=== PATIENT | male | born 1975 | race Caucasian/White ===

== ENCOUNTER 2016-11-28 00:31 | Inpatient (IN) | payer OTHER ==
[2016-11-28] VITALS (7 sets, daily range): BP systolic 118–132; BP diastolic 56–64; PULSE 67–87; RESP 19–20; TEMP 98.2; Ht 172.7 cm; Wt 167.2 kg
[~2016-11-28] VITALS: Ht 172.7 cm; Wt 167.2 kg
[~2016-11-28 00:31] MED LIST: FURO40TA4 PO; POTA20TA96 PO
[2016-11-28] MEDS ORDERED: ONDANSETRON 4 MG INJ IV STA (01:43)
[2016-11-28] MEDS ORDERED: morphine 4 MG/ML VIAL IV STA (01:43)
[2016-11-28] MEDS ORDERED: NITROGLYCERIN 2% 1 GM OINT PKT TD STA (01:43)
[2016-11-28] MEDS ORDERED: ASPIRIN 81 MG TAB PO STA (01:43)
[2016-11-28 02:29] LABS: ADD SCAN DIFF NO
[2016-11-28 02:36] LABS: BASOPHIL # 0.1 10^3/ul (0.0-0.1); BASOPHILS % 0.4 % (0.0-2.0); EOSINOPHILS # 0.3 10^3/ul (0.0-0.5); HEMATOCRIT 43.2 % (42.0-52.0); HEMOGLOBIN 14.1 g/dl (14.0-18.0); LYMPHOCYTES # 2.5 10^3/ul (0.8-2.9); LYMPHOCYTES % 19.7 % (15.0-51.0); MEAN CORPUSCULAR HEMOGLOBIN 25.9 pg (29.0-33.0); MEAN CORPUSCULAR HGB CONC 32.6 g/dl (32.0-37.0); MEAN CORPUSCULAR VOLUME 79.4 fl (82.0-101.0); MEAN PLATELET VOLUME 10.4 fl (7.4-10.4); MONOCYTE # 1.1 10^3/ul (0.3-0.9); MONOCYTES % 8.3 % (0.0-11.0); NEUTROPHIL # 8.7 10^3/ul (1.6-7.5); NEUTROPHILS % 69.2 % (39.0-77.0); PLATELET COUNT 260 10^3/UL (140-415); RED BLOOD COUNT 5.44 10^6/ul (4.70-6.10); RED CELL DISTRIBUTION WIDTH 14.8 % (11.5-14.5); WHITE BLOOD COUNT 12.6 10^3/ul (4.8-10.8)
[2016-11-28 02:50] LABS: ALBUMIN 4.2 g/dl (3.3-4.9)
[2016-11-28 02:51] LABS: POTASSIUM 3.9 mmol/L (3.5-5.1)
[2016-11-28 02:53] LABS: ALBUMIN/GLOBULIN RATIO 1.05; BILIRUBIN,INDIRECT 0.3 mg/dl (0-1.1); BILIRUBIN,TOTAL 0.3 mg/dl (0.2-1.3); CREATININE 1.14 mg/dl (0.61-1.24); TOTAL PROTEIN 8.2 g/dl (6.1-8.1)
[2016-11-28 02:54] LABS: CALCIUM 9.4 mg/dl (8.4-10.2)
[2016-11-28 03:07] LABS: TROPONIN-I 0.046 ng/ml (0.00-0.12)
[2016-11-28 03:13] LABS: INR 0.96; PROTIME 12.8 Sec (12.2-14.2)
--- NOTE | 2016-11-28 03:15 | RADRPT ---
PROCEDURE: XR Chest. CLINICAL INDICATION: Chest pain. TECHNIQUE: Single frontal view of the chest was obtained COMPARISON: 08/22/2016 and 08/21/2016. FINDINGS: Cardiomegaly. Portable technique and patient body habitus accentuate pulmonary vascular markings. Mild pulmonary vascular congestion and patchy air space disease, new over interval since 08/22/2016 and decreased over interval since 08/21/2016. Generally, lung inflation on today's examination is improved over interval since prior examinations. There is no pleural effusion or pneumothorax. IMPRESSION: Mild failure. RPTAT: [facility] Physician Filemon Date Time Electronically viewed and signed by Physician Filemon on 11/28/2016 03:14 RS/
--- NOTE | 2016-11-28 04:06 | ERA ---
ER Documentation Chief Complaint Date/Time DATE: 11/28/16 TIME: 04:05 Chief Complaint chest pain since 2 hours ago HPI This is a 40-year-old male has had chest pain since 2 hours ago on and off. Also complains of mild shortness breath. Chest pain is left-sided, pressure- like, substernal, nonexertional positional no exacerbating or alleviating factors. Mild shortness of breath associated. No diaphoresis. Denies any leg swelling. Patient does have history of CHF. EMR was reviewed. ROS All systems reviewed and are negative except as per history of present illness. Medications Home Meds Active Scripts Potassium Chloride* (Potassium Chloride*) 20 Meq Tablet.er, 20 MEQ PO DAILY for 30 Days, TAB.SA Prov:KATIE BERMUDEZ BATCH MIXER 08/26/16 Furosemide* (Furosemide*) 40 Mg Tablet, 40 MG PO BID for 30 Days, TAB Prov:KATIE BERMUDEZ BATCH MIXER 08/26/16 Allergies Allergies: Coded Allergies: No Known Allergy (Unverified , 09/28/15) PMhx/Soc Medical and Surgical Hx: pt denies Surgical Hx History of Surgery: No Anesthesia Reaction: No Hx Neurological Disorder: No Hx Respiratory Disorders: Yes (Sleep Apnea) Hx Cardiac Disorders: Yes (Hypertension, Heart murmur, AORTIC STENOSIS) Hx Psychiatric Problems: No Hx Miscellaneous Medical Probl: No Hx Alcohol Use: Yes (Socially) Hx Substance Use: No Hx Tobacco Use: Yes Smoking Status: Former smoker Physical Exam Vitals Vital Signs Date Time Temp Pulse Resp B/P Pulse Ox O2 Delivery O2 Flow Rate FiO2 11/28/16 03:09 98.0 81 20 111/66 94 Room Air 11/28/16 01:46 Nasal Cannula 11/28/16 00:34 97.8 77 20 182/84 96 Physical Exam Const: [] Head: Atraumatic Eyes: Normal Conjunctiva ENT: Normal External Ears, Nose and Mouth. Neck: Full range of motion..~ No meningismus. Resp: Clear to auscultation bilaterally Cardio: Regular rate and rhythm, no murmurs Abd: Soft, non tender, non distended. Normal bowel sounds Skin: No petechiae or rashes Back: No midline or flank tenderness Ext: No cyanosis, or edema Neur: Awake and alert Psych: Normal Mood and Affect Result Diagram: 11/28/1615411/28/16154 Results 24 hrs Laboratory Tests Test 11/28/16 01:55 White Blood Count 12.610^3/ul Red Blood Count 5.4410^6/ul Hemoglobin 14.1g/dl Hematocrit 43.2% Mean Corpuscular Volume 79.4fl Mean Corpuscular Hemoglobin 25.9pg Mean Corpuscular Hemoglobin Concent 32.6g/dl Red Cell Distribution Width 14.8% Platelet Count 08248^3/UL Mean Platelet Volume 10.4fl Neutrophils % 69.2% Lymphocytes % 19.7% Monocytes % 8.3% Eosinophils % 2.0% Basophils % 0.4% Nucleated Red Blood Cells % 0.0/100WBC Neutrophils # 8.710^3/ul Lymphocytes # 2.510^3/ul Monocytes # 1.110^3/ul Eosinophils # 0.310^3/ul Basophils # 0.110^3/ul Nucleated Red Blood Cells # 0.010^3/ul Prothrombin Time 12.8Sec Prothrombin Time Ratio 1.0 INR International Normalized Ratio 0.96 Activated Partial Thromboplast Time 31.0Sec Sodium Level 140mmol/L Potassium Level 3.9mmol/L Chloride Level 103mmol/L Carbon Dioxide Level 26mmol/L Anion Gap 15 Blood Urea Nitrogen 20mg/dl Creatinine 1.14mg/dl Glucose Level 119mg/dl Calcium Level 9.4mg/dl Total Bilirubin 0.3mg/dl Direct Bilirubin 0.00mg/dl Indirect Bilirubin 0.3mg/dl Aspartate Amino Transf (AST/SGOT) 31IU/L Alanine Aminotransferase (ALT/SGPT) 29IU/L Alkaline Phosphatase 60IU/L Troponin I 0.046ng/ml B-Type Natriuretic Peptide 696PG/ML Total Protein 8.2g/dl Albumin 4.2g/dl Globulin 4.00g/dl Albumin/Globulin Ratio 1.05 Lipase 35U/L Current Medications Medications (Trade) Dose Ordered Sig/Ana Maria Route PRN Reason Start Time Stop Time Status Last Admin Dose Admin Aspirin (Aspirin) 162 mg ONCE STAT PO 11/28/16 01:43 11/28/16 01:44 DC 11/28/16 02:12 Nitroglycerin (Nitroglycerin 2% Oint) 1 inch ONCE STAT TD 11/28/16 01:43 11/28/16 01:44 DC 11/28/16 02:13 Morphine Sulfate (morphine) 4 mg ONCE STAT IV 11/28/16 01:43 11/28/16 01:44 DC 11/28/16 02:13 Ondansetron HCl (Zofran Inj) 4 mg ONCE STAT IV 11/28/16 01:43 11/28/16 01:44 DC 11/28/16 02:12 Procedures/MDM EKG: Rate/Rhythm: [Normal Sinus Rhythm] QRS, ST, T-waves: [No changes consistent w/ acute ischemia] Impression: [No evidence of ischemia or arrhythmia] Chest X-ray 1V Interpreted by me: Soft Tissue: No acute abnormalities Bones: No acute abnormalities Mediastinum/Cardiac Silhouette/Lungs: Increased interstitial fluid markings. Impression: CHF Patient's heart failure symptoms is concerning for acute decompensation and will require inpatient workup and monitoring. Further w/u for ischemia, arrhythmia, PE or dissection will be deferred to the inpatient team. Accepting Care Team: Current data and ongoing care discussed. Time: 3 AM Primary Provider: Hospitalist Consulting: [XOXOXO] Outstanding Data: none Departure Diagnosis: Primary Impression: Chest pain Qualified Code: I20.0 - Unstable angina pectoris Condition: Serious ADALGISA NEWTON Nov 28, 2016 04:06
--- NOTE | 2016-11-28 06:00 | HP ---
DATE OF ADMISSION: 11/28/2016 HISTORY OF PRESENT ILLNESS: The patient is a 40-year-old male with a history of severe aortic steno sis, obesity with a BMI of 50, obstructive sleep apnea, and hypertension who presented to the emerge ncy department complaining of left-sided chest pain. Pain has been going on for 1 hour. Described the pain as sharp, left-sided, with no radiation. He also reported chronic shortness of breath. He denied any nausea, vomiting, palpitations, lightheadedness, or diaphoresis. He did, however, compl ain of headache. The patient was admitted here about 3 months ago after he presented with shortness of breath. At that time, he was found to have severe aortic stenosis. He underwent left and right heart catheterization which confirmed severe aortic stenosis. Subsequently, he was evaluated by Dr Jennifer Ray, cardiothoracic surgeon, who recommended transferring the patient to a higher level facilit given his comorbidities including his significant obesity. At that time, the patient, however, de cided to leave the hospital instead of being transferred saying that he will attempt aggressive risk reduction including losing weight. At that time, as per cardiothoracic surgery, he had a 50% two y ear mortality based on his severe aortic stenosis. The patient stated that he [place] [facility] [place] to the [place], blood pressure 182/84, heart rate 77, respiratory rate 20, temperature 97.8, oxygen saturation 96% on room air. His laboratory value shows that his first troponin is nega tive. BNP is almost 700. WBC 12.6. Otherwise, CBC and CMP are within acceptable range. Chest x-r ay shows mild pulmonary vascular congestion and patchy airspace disease. EKG shows normal sinus rhy thm with no ST elevation or depression. He was given aspirin, nitroglycerin, morphine, and Zofran w hile he was in the ER. REVIEW OF SYSTEMS: A 12-point review of systems was performed an negative except as mentioned in HP I. PAST MEDICAL HISTORY: As per HPI. PAST SURGICAL HISTORY: As per HPI. SOCIAL HISTORY: Drinks alcohol occasionally. ALLERGIES: NO KNOWN DRUG ALLERGIES. HOME MEDICATIONS: 1. Lasix 40 mg twice a day. 2. Potassium 20 mg daily. PHYSICAL EXAMINATION: VITAL SIGNS: Blood pressure 111/66, heart rate 81, respiratory rate 20, temperature 98, oxygen satu ration 94% on room air. GENERAL: Obese male lying in bed, no acute distress. HEENT: No obvious head deformity. Pupils are reactive to light. CARDIOVASCULAR: Positive for systolic murmur. LUNGS: Slightly diminished breath sounds at the bases anteriorly. ABDOMEN: Obese, nontender. Positive bowel sounds. EXTREMITIES: Edema. LABORATORY: Pertinent positive labs as mentioned in the HPI. IMAGING: Chest x-ray results as mentioned in the HPI. IMPRESSION: 1. Chest pain, need to rule out acute coronary syndrome. 2. History of severe aortic valve stenosis. 3. Obesity with a BMI of 50. 4. Hypertension. 5. Obstructive sleep apnea. 6. Leukocytosis, likely stress-induced. PLAN: Admit to telemetry unit. Currently, his blood pressure is within normal limits. We will sebas nd his troponin. We will provide nitroglycerin and morphine as needed for chest pain. We will plac e a cardiology consult. He will be placed on oxygen, and we will place him on positive airway venti lation as needed for shortness of breath given his history of obstructive sleep apnea. Once he is r uled out for acute coronary syndrome and is stable, he will be discharged and need to follow up with cardiothoracic surgeon as outpatient to address his severe aortic stenosis. Further workup and management per clinical course. Dictated By: ADALGISA SPIVEY/LYNDA Conf#: [id number] DID#: [id number]
[2016-11-28] MEDS ORDERED: CHOL100062 PO (06:34)
[2016-11-28] MEDS ORDERED: BENA10TA48 PO (06:34)
[2016-11-28] MEDS: FUROSEMIDE 20 MG TAB PO SCH ×2 (09:06→09:09)
[2016-11-28] MEDS ORDERED: BENAZEPRIL 10 MG TAB PO SCH (12:00)
--- NOTE | 2016-11-28 13:53 | PDOCDIS ---
Discharge Instructions CONDITION Patient Condition: Good HOME CARE INSTRUCTIONS: Special Diet: cardiac ACTIVITY: Activity Restrictions: No Restrictions FOLLOW UP/APPOINTMENTS Appointments Follow up at [facility] tomorrow for stress test Follow up with CT surgeon as out-pt MARLEEN JOHNS MD Nov 28, 2016 13:53
[2016-11-28] MEDS ORDERED: ASPI81TA3 PO (13:54)
[2016-11-28] MEDS ORDERED: CEPH500C PO (13:54)
[2016-11-28] MEDS ORDERED: CEFTRIAXONE 1 GM/50 ML (PMX) 50 ML IVPB SCH (14:00)
[2016-11-28] MEDS ORDERED: DOCUSATE SODIUM 100 MG CAP PO PRN (16:00)
[2016-11-28 16:03] LABS: CK-MB 3.44 ng/ml (0.0-2.4)
[2016-11-28 16:30] LABS: TROPONIN-I 0.279 ng/ml (0.00-0.12)
--- NOTE | 2016-11-28 17:22 | PN ---
Date/Time of Note Date/Time of Note DATE: 11/28/16 TIME: 17:19 Assessment/Plan VTE Prophylaxis VTE Prophylaxis Intervention: other Lines/Catheters IV [facility]from [facility] Saline Lock Assessment/Plan Chief Complaint/Hosp Course IMPRESSION: 1. Chest pain, need to rule out acute coronary syndrome. Continue aspirin, follow up lipid panel, follow up to the echocardiogram. Cardiology has been consulted Mildly elevated troponin, follow-up serial troponin follow-up cardiology recommendations 2. History of severe aortic valve stenosis. Patient has been set up to be follow-up with cardiothoracic surgeon as outpatient 3. Obesity with a BMI of 50. Diet and exercise has been recommended 4. Hypertension. Well-controlled on medical management 5. Obstructive sleep apnea. 6. Leukocytosis, likely stress-induced. Rocephin prophylactically PLAN:Once he is ruled out for acute coronary syndrome and is stable, he will be discharged and need to follow up with cardiothoracic surgeon as outpatient to address his severe aortic stenosis. Problems: Subjective 24 Hr Interval Summary Free Text/Dictation Patient denies of any chest pain or shortness of breath Denies of any headache or dizziness Exam/Review of Systems Vital Signs Vitals Vital Signs Date Time Temp Pulse Resp B/P Pulse Ox O2 Delivery O2 Flow Rate FiO2 11/28/16 16:36 87 11/28/16 15:38 98.0 20 132/60 96 11/28/16 07:29 Room Air Exam General: The patient is morbidly obese, Not in acute distress. HEENT: Atraumatic, normocephalic. The pupils are equal and round . Neck: Supple with full range of motion. Chest: Normal expansion of the thorax during inspiration Lungs: Clear to auscultation bilaterally Heart: Normal S1-S2, Regular rhythm and rate.3/6 systolic murmur Abdomen: Soft , nontender, nondistended , bowel sounds are present. Extremities: Normal to inspection, no edema no cyanosis Neurologic: Normal mental status,The patient is awake, alert and oriented . Results Result Diagram: 11/28/16 0155 11/28/16 0155 Results 24 hrs Laboratory Tests Test 11/28/16 01:55 11/28/16 15:25 White Blood Count 12.6 #H Red Blood Count 5.44 Hemoglobin 14.1 Hematocrit 43.2 Mean Corpuscular Volume 79.4 L Mean Corpuscular Hemoglobin 25.9 L Mean Corpuscular Hemoglobin Concent 32.6 Red Cell Distribution Width 14.8 H Platelet Count 260 Mean Platelet Volume 10.4 # Neutrophils % 69.2 Lymphocytes % 19.7 Monocytes % 8.3 Eosinophils % 2.0 Basophils % 0.4 Nucleated Red Blood Cells % 0.0 Neutrophils # 8.7 H Lymphocytes # 2.5 Monocytes # 1.1 H Eosinophils # 0.3 Basophils # 0.1 Nucleated Red Blood Cells # 0.0 Prothrombin Time 12.8 Prothrombin Time Ratio 1.0 INR International Normalized Ratio 0.96 Activated Partial Thromboplast Time 31.0 Sodium Level 140 Potassium Level 3.9 Chloride Level 103 Carbon Dioxide Level 26 Anion Gap 15 Blood Urea Nitrogen 20 Creatinine 1.14 Glucose Level 119 Calcium Level 9.4 Total Bilirubin 0.3 Direct Bilirubin 0.00 Indirect Bilirubin 0.3 Aspartate Amino Transf (AST/SGOT) 31 Alanine Aminotransferase (ALT/SGPT) 29 Alkaline Phosphatase 60 Troponin I 0.046 0.279 *H B-Type Natriuretic Peptide 696 H Total Protein 8.2 H Albumin 4.2 Globulin 4.00 H Albumin/Globulin Ratio 1.05 Lipase 35 Creatine Kinase 74 Creatine Kinase Index 4.6 Creatinine Kinase MB (Mass) 3.44 H Medications Medications Current Medications Benazepril HCl (Lotensin) 10 mg DAILY PO Last administered on 11/28/16 13:22; Admin Dose 10 MG; Start 11/28/16 at 12:00 Cholecalciferol (Vitamin D) 5,000 unit DAILY PO ; Start 11/29/16 at 09:00 Furosemide (Lasix) 40 mg BID@06,18 PO ; Start 11/28/16 at 18:00 Potassium Chloride 20 meq 20 meq DAILY PO ; Start 11/29/16 at 09:00 Ceftriaxone Sodium (Rocephin) 50 ml @ 100 mls/hr Q24H IVPB Last administered on 11/28/16 15:46; Admin Dose 100 MLS/HR; Start 11/28/16 at 14:00 Docusate Sodium (Colace) 100 mg PRN PRN PO CONSTIPATION; Start 11/28/16 at 16:00 MARLEEN JOHNS MD Nov 28, 2016 17:22
[2016-11-28] MEDS ORDERED: FUROSEMIDE 40 MG TAB PO SCH (18:00)
[2016-11-29] MEDS ORDERED: POTASSIUM CHLORIDE (SR) 20 MEQ TAB PO SCH (09:00)
[2016-11-29] MEDS ORDERED: CHOLECALCIFEROL 1,000 UNIT TAB PO SCH (09:00)
--- NOTE | 2016-11-29 15:03 | DS ---
Date/Time of Note Date/Time of Note DATE: 11/29/16 TIME: 14:59 Discharge Summary Admission/Discharge Info Admit Date/Time Nov 28, 2016 at 07:59 Discharge Date/Time Nov 28, 2016 at 18:15 Final Diagnosis Patient sign out AMA 1. Chest pain, 2. History of severe aortic valve stenosis. 3. Non-ST UT 4. Obesity with a BMI of 50. 5. Hypertension. 6. Obstructive sleep apnea. 7. Leukocytosis, likely stress-induced. Hospital Course This is a 40-year-old gentleman with past medical history of severe aortic stenosis on presented to [facility] after he had binge drinking and complain of having abdominal discomfort in the substernal discomfort. Patient was admitted to telemetry floor which his troponin was found to be mildly elevated cardiology was consulted although prior to evaluation by the glost kiln operator patient decided to sign out AMA.. Patient stated that he has an appointment to be follow-up with his own glost kiln operator [facility] and he has been set up to be evaluated by cardiothoracic surgeon at [facility] for his aortic valve stenosis. Patient understood the risk of leaving the hospital without medical advice and treatment which may lead to worsening of his condition, chest pain, worsening of his heart condition and possible Home Meds Active Scripts Aspirin* (Aspirin* Chew) 81 Mg Tab.chew, 81 MG PO DAILY, #30 TAB.CHEW Prov:MARLEEN JOHNS MD 11/28/16 Cephalexin* (Cephalexin*) 500 Mg Capsule, 500 MG PO Q8, #15 CAP Prov:MARLEEN JOHNS MD 11/28/16 Potassium Chloride* (Potassium Chloride*) 20 Meq Tablet.er, 20 MEQ PO DAILY for 30 Days, TAB.SA Prov:KATIE BERMUDEZ NP 08/26/16 Furosemide* (Furosemide*) 40 Mg Tablet, 40 MG PO BID for 30 Days, TAB Prov:KATIE BERMUDEZ NP 08/26/16 Reported Medications Cholecalciferol* (Vitamin D3*) 1,000 Unit Tablet, 5000 UNIT PO DAILY, TAB 11/28/16 Benazepril Hcl* (Benazepril Hcl*) 10 Mg Tablet, 10 MG PO DAILY, #30 TAB 11/28/16 Pending Labs Laboratory Tests Test 11/28/16 15:25 Creatine Kinase 74IU/L (23-200) Creatine Kinase Index 4.6 Creatinine Kinase MB (Mass) 3.44ng/ml (0.0-2.4) Troponin I 0.279ng/ml (0.00-0.12) MARLEEN JOHNS MD Nov 29, 2016 15:02
== END 2016-11-28 18:15 | disposition left against medical advice (07) | DRG 281 ==
LOC: E/R 00:31 → TEL 07:59
PROVIDERS: ADMIT Internal Medicine; ATTEND Internal Medicine
DX: I21.4 Non-ST elevation (NSTEMI) myocardial infarction (principal); Z68.43 Body mass index [BMI] 50.0-59.9, adult; I10 Essential (primary) hypertension; I35.0 Nonrheumatic aortic (valve) stenosis; E66.9 Obesity, unspecified; G47.33 Obstructive sleep apnea (adult) (pediatric); D72.829 Elevated white blood cell count, unspecified
CPT/HCPCS: 36415; 71010; 80053; 82550; 82553; 83690; 83880; 84484; 85025; 85610; 85730; 93005; 96374; 96375; J0696; J2270; J2405

== ENCOUNTER 2016-12-19 21:31 | Emergency (ER) | payer SELFPAY ==
[~2016-12-19] VITALS: Ht 172.7 cm; Wt 166.0 kg
[~2016-12-19 21:31] MED LIST changes: +ASPI81TA3 PO; +BENA10TA48 PO; +CEPH500C PO; +CHOL100062 PO
[2016-12-19 21:33] VITALS: Ht 172.7 cm; Wt 166.0 kg
== END 2016-12-20 00:24 | disposition left against medical advice (07) ==
LOC: E/R 21:31
DX: Z53.21 Procedure and treatment not carried out due to patient leaving prior to being seen by health care provider (principal)

== ENCOUNTER 2017-02-06 10:52 | Inpatient (IN) | payer MEDICAID ==
[~2017-02-06] VITALS: Ht 170.2 cm; Wt 163.5 kg
[2017-02-06] MEDS ORDERED: LEVALBUTEROL (NEB) 1.25 MG/0.5 ML AMP INH STA (11:08)
[2017-02-06 11:28] LABS: ADD SCAN DIFF NO
[2017-02-06 11:31] LABS: ABNORMAL IP MESSAGE 1; HEMATOCRIT 30.6 % (42.0-52.0); HEMOGLOBIN 9.6 g/dl (14.0-18.0); MEAN CORPUSCULAR HEMOGLOBIN 25.9 pg (29.0-33.0); MEAN CORPUSCULAR HGB CONC 31.4 g/dl (32.0-37.0); MEAN CORPUSCULAR VOLUME 82.5 fl (82.0-101.0); MEAN PLATELET VOLUME 9.7 fl (7.4-10.4); PLATELET COUNT 674 10^3/UL (140-415); RED BLOOD COUNT 3.71 10^6/ul (4.70-6.10); RED CELL DISTRIBUTION WIDTH 15.3 % (11.5-14.5)
[2017-02-06 11:51] LABS: INR 2.08; PROTIME 23.6 Sec (12.2-14.2); PT RATIO 1.8
[2017-02-06 11:52] LABS: ALBUMIN 4.5 g/dl (3.3-4.9); ALBUMIN/GLOBULIN RATIO 1.32; BILIRUBIN,INDIRECT 0.8 mg/dl (0-1.1); BILIRUBIN,TOTAL 0.8 mg/dl (0.2-1.3); CALCIUM 9.4 mg/dl (8.4-10.2); CREATININE 0.97 mg/dl (0.61-1.24); PARTIAL THROMBOPLASTIN TIME 34.5 Sec (25.0-35.0); POTASSIUM 4.4 mmol/L (3.5-5.1); TOTAL PROTEIN 7.9 g/dl (6.1-8.1)
[2017-02-06 12:04] LABS: CK-MB 1.58 ng/ml (0.0-2.4); TROPONIN-I 0.875 ng/ml (0.00-0.12)
--- NOTE | 2017-02-06 12:48 | RADRPT ---
PROCEDURE: Chest Radiograph. CLINICAL INDICATION: Shortness of breath TECHNIQUE: Single frontal chest radiograph. COMPARISON: Chest radiograph 11/28/2016 FINDINGS: The the patient is status post interval sternotomy. The heart is magnified and may be enlarged. N o infiltrate or effusion is seen. The bones are intact. IMPRESSION: 1. No evidence of acute cardiopulmonary disease. 2. Status post sternotomy. 3. Possible cardiomegaly. RPTAT: KK .Uvaldo Boo MD, MD Date Time Electronically viewed and signed by .Uvaldo Boo MD, MD on 02/06/2017 12:48 .B/
[2017-02-06] MEDS ORDERED: WARF5TAB72 PO (12:58)
[2017-02-06 13:15] LABS: BASOPHIL # 0.4 10^3/ul (0.0-0.1); LYMPHOCYTES # 2.2 10^3/ul (0.8-2.9); MONOCYTE # 1.6 10^3/ul (0.3-0.9); PLATELET ESTIMATE PLT APPEAR INCREASED
--- NOTE | 2017-02-06 13:39 | ERA ---
ER Documentation Chief Complaint Date/Time DATE: 02/06/17 TIME: 13:32 Chief Complaint SOB INCREASING X2 DAYS (BESS ZHANG DO) HPI This a 41-year-old male who underwent an aortic valve replacement with mechanical valve at [facility] 2 weeks ago. He says he has been doing relatively well until the past 2 days is getting severe shortness of breath with exertion and with laying flat. He says he can only walk a few feet before getting out of breath. He is not having any fever no chest pain no leg pain, he has chronic swelling in his lower extremities that he says is about the same. No abdominal pain nausea vomiting or diarrhea (BESS ZHANG DO) ROS All systems reviewed and are negative except as per history of present illness. (BESS ZHANG DO) Medications Home Meds Active Scripts Aspirin* (Aspirin* Chew) 81 Mg Tab.chew, 81 MG PO DAILY, #30 TAB.CHEW Prov:MARLEEN JOHNS MD 11/28/16 Furosemide* (Furosemide*) 40 Mg Tablet, 40 MG PO BID for 30 Days, TAB Prov:KATIE BERMUDEZ NP 08/26/16 Reported Medications Warfarin Sodium* (Coumadin*) 5 Mg Tablet, 5 MG PO DAILY, TAB 02/06/17 Cholecalciferol* (Vitamin D3*) 1,000 Unit Tablet, 5000 UNIT PO DAILY, TAB 11/28/16 Benazepril Hcl* (Benazepril Hcl*) 10 Mg Tablet, 10 MG PO DAILY, #30 TAB 11/28/16 Discontinued Scripts Cephalexin* (Cephalexin*) 500 Mg Capsule, 500 MG PO Q8, #15 CAP Prov:MARLEEN JOHNS MD 11/28/16 Potassium Chloride* (Potassium Chloride*) 20 Meq Tablet.er, 20 MEQ PO DAILY for 30 Days, TAB.SA Prov:KATIE BERMUDEZ NP 08/26/16 Allergies Allergies: Coded Allergies: No Known Allergy (Unverified , 12/19/16) PMhx/Soc History of Surgery: Yes (angiogram 08/23/2016) Anesthesia Reaction: No Hx Neurological Disorder: No Hx Respiratory Disorders: No Hx Cardiac Disorders: Yes (HTN, heart murmur, Aortic stenosis, MECHANICAL VALVE ) Hx Psychiatric Problems: No Hx Miscellaneous Medical Probl: No Hx Alcohol Use: No (occasionally) Hx Substance Use: No Hx Tobacco Use: No Smoking Status: Never smoker (RAMESH ZHANGBRITTLeroy Garcia DO) FmHx Family History: No coronary disease (RAMESH ZHANGBRITTLeroy Garcia DO) Physical Exam Vitals Vital Signs Date Time Temp Pulse Resp B/P Pulse Ox O2 Delivery O2 Flow Rate FiO2 02/06/17 22:00 98.6 106 24 112/76 100 Nasal Cannula 3.0 02/06/17 20:00 98.5 100 24 115/69 100 Nasal Cannula 3.0 02/06/17 18:15 98.6 104 24 106/73 100 Nasal Cannula 2.0 02/06/17 16:23 101 24 136/119 100 2.0 02/06/17 13:27 104 24 122/57 100 2.0 02/06/17 11:18 101 20 100 Nasal Cannula 2.0 02/06/17 10:57 97.8 105 24 130/90 99 (ANTOINE KING DO) Physical Exam Const: Well-developed, well-nourished Head: Atraumatic, normocephalic Eyes: Normal Conjunctiva, PERRLA, EOMI, normal sclera, no nystagmus ENT: Normal External Ears, Nose and Mouth, moist mucus membranes. Neck: Full range of motion. No meningismus, no lymphadenopathy. Resp: Clear to auscultation bilaterally, no wheezing, rhonchi, rales Cardio: Regular rate and rhythm, positive mechanical valve click , no murmurs, S1 S2 present Abd: Soft, non tender x 4, non distended. Normal bowel sounds, no guarding or rebound, no pulsitile abdominal masses or bruits Skin: No petechiae or rashes, no ecchymosis , no maculopapular rash, chest wound is clean dry and intact no signs of erythema or abscess Back: No midline or flank tenderness Ext: No cyanosis, +2 edema, FROM x 4, normal inspection, neurovascularly intact x 4 Neur: Awake and alert, STR 5/5 x 4, sensation intact x 4, no focal findings, cerebellum intact Psych: Normal Mood and Affect (BESS ZHANG DO) Result Diagram: 02/06/17 1110 02/06/17 1110 Results 24 hrs Laboratory Tests Test 02/06/17 11:10 02/06/17 14:15 White Blood Count 20.010^3/ul Red Blood Count 3.7110^6/ul Hemoglobin 9.6g/dl Hematocrit 30.6% Mean Corpuscular Volume 82.5fl Mean Corpuscular Hemoglobin 25.9pg Mean Corpuscular Hemoglobin Concent 31.4g/dl Red Cell Distribution Width 15.3% Platelet Count 97191^3/UL Mean Platelet Volume 9.7fl Neutrophils % 75.0% Band Neutrophils % 4.0% Lymphocytes % 11.0% Monocytes % 8.0% Basophils % 2.0% Nucleated Red Blood Cells % 1.0/100WBC Neutrophils # 15.010^3/ul Lymphocytes # 2.210^3/ul Monocytes # 1.610^3/ul Basophils # 0.410^3/ul Platelet Estimate PLT APPEAR INCREASED Prothrombin Time 23.6Sec Prothrombin Time Ratio 1.8 INR International Normalized Ratio 2.08 Activated Partial Thromboplast Time 34.5Sec Sodium Level 139mmol/L Potassium Level 4.4mmol/L Chloride Level 101mmol/L Carbon Dioxide Level 26mmol/L Anion Gap 16 Blood Urea Nitrogen 19mg/dl Creatinine 0.97mg/dl Glucose Level 137mg/dl Calcium Level 9.4mg/dl Total Bilirubin 0.8mg/dl Direct Bilirubin 0.00mg/dl Indirect Bilirubin 0.8mg/dl Aspartate Amino Transf (AST/SGOT) 82IU/L Alanine Aminotransferase (ALT/SGPT) 94IU/L Alkaline Phosphatase 126IU/L Creatine Kinase 34IU/L Creatine Kinase Index 4.6 Creatinine Kinase MB (Mass) 1.58ng/ml Troponin I 0.875ng/ml B-Type Natriuretic Peptide 3160PG/ML Total Protein 7.9g/dl Albumin 4.5g/dl Globulin 3.40g/dl Albumin/Globulin Ratio 1.32 Urine Color YELLOW Urine Clarity CLEAR Urine pH 5.5 Urine Specific [place] 1.025 Urine Ketones NEGATIVE Urine Nitrite NEGATIVE Urine Bilirubin NEGATIVE Urine Urobilinogen 1.0 E.U./dL Urine Leukocyte Esterase NEGATIVE Urine Microscopic RBC 0-2/HPF Urine Microscopic WBC NONE SEEN/HPF Urine Bacteria OCCASIONAL Urine Hemoglobin NEGATIVE Urine Glucose NEGATIVE% Urine Total Protein TRACE Current Medications Medications (Trade) Dose Ordered Sig/[place] Route PRN Reason Start Time Stop Time Status Last Admin Dose Admin Levalbuterol 5 mg 5 mg ONCE STAT INH 02/06/17 11:08 02/06/17 11:11 DC 02/06/17 11:18 Vancomycin HCl (Vancocin) 250 ml @ 125 mls/hr ONCE IVPB 02/06/17 14:00 02/06/17 15:59 DC 02/06/17 15:23 Ceftriaxone Sodium 2 gm 2 gm ONCE ONCE IM 02/06/17 14:00 02/06/17 14:00 DC Ceftriaxone Sodium (Rocephin) 50 ml @ 100 mls/hr ONCE ONCE IVPB 02/06/17 14:00 02/06/17 14:29 DC 02/06/17 14:28 Ondansetron HCl (Zofran Inj) 4 mg ER BRIDGE PRN IV NAUSEA AND/OR VOMITING 02/06/17 15:00 02/06/17 22:32 DC Acetaminophen (Tylenol Tab) 650 mg ER BRIDGE PRN PO MILD PAIN/FEVER 02/06/17 15:00 02/06/17 22:33 DC IV Flush 10 ml 10 ml STK-MED ONCE .ROUTE 02/06/17 14:52 02/06/17 14:53 DC 02/06/17 15:23 Sodium Chloride 100 ml @ ud STK-MED ONCE .ROUTE 02/06/17 14:53 02/06/17 14:54 DC 02/06/17 15:23 Iohexol (Omnipaque) 100 ml @ ud STK-MED ONCE .ROUTE 02/06/17 14:53 02/06/17 14:54 DC 02/06/17 15:23 Docusate Sodium (Colace) 100 mg Q12H PRN PO CONSTIPATION 02/06/17 22:30 Bisacodyl (Dulcolax) 5 mg DAILY PRN PO CONSTIPATION 02/06/17 22:30 Pantoprazole (Protonix Iv) 40 mg DAILY@06 IV 02/07/17 06:00 (ANTOINE KING DO) Procedures/MDM PROCEDURE: Chest Radiograph. CLINICAL INDICATION: Shortness of breath TECHNIQUE: Single frontal chest radiograph. COMPARISON: Chest radiograph 11/28/2016 FINDINGS: The the patient is status post interval sternotomy. The heart is magnified and may be enlarged. No infiltrate or effusion is seen. The bones are intact. IMPRESSION: 1. No evidence of acute cardiopulmonary disease. 2. Status post sternotomy. 3. Possible cardiomegaly. RPTAT: KK .Uvaldo Boo MD, Date Time Electronically viewed and signed by .Uvaldo Boo MD, on 2016 12:48 .B/ CC: BESS ZHANG DO EKG: Rate/Rhythm: Sinus tachycardia heart rate 105 with inverted T waves in the inferior and laterally QRS, ST, QT: NORMAL OK, QRS, QT] Impression: ab NORMAL EKG Cardiac echo gram is been ordered This patient has an elevated white blood count, he has an elevated troponin as well but this may be due to his recent surgery and his troponin could be trending down. His BNP is elevated with no evidence of CHF on his chest x-ray. CT scan of the chest has been ordered and to rule out pulmonary embolism, his INR is 2. Patient may have an infectious process due to the elevated white blood count, endocarditis is a possibility however does not have fever and his CK-MB is not elevated nor CPK We will start antibiotics and get blood cultures. We will admit the patient to the hospital for further workup and have his cardiac echogram read today Do not feel this is any type of valvular dysfunction this time (BESS ZHANG DO) This patient's disposition was signed out to me. Going to the nurse she just received a call from [employer] sales engineer would read her echocardiogram and suggested the patient be transferred to [facility] where he had his surgery the week prior. I called and talked to , through an intermediary and surgery who agreed to admit the patient at [facility]. Because however had no available beds. The doctor then agreed to admit the patient to this hospital. Spoke with Dr. Roa who admitting the patient to the ICU. I believe ICU is necessary because the patient has a pericardial effusion secondary to his surgery last week and shortness of breath with tachycardia. If this develops to tamponade I believe intensive care is the best place for him. (ANTOINE KING DO) Departure Diagnosis: Primary Impression: Dyspnea Qualified Code: R06.09 - Dyspnea on exertion Additional Impressions: Leukocytosis Qualified Code: D72.829 - Leukocytosis, unspecified type CHF (congestive heart failure) Qualified Code: I50.9 - Congestive heart failure, unspecified congestive heart failure chronicity, unspecified congestive heart failure type Condition: BESS Addison DO Feb 06, 2017 13:39 ANTOINE KING DO Feb 06, 2017 23:03
[2017-02-06] MEDS ORDERED: VANCOMYCIN 1 GM (PMX) 250 ML IVPB SCH (14:00)
[2017-02-06] MEDS ORDERED: CEFTRIAXONE 2 GM INJ IM ONE (14:00)
[2017-02-06] MEDS ORDERED: CEFTRIAXONE 2 GM/NS 50 ML IVPB ONE (14:00)
[2017-02-06 14:29] LABS: ADD UMIC YES; UR BILIRUBIN (Dip) NEGATIVE (NEGATIVE); UR BLOOD (Dip) NEGATIVE (NEGATIVE); UR CLARITY CLEAR (CLEAR); UR COLOR YELLOW (YELLOW); UR GLUCOSE (Dip) NEGATIVE (NEGATIVE); UR KETONES (Dip) NEGATIVE (NEGATIVE); UR LEUKOCYTE ESTERASE (Dip) NEGATIVE (NEGATIVE); UR NITRITE (Dip) NEGATIVE (NEGATIVE); UR TOTAL PROTEIN (Dip) TRACE (NEGATIVE); UR UROBILINOGEN (Dip) 1.0 E.U./dL (0.1-1.0)
[2017-02-06 14:40] LABS: UR BACTERIA OCCASIONAL; URINE RBCS 0-2 /HPF (0)
[2017-02-06] MEDS ORDERED: IOHEXOL 100 ML ONE (14:53)
[2017-02-06] MEDS ORDERED: SOD CHLORIDE 0.9% 100 ML ONE (14:53)
[2017-02-06] MEDS ORDERED: ONDANSETRON 4 MG INJ IV PRN (15:00)
[2017-02-06] MEDS ORDERED: ACETAMINOPHEN 325 MG TAB PO PRN (15:00)
--- NOTE | 2017-02-06 15:32 | RADRPT ---
PROCEDURE: CTA Chest CLINICAL INDICATION: Dyspnea TECHNIQUE: CTA of the chest was performed following the uncomplicated IV administration of 110 cc Omnipaque 350. Coronal and sagittal images were reconstructed from the axial data set. 3-D volumet christiano rendered post processing was performed as well. One or more of the following dose reduction elizabteh hniques were used: automated exposure control, adjustment of the mA and/or kV according to patient s ize, use of iterative reconstruction technique. CTDI = 20.05 mGy. DLP = 799.17 mGy-cm. COMPARISON: No prior studies are available for comparison. FINDINGS: There is mild cardiomegaly. Moderate pericardial effusion is identified, without evidence of associ ated pericardial thickening. The patient is status post sternotomy and aortic valve replacement. N o thoracic aortic aneurysm or dissection is seen. No pulmonary embolism is identified. There is no mediastinal, hilar, axillary or supraclavicular lymphadenopathy. Moderate bilateral pleural effusions are noted, with associated bibasilar atelectasis. No focal acu te infiltrate, pulmonary edema, or pneumothorax is identified. The central tracheobronchial tree is clear. No pulmonary nodule or mass is identified. There is mild upper abdominal ascites. Visualized portions of the upper abdomen are otherwise unrem arkable. The osseous structures are remarkable for degenerative spondylosis of the spine. No osteol ytic or osteoblastic lesion is seen. IMPRESSION: 1. Moderate pericardial effusion. Mild cardiomegaly. 2. Moderate bilateral pleural effusions, with associated bibasilar atelectasis. 3. Mild upper abdominal ascites. 4. No evidence of pulmonary embolism. 5. No mass, lymphadenopathy, or focal acute infiltrate is identified. RPTAT: PP .Alonso Sloan MD, Date Time Electronically viewed and signed by .Alonso Sloan MD, MD on 02/06/2017 15:32 .R/
--- NOTE | 2017-02-06 16:48 | RADRPT ---
Echocardiogram Report Patient Name: GIULIANO COLE Gender: Male Date: 1975 Study Date: 06-Feb-2017 Dumpcart Driver: Yoan [facility] Location: [facility] Ref. Physician: BESS ZHANG Quality: Adequate Procedures: Transthoracic echocardiogram with complete 2D, M-Mode, and doppler examination. Indications: Shortness of breath. 2D/M Mode Doppler Measurement Value Normal Ranges Measurement Value Normal Ranges LVIDd 2D 4.6 3.5 - 5.6 cm CHECO Vmax 2.4 cm2 LVIDs 2D 3.6 2.1 - 4.1 cm CHECO VTI 2.4 cm2 LVPWd 2D 1.5 0.6 - 1.1 cm AV Mean Ata 1.0 m/sec IVSd 2D 1.4 0.6 - 1.1 cm AV Mean PG 4.5 mmHg AoR Diam 2D 2.4 2.0 - 3.7 cm AV Peak Ata 1.4 m/sec EDV 2D 94.9 cm3 AV Peak PG 7.5 mmHg ESV 2D 46.4 cm3 AV VTI 19.7 cm LVOT Diam 2.1 cm LVOT Mean Ata 0.6 m/sec LVOT Mean PG 2.0 mmHg LVOT Peak Ata 1.0 m/sec LVOT Peak PG 3.8 mmHg LVOT VTI 12.7 cm MV E Peak Ata 0.7 m/sec MV A Peak Ata 0.8 m/sec MV E/A 0.9 MV Decel Time 147 msec MV Decel [place] 5 MV E/A 0.9 Findings Left Ventricle: Lower limits of normal systolic function. Normal left ventricular cavity size. Moderate concentric left ventricular hypertrophy. Reduced left ventricular cavity size. Ejection fraction is visually estimated at 50 %. Abnormal Diastolic Function. Right Ventricle: Normal right ventricular size. Mild right ventricular hypokinesis. Left Atrium: The left atrium is normal in size. Right Atrium: The right atrium is normal in size. Mitral Valve: Normal appearance and function of the mitral valve with trace physiologic regurgitation. Aortic Valve: Aortic Valve Mechanical Prosthesis. Aortic valve Max velocity 1.37 m/sec. Max PG 7.50 mmHg. Mean PG 4.50 mmHg. Aortic valve area 2.20 cm2. Tricuspid Valve: Normal appearance and function of the tricuspid valve with trace physiologic regurgitation. Unable to obtain RVSP due to minimal presence of tricuspid regurgitation. Pericardium: Moderate pericardial effusion. Aorta: Normal aortic root. IVC: Dilated inferior vena cava with poor inspiratory collapse consistent with elevated right atrial pressures. Conclusions 1.Lower limits of normal systolic function. Normal left ventricular cavity size. Moderate concentric left ventricular hypertrophy. Reduced left ventricular cavity size. Ejection fraction is visually estimated at 50 %. Abnormal Diastolic Function. 2.Normal right ventricular size. Mild right ventricular hypokinesis. 3.Normal appearance and function of the mitral valve with trace physiologic regurgitation. 4.Aortic Valve Mechanical Prosthesis. Aortic valve Max velocity 1.37 m/sec. Max PG 7.50 mmHg. Mean PG 4.50 mmHg. Aortic valve area 2.20 cm2. 5.Normal appearance and function of the tricuspid valve with trace physiologic regurgitation. Unable to obtain RVSP due to minimal presence of tricuspid regurgitation. 6.Moderate to large size pericardial effusion with some early echo tamponade features. Electronically Signed By: Ramesh Mcdonough 06-Feb-2017 16:47:21 -0700 Patient Name: GIULIANO COLE Study Date: 06-Feb-2017 [id number]
[2017-02-06 22:00] VITALS: TEMP 98.6
[2017-02-06] MEDS ORDERED: DOCUSATE SODIUM 100 MG CAP PO PRN (22:30)
[2017-02-06] MEDS ORDERED: BISACODYL (EC) 5 MG TAB PO PRN (22:30)
[2017-02-07] VITALS (29 sets, daily range): BP systolic 81–147; BP diastolic 59–125; PULSE 100–115; RESP 15–31; Ht 170.2 cm; Wt 163.5 kg
--- NOTE | 2017-02-07 00:41 | HP ---
Date/Time of Note Date/Time of Note DATE: 02/07/17 TIME: 00:33 Assessment/Plan VTE Prophylaxis VTE Prophylaxis Intervention: SCD's Lines/Catheters IV C[facility]ter Type (from [facility]): Saline Lock Assessment/Plan Chief Complaint/Hosp Course This is a 41-year-old male being admitted to the ICU floor for: #1 pericardial effusion: Patient had recent surgery approximately 2 weeks ago for aortic valve replacement. At the current time on echocardiogram there did appear to be moderate to large sized pericardial effusion as well as also evidence on the CAT scan. Cardiothoracic surgery was consulted and is on the case. At the current time patient is in no acute distress. We will keep the patient on supplemental O2 to keep oxygenation above 92%. Will put patient on bedrest. Will continue monitor hemodynamics. As blood pressure right now is on the lower end of normal will avoid using any diuretics at this moment. Trend cardiac enzymes. Will hold home bp meds secondary low bp. Will hold coumadin and asa as patient may undergo procedure today, resume as per CT surgery recs. #2 leukocytosis: White blood cell count 20,000. At the current time patient is afebrile and there is no overt sources of infection. However as patient did recently have surgery it is very possible the patient may have an underlying infection as well. We will follow blood cultures and urine cultures. We will also await the fluid sampling that may be done by cardiothoracic surgery. Received abx in the ED. Will continue vanco and ceftriaxone for now. #3 elevated BNP: This likely this time could be secondary to the effect of the pericardial effusion. We will continue to follow this for right now. Further imaging studies as per cardiothoracic surgery. #4 elevated troponin: First set of troponin was 0.875. Will trend troponins this likely is elevated secondary to pericardial effusion. Will continue to follow #5 Obstructive sleep apnea: Patient states is in a CPAP setting of 16. The current time will hold off on using the CPAP at this time secondary to any positive/negative pressures and may result from the CPAP and possibly could affect the underlying pericardial effusion. #6 DVT and GI prophylaxis: SCDs, Protonix 45 minutes of critical care time was spent on the patient. Problems: HPI/ROS Admit Date/Time Admit Date/Time 02/06/17 Hx of Present Illness Chief complaint: SOB This a 41-year-old male who underwent an aortic valve replacement with mechanical valve at [facility] 2 weeks ago. He says he has been doing relatively well until the past 2 days is getting severe shortness of breath with exertion and with laying flat. He says he can only walk a few feet before getting out of breath. He is not having any fever no chest pain no leg pain, he has chronic swelling in his lower extremities that he says is about the same. No abdominal pain nausea vomiting or diarrhea. allergies: nkda Meds: see ANNAMARIA REED Const: As per HPI Eyes : No pain discharge or redness or change in visual acuity ENT: No pain, sore throat, congestion, congestion, dysphagia or discharge Respiratory: As per HPI Cardiovascular: As per HPI GI : no change in appetite, abdominal pain, nausea, vomiting, diarrhea, constipation, or change in the color his stool Genitourinary: No dysuria, hematuria, flank pain , discharge or CVA tenderness Musculoskeletal: No joint pain, back pain, neck pain, restricted range of motion in neck or joints Skin: No rash, bruising or hives Neuro: No headache, dizziness, syncope, seizure, focal weakness Endocrine: No polyuria, polydipsia, temperature intolerance Psych: No hallucination, depression, anxiety or suicidal ideation PMH/Family/Social Past Medical History htn, aortic stenosis s/p avr, anisa Past Surgical History aortic valve replacement Family History Significant Family History: hypertension (dad) Social History Alcohol Use: occasionally Smoking Status: Never smoker Drug Use: none Exam/Review of Systems Vital Signs Vitals Vital Signs Date Time Temp Pulse Resp B/P Pulse Ox O2 Delivery O2 Flow Rate FiO2 02/06/17 23:39 100 3.0 02/06/17 23:27 102 30 02/06/17 22:00 98.6 24 112/76 Nasal Cannula Exam Exam General: Patient is a morbidly obese male The patient is alert oriented -3. In no acute distress. HEENT: Atraumatic, normocephalic. The pupils are equal, round and reactive. Extraocular motor are intact, nasal cannula Neck: Supple with full range of motion. No rigidity or meningismus Chest: Nontender Lungs: Clear to auscultation bilaterally no crackles rales or wheezing Heart: Regular rate rhythm, click murmur at the right intercostal space Abdomen: Soft , nontender, nondistended , bowel sounds are present. No guarding no rebound tenderness , No masses or organomegaly. No costovertebral temporal angle mass Extremities: Bilateral 2+ pitting edema of the lower extremities at the level of the feet and up to the ankle Neurologic: Normal mental status, speech normal, cranial nerves II through XII are intact, motor and sensory are intact, no focal weakness Additional Comments EKG: Rate/Rhythm: Sinus tachycardia heart rate 105 with inverted T waves in the inferior and laterally QRS, ST, QT: NORMAL FL, QRS, QT] Above as per ED physician documentation PROCEDURE: Chest Radiograph. CLINICAL INDICATION: Shortness of breath TECHNIQUE: Single frontal chest radiograph. COMPARISON: Chest radiograph 11/28/2016 FINDINGS: The the patient is status post interval sternotomy. The heart is magnified and may be enlarged. No infiltrate or effusion is seen. The bones are intact. IMPRESSION: 1. No evidence of acute cardiopulmonary disease. 2. Status post sternotomy. 3. Possible cardiomegaly. RPTAT: KK .Uvaldo Boo MD, MD Date Time Electronically viewed and signed by .Uvaldo Boo MD, MD on 2016 12:48 PROCEDURE: CTA Chest CLINICAL INDICATION: Dyspnea TECHNIQUE: CTA of the chest was performed following the uncomplicated IV administration of 110 cc Omnipaque 350. Coronal and sagittal images were reconstructed from the axial data set. 3-D volumetric rendered post processing was performed as well. One or more of the following dose reduction techniques were used: automated exposure control, adjustment of the mA and/or kV according to patient size, use of iterative reconstruction technique. CTDI = 20.05 mGy. DLP = 799.17 mGy-cm. COMPARISON: No prior studies are available for comparison. FINDINGS: There is mild cardiomegaly. Moderate pericardial effusion is identified, without evidence of associated pericardial thickening. The patient is status post sternotomy and aortic valve replacement. No thoracic aortic aneurysm or dissection is seen. No pulmonary embolism is identified. There is no mediastinal, hilar, axillary or supraclavicular lymphadenopathy. Moderate bilateral pleural effusions are noted, with associated bibasilar atelectasis. No focal acute infiltrate, pulmonary edema, or pneumothorax is identified. The central tracheobronchial tree is clear. No pulmonary nodule or mass is identified. There is mild upper abdominal ascites. Visualized portions of the upper abdomen are otherwise unremarkable. The osseous structures are remarkable for degenerative spondylosis of the spine. No osteolytic or osteoblastic lesion is seen. IMPRESSION: 1. Moderate pericardial effusion. Mild cardiomegaly. 2. Moderate bilateral pleural effusions, with associated bibasilar atelectasis. 3. Mild upper abdominal ascites. 4. No evidence of pulmonary embolism. 5. No mass, lymphadenopathy, or focal acute infiltrate is identified. RPTAT: PP .Alonso Sloan MD, MD Date Time Electronically viewed and signed by .Alonso Sloan MD, MD on 02/06/2017 15: 32 Echocardiogram Report Patient Name: GIULIANO COLE Gender: Male Date: 1975 Study Date: 06-Feb-2017 Library Media Technician: Yoan [facility] Location: [facility] Ref. Physician: BESS ZHANG Quality: Adequate Procedures: Transthoracic echocardiogram with complete 2D, M-Mode, and doppler examination. Indications: Shortness of breath. 2D/M Mode Doppler Measurement Value Normal Ranges Measurement Value Normal Ranges LVIDd 2D 4.6 3.5 - 5.6 cm CHECO Vmax 2.4 cm2 LVIDs 2D 3.6 2.1 - 4.1 cm CHECO VTI 2.4 cm2 LVPWd 2D 1.5 0.6 - 1.1 cm AV Mean Ata 1.0 m/sec IVSd 2D 1.4 0.6 - 1.1 cm AV Mean PG 4.5 mmHg AoR Diam 2D 2.4 2.0 - 3.7 cm AV Peak Ata 1.4 m/sec EDV 2D 94.9 cm3 AV Peak PG 7.5 mmHg ESV 2D 46.4 cm3 AV VTI 19.7 cm LVOT Diam 2.1 cm LVOT Mean Ata 0.6 m/sec LVOT Mean PG 2.0 mmHg LVOT Peak Ata 1.0 m/sec LVOT Peak PG 3.8 mmHg LVOT VTI 12.7 cm MV E Peak Ata 0.7 m/sec MV A Peak Ata 0.8 m/sec MV E/A 0.9 MV Decel Time 147 msec MV Decel [place] 5 MV E/A 0.9 Findings Left Ventricle: Lower limits of normal systolic function. Normal left ventricular cavity size. Moderate concentric left ventricular hypertrophy. Reduced left ventricular cavity size. Ejection fraction is visually estimated at 50 %. Abnormal Diastolic Function. Right Ventricle: Normal right ventricular size. Mild right ventricular hypokinesis. Left Atrium: The left atrium is normal in size. Right Atrium: The right atrium is normal in size. Mitral Valve: Normal appearance and function of the mitral valve with trace physiologic regurgitation. Aortic Valve: Aortic Valve Mechanical Prosthesis. Aortic valve Max velocity 1.37 m/sec. Max PG 7.50 mmHg. Mean PG 4.50 mmHg. Aortic valve area 2.20 cm2. Tricuspid Valve: Normal appearance and function of the tricuspid valve with trace physiologic regurgitation. Unable to obtain RVSP due to minimal presence of tricuspid regurgitation. Pericardium: Moderate pericardial effusion. Aorta: Normal aortic root. IVC: Dilated inferior vena cava with poor inspiratory collapse consistent with elevated right atrial pressures. Conclusions 1. Lower limits of normal systolic function. Normal left ventricular cavity size. Moderate concentric left ventricular hypertrophy. Reduced left ventricular cavity size. Ejection fraction is visually estimated at 50 %. Abnormal Diastolic Function. 2. Normal right ventricular size. Mild right ventricular hypokinesis. 3. Normal appearance and function of the mitral valve with trace physiologic regurgitation. 4. Aortic Valve Mechanical Prosthesis. Aortic valve Max velocity 1.37 m/sec. Max PG 7.50 mmHg. Mean PG 4.50 mmHg. Aortic valve area 2.20 cm2. 5. Normal appearance and function of the tricuspid valve with trace physiologic regurgitation. Unable to obtain RVSP due to minimal presence of tricuspid regurgitation. 6. Moderate to large size pericardial effusion with some early echo tamponade features. Electronically Signed By: Ramesh Mcdonough 06-Feb-2017 16:47:21 -0700 Labs Result Diagram: 02/06/17 1110 02/06/17 1110 Medications Medications Current Medications Docusate Sodium (Colace) 100 mg Q12H PRN PO CONSTIPATION; Start 02/06/17 at 22: 30 Bisacodyl (Dulcolax) 5 mg DAILY PRN PO CONSTIPATION; Start 02/06/17 at 22:30 Pantoprazole (Protonix Iv) 40 mg DAILY@06 IV ; Start 02/07/17 at 06:00 HARI JAIN Feb 07, 2017 00:41
[2017-02-07] MEDS ORDERED: LORAZEPAM 2 MG INJ IV ONE ×2 (03:30→20:00)
[2017-02-07] MEDS: PANTOPRAZOLE 40 MG INJ IV SCH ×2 (06:03→06:06)
--- NOTE | 2017-02-07 06:15 | PN ---
Date/Time of Note Date/Time of Note DATE: 02/07/17 TIME: 06:13 Assessment/Plan Lines/Catheters IV Catheter Type (from [facility]): Saline Lock Assessment/Plan Assessment/Plan s/p AVR with mechanical valve 3 weeks ago. complaining of SOB, denies fever. WBC 20K and echo shows large pericardial effusion. cxr clear. received abx yesterday. will plan left VATS pericardial window. I explained risks and benefits. He understands and consents. check u/a, continue abx. Exam/Review of Systems Vital Signs Vitals Vital Signs Date Time Temp Pulse Resp B/P Pulse Ox O2 Delivery O2 Flow Rate FiO2 02/07/17 04:00 105 02/07/17 03:21 3.0 02/07/17 02:34 100 30 02/07/17 01:45 29 130/92 Nasal Cannula 02/07/17 01:30 98.0 Results Result Diagram: 02/06/17 1110 02/06/17 1110 JUDITH DUTTA MD Feb 07, 2017 06:15
[2017-02-07] MEDS ORDERED: VANCOMYCIN IV PER PHARMACY XX SCH (06:30)
[2017-02-07 06:41] LABS: ADD SCAN DIFF NO
[2017-02-07 06:49] LABS: ABNORMAL IP MESSAGE 1; BASOPHIL # 0.1 10^3/ul (0.0-0.1); BASOPHILS % 0.4 % (0.0-2.0); EOSINOPHILS % 0.2 % (0.0-7.0); HEMATOCRIT 26.7 % (42.0-52.0); HEMOGLOBIN 8.3 g/dl (14.0-18.0); LYMPHOCYTES # 2.5 10^3/ul (0.8-2.9); LYMPHOCYTES % 13.5 % (15.0-51.0); MEAN CORPUSCULAR HEMOGLOBIN 25.5 pg (29.0-33.0); MEAN CORPUSCULAR HGB CONC 31.1 g/dl (32.0-37.0); MEAN CORPUSCULAR VOLUME 82.2 fl (82.0-101.0); MEAN PLATELET VOLUME 9.8 fl (7.4-10.4); MONOCYTE # 2.2 10^3/ul (0.3-0.9); MONOCYTES % 11.8 % (0.0-11.0); NEUTROPHIL # 13.4 10^3/ul (1.6-7.5); NUCLEATED RED BLOOD CELLS # 0.2 10^3/ul (0.0-0.0); NUCLEATED RED BLOOD CELLS% 0.9 /100WBC (0.0-0.0); RED BLOOD COUNT 3.25 10^6/ul (4.70-6.10); RED CELL DISTRIBUTION WIDTH 15.4 % (11.5-14.5); WHITE BLOOD COUNT 18.4 10^3/ul (4.8-10.8)
[2017-02-07 06:54] LABS: PLATELET COUNT 644 10^3/UL (140-415)
[2017-02-07] MEDS: CEFTRIAXONE 1 GM/50 ML (PMX) 50 ML IVPB SCH (07:04)
[2017-02-07 07:29] LABS: CALCIUM 9.2 mg/dl (8.4-10.2); CREATININE 1.03 mg/dl (0.61-1.24); POTASSIUM 4.5 mmol/L (3.5-5.1)
[2017-02-07 07:33] LABS: TROPONIN-I 0.72 ng/ml (0.00-0.12)
[2017-02-07] MEDS ORDERED: LORAZEPAM 2 MG INJ IV PRN (08:30)
[2017-02-07] MEDS ORDERED: VANCOMYCIN 2 GM in SOD CHLORIDE 0.9% 500 ML IVPB SCH (09:00)
--- NOTE | 2017-02-07 11:15 | PN ---
Date/Time of Note Date/Time of Note DATE: 02/07/17 TIME: 11:08 Assessment/Plan VTE Prophylaxis VTE Prophylaxis Intervention: SCD's Lines/Catheters IV Catheter Type (from [facility]): Saline Lock Urinary Cath still in place: No Assessment/Plan Chief Complaint/Hosp Course Assessment and plan #1 pericardial effusion: Status post history of aortic valve replacement at [facility]. echocardiogram demonstrated moderate to large sized pericardial effusion as well as also evidence on the CAT scan. Cardiothoracic surgery was consulted , Will hold coumadin and asa as patient may undergo procedure today. #2 leukocytosis: At the current time patient is afebrile and there is no overt sources of infection. Will continue vanco and ceftriaxone for now. #3 elevated BNP: Likely secondary to the effect of the pericardial effusion. We will continue to follow this for right now. Further imaging studies as per cardiothoracic surgery. #4 elevated troponin: likely is elevated secondary to pericardial effusion. Will continue to follow #5 Obstructive sleep apnea: Continue CPAP at this time #6 DVT and GI prophylaxis: SCDs, Protonix Problems: Subjective 24 Hr Interval Summary Free Text/Dictation Patient is on CPAP Denies of any chest pain or shortness of breath N.p.o. secondary to upcoming procedure Exam/Review of Systems Vital Signs Vitals Vital Signs Date Time Temp Pulse Resp B/P Pulse Ox O2 Delivery O2 Flow Rate FiO2 02/07/17 10:00 20 83/60 100 Nasal Cannula 3.0 02/07/17 09:00 106 02/07/17 08:00 98.3 02/07/17 02:34 30 Intake and Output 02/06/17 02/06/17 02/07/17 15:00 23:00 07:00 Intake Total 450 ml Output Total 270 ml Balance 180 ml Exam General: The patient is morbidly obese with BMI of 59, Not in acute distress. Tattoos on bilateral upper extremity and anterior thorax and abdominal region HEENT: Atraumatic, normocephalic. The pupils are equal and round . Neck: Supple Chest: Normal , surgical site is dry and clean Lungs: Decreased breath sounds bilateral lower lung field Heart: Normal S1-S2, Regular rhythm and rate. Abdomen: Soft , nontender, nondistended , bowel sounds are present. Extremities: Normal to inspection, no edema no cyanosis Neurologic: Normal mental status,The patient is awake, and alert Results Result Diagram: 02/07/17 0536 02/07/17 0536 Results 24 hrs Laboratory Tests Test 02/06/17 11:10 02/06/17 14:15 02/07/17 02:25 02/07/17 05:36 White Blood Count 20.0 #H 18.4 H Red Blood Count 3.71 #L 3.25 L Hemoglobin 9.6 #L 8.3 L Hematocrit 30.6 #L 26.7 L Mean Corpuscular Volume 82.5 82.2 Mean Corpuscular Hemoglobin 25.9 L 25.5 L Mean Corpuscular Hemoglobin Concent 31.4 L 31.1 L Red Cell Distribution Width 15.3 H 15.4 H Platelet Count 674 #H 644 H Mean Platelet Volume 9.7 9.8 Neutrophils % 75.0 73.0 Band Neutrophils % 4.0 Lymphocytes % 11.0 L 13.5 L Monocytes % 8.0 11.8 H Basophils % 2.0 0.4 Nucleated Red Blood Cells % 1.0 H 0.9 H Neutrophils # 15.0 H 13.4 H Lymphocytes # 2.2 2.5 Monocytes # 1.6 H 2.2 H Basophils # 0.4 H 0.1 Platelet Estimate PLT APPEAR INCREASED Prothrombin Time 23.6 #H Prothrombin Time Ratio 1.8 INR International Normalized Ratio 2.08 Activated Partial Thromboplast Time 34.5 Sodium Level 139 136 Potassium Level 4.4 4.5 Chloride Level 101 101 Carbon Dioxide Level 26 26 Anion Gap 16 14 Blood Urea Nitrogen 19 24 H Creatinine 0.97 1.03 Glucose Level 137 114 Calcium Level 9.4 9.2 Total Bilirubin 0.8 Direct Bilirubin 0.00 Indirect Bilirubin 0.8 Aspartate Amino Transf (AST/SGOT) 82 H Alanine Aminotransferase (ALT/SGPT) 94 H Alkaline Phosphatase 126 H Creatine Kinase 34 Creatine Kinase Index 4.6 Creatinine Kinase MB (Mass) 1.58 Troponin I 0.875 *H 0.720 *H B-Type Natriuretic Peptide 3160 H 3270 H Total Protein 7.9 Albumin 4.5 Globulin 3.40 H Albumin/Globulin Ratio 1.32 Urine Color YELLOW Urine Clarity CLEAR Urine pH 5.5 Urine Specific [place] 1.025 Urine Ketones NEGATIVE Urine Nitrite NEGATIVE Urine Bilirubin NEGATIVE Urine Urobilinogen 1.0 E.U./dL Urine Leukocyte Esterase NEGATIVE Urine Microscopic RBC 0-2 Urine Microscopic WBC NONE SEEN Urine Bacteria OCCASIONAL Urine Hemoglobin NEGATIVE Urine Glucose NEGATIVE Urine Total Protein TRACE Bedside Glucose 131 Eosinophils % 0.2 Eosinophils # 0.0 Nucleated Red Blood Cells # 0.2 H Medications Medications Current Medications Docusate Sodium (Colace) 100 mg Q12H PRN PO CONSTIPATION; Start 02/06/17 at 22: 30 Bisacodyl (Dulcolax) 5 mg DAILY PRN PO CONSTIPATION; Start 02/06/17 at 22:30 Pantoprazole 40 mg 40 mg DAILY@06 IV Last administered on 02/07/17 06:06; Admin Dose 40 MG; Start 02/07/17 at 06:00 Ceftriaxone Sodium 50 ml @ 100 mls/hr Q24H IVPB Last administered on 07:04; Admin Dose 100 MLS/HR; Start 02/07/17 at 06:30 Vancomycin HCl 2 gm/Sodium Chloride 500 ml @ 125 mls/hr ONCE IVPB Last administered on 02/07/17 08:40; Admin Dose 125 MLS/HR; Start 02/07/17 at 09:00 ; Stop 02/07/17 at 12:59 Vancomycin HCl/ Sodium Chloride (Vancocin/NS) 250 ml @ 83.333 mls/ hr Q8H IVPB ; Start 02/07/17 at 17:00 Lorazepam (Ativan) 1 mg Q8H PRN IV ANXIETY Last administered on 02/07/17 08:40 ; Admin Dose 1 MG; Start 02/07/17 at 08:30 MARLEEN JOHNS MD Feb 07, 2017 11:14
[2017-02-07 14:08] LABS: CK-MB 1.7 ng/ml (0.0-2.4); TROPONIN-I 0.635 ng/ml (0.00-0.12)
[2017-02-07 14:18] LABS: CK-MB 1.76 ng/ml (0.0-2.4)
[2017-02-07] MEDS: LORAZEPAM 2 MG INJ IV PRN ×2 (15:01→22:41)
[2017-02-07] MEDS: VANCOMYCIN 1.5 GM in SOD CHLORIDE 0.9% 250 ML IVPB SCH (16:27)
[2017-02-07] MEDS ORDERED: HYDROCODONE/APAP (5/325) TAB PO ONE (23:00)
[2017-02-08] VITALS (49 sets, daily range): BP systolic 80–229; BP diastolic 41–111; PULSE 79–128; RESP 15–28
[2017-02-08 00:02] LABS: ADD UMIC YES; UR BILIRUBIN (Dip) 1+ (NEGATIVE); UR BLOOD (Dip) NEGATIVE (NEGATIVE); UR CLARITY SLIGHTLY CLOUDY (CLEAR); UR COLOR DK. YELLOW (YELLOW); UR GLUCOSE (Dip) NEGATIVE (NEGATIVE); UR KETONES (Dip) NEGATIVE (NEGATIVE); UR LEUKOCYTE ESTERASE (Dip) NEGATIVE (NEGATIVE); UR NITRITE (Dip) NEGATIVE (NEGATIVE); UR TOTAL PROTEIN (Dip) 2+ (NEGATIVE); UR UROBILINOGEN (Dip) 2.0 E.U./dL (0.1-1.0)
[2017-02-08 00:30] LABS: ICTOTEST NEGATIVE (NEGATIVE)
[2017-02-08 00:31] LABS: UR BACTERIA MANY; UR SQUAMOUS EPITHELIAL CELL FEW
[2017-02-08] MEDS: VANCOMYCIN 1.5 GM in SOD CHLORIDE 0.9% 250 ML IVPB SCH ×2 (00:34→08:51)
[2017-02-08] MEDS: LORAZEPAM 2 MG INJ IV PRN ×3 (03:46→16:50)
[2017-02-08 06:53] LABS: ADD SCAN DIFF NO
[2017-02-08 06:56] LABS: ABNORMAL IP MESSAGE 1; BASOPHIL # 0.1 10^3/ul (0.0-0.1); BASOPHILS % 0.5 % (0.0-2.0); EOSINOPHILS # 0.1 10^3/ul (0.0-0.5); EOSINOPHILS % 0.4 % (0.0-7.0); HEMATOCRIT 26.8 % (42.0-52.0); HEMOGLOBIN 8.1 g/dl (14.0-18.0); LYMPHOCYTES # 2.8 10^3/ul (0.8-2.9); LYMPHOCYTES % 13.9 % (15.0-51.0); MEAN CORPUSCULAR HEMOGLOBIN 24.9 pg (29.0-33.0); MEAN CORPUSCULAR HGB CONC 30.2 g/dl (32.0-37.0); MEAN CORPUSCULAR VOLUME 82.5 fl (82.0-101.0); MEAN PLATELET VOLUME 9.7 fl (7.4-10.4); MONOCYTE # 2.1 10^3/ul (0.3-0.9); MONOCYTES % 10.7 % (0.0-11.0); NEUTROPHIL # 14.6 10^3/ul (1.6-7.5); NEUTROPHILS % 73.2 % (39.0-77.0); NUCLEATED RED BLOOD CELLS # 0.2 10^3/ul (0.0-0.0); PLATELET COUNT 597 10^3/UL (140-415); RED BLOOD COUNT 3.25 10^6/ul (4.70-6.10); RED CELL DISTRIBUTION WIDTH 15.5 % (11.5-14.5); WHITE BLOOD COUNT 19.9 10^3/ul (4.8-10.8)
[2017-02-08] MEDS ORDERED: NA BICARBONATE 8.4% 50 ML SYG ONE (07:00)
[2017-02-08] MEDS ORDERED: EPINEPHrine 0.1 MG/ML SYG ONE (07:00)
[2017-02-08] MEDS ORDERED: SUCCINYLCHOLINE CHLORIDE 100 MG/5 ML SYG IV ONE (07:00)
[2017-02-08] MEDS ORDERED: CA CHLORIDE 10% 10 ML SYRINGE ONE (07:00)
[2017-02-08] MEDS: CEFTRIAXONE 1 GM/50 ML (PMX) 50 ML IVPB SCH (07:25)
--- NOTE | 2017-02-08 07:42 | CONS ---
DATE OF ADMISSION: 02/06/2017 DATE OF CONSULTATION: 02/07/2017 TYPE OF CONSULTATION: Cardiology REFERRING PHYSICIAN: Dr. Marcelino. REASON FOR EVALUATION: Pericardial effusion. HISTORY OF PRESENT ILLNESS: Mr. Marsh is a 41-year-old gentleman with history of undergone aortic va lve replacement with Dr. Marcelino, a mechanical valve, who comes to the hospital now for evaluation of acute decompensated shortness of breath. The patient appears to have a moderate-sized pericardial e ffusion based on 2D echo interpreted by Dr. Mcdonough. The patient does not appear to be in tamponade right now. He was on Coumadin prior. The plan is for the patient to have an exploratory chest radha luation by Dr. Marcelino. He is going to go to have a procedure today. I have been asked to see the héctor ha in consultation from a cardiac standpoint. His valve appears to be with fairly normal functio n based on a 2D echo interpreted by Dr. Mcdonough with a valve velocity of 1.37 meters per second and a gradient of 7.5 with pericardial effusion that is possibly new. This is in the setting of anticoa gulation. Dr. Marcelino will follow the patient from pericardial effusion standpoint for now. Conserva tive therapy is expected after discharge. We will continue to follow the patient. PAST MEDICAL HISTORY: 1. Hypertension. 2. Dyslipidemia. 3. History of aortic valve replacement, mechanical on Coumadin prior. 4. History of sleep apnea. 5. History of agitated behavior. ALLERGIES: NO KNOWN DRUG ALLERGIES. SOCIAL HISTORY: He used to smoke, does not drink, does not use drugs. FAMILY HISTORY: Negative for sudden cardiac or premature coronary artery disease. MEDICATIONS: Medications here include: 1. Vancomycin. 2. Lorazepam. 3. Ceftriaxone. 4. The patient was on Coumadin prior, but it has been held. REVIEW OF SYSTEMS: CONSTITUTIONAL: No fevers, no chills. Shortness of breath as noted. HEENT: No changes in vision or hearing. CARDIAC: No chest pain reported now. RESPIRATORY: Short of breath, acute on chronic. GASTROINTESTINAL: No nausea, vomiting, constipation. GENITOURINARY: No dysuria, hematuria. NEUROLOGIC: No focal neurologic deficits. . PSYCHIATRIC: History of psychiatric illness. PHYSICAL EXAMINATION: VITAL SIGNS: Temperature is 98.3. Heart rate is 106 and sinus, blood pressure 104/77. GENERAL: He is an obese gentleman in no acute distress, alert and oriented x1 to 2, status post Ati van dose, now unable to provide for history. HEENT: Head is normocephalic anicteric. NECK: Supple. JVD 6-7 cm. There is no lymphadenopathy. HEART: Regular with mechanical click, sounds muffled. LUNGS: Coarse at the base. ABDOMEN: Distended. Bowel sounds are present. There is no hepatosplenomegaly. GENITOURINARY: Exam is intact. EXTREMITIES: No cyanosis trace edema. SKIN: The patient has multiple tattoos. LABORATORY DATA: White blood cell count 18.4. Hemoglobin is 8.3, platelets 644. INR is 1.8. His troponin is 0.7, creatinine is 1.03. ASSESSMENT AND PLAN: 1. Pericardial effusion. The patient's pericardial effusion does not appear to be in tamponade on examination. For now, conservative therapy is expected, awaiting for Dr. Marcelino to have a chest expl oration with pericardial window. 2. Aortic valve replacement, recent mechanical. Coumadin has been held for procedure, now will res ume Coumadin after Dr. Marcelino's procedure. 3. Tachycardia. Patient's tachycardia is sinus tachycardia nature. No evidence of ischemia on EKG . Continue to follow. 4. Mildly elevated troponins, this is in the setting of post-procedural interventions. No chest pa in continue to follow. 3. Chronic obstructive pulmonary disease. Continue chronic obstructive pulmonary disease therapy p er primary team. I would like to thank Dr. Marcelino for referring this patient for my evaluation. Dictated By: FARIBA SUBRAMANIAN MD ML/NTS Conf#: [id number] DID#: [id number]
[2017-02-08 07:57] LABS: CALCIUM 9.3 mg/dl (8.4-10.2); CREATININE 1.21 mg/dl (0.61-1.24); MAGNESIUM 2.5 mg/dl (1.7-2.5); POTASSIUM 4.5 mmol/L (3.5-5.1)
--- NOTE | 2017-02-08 10:12 | PN ---
Date/Time of Note Date/Time of Note DATE: 02/08/17 TIME: 09:53 Assessment/Plan VTE Prophylaxis VTE Prophylaxis Intervention: SCD's Lines/Catheters IV Catheter Type (from [facility]): Saline Lock Urinary Cath still in place: No Assessment/Plan Assessment/Plan 41 yo M Status post recent aortic valve replacement at [facility] 2/2 severe aortic stenosis and CHF #1 pericardial effusion: Status post history of aortic valve replacement at [facility]. echocardiogram demonstrated moderate to large sized pericardial effusion as well as also evidence on the CAT scan. Cardiothoracic surgery was consulted , Will hold coumadin and asa as patient may undergo procedure today. #2 leukocytosis: At the current time patient is afebrile and there is no overt sources of infection. Will continue vanco and ceftriaxone for now. #3 Acute CHF exacerbation : Likely secondary to the effect of the pericardial effusion. We will continue to follow this for right now. Further imaging studies as per cardiothoracic surgery. #4 elevated troponin: likely is elevated secondary to pericardial effusion. Will continue to follow #5 Obstructive sleep apnea: Continue home CPAP at this time #6 Recent aortic valve replacement : Coumadin on hold for surgery / resume right after #7 Morbid Obesity: use calorie controlled diet once on feeds DVT and GI prophylaxis: SCDs, Protonix CC time : 40mins Subjective 24 Hr Interval Summary Free Text/Dictation patient sleeping / medicated with ativan / surgery planned for 1pm today Exam/Review of Systems Vital Signs Vitals Vital Signs Date Time Temp Pulse Resp B/P Pulse Ox O2 Delivery O2 Flow Rate FiO2 02/08/17 06:00 101 15 121/85 100 Nasal Cannula 3.0 02/08/17 04:00 98.5 02/07/17 02:34 30 Intake and Output 02/07/17 02/07/17 02/08/17 15:00 23:00 07:00 Intake Total 750 ml 720 ml 250 ml Output Total 0 ml 110 ml 100 ml Balance 750 ml 610 ml 150 ml Exam Constitutional: obese, other (sleeping comfortably), No distress Head: normocephalic Eyes: PERRL ENMT: mucosa pink and moist, other (mouth breathing / loud snoring / post pharynx clear of exudate) Cardiovascular: other (chest wall surgical scars fresh but clean . non oozing) , regular rate and rhythm, No murmurs/extra sounds Gastrointestinal: soft Genitourinary - Male: nl penis, nl scrotum Extremities: normal pulses Neurological: other (sleeping ) Results Result Diagram: 02/08/17 0602 02/08/17 0600 Results 24 hrs Laboratory Tests Test 02/07/17 12:40 02/07/17 20:45 02/08/17 06:00 02/08/17 06:01 Creatine Kinase 34 Creatine Kinase Index 5.0 Creatinine Kinase MB (Mass) 1.70 Troponin I 0.635 *H Urine Color DK. YELLOW Urine Clarity SLIGHTLY CLOUDY Urine pH 5.5 Urine Specific [place] >=1.030 H Urine Ketones NEGATIVE Urine Nitrite NEGATIVE Urine Bilirubin 1+ H Urine Ictotest NEGATIVE Urine Urobilinogen 2.0 E.U./dL H Urine Leukocyte Esterase NEGATIVE Urine Microscopic RBC 2-5 Urine Microscopic WBC 2-5 Urine Squamous Epithelial Cells FEW Urine Bacteria MANY Urine Hyaline Casts FEW Urine Granular Casts MODERATE Urine Hemoglobin NEGATIVE Urine Glucose NEGATIVE Urine Total Protein 2+ H Sodium Level 133 L Potassium Level 4.5 Chloride Level 98 Carbon Dioxide Level 26 Anion Gap 14 Blood Urea Nitrogen 34 H Creatinine 1.21 Glucose Level 112 Calcium Level 9.3 Magnesium Level 2.5 Vancomycin Level Trough 23.7 *H Test 02/08/17 06:02 White Blood Count 19.9 H Red Blood Count 3.25 L Hemoglobin 8.1 L Hematocrit 26.8 L Mean Corpuscular Volume 82.5 Mean Corpuscular Hemoglobin 24.9 L Mean Corpuscular Hemoglobin Concent 30.2 L Red Cell Distribution Width 15.5 H Platelet Count 597 H Mean Platelet Volume 9.7 Neutrophils % 73.2 Lymphocytes % 13.9 L Monocytes % 10.7 Eosinophils % 0.4 Basophils % 0.5 Nucleated Red Blood Cells % 1.0 H Neutrophils # 14.6 H Lymphocytes # 2.8 Monocytes # 2.1 H Eosinophils # 0.1 Basophils # 0.1 Nucleated Red Blood Cells # 0.2 H Medications Medications Current Medications Docusate Sodium (Colace) 100 mg Q12H PRN PO CONSTIPATION Last administered on 15:51; Admin Dose 100 MG; Start 02/06/17 at 22:30 Bisacodyl (Dulcolax) 5 mg DAILY PRN PO CONSTIPATION Last administered on 15:51; Admin Dose 5 MG; Start 02/06/17 at 22:30 Pantoprazole 40 mg 40 mg DAILY@06 IV Last administered on 02/07/17 06:06; Admin Dose 40 MG; Start 02/07/17 at 06:00 Ceftriaxone Sodium (Rocephin) 50 ml @ 100 mls/hr Q24H IVPB Last administered on 02/08/17 07:25; Admin Dose 100 MLS/HR; Start 02/07/17 at 06:30 Lorazepam (Ativan) 1 mg Q6 PRN IV ANXIETY Last administered on 02/08/17 08:49 ; Admin Dose 1 MG; Start 02/07/17 at 18:00 Lorazepam 0.5 mg 0.5 mg Q4H PRN IV AGITATION/ANXIETY Last administered on 03:46; Admin Dose 0.5 MG; Start 02/07/17 at 23:00 Vancomycin HCl (Vancocin) 250 ml @ 125 mls/hr Q12H IVPB ; Start 02/08/17 at 15: 00 ZHAO RYAN Feb 08, 2017 10:04
[2017-02-08] MEDS ORDERED: HEPARIN 1000 UNITS/NS (A-LINE) 0 ML ONE (11:47)
[2017-02-08] MEDS ORDERED: MINERAL OIL LIGHT 10 ML VIAL ONE (12:20)
--- NOTE | 2017-02-08 12:50 | HPN ---
Date/Time of Note Date/Time of Note DATE: 02/08/17 TIME: 12:50 Interval H&P Admission Note Pt. seen H&P reviewed: No system changes JUDTIH DUTTA MD Feb 08, 2017 12:50
--- NOTE | 2017-02-08 12:54 | CONS ---
Date/Time of Note Date/Time of Note DATE: 02/08/17 TIME: 12:49 Assessment/Plan Assessment/Plan Chief Complaint/Hosp Course IMp: 1.Pericardial effusion-moderate to severe with ongoing sob/tachycardia 2.AVR-mech 2 weeks prior 3.Tachycardia 4.Leukocytosis 5.Coagulopathy 6. Positive troponin-minimal s/p recent cardiac surgery Recc: -Tele -trend cardiac enzymes -Follow BP/volume status closely -For cardiac window today Problems: Consultation Date/Type/Reason Admit Date/Time Feb 06, 2017 at 14:40 Initial Consult Date 02/07/2017 Type of Consultation: Cardiology Reason for Consultation sob Referring Provider: ZHAO RYAN Exam/Review of Systems Vital Signs Vitals Vital Signs Date Time Temp Pulse Resp B/P Pulse Ox O2 Delivery O2 Flow Rate FiO2 02/08/17 10:11 3.0 02/08/17 08:15 Nasal Cannula 02/08/17 08:00 103 02/08/17 06:00 15 121/85 100 02/08/17 04:00 98.5 02/07/17 02:34 30 Intake and Output 02/07/17 02/07/17 02/08/17 15:00 23:00 07:00 Intake Total 750 ml 720 ml 250 ml Output Total 0 ml 110 ml 100 ml Balance 750 ml 610 ml 150 ml Exam Review of Systems: CONSTITUTIONAL: No fevers, chills. PULMONARY: No sob CARDIOVASCULAR: No chest pain/palpitations GASTROINTESTINAL: No nausea/vomiting. GENITOURINARY: No hematuria/dysuria. MUSCULOSKELETAL: No myagias/arthalgias. PSYCHIATRIC: The patient denies depression. NEUROLOGIC: No weakness Constitutional: alert Psych: no complaints Head: normocephalic ENMT: mucosa pink and moist Neck: jvd (9 cm water), supple Respiratory: diminished breath sounds (at bases/B) Cardiovascular: other (median sternotomy), regular rate and rhythm Gastrointestinal: non-tender, soft Musculoskeletal: muscle tone (normal) Extremities: edema (trace/B) Neurological: other (No focal deficits) Results Result Diagram: 02/08/17 0602 02/08/17 0600 Results 24 hrs Laboratory Tests Test 02/07/17 20:45 02/08/17 06:00 02/08/17 06:01 02/08/17 06:02 Urine Color DK. YELLOW Urine Clarity SLIGHTLY CLOUDY Urine pH 5.5 Urine Specific [place] >=1.030 H Urine Ketones NEGATIVE Urine Nitrite NEGATIVE Urine Bilirubin 1+ H Urine Ictotest NEGATIVE Urine Urobilinogen 2.0 E.U./dL H Urine Leukocyte Esterase NEGATIVE Urine Microscopic RBC 2-5 Urine Microscopic WBC 2-5 Urine Squamous Epithelial Cells FEW Urine Bacteria MANY Urine Hyaline Casts FEW Urine Granular Casts MODERATE Urine Hemoglobin NEGATIVE Urine Glucose NEGATIVE Urine Total Protein 2+ H Sodium Level 133 L Potassium Level 4.5 Chloride Level 98 Carbon Dioxide Level 26 Anion Gap 14 Blood Urea Nitrogen 34 H Creatinine 1.21 Glucose Level 112 Calcium Level 9.3 Magnesium Level 2.5 Vancomycin Level Trough 23.7 *H White Blood Count 19.9 H Red Blood Count 3.25 L Hemoglobin 8.1 L Hematocrit 26.8 L Mean Corpuscular Volume 82.5 Mean Corpuscular Hemoglobin 24.9 L Mean Corpuscular Hemoglobin Concent 30.2 L Red Cell Distribution Width 15.5 H Platelet Count 597 H Mean Platelet Volume 9.7 Neutrophils % 73.2 Lymphocytes % 13.9 L Monocytes % 10.7 Eosinophils % 0.4 Basophils % 0.5 Nucleated Red Blood Cells % 1.0 H Neutrophils # 14.6 H Lymphocytes # 2.8 Monocytes # 2.1 H Eosinophils # 0.1 Basophils # 0.1 Nucleated Red Blood Cells # 0.2 H Medications Medications Current Medications Docusate Sodium (Colace) 100 mg Q12H PRN PO CONSTIPATION Last administered on 15:51; Admin Dose 100 MG; Start 02/06/17 at 22:30 Bisacodyl (Dulcolax) 5 mg DAILY PRN PO CONSTIPATION Last administered on 15:51; Admin Dose 5 MG; Start 02/06/17 at 22:30 Pantoprazole 40 mg 40 mg DAILY@06 IV Last administered on 02/07/17 06:06; Admin Dose 40 MG; Start 02/07/17 at 06:00 Ceftriaxone Sodium (Rocephin) 50 ml @ 100 mls/hr Q24H IVPB Last administered on 02/08/17 07:25; Admin Dose 100 MLS/HR; Start 02/07/17 at 06:30 Lorazepam (Ativan) 1 mg Q6 PRN IV ANXIETY Last administered on 02/08/17 08:49 ; Admin Dose 1 MG; Start 02/07/17 at 18:00 Lorazepam 0.5 mg 0.5 mg Q4H PRN IV AGITATION/ANXIETY Last administered on 03:46; Admin Dose 0.5 MG; Start 02/07/17 at 23:00 Vancomycin HCl (Vancocin) 250 ml @ 125 mls/hr Q12H IVPB ; Start 02/08/17 at 15: 00 MATHEUS JOHNSON Feb 08, 2017 12:54
[2017-02-08] MEDS ORDERED: MIDAZOLAM 1 MG/ML 2 ML INJ ONE (13:14)
[2017-02-08] MEDS ORDERED: PHENYLephrine (100 MCG/ML) 5ML SYG ONE ×2 (13:21→13:49)
[2017-02-08 13:40] LABS: AADO2 Arterial 374.1 mmHg (7.0-24.0); Arterial COHb 0.3 % (0.0-3.0); Arterial Fraction of Oxyhgb 98.6 % (93.0-99.0); Arterial HCO3 22.5 mmol/L (22.0-26.0); Arterial MetHb 0.5 % (0.0-1.5); Arterial Total Hemglobin 9.4 g/dl (12.0-18.0); MODE SURGERY
[2017-02-08] MEDS ORDERED: EPINEPHRINE 4 MG in NS 250 ML IV SCH (14:00)
[2017-02-08] MEDS ORDERED: NITROGLYCERIN 50 MG/D5W (PMX) 250 ML ONE (14:03)
[2017-02-08 14:07] LABS: ADD SCAN DIFF NO
[2017-02-08 14:10] LABS: ABNORMAL IP MESSAGE 1; HEMATOCRIT 25.7 % (42.0-52.0); MEAN CORPUSCULAR HEMOGLOBIN 25.9 pg (29.0-33.0); MEAN CORPUSCULAR HGB CONC 31.1 g/dl (32.0-37.0); MEAN CORPUSCULAR VOLUME 83.2 fl (82.0-101.0); MEAN PLATELET VOLUME 9.9 fl (7.4-10.4); PLATELET COUNT 507 10^3/UL (140-415); RED BLOOD COUNT 3.09 10^6/ul (4.70-6.10); RED CELL DISTRIBUTION WIDTH 15.9 % (11.5-14.5)
--- NOTE | 2017-02-08 14:15 | QN ---
Documentation Comment I was called out of the emergency department to the operating room for a CODE BLUE event. The patient was in the middle of the surgery when he had a cardiac arrest. Anesthesia is currently at the bedside along with the surgeon. The final results of the CODE BLUE was return of spontaneous circulation. HPI: Please note the history and physical exam is limited as the patient is intubated at this time. Physical exam: GCS is 3. JOYCE HENDRICKS MD Feb 08, 2017 14:15
[2017-02-08 14:25] LABS: CREATININE 1.13 mg/dl (0.61-1.24); POTASSIUM 3.9 mmol/L (3.5-5.1)
[2017-02-08 14:56] LABS: MONOCYTE # 1.8 10^3/ul (0.3-0.9); NEUTROPHIL # 16.5 10^3/ul (1.6-7.5)
[2017-02-08 15:06] LABS: PLATELET ESTIMATE PLT APPEAR INCREASED
[2017-02-08 15:13] LABS: AADO2 Arterial 343.2 mmHg (7.0-24.0); Arterial COHb 0 % (0.0-3.0); Arterial Fraction of Oxyhgb 98.7 % (93.0-99.0); Arterial HCO3 14.7 mmol/L (22.0-26.0); Arterial MetHb 0.7 % (0.0-1.5); MODE VENT - AC
--- NOTE | 2017-02-08 15:27 | OPR ---
Date/Time of Note Date/Time of Note DATE: 02/08/17 TIME: 15:21 Operative Report Preoperative Diagnosis pericardial effusion Postoperative Diagnosis same Operation/Procedure Performed pericardiocentesis and external CPR Surgeon: JUDITH DUTTA MD Anesthesia: general Estimated Blood Loss: minimal Complications PEA upon induction requiring CPR JUDITH DUTTA MD Feb 08, 2017 15:27
[2017-02-08] MEDS ORDERED: ROCURONIUM 50 MG INJ ONE (15:33)
[2017-02-08] MEDS ORDERED: LIDOCAINE 2% (SDV) 5 ML INJ ONE (15:33)
[2017-02-08] MEDS ORDERED: ETOMIDATE 20 MG INJ ONE (15:33)
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
[2017-02-08] MEDS ORDERED: ATROPINE 1 MG/10 ML SYRINGE ONE (15:34)
[2017-02-08] MEDS ORDERED: EPHEDrine SULFATE 50 MG/5 ML SYG ONE (15:34)
[2017-02-08] MEDS: D5W-0.45 NACL + KCL 20 MEQ 1,000 ML IV SCH ×2 (15:46→22:20)
[2017-02-08] MEDS: VANCOMYCIN 1 GM in NS 250 ML IVPB SCH (15:48)
[2017-02-08] MEDS ORDERED: NA BICARBONATE 8.4% 50 ML SYG IV ONE (16:00)
[2017-02-08] MEDS ORDERED: NITROGLYCERIN 50 MG/D5W (PMX) 250 ML IV SCH (16:30)
[2017-02-08] MEDS: ARTIFICIAL TEARS 15 ML OPH BOTH EYES SCH (21:00)
[2017-02-08] MEDS: PROPOFOL 100 ML IV SCH (23:00)
[2017-02-09] VITALS (77 sets, daily range): BP systolic 86–143; BP diastolic 47–74; PULSE 84–105; RESP 15–29
[2017-02-09] MEDS ORDERED: SOD CHLORIDE 0.9% 500 ML IV ONE (00:30)
[2017-02-09] MEDS: PROPOFOL 100 ML IV SCH ×4 (02:04→20:35)
[2017-02-09 05:11] LABS: ADD SCAN DIFF NO
[2017-02-09 05:20] LABS: ABNORMAL IP MESSAGE 1; BASOPHIL # 0.1 10^3/ul (0.0-0.1); BASOPHILS % 0.3 % (0.0-2.0); EOSINOPHILS % 0.3 % (0.0-7.0); HEMATOCRIT 24.2 % (42.0-52.0); HEMOGLOBIN 7.4 g/dl (14.0-18.0); LYMPHOCYTES # 1.9 10^3/ul (0.8-2.9); LYMPHOCYTES % 11.8 % (15.0-51.0); MEAN CORPUSCULAR HEMOGLOBIN 24.9 pg (29.0-33.0); MEAN CORPUSCULAR HGB CONC 30.6 g/dl (32.0-37.0); MEAN CORPUSCULAR VOLUME 81.5 fl (82.0-101.0); MEAN PLATELET VOLUME 9.8 fl (7.4-10.4); MONOCYTE # 1.7 10^3/ul (0.3-0.9); MONOCYTES % 10.8 % (0.0-11.0); NEUTROPHILS % 75.8 % (39.0-77.0); NUCLEATED RED BLOOD CELLS # 0.1 10^3/ul (0.0-0.0); NUCLEATED RED BLOOD CELLS% 0.8 /100WBC (0.0-0.0); PLATELET COUNT 408 10^3/UL (140-415); RED BLOOD COUNT 2.97 10^6/ul (4.70-6.10); RED CELL DISTRIBUTION WIDTH 15.5 % (11.5-14.5); WHITE BLOOD COUNT 15.8 10^3/ul (4.8-10.8)
[2017-02-09] MEDS: PANTOPRAZOLE 40 MG INJ IV SCH (05:48)
[2017-02-09] MEDS: CEFTRIAXONE 1 GM/50 ML (PMX) 50 ML IVPB SCH (05:48)
[2017-02-09] MEDS: VANCOMYCIN 1 GM in NS 250 ML IVPB SCH (05:48)
[2017-02-09 06:11] LABS: ALBUMIN 3.1 g/dl (3.3-4.9); ALBUMIN/GLOBULIN RATIO 1.14; BILIRUBIN,INDIRECT 0.7 mg/dl (0-1.1); BILIRUBIN,TOTAL 0.7 mg/dl (0.2-1.3); CALCIUM 8.4 mg/dl (8.4-10.2); CREATININE 1.68 mg/dl (0.61-1.24); POTASSIUM 4.1 mmol/L (3.5-5.1); TOTAL PROTEIN 5.8 g/dl (6.1-8.1)
[2017-02-09] MEDS ORDERED: HEPARIN 1000 UNITS/ML 10 ML INJ IV ONE (07:00)
[2017-02-09] MEDS ORDERED: ENOXAPARIN 40 MG/0.4 ML SYG SC SCH (07:00)
--- NOTE | 2017-02-09 07:00 | PN ---
Date/Time of Note Date/Time of Note DATE: 02/09/17 TIME: 06:59 Assessment/Plan Lines/Catheters IV Catheter Type (from Nrsg): Central Line Diego in Place (from Nrsg): Yes Assessment/Plan Assessment/Plan slow to wake up but was answering questions. HD more stable hct 24, WBC 15 start heparin drip for mechanical aortic valve try weaning vent as he wakes up more discussed with , Edelmira Exam/Review of Systems Vital Signs Vitals Vital Signs Date Time Temp Pulse Resp B/P Pulse Ox O2 Delivery O2 Flow Rate FiO2 02/09/17 06:00 89 18 110/58 02/09/17 04:50 100 50 02/09/17 04:00 97.7 02/08/17 20:00 Mechanical Ventilator 02/08/17 10:11 3.0 Intake and Output 02/08/17 02/08/17 02/09/17 15:00 23:00 07:00 Intake Total 2000 ml 1463 ml 889.6 ml Output Total 5 ml 460 ml 440 ml Balance 1995 ml 1003 ml 449.6 ml Results Result Diagram: 02/09/17 0400 02/09/17 0400 JUDITH DUTTA MD Feb 09, 2017 07:00
[2017-02-09 07:29] LABS: INR 2.34; PROTIME 25.9 Sec (12.2-14.2)
[2017-02-09 07:30] LABS: PARTIAL THROMBOPLASTIN TIME 33.6 Sec (25.0-35.0)
[2017-02-09 08:27] LABS: AADO2 Arterial 154.2 mmHg (7.0-24.0); Allen Test ACCEPTAB; Arterial COHb 0.1 % (0.0-3.0); Arterial Fraction of Oxyhgb 96.4 % (93.0-99.0); Arterial HCO3 21.6 mmol/L (22.0-26.0); Arterial MetHb 0.6 % (0.0-1.5); Arterial Total Hemglobin 8.5 g/dl (12.0-18.0); MODE VENT - AC
[2017-02-09] MEDS: HEPARIN 25000 UNITS/250 ML 250 ML IV SCH ×2 (08:47→16:20)
[2017-02-09] MEDS: ARTIFICIAL TEARS 15 ML OPH BOTH EYES SCH ×4 (09:14→22:20)
--- NOTE | 2017-02-09 10:17 | CONS ---
Date/Time of Note Date/Time of Note DATE: 02/09/17 TIME: 10:12 Assessment/Plan Assessment/Plan Chief Complaint/Hosp Course IMp: 1.Pericardial effusion-moderate to severe with ongoing sob/tachycardia. Now POD# 1 s/p pericardial window with cardiac arrest during induction requiring compressions 2.AVR-mech 2 weeks prior 3.Tachycardia 4.Leukocytosis 5.Coagulopathy 6. Positive troponin-minimal s/p recent cardiac surgery-slowly downtrending Recc: -Tele -Follow BP/volume status closely -Follow drain output -Continue heparin IV for mechanical valve -wean vent as tolerated Problems: Consultation Date/Type/Reason Admit Date/Time Feb 06, 2017 at 14:40 Initial Consult Date 02/07/2017 Type of Consultation: Cardiology Reason for Consultation pericardial effusion Referring Provider: ZHAO RYAN Exam/Review of Systems Vital Signs Vitals Vital Signs Date Time Temp Pulse Resp B/P Pulse Ox O2 Delivery O2 Flow Rate FiO2 02/09/17 09:15 88 18 109/61 02/09/17 08:00 97.7 02/09/17 04:50 100 50 02/08/17 20:00 Mechanical Ventilator 02/08/17 10:11 3.0 Intake and Output 02/08/17 02/08/17 02/09/17 15:00 23:00 07:00 Intake Total 2000 ml 1463 ml 889.6 ml Output Total 5 ml 460 ml 440 ml Balance 1995 ml 1003 ml 449.6 ml Exam Review of Systems: CONSTITUTIONAL: No fevers, chills. PULMONARY: intubated CARDIOVASCULAR: No chest pain/palpitations GASTROINTESTINAL: No nausea/vomiting. GENITOURINARY: No hematuria/dysuria. MUSCULOSKELETAL: No myagias/arthalgias. PSYCHIATRIC: The patient denies depression. NEUROLOGIC: sedated Constitutional: other Psych: no complaints Head: normocephalic ENMT: mucosa pink and moist Neck: jvd (9 cm water), supple Respiratory: diminished breath sounds Cardiovascular: regular rate and rhythm Gastrointestinal: non-tender, soft Musculoskeletal: muscle tone (normal) Extremities: edema (trace) Neurological: other (sedated) Results Result Diagram: 02/09/17 0400 02/09/17 0400 Results 24 hrs Laboratory Tests Test 02/08/17 13:28 02/08/17 14:00 02/08/17 14:46 02/09/17 04:00 Blood Gas Specimen Source Blood arterial Blood arterial Arterial Blood Date Drawn 02/08/2017 1:30:33 PM 02/08/2017 3:00:38 PM Arterial Blood pH (Temp corrected) 7.452 H 7.279 *L Arterial Blood pCO2 (Temp correct) 33.0 L 32.0 L Arterial Blood pO2 (Temp corrected) 305.9 H 337.8 H Arterial Blood HCO3 22.5 14.7 L Arterial Blood Base Excess -1.0 -11.0 L Arterial Blood Oxygen Saturation 99.4 H 99.4 H Dudley Test N/A N/A Arterial Blood Gas Puncture Site A-Line A-Line Arterial Blood Carboxyhemoglobin 0.3 0 Arterial Blood Methemoglobin 0.5 0.7 Blood Gas A-a O2 Differential 374.1 H 343.2 H Oxyhemoglobin Percent 98.6 98.7 Total Hemoglobin 9.4 L 9.0 L Blood Gas Temperature 37.0 37.0 Blood Gas Modality SURGERY VENT - AC FiO2 100.0 100.0 Blood Gas Notified Whom OLIVIA Vieira Blood Gas Notified Time 02/08/2017 1:40:06 PM 02/08/2017 3:12:42 PM White Blood Count 25.0 #H 15.8 #H Red Blood Count 3.09 L 2.97 L Hemoglobin 8.0 L 7.4 L Hematocrit 25.7 L 24.2 L Mean Corpuscular Volume 83.2 81.5 L Mean Corpuscular Hemoglobin 25.9 L 24.9 L Mean Corpuscular Hemoglobin Concent 31.1 L 30.6 L Red Cell Distribution Width 15.9 H 15.5 H Platelet Count 507 H 408 Mean Platelet Volume 9.9 9.8 Neutrophils % 66.0 75.8 Band Neutrophils % 2.0 Lymphocytes % 24.0 11.8 L Monocytes % 7.0 10.8 Metamyelocytes % 1.0 H Nucleated Red Blood Cells % 1.0 H 0.8 H Neutrophils # 16.5 H 12.0 H Lymphocytes # 6.0 H 1.9 Monocytes # 1.8 H 1.7 H Metamyelocytes # 0.3 Platelet Estimate PLT APPEAR INCREASED Macrocytosis RARE Sodium Level 137 135 Potassium Level 3.9 4.1 Chloride Level 102 102 Carbon Dioxide Level 18 L 26 Anion Gap 21 #H 11 # Blood Urea Nitrogen 30 H 39 H Creatinine 1.13 1.68 H Glucose Level 164 103 # Calcium Level 10.0 8.4 Blood Gas Respiration Rate 18.0 Blood Gas Actual Respiration Rate 18 Blood Gas Tidal Volume 750.0 Blood Gas Low PEEP Setting 5.0 Blood Gas Critical Value Read Back H. GUILLERA Eosinophils % 0.3 Basophils % 0.3 Eosinophils # 0.0 Basophils # 0.1 Nucleated Red Blood Cells # 0.1 H Total Bilirubin 0.7 Direct Bilirubin 0.00 Indirect Bilirubin 0.7 Aspartate Amino Transf (AST/SGOT) 228 H Alanine Aminotransferase (ALT/SGPT) 330 H Alkaline Phosphatase 149 H Total Protein 5.8 L Albumin 3.1 L Globulin 2.70 Albumin/Globulin Ratio 1.14 Test 02/09/17 06:58 02/09/17 07:12 Prothrombin Time 25.9 H Prothrombin Time Ratio 2.0 INR International Normalized Ratio 2.34 Activated Partial Thromboplast Time 33.6 Blood Gas Specimen Source Blood arterial Arterial Blood Date Drawn 02/09/2017 7:40:40 AM Arterial Blood pH (Temp corrected) 7.503 H Arterial Blood pCO2 (Temp correct) 28.1 L Arterial Blood pO2 (Temp corrected) 98.7 Arterial Blood HCO3 21.6 L Arterial Blood Base Excess -1.0 Arterial Blood Oxygen Saturation 97.1 Dudley Test ACCEPTAB Arterial Blood Gas Puncture Site Right Radial Arterial Blood Carboxyhemoglobin 0.1 Arterial Blood Methemoglobin 0.6 Blood Gas A-a O2 Differential 154.2 H Oxyhemoglobin Percent 96.4 Total Hemoglobin 8.5 L Blood Gas Temperature 37.0 Blood Gas Respiration Rate 18.0 Blood Gas Actual Respiration Rate 18 Blood Gas Modality VENT - AC FiO2 40.0 Blood Gas Tidal Volume 750.0 Blood Gas Low PEEP Setting 5.0 Blood Gas Notified Whom JLD Blood Gas Notified Time 02/09/2017 8:27:44 AM Medications Medications Current Medications Docusate Sodium (Colace) 100 mg Q12H PRN PO CONSTIPATION Last administered on 15:51; Admin Dose 100 MG; Start 02/06/17 at 22:30 Bisacodyl (Dulcolax) 5 mg DAILY PRN PO CONSTIPATION Last administered on 15:51; Admin Dose 5 MG; Start 02/06/17 at 22:30 Pantoprazole 40 mg 40 mg DAILY@06 IV Last administered on 02/09/17 05:48; Admin Dose 40 MG; Start 02/07/17 at 06:00 Ceftriaxone Sodium (Rocephin) 50 ml @ 100 mls/hr Q24H IVPB Last administered on 02/09/17 05:48; Admin Dose 100 MLS/HR; Start 02/07/17 at 06:30 Lorazepam (Ativan) 1 mg Q6 PRN IV ANXIETY Last administered on 02/08/17 16:50 ; Admin Dose 1 MG; Start 02/07/17 at 18:00 Lorazepam 0.5 mg 0.5 mg Q4H PRN IV AGITATION/ANXIETY Last administered on 03:46; Admin Dose 0.5 MG; Start 02/07/17 at 23:00 Vancomycin HCl (Vancocin) 250 ml @ 125 mls/hr Q12H IVPB Last administered on 05:48; Admin Dose 125 MLS/HR; Start 02/08/17 at 15:00; Status Future Hold Morphine Sulfate 2 mg 2 mg Q2H PRN IV PAIN LEVEL 6-10; Start 02/08/17 at 15:30 Potassium Chloride/Dextrose/ Sod Cl 1,000 ml @ 100 mls/hr Q10H IV Last administered on 02/08/17 22:20; Admin Dose 100 MLS/HR; Start 02/08/17 at 15:16 Nitroglycerin/ Dextrose 250 ml @ 1.5 mls/hr TITRATE IV Last administered on 17:08; Admin Dose 1.5 MLS/HR; Start 02/08/17 at 16:30 Nicardipine HCl/ Dextrose (Cardene Iv/D5W) 250 ml @ 50 mls/hr TITRATE IV Last administered on 02/08/17 20:36; Admin Dose 75 MLS/HR; Start 02/08/17 at 16:30 Eye Lubricant 2 drop 2 drop QID BOTH EYES Last administered on 02/09/17 09:14 ; Admin Dose 2 DROP; Start 02/08/17 at 21:00 Propofol (Diprivan) 100 ml @ 5.13 mls/hr Q12H IV Last administered on 02:04; Admin Dose 20.52 MLS/HR; Start 02/08/17 at 22:30 MATHEUS JOHNSON Feb 09, 2017 10:17
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
--- NOTE | 2017-02-09 11:07 | CONS ---
DATE OF ADMISSION: 02/06/2017 DATE OF CONSULTATION: 02/09/2017 TYPE OF CONSULTATION: Pulmonary REASON FOR CONSULT: Mechanical ventilation. HISTORY OF PRESENT ILLNESS: Mr. Marsh is a 41-year-old gentleman who presented to the emergency room with increasing shortness of breath, orthopnea, PND. He had undergone recent aortic valve replacem ent at [facility] several weeks ago, found to have evidence of pericardial effusion on echo cardiogram and CT of the chest, and leukocytosis in addition to evidence of mild heart failure. The patient underwent pericardiocentesis with external CPR following PEA arrest. He had several more e pisodes of PEA arrest, recurrent resuscitation during the procedure. Subsequently, had 1 liter drai sofi with pericardial drain in place, transferred to the intensive care unit now on mechanical ventil ation, intubated and sedated. Appears currently stable at rest on heparin drip. PHYSICAL EXAMINATION: VITAL SIGNS: Temperature 98, pulse 88, blood pressure 110/65, O2 saturation 96% on FIO2 of 40%. HEENT: Dry mucous membranes. Pupils are equal and reactive to light. CARDIAC: S1, S2, no added sounds or murmurs. CHEST: Diminished air entry bilaterally. ABDOMEN: Soft, nontender. No guarding or rebound. EXTREMITIES: No cyanosis, clubbing, edema. NEUROLOGIC: Unable to assess. LABORATORY DATA: White count 15.8, hemoglobin 7.4, platelets of 408. BUN 39, creatinine 1.68. ABG : pH of 7.5, pCO2 of 28, PaO2 of 98, bicarbonate was 21.6. INR was 2.34. IMPRESSION: 1. Hypoxemic respiratory failure with evidence of pulmonary edema. 2. Large pericardial effusion with tamponade, subsequent PEA arrest, now with pericardial drain in place. 3. Recent aortic valve replacement. 4. Probable underlying obstructive sleep apnea. 5. Morbid obesity. PLAN: 1. Continue mechanical ventilation. 2. Diuretics as tolerated. 3. Consider transfusion of packed red blood cells given low hemoglobin. 4. Continue cardiac recommendations. 5. DVT and GI prophylaxis. Dictated By: NABIL LOUIS/LYNDA Conf#: [id number] DID#: [id number]
[2017-02-09] MEDS: D5W-0.45 NACL + KCL 20 MEQ 1,000 ML IV SCH ×2 (11:58→22:20)
[2017-02-09 12:11] LABS: HEMATOCRIT 23.3 % (42.0-52.0); HEMOGLOBIN 7.3 g/dl (14.0-18.0)
[2017-02-09 16:02] LABS: INR 2.27; PROTIME 25.3 Sec (12.2-14.2)
[2017-02-09 16:03] LABS: PARTIAL THROMBOPLASTIN TIME 37.1 Sec (25.0-35.0)
[2017-02-09] MEDS: HEPARIN 1000 UNITS/ML 10 ML INJ IV PRN (16:16)
--- NOTE | 2017-02-09 16:39 | RADRPT ---
PROCEDURE: CHEST 1VW CLINICAL INDICATION: Line placement TECHNIQUE: Single frontal view of the chest was obtained COMPARISON: 02/06/2017 FINDINGS: Interval placement of right neck central venous catheter with the tip in the superior vena cava. In terval placement of endotracheal tube with the tip 2.5 cm from the luisana. Stable sternotomy wires. The cardiac size is moderately enlarged, stable. Stable prosthetic heart valve. Aortic vascular calcifications are demonstrated. There is mild pulmonary vascular congestion. Possible trace bilateral effusions with associated atelectasis. Mild degenerative changes of the visualized osseous structures are visualized. IMPRESSION: 1. Interval placement of endotracheal tube and right neck central venous catheter. 2. Stable moderate cardiomegaly with mild pulmonary vascular congestion. Development of possible tra ce effusions with associated atelectasis. RPTAT:PP .Truman Dinero MD, Date Time Electronically viewed and signed by .Truman Dinero MD, on 02/09/2017 16:39 .V/
--- NOTE | 2017-02-09 18:13 | RADRPT ---
Echocardiogram Report Patient Name: GIULIANO COLE Gender: Male Date: 1975 Study Date: 09-Feb-2017 Instructor Psychiatric Aide: Shonda Aly RDCS Location: [facility] Ref. Physician: JUDITH DUTTA Quality: Technically Difficult Study Procedures: Transthoracic echocardiogram with complete 2D, M-Mode, and doppler examination. Indications: post Pericardial Effusion. 2D/M Mode Doppler Measurement Value Normal Ranges Measurement Value Normal Ranges LVIDd 2D 4.3 3.5 - 5.6 cm AV Mean Ata 1.7 m/sec LVIDs 2D 3.3 2.1 - 4.1 cm AV Mean PG 13.0 mmHg FS 2D 22.9 % AV Peak Ata 2.5 m/sec LVPWd 2D 1.6 0.6 - 1.1 cm AV Peak PG 25.0 mmHg IVSd 2D 1.6 0.6 - 1.1 cm AV VTI 41.5 cm IVS/LVPW 2D 1.0 LVOT Mean Ata 1.1 m/sec AoR Diam 2D 3.9 2.0 - 3.7 cm LVOT Mean PG 6.0 mmHg LA/Ao 2D 1 0 - 1 LVOT Peak Ata 1.6 m/sec EDV 2D 78.4 cm3 LVOT Peak PG 11.0 mmHg ESV 2D 35.9 cm3 LVOT VTI 29.3 cm LA Dimen 2D 4.3 2.3 - 4.0 cm MV E Peak Ata 0.7 m/sec MV A Peak Ata 0.6 m/sec MV E/A 1.2 MV Decel Time 116 msec MV E/A 1.2 TR Peak Ata 2.5 m/sec TR Peak PG 25.0 mmHg RVSP 40.0 mmHg Findings Left Ventricle: Lower limits of normal systolic function. Normal left ventricular wall thickness. Severe concentric left ventricular hypertrophy. Ejection fraction is visually estimated at 50 %. Right Ventricle: Normal right ventricular size. Mild right ventricular hypokinesis. Left Atrium: There is mild enlargement of left atrium. Right Atrium: The right atrium is normal in size. Mitral Valve: Normal appearance and function of the mitral valve with trace physiologic regurgitation. Aortic Valve: Aortic Valve Mechanical Prosthesis. Aortic valve Max velocity 2.48 m/sec. Max PG 25.00 mmHg. Mean PG 13.00 mmHg. Tricuspid Valve: Normal appearance of the tricuspid valve. Estimated peak PA systolic pressure 40 mmHg. There is mild tricuspid regurgitation. Pulmonic Valve: Normal pulmonic valve appearance. Pericardium: Normal pericardium with no significant pericardial effusion. Aorta: Normal aortic root. IVC: Dilated IVC without respiratory collapse, however, patient on ventilator. Conclusions Lower limits of normal systolic function. Normal left ventricular wall thickness. moderate to severe concentric left ventricular hypertrophy. Ejection fraction is visually estimated at 50 %. Normal right ventricular size. Mild right ventricular hypokinesis. There is mild enlargement of left atrium. Normal appearance and function of the mitral valve with trace physiologic regurgitation. Aortic Valve Mechanical Prosthesis. Aortic valve Max velocity 2.48 m/sec. Max PG 25.00 mmHg. Mean PG 13.00 mmHg. Normal appearance of the tricuspid valve. Estimated peak PA systolic pressure 40 mmHg. There is mild tricuspid regurgitation. Normal pericardium with no residual significant pericardial effusion. Electronically Signed By: Ramesh Mcdonough 09-Feb-2017 18:12:24 -0700 Patient Name: GIULIANO COLE Study Date: 09-Feb-2017 [id number]
[2017-02-09] MEDS: FUROSEMIDE 40 MG INJ IV SCH (18:30)
[2017-02-09 21:58] LABS: HEMATOCRIT 22.4 % (42.0-52.0); HEMOGLOBIN 7.3 g/dl (14.0-18.0)
[2017-02-09 22:14] LABS: INR 2.18; PROTIME 24.5 Sec (12.2-14.2); PT RATIO 1.9
[2017-02-09 22:15] LABS: PARTIAL THROMBOPLASTIN TIME 53.1 Sec (25.0-35.0)
[2017-02-10] VITALS (34 sets, daily range): BP systolic 102–162; BP diastolic 50–81; PULSE 80–99; RESP 16–27
[2017-02-10] MEDS: PROPOFOL 100 ML IV SCH ×3 (00:12→05:31)
[2017-02-10] MEDS: CEFTRIAXONE 1 GM/50 ML (PMX) 50 ML IVPB SCH (05:30)
[2017-02-10] MEDS: PANTOPRAZOLE 40 MG INJ IV SCH (05:31)
[2017-02-10] MEDS: VANCOMYCIN 1.25 GM in SOD CHLORIDE 0.9% 250 ML IVPB SCH (05:31)
[2017-02-10] MEDS: HEPARIN 25000 UNITS/250 ML 250 ML IV SCH ×2 (05:37→20:43)
[2017-02-10 06:45] LABS: ADD SCAN DIFF NO
[2017-02-10 06:52] LABS: BASOPHILS % 0.3 % (0.0-2.0); EOSINOPHILS # 0.2 10^3/ul (0.0-0.5); EOSINOPHILS % 1.6 % (0.0-7.0); HEMOGLOBIN 7.1 g/dl (14.0-18.0); LYMPHOCYTES # 1.7 10^3/ul (0.8-2.9); LYMPHOCYTES % 13.8 % (15.0-51.0); MEAN CORPUSCULAR HEMOGLOBIN 25.4 pg (29.0-33.0); MEAN CORPUSCULAR HGB CONC 30.9 g/dl (32.0-37.0); MEAN CORPUSCULAR VOLUME 82.4 fl (82.0-101.0); MEAN PLATELET VOLUME 9.6 fl (7.4-10.4); MONOCYTE # 1.4 10^3/ul (0.3-0.9); MONOCYTES % 11.3 % (0.0-11.0); NEUTROPHIL # 8.9 10^3/ul (1.6-7.5); NEUTROPHILS % 72.3 % (39.0-77.0); NUCLEATED RED BLOOD CELLS% 0.2 /100WBC (0.0-0.0); PLATELET COUNT 316 10^3/UL (140-415); RED BLOOD COUNT 2.79 10^6/ul (4.70-6.10); RED CELL DISTRIBUTION WIDTH 15.9 % (11.5-14.5); WHITE BLOOD COUNT 12.3 10^3/ul (4.8-10.8)
--- NOTE | 2017-02-10 07:06 | PN ---
Date/Time of Note Date/Time of Note DATE: 02/10/17 TIME: 07:05 Assessment/Plan Lines/Catheters IV Catheter Type (from Nrs): Central Line Diego in Place (from Nrsg): Yes Assessment/Plan Assessment/Plan failed weaning, try again today echo showed minimal effusion d/c drain d/c ashwin decrease IV fluids INR 2 continue heparin. Exam/Review of Systems Vital Signs Vitals Vital Signs Date Time Temp Pulse Resp B/P Pulse Ox O2 Delivery O2 Flow Rate FiO2 02/10/17 06:00 82 18 130/67 100 02/10/17 05:05 40 02/10/17 04:00 98.4 02/09/17 19:00 Mechanical Ventilator 02/08/17 10:11 3.0 Intake and Output 02/09/17 02/09/17 02/10/17 15:00 23:00 07:00 Intake Total 600 ml 1082.5 ml 1022.9 ml Output Total 1125 ml 1225 ml 1625 ml Balance -525 ml -142.5 ml -602.1 ml Results Result Diagram: 02/10/17 0631 02/09/17 0400 JUDITH DUTTA MD Feb 10, 2017 07:06
[2017-02-10 07:11] LABS: CALCIUM 8.3 mg/dl (8.4-10.2); CREATININE 1.67 mg/dl (0.61-1.24); MAGNESIUM 2.4 mg/dl (1.7-2.5); PHOSPHORUS 4.3 mg/dl (2.5-4.9); POTASSIUM 3.5 mmol/L (3.5-5.1)
[2017-02-10] MEDS ORDERED: FUROSEMIDE 40 MG INJ IV ONE (07:30)
[2017-02-10] MEDS: morphine 2 MG INJ IV PRN ×3 (07:45→21:19)
[2017-02-10] MEDS ORDERED: POTASSIUM CHLORIDE 50 ML IVPB ONE (09:00)
--- NOTE | 2017-02-10 09:09 | PN ---
Date/Time of Note Date/Time of Note DATE: 02/10/17 TIME: 08:56 Assessment/Plan VTE Prophylaxis VTE Prophylaxis Intervention: heparin (drip) Lines/Catheters IV Catheter Type (from Nrs): Central Line Central line still needed: Yes Urinary Cath still in place: Yes Reason Cath still needed: other (indicate) (intubated and sedated) Assessment/Plan Assessment/Plan 41 yo morbidly obese M Status post recent aortic valve replacement at [facility] 2/2 severe aortic stenosis and CHF now managed for the following 1. Severe pericardial effusion status post pericardiocentesis with pericardial drain placement 17 * stable / pericardial drain d/c 02/10/17 2. Status post cardiac arrest with return of spontaneous circulation during surgery 2 3. Severe CHF exacerbation secondary to #1: improved 4. Elevated troponin secondary to #1: downtrending 5. Reactive leukocytosis secondary to #1: resolved 6. Ventilator dependent respiratory failure postoperatively: 7. Chronic obstructive sleep apnea 8. Recent aortic valve replacement now started on heparin drip 9. Morbid obesity with BMI of 59 10. 10. Acute kidney injury likely secondary to ATN from hypoperfusion: stabilizing ? 11. Transaminitis likely secondary to liver hypoperfusion r/o steatohepatic state 12. Hypochromic anemia likely 2/2 blood loss (acute) 13. Polymicrobial UTI PLAN: Continue ICU monitoring and care Managed and wean ventilator Management of pericardial drain per thoracic surgery / possible removal today Monitor and manage heparin drip for recent valve replacement Monitor renal function/renally dose all meds/avoid nephrotoxic drugs Abx therapy for UTI Further intervention per clinical course DVT and GI prophylaxis: heparin drip, Protonix CC time : 35minsmins Subjective 24 Hr Interval Summary Free Text/Dictation Patient remains intubated and sedated Pericardial drain d/c today Exam/Review of Systems Vital Signs Vitals Vital Signs Date Time Temp Pulse Resp B/P Pulse Ox O2 Delivery O2 Flow Rate FiO2 02/10/17 06:00 82 18 130/67 100 02/10/17 05:05 40 02/10/17 04:00 98.4 02/09/17 19:00 Mechanical Ventilator 02/08/17 10:11 3.0 Intake and Output 02/09/17 02/09/17 02/10/17 15:00 23:00 07:00 Intake Total 600 ml 1082.5 ml 1022.9 ml Output Total 1125 ml 1225 ml 1625 ml Balance -525 ml -142.5 ml -602.1 ml Exam Constitutional: obese (morbidly ), other (sedated, comfortable on vent), No alert, No oriented Head: atraumatic, normocephalic Eyes: PERRL ENMT: intubated Respiratory: diminished breath sounds, No labored breathing (L >>R) Cardiovascular: nl pulses, dressing on midline bertha wall clean, regular rate and rhythm Genitourinary - Male: other (patterson to BS drainage) Neurological: other (sedated / restraints / said to be mildly confused off sedation) Results Result Diagram: 02/10/1763002/10/17 0631 Results 24 hrs Laboratory Tests Test 02/09/17 11:55 02/09/17 15:36 02/09/17 21:50 02/10/17 06:31 Hemoglobin 7.3 L 7.3 L 7.1 L Hematocrit 23.3 L 22.4 L 23.0 L Prothrombin Time 25.3 H 24.5 H Prothrombin Time Ratio 2.0 1.9 INR International Normalized Ratio 2.27 2.18 Activated Partial Thromboplast Time 37.1 H 53.1 H 49.6 H Vancomycin Level Trough 19.3 White Blood Count 12.3 #H Red Blood Count 2.79 L Mean Corpuscular Volume 82.4 Mean Corpuscular Hemoglobin 25.4 L Mean Corpuscular Hemoglobin Concent 30.9 L Red Cell Distribution Width 15.9 H Platelet Count 316 # Mean Platelet Volume 9.6 Neutrophils % 72.3 Lymphocytes % 13.8 L Monocytes % 11.3 H Eosinophils % 1.6 Basophils % 0.3 Nucleated Red Blood Cells % 0.2 H Neutrophils # 8.9 H Lymphocytes # 1.7 Monocytes # 1.4 H Eosinophils # 0.2 Basophils # 0.0 Nucleated Red Blood Cells # 0.0 Sodium Level 140 Potassium Level 3.5 Chloride Level 105 Carbon Dioxide Level 29 Anion Gap 10 Blood Urea Nitrogen 32 H Creatinine 1.67 H Glucose Level 93 Calcium Level 8.3 L Phosphorus Level 4.3 Magnesium Level 2.4 Medications Medications Current Medications Docusate Sodium (Colace) 100 mg Q12H PRN PO CONSTIPATION Last administered on 15:51; Admin Dose 100 MG; Start 6/12/17 at 22:30 Bisacodyl (Dulcolax) 5 mg DAILY PRN PO CONSTIPATION Last administered on 15:51; Admin Dose 5 MG; Start 02/06/17 at 22:30 Pantoprazole 40 mg 40 mg DAILY@06 IV Last administered on 02/10/17 05:31; Admin Dose 40 MG; Start 02/07/17 at 06:00 Ceftriaxone Sodium (Rocephin) 50 ml @ 100 mls/hr Q24H IVPB Last administered on 02/10/17 05:30; Admin Dose 100 MLS/HR; Start 02/07/17 at 06:30 Lorazepam (Ativan) 1 mg Q6 PRN IV ANXIETY Last administered on 02/08/17 16:50 ; Admin Dose 1 MG; Start 02/07/17 at 18:00 Lorazepam (Ativan) 0.5 mg Q4H PRN IV AGITATION/ANXIETY Last administered on 03:46; Admin Dose 0.5 MG; Start 02/07/17 at 23:00 Morphine Sulfate 2 mg 2 mg Q2H PRN IV PAIN LEVEL 6-10 Last administered on 02/10 07:45; Admin Dose 2 MG; Start 02/08/17 at 15:30 Potassium Chloride/Dextrose/ Sod Cl 1,000 ml @ 100 mls/hr Q10H IV Last administered on 02/09/17 22:20; Admin Dose 100 MLS/HR; Start 02/08/17 at 15:16 Nitroglycerin/ Dextrose 250 ml @ 1.5 mls/hr TITRATE IV Last administered on 17:08; Admin Dose 1.5 MLS/HR; Start 02/08/17 at 16:30 Nicardipine HCl/ Dextrose (Cardene Iv/D5W) 250 ml @ 50 mls/hr TITRATE IV Last administered on 02/08/17 20:36; Admin Dose 75 MLS/HR; Start 02/08/17 at 16:30 Eye Lubricant 2 drop 2 drop QID BOTH EYES Last administered on 02/09/17 22:20 ; Admin Dose 2 DROP; Start 02/08/17 at 21:00 Propofol (Diprivan) 100 ml @ 5.13 mls/hr Q12H IV Last administered on 05:31; Admin Dose 30.78 MLS/HR; Start 02/08/17 at 22:30 Furosemide 40 mg 40 mg DAILY IV Last administered on 02/09/17 18:30; Admin Dose 40 MG; Start 02/09/17 at 17:00 Vancomycin HCl/ Sodium Chloride (Vancocin/NS) 250 ml @ 83.333 mls/ hr Q24H IVPB Last administered on 02/10/17 05:31; Admin Dose 83.333 MLS/HR; Start at 06:00 Procedures Procedures repeat CXR from today is pending ZHAO RYAN Feb 10, 2017 09:08
--- NOTE | 2017-02-10 09:43 | CONS ---
Date/Time of Note Date/Time of Note DATE: 02/10/17 TIME: 09:40 Assessment/Plan Assessment/Plan Additional Assessment/Plan Ventilator setting; patient currently on CPAP pressure support of 10, 30% FiO2. 4. Drip at 5 mics per kilo per minute. Assessment recommendations; 1. Patient admitted with PEA due to very large pericardial effusion status post pericardiocentesis, 700 mL of fluid was drained. 2. Recent aortic valve replacement surgery. 3. Morbid obesity. 4. Anemia. 5. Mild renal insufficiency. Possibly diuretic induced. 6. Possibly underlying sleep apnea. Discontinue propofol drip will obtain a blood gas. Once ABGs done I will review it and make further recommendations regarding extubation. Meanwhile transfuse 1 unit packed RBC. Hold any further Lasix dosing. Monitor renal function. 35 minutes of critical care time was spent evaluating the patient. Consultation Date/Type/Reason Admit Date/Time Feb 06, 2017 at 14:40 Initial Consult Date Type of Consultation: Pulmonary/critical care Referring Provider: ZHAO RYAN 24 HR Interval Summary Free Text/Dictation Patient condition is critical but stable the patient is completely awake and alert. Currently maintained on small dose of propofol drip at 5 mics per kilogram per minute. General exam; young male, morbidly obese, orally intubated, awake and alert. Currently in no distress. Exam/Review of Systems Vital Signs Vitals Vital Signs Date Time Temp Pulse Resp B/P Pulse Ox O2 Delivery O2 Flow Rate FiO2 02/10/17 06:00 82 18 130/67 100 02/10/17 05:05 40 02/10/17 04:00 98.4 02/09/17 19:00 Mechanical Ventilator 02/08/17 10:11 3.0 Intake and Output 02/09/17 02/09/17 02/10/17 15:00 23:00 07:00 Intake Total 600 ml 1082.5 ml 1022.9 ml Output Total 1125 ml 1225 ml 1625 ml Balance -525 ml -142.5 ml -602.1 ml Exam HEENT exam is; supple neck, JVD difficult to see because of short neck. Patient has fair dentition. Pupils are midsize and reactive to light. Orally intubated. No neck masses. Chest examined; diminished but clear vessel. S1-S2 audible, no murmurs. Regular rhythm. Abdomen examination; soft, protuberant. Nontender. Bowel sounds audible. Extremity exam is; trace peripheral edema. Pulses 1+ bilaterally. CINDER PITMAN exam; she is awake and alert, follows commands and moves all 4 extremity's on command. Results Result Diagram: 02/10/17 0631 02/10/17 0631 Results 24 hrs Laboratory Tests Test 02/09/17 11:55 02/09/17 15:36 02/09/17 21:50 02/10/17 06:31 Hemoglobin 7.3 L 7.3 L 7.1 L Hematocrit 23.3 L 22.4 L 23.0 L Prothrombin Time 25.3 H 24.5 H Prothrombin Time Ratio 2.0 1.9 INR International Normalized Ratio 2.27 2.18 Activated Partial Thromboplast Time 37.1 H 53.1 H 49.6 H Vancomycin Level Trough 19.3 White Blood Count 12.3 #H Red Blood Count 2.79 L Mean Corpuscular Volume 82.4 Mean Corpuscular Hemoglobin 25.4 L Mean Corpuscular Hemoglobin Concent 30.9 L Red Cell Distribution Width 15.9 H Platelet Count 316 # Mean Platelet Volume 9.6 Neutrophils % 72.3 Lymphocytes % 13.8 L Monocytes % 11.3 H Eosinophils % 1.6 Basophils % 0.3 Nucleated Red Blood Cells % 0.2 H Neutrophils # 8.9 H Lymphocytes # 1.7 Monocytes # 1.4 H Eosinophils # 0.2 Basophils # 0.0 Nucleated Red Blood Cells # 0.0 Sodium Level 140 Potassium Level 3.5 Chloride Level 105 Carbon Dioxide Level 29 Anion Gap 10 Blood Urea Nitrogen 32 H Creatinine 1.67 H Glucose Level 93 Calcium Level 8.3 L Phosphorus Level 4.3 Magnesium Level 2.4 Medications Medications Current Medications Docusate Sodium (Colace) 100 mg Q12H PRN PO CONSTIPATION Last administered on 15:51; Admin Dose 100 MG; Start 02/06/17 at 22:30 Bisacodyl (Dulcolax) 5 mg DAILY PRN PO CONSTIPATION Last administered on 15:51; Admin Dose 5 MG; Start 02/06/17 at 22:30 Pantoprazole 40 mg 40 mg DAILY@06 IV Last administered on 02/10/17 05:31; Admin Dose 40 MG; Start 02/07/17 at 06:00 Ceftriaxone Sodium (Rocephin) 50 ml @ 100 mls/hr Q24H IVPB Last administered on 02/10/17 05:30; Admin Dose 100 MLS/HR; Start 02/07/17 at 06:30 Lorazepam (Ativan) 1 mg Q6 PRN IV ANXIETY Last administered on 02/08/17 16:50 ; Admin Dose 1 MG; Start 02/07/17 at 18:00 Lorazepam (Ativan) 0.5 mg Q4H PRN IV AGITATION/ANXIETY Last administered on 03:46; Admin Dose 0.5 MG; Start 02/07/17 at 23:00 Morphine Sulfate 2 mg 2 mg Q2H PRN IV PAIN LEVEL 6-10 Last administered on 02/10 07:45; Admin Dose 2 MG; Start 02/08/17 at 15:30 Potassium Chloride/Dextrose/ Sod Cl 1,000 ml @ 100 mls/hr Q10H IV Last administered on 02/09/17 22:20; Admin Dose 100 MLS/HR; Start 02/08/17 at 15:16 Nitroglycerin/ Dextrose 250 ml @ 1.5 mls/hr TITRATE IV Last administered on 17:08; Admin Dose 1.5 MLS/HR; Start 02/08/17 at 16:30 Nicardipine HCl/ Dextrose (Cardene Iv/D5W) 250 ml @ 50 mls/hr TITRATE IV Last administered on 02/08/17 20:36; Admin Dose 75 MLS/HR; Start 02/08/17 at 16:30 Eye Lubricant 2 drop 2 drop QID BOTH EYES Last administered on 02/09/17 22:20 ; Admin Dose 2 DROP; Start 02/08/17 at 21:00 Propofol (Diprivan) 100 ml @ 5.13 mls/hr Q12H IV Last administered on 05:31; Admin Dose 30.78 MLS/HR; Start 02/08/17 at 22:30 Furosemide 40 mg 40 mg DAILY IV Last administered on 02/09/17 18:30; Admin Dose 40 MG; Start 02/09/17 at 17:00 Vancomycin HCl 1.25 gm/Sodium Chloride 250 ml @ 83.333 mls/ hr Q24H IVPB Last administered on 02/10/17t 05:31; Admin Dose 83.333 MLS/HR; Start 02/10/17 at 06: 00 Potassium Chloride (KCl 10 MEQ/50 ML SW) 50 ml @ 50 mls/hr ONCE ONCE IVPB ; Start 02/10/17 at 09:00; Stop 02/10/17 at 09:59 ARMOND MCLAUGHLIN 16, 2017 09:43
--- NOTE | 2017-02-10 10:03 | CONS ---
Date/Time of Note Date/Time of Note DATE: 02/10/17 TIME: 09:57 Assessment/Plan Assessment/Plan Chief Complaint/Hosp Course IMp: 1.Pericardial effusion-moderate to severe with ongoing sob/tachycardia. Now POD# 2 s/p pericardial window with cardiac arrest during induction requiring compressions. s/p extubation and removal of drains. f/u post-op Echo 02/09 revealing resolution of pericardial effusion 2.AVR-mech 2 weeks prior 3.Tachycardia 4.Leukocytosis 5.Coagulopathy 6. Positive troponin-minimal s/p recent cardiac surgery-slowly downtrending Recc: -Tele -Follow BP/volume status closely and resume benazepril -Continue heparin IV for mechanical valve with transition to back to coumadin -Continue abx's f/u cx data Problems: Consultation Date/Type/Reason Admit Date/Time Feb 06, 2017 at 14:40 Initial Consult Date 02/07/2017 Type of Consultation: Cardiology Reason for Consultation pericardial effusion Referring Provider: ZHAO RYAN Exam/Review of Systems Vital Signs Vitals Vital Signs Date Time Temp Pulse Resp B/P Pulse Ox O2 Delivery O2 Flow Rate FiO2 02/10/17 06:00 82 18 130/67 100 02/10/17 05:05 40 02/10/17 04:00 98.4 02/09/17 19:00 Mechanical Ventilator 02/08/17 10:11 3.0 Intake and Output 02/09/17 02/09/17 02/10/17 15:00 23:00 07:00 Intake Total 600 ml 1082.5 ml 1022.9 ml Output Total 1125 ml 1225 ml 1625 ml Balance -525 ml -142.5 ml -602.1 ml Exam Review of Systems: CONSTITUTIONAL: No fevers, chills. PULMONARY: No sob CARDIOVASCULAR: No chest pain/palpitations GASTROINTESTINAL: No nausea/vomiting. GENITOURINARY: No hematuria/dysuria. MUSCULOSKELETAL: No myagias/arthalgias. PSYCHIATRIC: The patient denies depression. NEUROLOGIC: lethargic Constitutional: alert Psych: no complaints Head: normocephalic ENMT: mucosa pink and moist Neck: jvd (9 cm water), supple Respiratory: diminished breath sounds (at bases/B) Cardiovascular: regular rate and rhythm Gastrointestinal: non-tender, soft Musculoskeletal: muscle tone (normal) Extremities: edema (none) Neurological: lethargic, other (No focal deficits) Results Result Diagram: 02/10/17 0631 02/10/17 0631 Results 24 hrs Laboratory Tests Test 02/09/17 11:55 02/09/17 15:36 02/09/17 21:50 02/10/17 06:31 Hemoglobin 7.3 L 7.3 L 7.1 L Hematocrit 23.3 L 22.4 L 23.0 L Prothrombin Time 25.3 H 24.5 H Prothrombin Time Ratio 2.0 1.9 INR International Normalized Ratio 2.27 2.18 Activated Partial Thromboplast Time 37.1 H 53.1 H 49.6 H Vancomycin Level Trough 19.3 White Blood Count 12.3 #H Red Blood Count 2.79 L Mean Corpuscular Volume 82.4 Mean Corpuscular Hemoglobin 25.4 L Mean Corpuscular Hemoglobin Concent 30.9 L Red Cell Distribution Width 15.9 H Platelet Count 316 # Mean Platelet Volume 9.6 Neutrophils % 72.3 Lymphocytes % 13.8 L Monocytes % 11.3 H Eosinophils % 1.6 Basophils % 0.3 Nucleated Red Blood Cells % 0.2 H Neutrophils # 8.9 H Lymphocytes # 1.7 Monocytes # 1.4 H Eosinophils # 0.2 Basophils # 0.0 Nucleated Red Blood Cells # 0.0 Sodium Level 140 Potassium Level 3.5 Chloride Level 105 Carbon Dioxide Level 29 Anion Gap 10 Blood Urea Nitrogen 32 H Creatinine 1.67 H Glucose Level 93 Calcium Level 8.3 L Phosphorus Level 4.3 Magnesium Level 2.4 Medications Medications Current Medications Docusate Sodium (Colace) 100 mg Q12H PRN PO CONSTIPATION Last administered on 15:51; Admin Dose 100 MG; Start 02/06/17 at 22:30 Bisacodyl (Dulcolax) 5 mg DAILY PRN PO CONSTIPATION Last administered on 15:51; Admin Dose 5 MG; Start 02/06/17 at 22:30 Pantoprazole 40 mg 40 mg DAILY@06 IV Last administered on 02/10/17 05:31; Admin Dose 40 MG; Start 02/07/17 at 06:00 Ceftriaxone Sodium (Rocephin) 50 ml @ 100 mls/hr Q24H IVPB Last administered on 02/10/17 05:30; Admin Dose 100 MLS/HR; Start 02/07/17 at 06:30 Lorazepam (Ativan) 1 mg Q6 PRN IV ANXIETY Last administered on 02/08/17 16:50 ; Admin Dose 1 MG; Start 02/07/17 at 18:00 Lorazepam (Ativan) 0.5 mg Q4H PRN IV AGITATION/ANXIETY Last administered on 03:46; Admin Dose 0.5 MG; Start 02/07/17 at 23:00 Morphine Sulfate 2 mg 2 mg Q2H PRN IV PAIN LEVEL 6-10 Last administered on 02/10 07:45; Admin Dose 2 MG; Start 02/08/17 at 15:30 Potassium Chloride/Dextrose/ Sod Cl 1,000 ml @ 100 mls/hr Q10H IV Last administered on 02/09/17 22:20; Admin Dose 100 MLS/HR; Start 02/08/17 at 15:16 Nitroglycerin/ Dextrose 250 ml @ 1.5 mls/hr TITRATE IV Last administered on 17:08; Admin Dose 1.5 MLS/HR; Start 02/08/17 at 16:30 Nicardipine HCl/ Dextrose (Cardene Iv/D5W) 250 ml @ 50 mls/hr TITRATE IV Last administered on 02/08/17 20:36; Admin Dose 75 MLS/HR; Start 02/08/17 at 16:30 Eye Lubricant 2 drop 2 drop QID BOTH EYES Last administered on 02/09/17 22:20 ; Admin Dose 2 DROP; Start 02/08/17 at 21:00 Propofol (Diprivan) 100 ml @ 5.13 mls/hr Q12H IV Last administered on 05:31; Admin Dose 30.78 MLS/HR; Start 02/08/17 at 22:30 Furosemide 40 mg 40 mg DAILY IV Last administered on 02/09/17 18:30; Admin Dose 40 MG; Start 02/09/17 at 17:00 Vancomycin HCl 1.25 gm/Sodium Chloride 250 ml @ 83.333 mls/ hr Q24H IVPB Last administered on 02/10/17 05:31; Admin Dose 83.333 MLS/HR; Start 02/10/17 at 06: 00 Potassium Chloride (KCl 10 MEQ/50 ML SW) 50 ml @ 50 mls/hr ONCE ONCE IVPB ; Start 02/10/17 at 09:00; Stop 02/10/17 at 09:59 MATHEUS JOHNSON Feb 10, 2017 10:02
--- NOTE | 2017-02-10 10:06 | RADRPT ---
PROCEDURE: Chest 1 views. CLINICAL INDICATION: Shortness of breath TECHNIQUE: AP views of the chest was obtained. COMPARISON: Yesterday FINDINGS: The heart is large. Endotracheal tube is stable and appears in grossly appropriate location. Nasoga stric tube has its distal end in the expected location of the stomach. Median sternotomy wires over lie the heart. Replacement heart valve is seen. Right-sided central line is stable. Central pulmo nary vascular congestion and interstitial prominence in both lungs is unchanged. Retrocardiac opaci ty stable. Patchy atelectasis is seen in the right lower lobe and may be combined small pleural eff usion. Potential pericardial drain overlying the heart is stable. Osseous structures are unchanged. IMPRESSION: Cardiomegaly . Nasogastric tube with its distal end in the expected location of the stomach. Stable central pulmonary vascular congestion and interstitial prominence in both lungs. Retrocardiac opacity that may reflect left lower lobe atelectasis or infiltrate combined with small pleural effusion. Stable chest tube over the left lower lobe. No visualized pneumothorax. Atelectasis in the right lower lobe, possibly combined small pleural effusion. RPTAT: AA .Coleman Jerry MD, Date Time Electronically viewed and signed by .Coleman Jerry MD, on 02/10/2017 10:06 .P/
[2017-02-10 10:19] LABS: ALBUMIN 2.9 g/dl (3.3-4.9); BILIRUBIN,INDIRECT 0.8 mg/dl (0-1.1); BILIRUBIN,TOTAL 0.8 mg/dl (0.2-1.3); TOTAL PROTEIN 4.3 g/dl (6.1-8.1)
[2017-02-10] MEDS ORDERED: EPINEPHrine 4 MG in SOD CHLORIDE 0.9% 246 ML IV SCH (10:30)
[2017-02-10] MEDS ORDERED: VANCOMYCIN 1 GM (PMX) 250 ML IVPB SCH (10:30)
[2017-02-10] MEDS: D5W-0.45 NACL + KCL 20 MEQ 1,000 ML IV SCH ×2 (10:41→13:00)
[2017-02-10] MEDS: ARTIFICIAL TEARS 15 ML OPH BOTH EYES SCH ×4 (10:42→20:43)
[2017-02-10] MEDS: ACETAMINOPHEN 650 MG SUPP PR PRN ×2 (12:10→20:49)
[2017-02-10 13:13] LABS: HEMATOCRIT 23.8 % (42.0-52.0); HEMOGLOBIN 7.3 g/dl (14.0-18.0)
[2017-02-10] MEDS: FUROSEMIDE 40 MG INJ IV SCH (15:49)
[2017-02-10 16:41] LABS: AADO2 Arterial 119.6 mmHg (7.0-24.0); Arterial Base Excess 1.8 mmol/L (-3.0-3); Arterial COHb 0.3 % (0.0-3.0); Arterial Fraction of Oxyhgb 95.9 % (93.0-99.0); Arterial HCO3 25.6 mmol/L (22.0-26.0); Arterial MetHb 0.4 % (0.0-1.5); Arterial Total Hemglobin 8.6 g/dl (12.0-18.0); MODE NASAL CANNULA
[2017-02-10] MEDS: LORAZEPAM 2 MG INJ IV PRN (21:56)
[2017-02-11] VITALS (22 sets, daily range): BP systolic 114–170; BP diastolic 60–89; PULSE 80–97; RESP 17–54
[2017-02-11] MEDS: morphine 2 MG INJ IV PRN (00:09)
[2017-02-11] MEDS: D5W-0.45 NACL + KCL 20 MEQ 1,000 ML IV SCH ×2 (00:09→10:24)
[2017-02-11] MEDS: HEPARIN 25000 UNITS/250 ML 250 ML IV SCH ×4 (00:14→19:31)
[2017-02-11] MEDS: LORAZEPAM 2 MG INJ IV PRN ×2 (01:33→15:50)
[2017-02-11] MEDS: PANTOPRAZOLE 40 MG INJ IV SCH (05:10)
[2017-02-11] MEDS: CEFTRIAXONE 1 GM/50 ML (PMX) 50 ML IVPB SCH (05:10)
[2017-02-11] MEDS: VANCOMYCIN 1.25 GM in SOD CHLORIDE 0.9% 250 ML IVPB SCH (05:10)
[2017-02-11 05:17] LABS: ADD SCAN DIFF NO
[2017-02-11 05:54] LABS: ALBUMIN/GLOBULIN RATIO 1.11; BASOPHIL # 0.1 10^3/ul (0.0-0.1); BASOPHILS % 0.5 % (0.0-2.0); CALCIUM 8.6 mg/dl (8.4-10.2); CREATININE 1.35 mg/dl (0.61-1.24); EOSINOPHILS # 0.3 10^3/ul (0.0-0.5); HEMATOCRIT 25.9 % (42.0-52.0); HEMOGLOBIN 7.9 g/dl (14.0-18.0); LYMPHOCYTES # 1.4 10^3/ul (0.8-2.9); LYMPHOCYTES % 12.3 % (15.0-51.0); MAGNESIUM 2.4 mg/dl (1.7-2.5); MEAN CORPUSCULAR HEMOGLOBIN 25.2 pg (29.0-33.0); MEAN CORPUSCULAR HGB CONC 30.5 g/dl (32.0-37.0); MEAN CORPUSCULAR VOLUME 82.5 fl (82.0-101.0); MEAN PLATELET VOLUME 9.8 fl (7.4-10.4); MONOCYTE # 1.1 10^3/ul (0.3-0.9); MONOCYTES % 10.2 % (0.0-11.0); NEUTROPHIL # 8.1 10^3/ul (1.6-7.5); NEUTROPHILS % 73.2 % (39.0-77.0); PLATELET COUNT 326 10^3/UL (140-415); POTASSIUM 3.6 mmol/L (3.5-5.1); RED BLOOD COUNT 3.14 10^6/ul (4.70-6.10); RED CELL DISTRIBUTION WIDTH 15.9 % (11.5-14.5); TOTAL PROTEIN 5.7 g/dl (6.1-8.1)
--- NOTE | 2017-02-11 07:10 | PN ---
Date/Time of Note Date/Time of Note DATE: 02/11/17 TIME: 07:10 Assessment/Plan Lines/Catheters IV Catheter Type (from Nrs): Central Line Diego in Place (from Nrsg): Yes Assessment/Plan Assessment/Plan extubated NSR on heparin, start coumadin PT/OT OOB to chair lasix po daily clear liquid diet Exam/Review of Systems Vital Signs Vitals Vital Signs Date Time Temp Pulse Resp B/P Pulse Ox O2 Delivery O2 Flow Rate FiO2 02/11/17 06:00 80 23 148/69 02/11/17 04:59 3.0 02/11/17 04:00 99.1 02/10/17 20:00 Nasal Cannula 02/10/17 19:00 100 02/10/17 08:05 40 Intake and Output 02/10/17 02/10/17 02/11/17 15:00 23:00 07:00 Intake Total 755.0 ml 468 ml 1300 ml Output Total 660 ml 1450 ml 2700 ml Balance 95.0 ml -982 ml -1400 ml Results Result Diagram: 02/11/17 0400 02/11/17 0400 JUDITH DUTTA MD Feb 11, 2017 07:10
--- NOTE | 2017-02-11 07:38 | CONS ---
Date/Time of Note Date/Time of Note DATE: 02/11/17 TIME: 07:36 Assessment/Plan Assessment/Plan Additional Assessment/Plan Assessment and recommendations; next 1. P patient admitted for shortness of breath discovered to have very large pericardial effusion status post pericardial window placement with removal of pericardial catheter. 2. Recent aortic valve surgery. 3. Morbid obesity. 4. Renal insufficiency with significant improvement in serum creatinine. 5. Anemia. 6. Likely underlying sleep apnea. Continue current treatment. Consultation Date/Type/Reason Admit Date/Time Feb 06, 2017 at 14:40 Type of Consultation: Pulmonary/critical care Referring Provider: ZHAO RYAN 24 HR Interval Summary Free Text/Dictation Patient condition is stable. He was successfully extubated yesterday morning. But still complains of mild shortness of breath. Complains of mild chest congestion as well. Denies any chest pain, fever chills. Denies any sputum production. Next General exam; young male, morbidly obese, awake and alert. Currently in no distress. Exam/Review of Systems Vital Signs Vitals Vital Signs Date Time Temp Pulse Resp B/P Pulse Ox O2 Delivery O2 Flow Rate FiO2 02/11/17 06:00 80 23 148/69 02/11/17 04:59 3.0 02/11/17 04:00 99.1 02/10/17 20:00 Nasal Cannula 02/10/17 19:00 100 02/10/17 08:05 40 Intake and Output 02/10/17 02/10/17 02/11/17 15:00 23:00 07:00 Intake Total 755.0 ml 468 ml 1300 ml Output Total 660 ml 1450 ml 2700 ml Balance 95.0 ml -982 ml -1400 ml Exam HEENT exam; supple neck, JVD difficult to see because of short neck. Pharynx is clear. Patient has good dentition. Pupils are midsize and reactive to light bilaterally. No neck masses. Chest examination; diminished but clear vessel. S1-S2 audible, no murmurs. Regular rhythm. There is a well-healed sternal scar. Abdomen examination; protuberant. No organomegaly. Bowel sounds audible. Extremity examination; no peripheral edema. Pulses 1+ bilaterally. COMPUTED TOMOGRAPHY TECHNICIAN examination : No focal deficit. Results Result Diagram: 02/11/1739902/11/17399 Results 24 hrs Laboratory Tests Test 02/10/17 12:50 02/10/17 16:18 02/10/17 18:30 02/10/17 19:45 Hemoglobin 7.3 L 8.0 L Hematocrit 23.8 L 26.0 L Activated Partial Thromboplast Time 48.4 H 49.5 H Blood Gas Specimen Source Blood arterial Arterial Blood Date Drawn 02/10/2017 4:35:52 PM Arterial Blood pH (Temp corrected) 7.463 H Arterial Blood pCO2 (Temp correct) 36.6 Arterial Blood pO2 (Temp corrected) 94.6 Arterial Blood HCO3 25.6 Arterial Blood Base Excess 1.8 Arterial Blood Oxygen Saturation 96.6 [place]ley Test N/A Arterial Blood Gas Puncture Site A-Line Arterial Blood Carboxyhemoglobin 0.3 Arterial Blood Methemoglobin 0.4 Blood Gas A-a O2 Differential 119.6 H Oxyhemoglobin Percent 95.9 Total Hemoglobin 8.6 L Blood Gas Temperature 37.0 Blood Gas Modality NASAL CANNULA FiO2 36.0 Blood Gas Notified Whom CW Blood Gas Notified Time 02/10/2017 4:40:40 PM Test 02/11/17 02:20 02/11/17 04:00 02/11/17 05:19 Activated Partial Thromboplast Time 73.2 *H White Blood Count 11.0 H Red Blood Count 3.14 L Hemoglobin 7.9 L Hematocrit 25.9 L Mean Corpuscular Volume 82.5 Mean Corpuscular Hemoglobin 25.2 L Mean Corpuscular Hemoglobin Concent 30.5 L Red Cell Distribution Width 15.9 H Platelet Count 326 Mean Platelet Volume 9.8 Neutrophils % 73.2 Lymphocytes % 12.3 L Monocytes % 10.2 Eosinophils % 3.0 Basophils % 0.5 Nucleated Red Blood Cells % 0.0 Neutrophils # 8.1 H Lymphocytes # 1.4 Monocytes # 1.1 H Eosinophils # 0.3 Basophils # 0.1 Nucleated Red Blood Cells # 0.0 Sodium Level 143 Potassium Level 3.6 Chloride Level 106 Carbon Dioxide Level 28 Anion Gap 13 Blood Urea Nitrogen 25 H Creatinine 1.35 H Glucose Level 93 Calcium Level 8.6 Magnesium Level 2.4 Total Bilirubin 1.0 Direct Bilirubin 0.00 Indirect Bilirubin 1.0 Aspartate Amino Transf (AST/SGOT) 82 H Alanine Aminotransferase (ALT/SGPT) 221 H Alkaline Phosphatase 116 Total Protein 5.7 #L Albumin 3.0 L Globulin 2.70 Albumin/Globulin Ratio 1.11 Lab Scanned Report BLOOD TRANSFUSION Medications Medications Current Medications Docusate Sodium (Colace) 100 mg Q12H PRN PO CONSTIPATION Last administered on 15:51; Admin Dose 100 MG; Start 02/06/17 at 22:30 Bisacodyl (Dulcolax) 5 mg DAILY PRN PO CONSTIPATION Last administered on 15:51; Admin Dose 5 MG; Start 02/06/17 at 22:30 Pantoprazole (Protonix Iv) 40 mg DAILY@06 IV Last administered on 02/11/17 05: 10; Admin Dose 40 MG; Start 02/07/17 at 06:00 Lorazepam (Ativan) 1 mg Q6 PRN IV ANXIETY Last administered on 02/10/17 21:56 ; Admin Dose 1 MG; Start 02/07/17 at 18:00 Lorazepam (Ativan) 0.5 mg Q4H PRN IV AGITATION/ANXIETY Last administered on 01:33; Admin Dose 0.5 MG; Start 02/07/17 at 23:00 Morphine Sulfate 2 mg 2 mg Q2H PRN IV PAIN LEVEL 6-10 Last administered on 02/11 00:09; Admin Dose 2 MG; Start 02/08/17 at 15:30 Potassium Chloride/Dextrose/ Sod Cl 1,000 ml @ 100 mls/hr Q10H IV Last administered on 02/11/17 00:09; Admin Dose 100 MLS/HR; Start 02/08/17 at 15:16 Nitroglycerin/ Dextrose 250 ml @ 1.5 mls/hr TITRATE IV Last administered on 17:08; Admin Dose 1.5 MLS/HR; Start 02/08/17 at 16:30 Nicardipine HCl/ Dextrose (Cardene Iv/D5W) 250 ml @ 50 mls/hr TITRATE IV Last administered on 02/08/17 20:36; Admin Dose 75 MLS/HR; Start 02/08/17 at 16:30 Eye Lubricant (Artificial Tears Oph) 2 drop QID BOTH EYES Last administered on 02/10/17 20:43; Admin Dose 2 DROP; Start 02/08/17 at 21:00 Furosemide 40 mg 40 mg DAILY IV Last administered on 02/09/17 18:30; Admin Dose 40 MG; Start 02/09/17 at 17:00 Epinephrine/ Sodium Chloride (EPINEPHrine/NS) 250 ml @ 0 mls/hr TITRATE IV ; Start 02/10/17 at 10:30 Acetaminophen (Tylenol Supp) 650 mg Q6H PRN [place] PAIN AND OR ELEVATED TEMP Last administered on 02/10/17 20:49; Admin Dose 650 MG; Start 02/10/17 at 11:30 Warfarin Sodium (Coumadin) 3 mg DAILY@17 NGT ; Start 02/11/17 at 17:00 Furosemide (Lasix) 40 mg DAILY PO ; Start 02/11/17 at 09:00 ARMOND MCLAUGHLIN Feb 11, 2017 07:38
[2017-02-11] MEDS: ARTIFICIAL TEARS 15 ML OPH BOTH EYES SCH ×4 (08:56→21:22)
[2017-02-11] MEDS: FUROSEMIDE 40 MG INJ IV SCH (08:57)
[2017-02-11] MEDS ORDERED: FUROSEMIDE 40 MG TAB PO SCH (09:00)
[2017-02-11] MEDS: ALBUTEROL/IPRATROPIUM (NEB) 3 ML AMP HHN PRN ×3 (09:17→20:30)
--- NOTE | 2017-02-11 09:49 | PN ---
Date/Time of Note Date/Time of Note DATE: 02/11/17 TIME: 09:42 Assessment/Plan VTE Prophylaxis VTE Prophylaxis Intervention: heparin Lines/Catheters IV Catheter Type (from Nrsg): Central Line Central line still needed: Yes Urinary Cath still in place: Yes Reason Cath still needed: other (indicate) Assessment/Plan Assessment/Plan 41 yo morbidly obese M Status post recent aortic valve replacement at [facility] 2/2 severe aortic stenosis and CHF now managed for the following 1. Severe pericardial effusion status post pericardiocentesis with pericardial drain placement 617 * stable / pericardial drain d/c 02/10/17 2. Status post cardiac arrest with return of spontaneous circulation during surgery 2 3. Severe CHF exacerbation secondary to #1: improved 4. Elevated troponin secondary to #1: downtrending 5. Reactive leukocytosis secondary to #1: resolved 6. Ventilator dependent respiratory failure postoperatively: improved / off vent 7. Chronic obstructive sleep apnea 8. Recent aortic valve replacement now started on heparin drip / coumadin transition 9. Morbid obesity with BMI of 59 10. 10. Acute kidney injury likely secondary to ATN from hypoperfusion: stabilizing 11. Transaminitis likely secondary to liver hypoperfusion: improving 12. Hypochromic anemia likely 2/2 blood loss (acute): s/p transfusion X1 so far 13. Polymicrobial UTI PLAN: Commenced on Coumadin / Monitor and manage heparin drip for recent valve replacement Continue to monitor renal function/renally dose all meds/avoid nephrotoxic drugs Continue Abx therapy for UTI Wean off o2 / Continue lasix Transfer out of ICU when cleared by pulm Commence diet Further intervention per clinical course DVT and GI prophylaxis: heparin drip, Protonix CC time : 35minsmins Subjective 24 Hr Interval Summary Free Text/Dictation Patient seen and examined. doing well stable off vent , but requiring o2 at 5L asking for food Transfused 1 unit of PRBCs yesterday Exam/Review of Systems Vital Signs Vitals Vital Signs Date Time Temp Pulse Resp B/P Pulse Ox O2 Delivery O2 Flow Rate FiO2 02/11/17 09:18 81 16 98 Nasal Cannula 2.0 02/11/17 09:00 162/77 02/11/17 07:00 98.2 02/10/17 08:05 40 Intake and Output 02/10/17 02/10/17 02/11/17 15:00 23:00 07:00 Intake Total 755.0 ml 468 ml 1300 ml Output Total 660 ml 1450 ml 2700 ml Balance 95.0 ml -982 ml -1400 ml Exam Constitutional: alert, obese (+++), oriented Head: atraumatic, normocephalic Eyes: PERRL ENMT: mucosa pink and moist Neck: supple Respiratory: diminished breath sounds, wheezing Cardiovascular: other (L chest wall dressing clean and dry), regular rate and rhythm, No murmurs/extra sounds Gastrointestinal: bowel sounds, soft, No distended Extremities: No edema Neurological: lethargic, nl mental status Results Result Diagram: 02/11/17 0400 02/11/17 0400 Results 24 hrs Laboratory Tests Test 02/10/17 12:50 02/10/17 16:18 02/10/17 18:30 02/10/17 19:45 Hemoglobin 7.3 L 8.0 L Hematocrit 23.8 L 26.0 L Activated Partial Thromboplast Time 48.4 H 49.5 H Blood Gas Specimen Source Blood arterial Arterial Blood Date Drawn 02/10/2017 4:35:52 PM Arterial Blood pH (Temp corrected) 7.463 H Arterial Blood pCO2 (Temp correct) 36.6 Arterial Blood pO2 (Temp corrected) 94.6 Arterial Blood HCO3 25.6 Arterial Blood Base Excess 1.8 Arterial Blood Oxygen Saturation 96.6 Dudley Test N/A Arterial Blood Gas Puncture Site A-Line Arterial Blood Carboxyhemoglobin 0.3 Arterial Blood Methemoglobin 0.4 Blood Gas A-a O2 Differential 119.6 H Oxyhemoglobin Percent 95.9 Total Hemoglobin 8.6 L Blood Gas Temperature 37.0 Blood Gas Modality NASAL CANNULA FiO2 36.0 Blood Gas Notified Whom CW Blood Gas Notified Time 02/10/2017 4:40:40 PM Test 02/11/17 02:20 02/11/17 04:00 02/11/17 05:19 Activated Partial Thromboplast Time 73.2 *H White Blood Count 11.0 H Red Blood Count 3.14 L Hemoglobin 7.9 L Hematocrit 25.9 L Mean Corpuscular Volume 82.5 Mean Corpuscular Hemoglobin 25.2 L Mean Corpuscular Hemoglobin Concent 30.5 L Red Cell Distribution Width 15.9 H Platelet Count 326 Mean Platelet Volume 9.8 Neutrophils % 73.2 Lymphocytes % 12.3 L Monocytes % 10.2 Eosinophils % 3.0 Basophils % 0.5 Nucleated Red Blood Cells % 0.0 Neutrophils # 8.1 H Lymphocytes # 1.4 Monocytes # 1.1 H Eosinophils # 0.3 Basophils # 0.1 Nucleated Red Blood Cells # 0.0 Sodium Level 143 Potassium Level 3.6 Chloride Level 106 Carbon Dioxide Level 28 Anion Gap 13 Blood Urea Nitrogen 25 H Creatinine 1.35 H Glucose Level 93 Calcium Level 8.6 Magnesium Level 2.4 Total Bilirubin 1.0 Direct Bilirubin 0.00 Indirect Bilirubin 1.0 Aspartate Amino Transf (AST/SGOT) 82 H Alanine Aminotransferase (ALT/SGPT) 221 H Alkaline Phosphatase 116 Total Protein 5.7 #L Albumin 3.0 L Globulin 2.70 Albumin/Globulin Ratio 1.11 Lab Scanned Report BLOOD TRANSFUSION Medications Medications Current Medications Docusate Sodium (Colace) 100 mg Q12H PRN PO CONSTIPATION Last administered on 15:51; Admin Dose 100 MG; Start 02/06/17 at 22:30 Bisacodyl (Dulcolax) 5 mg DAILY PRN PO CONSTIPATION Last administered on 15:51; Admin Dose 5 MG; Start 02/06/17 at 22:30 Pantoprazole (Protonix Iv) 40 mg DAILY@06 IV Last administered on 02/11/17 05: 10; Admin Dose 40 MG; Start 02/07/17 at 06:00 Lorazepam (Ativan) 1 mg Q6 PRN IV ANXIETY Last administered on 02/10/17 21:56 ; Admin Dose 1 MG; Start 02/07/17 at 18:00 Lorazepam (Ativan) 0.5 mg Q4H PRN IV AGITATION/ANXIETY Last administered on 01:33; Admin Dose 0.5 MG; Start 02/07/17 at 23:00 Morphine Sulfate 2 mg 2 mg Q2H PRN IV PAIN LEVEL 6-10 Last administered on 02/11 00:09; Admin Dose 2 MG; Start 02/08/17 at 15:30 Potassium Chloride/Dextrose/ Sod Cl 1,000 ml @ 100 mls/hr Q10H IV Last administered on 02/11/17 00:09; Admin Dose 100 MLS/HR; Start 02/08/17 at 15:16 Nitroglycerin/ Dextrose 250 ml @ 1.5 mls/hr TITRATE IV Last administered on 17:08; Admin Dose 1.5 MLS/HR; Start 02/08/17 at 16:30 Nicardipine HCl/ Dextrose (Cardene Iv/D5W) 250 ml @ 50 mls/hr TITRATE IV Last administered on 02/08/17 20:36; Admin Dose 75 MLS/HR; Start 02/08/17 at 16:30 Eye Lubricant (Artificial Tears Oph) 2 drop QID BOTH EYES Last administered on 02/11/17 08:56; Admin Dose 2 DROP; Start 02/08/17 at 21:00 Furosemide 40 mg 40 mg DAILY IV Last administered on 02/11/17 08:57; Admin Dose 40 MG; Start 02/09/17 at 17:00 Epinephrine/ Sodium Chloride (EPINEPHrine/NS) 250 ml @ 0 mls/hr TITRATE IV ; Start 02/10/17 at 10:30 Acetaminophen (Tylenol Supp) 650 mg Q6H PRN [place] PAIN AND OR ELEVATED TEMP Last administered on 02/10/17 20:49; Admin Dose 650 MG; Start 02/10/17 at 11:30 Warfarin Sodium (Coumadin) 3 mg DAILY@17 NGT ; Start 02/11/17 at 17:00 Furosemide (Lasix) 40 mg DAILY PO ; Start 02/11/17 at 09:00 Procedures Procedures PROCEDURE: Chest 1 views. CLINICAL INDICATION: Shortness of breath TECHNIQUE: AP views of the chest was obtained. COMPARISON: Yesterday FINDINGS: The heart is large. Endotracheal tube is stable and appears in grossly appropriate location. Nasogastric tube has its distal end in the expected location of the stomach. Median sternotomy wires overlie the heart. Replacement heart valve is seen. Right-sided central line is stable. Central pulmonary vascular congestion and interstitial prominence in both lungs is unchanged. Retrocardiac opacity stable. Patchy atelectasis is seen in the right lower lobe and may be combined small pleural effusion. Potential pericardial drain overlying the heart is stable. Osseous structures are unchanged. IMPRESSION: Cardiomegaly . Nasogastric tube with its distal end in the expected location of the stomach. Stable central pulmonary vascular congestion and interstitial prominence in both lungs. Retrocardiac opacity that may reflect left lower lobe atelectasis or infiltrate combined with small pleural effusion. Stable chest tube over the left lower lobe. No visualized pneumothorax. Atelectasis in the right lower lobe, possibly combined small pleural effusion. RPTAT: AA .Coleman Jerry MD, Date Time Electronically viewed and signed by .Coleman Jerry MD, on 02/10/2017 10:06 .P/ CC: NABIL ALMARAZ MD, [facility] ZHAO RYAN Feb 11, 2017 09:49
[2017-02-11] MEDS: BENAZEPRIL 10 MG TAB PO SCH (10:14)
[2017-02-11 11:23] LABS: INR 1.53; PROTIME 18.5 Sec (12.2-14.2); PT RATIO 1.4
[2017-02-11] MEDS: HEPARIN 1000 UNITS/ML 10 ML INJ IV PRN (11:56)
--- NOTE | 2017-02-11 12:48 | CONS ---
Date/Time of Note Date/Time of Note DATE: 02/11/17 TIME: 12:30 Assessment/Plan Assessment/Plan Additional Assessment/Plan Pericardial effusion, s/p Pericardial window s/p AVR Abnormal electrocardiogram Renal insufficiency Hemodynamically stable Started on metoprolol Discontinue benazepril Continue Heparin bridge with Coumadin Keep Mag > 2 and Potassium > 4 Consultation Date/Type/Reason Admit Date/Time Feb 06, 2017 at 14:40 Constitutional: no complaints Psychological: no complaints Social History Alcohol Use: occasionally Smoking Status: Never smoker Drug Use: none Exam/Review of Systems Vital Signs Vitals Vital Signs Date Time Temp Pulse Resp B/P Pulse Ox O2 Delivery O2 Flow Rate FiO2 02/11/17 12:00 87 21 149/70 97 Room Air 02/11/17 11:00 98.2 2.0 02/10/17 08:05 40 Intake and Output 02/10/17 02/10/17 02/11/17 15:00 23:00 07:00 Intake Total 755.0 ml 468 ml 1417.5 ml Output Total 660 ml 1450 ml 3200 ml Balance 95.0 ml -982 ml -1782.5 ml Exam Constitutional: alert Psych: no complaints Head: atraumatic, normocephalic Neck: non-tender, supple Respiratory: diminished breath sounds Cardiovascular: regular rate and rhythm Gastrointestinal: nl liver, spleen, non-tender, soft Extremities: edema Results Result Diagram: 02/11/17 0400 02/11/17 0400 Results 24 hrs Laboratory Tests Test 02/10/17 12:50 02/10/17 16:18 02/10/17 18:30 02/10/17 19:45 Hemoglobin 7.3 L 8.0 L Hematocrit 23.8 L 26.0 L Activated Partial Thromboplast Time 48.4 H 49.5 H Blood Gas Specimen Source Blood arterial Arterial Blood Date Drawn 02/10/2017 4:35:52 PM Arterial Blood pH (Temp corrected) 7.463 H Arterial Blood pCO2 (Temp correct) 36.6 Arterial Blood pO2 (Temp corrected) 94.6 Arterial Blood HCO3 25.6 Arterial Blood Base Excess 1.8 Arterial Blood Oxygen Saturation 96.6 Dudley Test N/A Arterial Blood Gas Puncture Site A-Line Arterial Blood Carboxyhemoglobin 0.3 Arterial Blood Methemoglobin 0.4 Blood Gas A-a O2 Differential 119.6 H Oxyhemoglobin Percent 95.9 Total Hemoglobin 8.6 L Blood Gas Temperature 37.0 Blood Gas Modality NASAL CANNULA FiO2 36.0 Blood Gas Notified Whom CW Blood Gas Notified Time 02/10/2017 4:40:40 PM Test 02/11/17 02:20 02/11/17 04:00 02/11/17 05:19 02/11/17 09:40 Activated Partial Thromboplast Time 73.2 *H 36.0 H White Blood Count 11.0 H Red Blood Count 3.14 L Hemoglobin 7.9 L Hematocrit 25.9 L Mean Corpuscular Volume 82.5 Mean Corpuscular Hemoglobin 25.2 L Mean Corpuscular Hemoglobin Concent 30.5 L Red Cell Distribution Width 15.9 H Platelet Count 326 Mean Platelet Volume 9.8 Neutrophils % 73.2 Lymphocytes % 12.3 L Monocytes % 10.2 Eosinophils % 3.0 Basophils % 0.5 Nucleated Red Blood Cells % 0.0 Neutrophils # 8.1 H Lymphocytes # 1.4 Monocytes # 1.1 H Eosinophils # 0.3 Basophils # 0.1 Nucleated Red Blood Cells # 0.0 Sodium Level 143 Potassium Level 3.6 Chloride Level 106 Carbon Dioxide Level 28 Anion Gap 13 Blood Urea Nitrogen 25 H Creatinine 1.35 H Glucose Level 93 Calcium Level 8.6 Magnesium Level 2.4 Total Bilirubin 1.0 Direct Bilirubin 0.00 Indirect Bilirubin 1.0 Aspartate Amino Transf (AST/SGOT) 82 H Alanine Aminotransferase (ALT/SGPT) 221 H Alkaline Phosphatase 116 Total Protein 5.7 #L Albumin 3.0 L Globulin 2.70 Albumin/Globulin Ratio 1.11 Lab Scanned Report BLOOD TRANSFUSION Prothrombin Time 18.5 #H Prothrombin Time Ratio 1.4 INR International Normalized Ratio 1.53 Medications Medications Current Medications Docusate Sodium (Colace) 100 mg Q12H PRN PO CONSTIPATION Last administered on 15:51; Admin Dose 100 MG; Start 02/06/17 at 22:30 Bisacodyl (Dulcolax) 5 mg DAILY PRN PO CONSTIPATION Last administered on 15:51; Admin Dose 5 MG; Start 02/06/17 at 22:30 Pantoprazole (Protonix Iv) 40 mg DAILY@06 IV Last administered on 02/11/17 05: 10; Admin Dose 40 MG; Start 02/07/17 at 06:00 Lorazepam (Ativan) 1 mg Q6 PRN IV ANXIETY Last administered on 02/10/17 21:56 ; Admin Dose 1 MG; Start 02/07/17 at 18:00 Lorazepam (Ativan) 0.5 mg Q4H PRN IV AGITATION/ANXIETY Last administered on 01:33; Admin Dose 0.5 MG; Start 02/07/17 at 23:00 Morphine Sulfate 2 mg 2 mg Q2H PRN IV PAIN LEVEL 6-10 Last administered on 02/11 00:09; Admin Dose 2 MG; Start 02/08/17 at 15:30 Potassium Chloride/Dextrose/ Sod Cl 1,000 ml @ 70 mls/hr [id number] IV Last administered on 02/11/17 10:24; Admin Dose 70 MLS/HR; Start 02/08/17 at 15:16 Nitroglycerin/ Dextrose 250 ml @ 1.5 mls/hr TITRATE IV Last administered on 17:08; Admin Dose 1.5 MLS/HR; Start 02/08/17 at 16:30 Nicardipine HCl/ Dextrose (Cardene Iv/D5W) 250 ml @ 50 mls/hr TITRATE IV Last administered on 02/08/17 20:36; Admin Dose 75 MLS/HR; Start 02/08/17 at 16:30 Eye Lubricant (Artificial Tears Oph) 2 drop QID BOTH EYES Last administered on 02/11/17 08:56; Admin Dose 2 DROP; Start 02/08/17 at 21:00 Furosemide 40 mg 40 mg DAILY IV Last administered on 02/11/17 08:57; Admin Dose 40 MG; Start 02/09/17 at 17:00 Epinephrine/ Sodium Chloride (EPINEPHrine/NS) 250 ml @ 0 mls/hr TITRATE IV ; Start 02/10/17 at 10:30 Acetaminophen (Tylenol Supp) 650 mg Q6H PRN [place] PAIN AND OR ELEVATED TEMP Last administered on 02/10/17 20:49; Admin Dose 650 MG; Start 02/10/17 at 11:30 Warfarin Sodium (Coumadin) 3 mg DAILY@17 NGT ; Start 02/11/17 at 17:00 Benazepril HCl (Lotensin) 20 mg DAILY PO Last administered on 6/17/17at 10:14; Admin Dose 20 MG; Start 02/11/17 at 10:00 ABUNDIO SHELDON M.D. Feb 11, 2017 12:47
[2017-02-11] MEDS ORDERED: WARFARIN 3 MG TAB NGT SCH (17:00)
[2017-02-11] MEDS ORDERED: FUROSEMIDE 40 MG INJ IV ONE (21:00)
--- NOTE | 2017-02-11 23:05 | RADRPT ---
PROCEDURE: Portable chest x-ray. CLINICAL INDICATION: Shortness of breath. TECHNIQUE: Portable AP view of the chest. COMPARISON: 02/10/2017. FINDINGS: The patient is been extubated. A right central venous catheter has been removed. No pulmonary long a or conolidation is identified. There is mild bibasilar atelectasis. The patient is status post me rafal sternotomy. The cardiac silhouette is enlarged. No pleural effusion is seen. There is no pne umothorax. IMPRESSION: 1. No evidence of acute cardiopulmonary disease. 2. Enlarged cardiac silhouette. 3. Median sternotomy. RPTAT: HTAR .Theron Mercer MD, Date Time Electronically viewed and signed by .Theron Mercer MD, on 02/11/2017 23:05 .R/
[2017-02-12] VITALS (24 sets, daily range): BP systolic 123–162; BP diastolic 59–86; PULSE 87–100; RESP 12–24
[2017-02-12] MEDS: GUAIFENESIN 20 MG/ML 5ML CUP PO PRN ×2 (00:21→11:35)
[2017-02-12] MEDS: HEPARIN 25000 UNITS/250 ML 250 ML IV SCH ×5 (00:30→23:06)
[2017-02-12] MEDS: D5W-0.45 NACL + KCL 20 MEQ 1,000 ML IV SCH ×2 (01:14→15:17)
[2017-02-12] MEDS: ALBUTEROL/IPRATROPIUM (NEB) 3 ML AMP HHN PRN ×2 (01:16→22:03)
[2017-02-12 05:37] LABS: ADD SCAN DIFF NO
[2017-02-12 05:52] LABS: BASOPHILS % 0.3 % (0.0-2.0); EOSINOPHILS # 0.3 10^3/ul (0.0-0.5); EOSINOPHILS % 2.4 % (0.0-7.0); HEMATOCRIT 26.5 % (42.0-52.0); HEMOGLOBIN 8.1 g/dl (14.0-18.0); LYMPHOCYTES # 1.4 10^3/ul (0.8-2.9); LYMPHOCYTES % 13.6 % (15.0-51.0); MEAN CORPUSCULAR HEMOGLOBIN 25.2 pg (29.0-33.0); MEAN CORPUSCULAR HGB CONC 30.6 g/dl (32.0-37.0); MEAN CORPUSCULAR VOLUME 82.3 fl (82.0-101.0); MEAN PLATELET VOLUME 9.6 fl (7.4-10.4); MONOCYTE # 1.3 10^3/ul (0.3-0.9); MONOCYTES % 12.2 % (0.0-11.0); NEUTROPHIL # 7.4 10^3/ul (1.6-7.5); NEUTROPHILS % 70.8 % (39.0-77.0); PLATELET COUNT 326 10^3/UL (140-415); RED BLOOD COUNT 3.22 10^6/ul (4.70-6.10); RED CELL DISTRIBUTION WIDTH 15.5 % (11.5-14.5); WHITE BLOOD COUNT 10.5 10^3/ul (4.8-10.8)
[2017-02-12 05:55] LABS: INR 1.21; PROTIME 15.4 Sec (12.2-14.2); PT RATIO 1.2
[2017-02-12 06:03] LABS: ALBUMIN 3.5 g/dl (3.3-4.9); ALBUMIN/GLOBULIN RATIO 1.09; BILIRUBIN,INDIRECT 0.7 mg/dl (0-1.1); BILIRUBIN,TOTAL 0.7 mg/dl (0.2-1.3); CALCIUM 8.5 mg/dl (8.4-10.2); CREATININE 1.29 mg/dl (0.61-1.24); TOTAL PROTEIN 6.7 g/dl (6.1-8.1)
[2017-02-12] MEDS: PANTOPRAZOLE 40 MG INJ IV SCH (06:04)
--- NOTE | 2017-02-12 07:01 | PN ---
Date/Time of Note Date/Time of Note DATE: 02/12/17 TIME: 07:00 Assessment/Plan Lines/Catheters IV Catheter Type (from [facility]): Peripheral IV Patterson in Place (from [facility]): No Assessment/Plan Assessment/Plan WBC and Hct stable INR 1.2, give 7.5mg coumadin tonight urinary retention, patetrson replaced continue heparin needs PT Exam/Review of Systems Vital Signs Vitals Vital Signs Date Time Temp Pulse Resp B/P Pulse Ox O2 Delivery O2 Flow Rate FiO2 02/12/17 06:00 90 17 152/86 99 Nasal Cannula 02/12/17 04:00 98.4 02/12/17 01:17 3.0 02/10/17 08:05 40 Intake and Output 02/11/17 02/11/17 02/12/17 15:00 23:00 07:00 Intake Total 1515.5 ml 902.5 ml 1116.5 ml Output Total 3400 ml 2750 ml 2010 ml Balance -1884.5 ml -1847.5 ml -893.5 ml Results Result Diagram: 02/12/17 0505 02/12/17 0505 JUDITH DUTTA MD Feb 12, 2017 07:01
--- NOTE | 2017-02-12 08:31 | PN ---
Date/Time of Note Date/Time of Note DATE: 02/12/17 TIME: 08:26 Assessment/Plan VTE Prophylaxis VTE Prophylaxis Intervention: heparin Lines/Catheters IV Catheter Type (from Nrs): Peripheral IV Urinary Cath still in place: No Assessment/Plan Assessment/Plan 41 yo morbidly obese M Status post recent aortic valve replacement at [facility] 2/2 severe aortic stenosis and CHF now managed for the following 1. Severe pericardial effusion status post pericardiocentesis with pericardial drain placement 6..17 * stable / pericardial drain d/c 02/10/17 2. Status post cardiac arrest with return of spontaneous circulation during surgery 2 3. Severe CHF exacerbation secondary to #1: improved 4. Elevated troponin secondary to #1: downtrending 5. Reactive leukocytosis secondary to #1: resolved 6. Ventilator dependent respiratory failure postoperatively: improved / off vent 7. Chronic obstructive sleep apnea 8. Recent aortic valve replacement now started on heparin drip / Coumadin transition 9. Morbid obesity with BMI of 59 10. Acute kidney injury likely secondary to ATN from hypoperfusion: stabilizing 11. Transaminitis likely secondary to liver hypoperfusion: improving 12. Hypochromic anemia likely 2/2 blood loss (acute): s/p transfusion X1 so far 13. Polymicrobial UTI 14. Hypertension: needs better control, defer to cardiology 15. Encephalopathy: r/o HIE from cardiac arrest PLAN: Commenced on Coumadin / Monitor and manage heparin drip for recent valve replacement Continue to monitor renal function/renally dose all meds/avoid nephrotoxic drugs Continue Abx therapy for UTI Wean off o2 / Continue lasix Monitor Mental status Transfer out of ICU when cleared by pulm Commence diet Further intervention per clinical course DVT and GI prophylaxis: heparin drip / coumadin / Protonix CC time : 35minsmins Subjective 24 Hr Interval Summary Free Text/Dictation patient doing well down to 2 L Exam/Review of Systems Vital Signs Vitals Vital Signs Date Time Temp Pulse Resp B/P Pulse Ox O2 Delivery O2 Flow Rate FiO2 02/12/17 07:00 88 20 151/66 99 Nasal Cannula 02/12/17 04:00 98.4 02/12/17 01:17 3.0 02/10/17 08:05 40 Intake and Output 02/11/17 02/11/17 02/12/17 15:00 23:00 07:00 Intake Total 1515.5 ml 902.5 ml 1116.5 ml Output Total 3400 ml 2750 ml 2190 ml Balance -1884.5 ml -1847.5 ml -1073.5 ml Exam Constitutional: alert, obese (+++), seems to be mildly cognitively delayed versus confused, but alert and oriented x3, follows all commands Head: atraumatic, normocephalic Eyes: PERRL ENMT: mucosa pink and moist Neck: supple Respiratory: diminished breath sounds, wheezing Cardiovascular: other (L chest wall dressing clean and dry), regular rate and rhythm, No murmurs/extra sounds Gastrointestinal: bowel sounds, soft, No distended Extremities: No edema Neurological: No gross focal deficits except confusion Results Result Diagram: 02/12/17 0505 02/12/17 0505 Results 24 hrs Laboratory Tests Test 02/11/17 09:40 02/11/17 18:15 02/12/17 01:55 02/12/17 05:05 Prothrombin Time 18.5 #H 15.4 H Prothrombin Time Ratio 1.4 1.2 INR International Normalized Ratio 1.53 1.21 Activated Partial Thromboplast Time 36.0 H 71.9 *H 50.0 H White Blood Count 10.5 Red Blood Count 3.22 L Hemoglobin 8.1 L Hematocrit 26.5 L Mean Corpuscular Volume 82.3 Mean Corpuscular Hemoglobin 25.2 L Mean Corpuscular Hemoglobin Concent 30.6 L Red Cell Distribution Width 15.5 H Platelet Count 326 Mean Platelet Volume 9.6 Neutrophils % 70.8 Lymphocytes % 13.6 L Monocytes % 12.2 H Eosinophils % 2.4 Basophils % 0.3 Nucleated Red Blood Cells % 0.0 Neutrophils # 7.4 Lymphocytes # 1.4 Monocytes # 1.3 H Eosinophils # 0.3 Basophils # 0.0 Nucleated Red Blood Cells # 0.0 Sodium Level 139 Potassium Level 4.0 Chloride Level 103 Carbon Dioxide Level 30 Anion Gap 10 Blood Urea Nitrogen 20 Creatinine 1.29 H Glucose Level 159 Calcium Level 8.5 Total Bilirubin 0.7 Direct Bilirubin 0.00 Indirect Bilirubin 0.7 Aspartate Amino Transf (AST/SGOT) 57 H Alanine Aminotransferase (ALT/SGPT) 165 H Alkaline Phosphatase 128 H Total Protein 6.7 # Albumin 3.5 Globulin 3.20 Albumin/Globulin Ratio 1.09 Medications Medications Current Medications Docusate Sodium (Colace) 100 mg Q12H PRN PO CONSTIPATION Last administered on 15:51; Admin Dose 100 MG; Start 02/06/17 at 22:30 Bisacodyl (Dulcolax) 5 mg DAILY PRN PO CONSTIPATION Last administered on 15:51; Admin Dose 5 MG; Start 02/06/17 at 22:30 Pantoprazole (Protonix Iv) 40 mg DAILY@06 IV Last administered on 02/12/17 06: 04; Admin Dose 40 MG; Start 02/07/17 at 06:00 Lorazepam (Ativan) 1 mg Q6 PRN IV ANXIETY Last administered on 02/11/17 15:50 ; Admin Dose 1 MG; Start 02/07/17 at 18:00 Lorazepam (Ativan) 0.5 mg Q4H PRN IV AGITATION/ANXIETY Last administered on 01:33; Admin Dose 0.5 MG; Start 02/07/17 at 23:00 Morphine Sulfate 2 mg 2 mg Q2H PRN IV PAIN LEVEL 6-10 Last administered on 02/11 00:09; Admin Dose 2 MG; Start 02/08/17 at 15:30 Potassium Chloride/Dextrose/ Sod Cl 1,000 ml @ 70 mls/hr [id number] IV Last administered on 02/12/17 01:14; Admin Dose 70 MLS/HR; Start 02/08/17 at 15:16 Nitroglycerin/ Dextrose 250 ml @ 1.5 mls/hr TITRATE IV Last administered on 17:08; Admin Dose 1.5 MLS/HR; Start 02/08/17 at 16:30 Nicardipine HCl/ Dextrose (Cardene Iv/D5W) 250 ml @ 50 mls/hr TITRATE IV Last administered on 02/08/17 20:36; Admin Dose 75 MLS/HR; Start 02/08/17 at 16:30 Eye Lubricant (Artificial Tears Oph) 2 drop QID BOTH EYES Last administered on 02/11/17 21:22; Admin Dose 2 DROP; Start 02/08/17 at 21:00 Furosemide 40 mg 40 mg DAILY IV Last administered on 02/11/17 08:57; Admin Dose 40 MG; Start 02/09/17 at 17:00 Epinephrine/ Sodium Chloride (EPINEPHrine/NS) 250 ml @ 0 mls/hr TITRATE IV ; Start 02/10/17 at 10:30 Acetaminophen (Tylenol Supp) 650 mg Q6H PRN [place] PAIN AND OR ELEVATED TEMP Last administered on 02/10/17 20:49; Admin Dose 650 MG; Start 02/10/17 at 11:30 Benazepril HCl (Lotensin) 20 mg DAILY PO Last administered on 02/11/17 10:14; Admin Dose 20 MG; Start 02/11/17 at 10:00 Guaifenesin (Robitussin Liquid Cup) 200 mg Q6 PRN PO COUGH Last administered on 02/12/17 00:21; Admin Dose 200 MG; Start 02/11/17 at 23:00 Warfarin Sodium (Coumadin) 7.5 mg ONCE@17 ONCE PO ; Start 02/12/17 at 17:00; Stop 02/12/17 at 17:01 Procedures Procedures PROCEDURE: Portable chest x-ray. CLINICAL INDICATION: Shortness of breath. TECHNIQUE: Portable AP view of the chest. COMPARISON: 02/10/2017. FINDINGS: The patient is been extubated. A right central venous catheter has been removed. No pulmonary edema or conolidation is identified. There is mild bibasilar atelectasis. The patient is status post median sternotomy. The cardiac silhouette is enlarged. No pleural effusion is seen. There is no pneumothorax. IMPRESSION: 1. No evidence of acute cardiopulmonary disease. 2. Enlarged cardiac silhouette. 3. Median sternotomy. RPTAT: HTAR .Theron Mercer MD, Date Time Electronically viewed and signed by .Theron Mercer MD, on 02/11/2017 23:05 .R/ CC: HARI JAIN BOLATITO M. Feb 12, 2017 08:31
[2017-02-12] MEDS: FUROSEMIDE 40 MG INJ IV SCH (08:41)
[2017-02-12] MEDS: ARTIFICIAL TEARS 15 ML OPH BOTH EYES SCH ×4 (08:42→22:53)
[2017-02-12] MEDS: BENAZEPRIL 10 MG TAB PO SCH (08:42)
--- NOTE | 2017-02-12 10:30 | CONS ---
Date/Time of Note Date/Time of Note DATE: 02/12/17 TIME: 10:26 Assessment/Plan Assessment/Plan Additional Assessment/Plan Chest x-ray was reviewed from yesterday evening which is showing significant improvement in pulmonary vascular congestion. Assessment recommendations; 1. Patient admitted with shortness of breath discovered to have very large pericardial effusion status post window. 2. Recent aortic valve replacement surgery. Patient on anticoagulation. 3. Morbid obesity. 4. Renal insufficiency, with continually improving serum creatinine. 5. Anemia. 6. Likely underlying sleep apnea. 7. ICU psychosis. Continue current treatment. Give a trial of Haldol 2 mg orally every 8 hours at least for 3 doses. I did have a detailed discussion patient's at bedside and answered all her questions. Consultation Date/Type/Reason Admit Date/Time Feb 06, 2017 at 14:40 Type of Consultation: Pulmonary/critical care Referring Provider: ZHAO RYAN 24 HR Interval Summary Free Text/Dictation Patient condition is improving from cardiopulmonary standpoint however the patient is not exhibiting signs of ICU psychosis. He is confused. But does not appear to be agitated. Patient denies any shortness breath, chest pain, nausea vomiting. General exam; young male, morbidly obese, currently in no distress. Awake and alert. Exam/Review of Systems Vital Signs Vitals Vital Signs Date Time Temp Pulse Resp B/P Pulse Ox O2 Delivery O2 Flow Rate FiO2 02/12/17 10:00 87 12 145/67 97 Nasal Cannula 2.0 02/12/17 08:00 98.9 02/10/17 08:05 40 Intake and Output 02/11/17 02/11/17 02/12/17 15:00 23:00 07:00 Intake Total 1515.5 ml 902.5 ml 1116.5 ml Output Total 3400 ml 2750 ml 2190 ml Balance -1884.5 ml -1847.5 ml -1073.5 ml Exam HEENT exam; supple neck, no JVD. No lymphadenopathy. Midline trachea. No thyromegaly. Patient has good dentition. Pupils are midsize and reactive to light. Chest examined; diminished but clear vessel. S1-S2 audible, no murmurs. Regular rhythm. There is a well-healed sternal scar. Abdomen examination; protuberant. Nontender. Bowel sounds audible. Extremity examination; no peripheral edema. Pulses 1+ bilaterally. 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 Results Result Diagram: 02/12/17 0505 02/12/17 0505 Results 24 hrs Laboratory Tests Test 02/11/17 18:15 02/12/17 01:55 02/12/17 05:05 02/12/17 09:34 Activated Partial Thromboplast Time 71.9 *H 50.0 H 85.7 *H White Blood Count 10.5 Red Blood Count 3.22 L Hemoglobin 8.1 L Hematocrit 26.5 L Mean Corpuscular Volume 82.3 Mean Corpuscular Hemoglobin 25.2 L Mean Corpuscular Hemoglobin Concent 30.6 L Red Cell Distribution Width 15.5 H Platelet Count 326 Mean Platelet Volume 9.6 Neutrophils % 70.8 Lymphocytes % 13.6 L Monocytes % 12.2 H Eosinophils % 2.4 Basophils % 0.3 Nucleated Red Blood Cells % 0.0 Neutrophils # 7.4 Lymphocytes # 1.4 Monocytes # 1.3 H Eosinophils # 0.3 Basophils # 0.0 Nucleated Red Blood Cells # 0.0 Prothrombin Time 15.4 H Prothrombin Time Ratio 1.2 INR International Normalized Ratio 1.21 Sodium Level 139 Potassium Level 4.0 Chloride Level 103 Carbon Dioxide Level 30 Anion Gap 10 Blood Urea Nitrogen 20 Creatinine 1.29 H Glucose Level 159 Calcium Level 8.5 Total Bilirubin 0.7 Direct Bilirubin 0.00 Indirect Bilirubin 0.7 Aspartate Amino Transf (AST/SGOT) 57 H Alanine Aminotransferase (ALT/SGPT) 165 H Alkaline Phosphatase 128 H Total Protein 6.7 # Albumin 3.5 Globulin 3.20 Albumin/Globulin Ratio 1.09 Medications Medications Current Medications Docusate Sodium (Colace) 100 mg Q12H PRN PO CONSTIPATION Last administered on 15:51; Admin Dose 100 MG; Start 02/06/17 at 22:30 Bisacodyl (Dulcolax) 5 mg DAILY PRN PO CONSTIPATION Last administered on 15:51; Admin Dose 5 MG; Start 02/06/17 at 22:30 Pantoprazole (Protonix Iv) 40 mg DAILY@06 IV Last administered on 02/12/17 06: 04; Admin Dose 40 MG; Start 02/07/17 at 06:00 Lorazepam (Ativan) 1 mg Q6 PRN IV ANXIETY Last administered on 02/11/17 15:50 ; Admin Dose 1 MG; Start 02/07/17 at 18:00 Lorazepam (Ativan) 0.5 mg Q4H PRN IV AGITATION/ANXIETY Last administered on 01:33; Admin Dose 0.5 MG; Start 02/07/17 at 23:00 Morphine Sulfate 2 mg 2 mg Q2H PRN IV PAIN LEVEL 6-10 Last administered on 02/11 00:09; Admin Dose 2 MG; Start 02/08/17 at 15:30 Potassium Chloride/Dextrose/ Sod Cl 1,000 ml @ 70 mls/hr [id number] IV Last administered on 02/12/17 01:14; Admin Dose 70 MLS/HR; Start 02/08/17 at 15:16 Nitroglycerin/ Dextrose 250 ml @ 1.5 mls/hr TITRATE IV Last administered on 17:08; Admin Dose 1.5 MLS/HR; Start 02/08/17 at 16:30 Nicardipine HCl/ Dextrose (Cardene Iv/D5W) 250 ml @ 50 mls/hr TITRATE IV Last administered on 02/08/17 20:36; Admin Dose 75 MLS/HR; Start 02/08/17 at 16:30 Eye Lubricant (Artificial Tears Oph) 2 drop QID BOTH EYES Last administered on 02/12/17 08:42; Admin Dose 2 DROP; Start 02/08/17 at 21:00 Furosemide 40 mg 40 mg DAILY IV Last administered on 02/12/17 08:41; Admin Dose 40 MG; Start 02/09/17 at 17:00 Epinephrine/ Sodium Chloride (EPINEPHrine/NS) 250 ml @ 0 mls/hr TITRATE IV ; Start 02/10/17 at 10:30 Acetaminophen (Tylenol Supp) 650 mg Q6H PRN [place] PAIN AND OR ELEVATED TEMP Last administered on 02/10/17 20:49; Admin Dose 650 MG; Start 02/10/17 at 11:30 Benazepril HCl (Lotensin) 20 mg DAILY PO Last administered on 02/12/17 08:42; Admin Dose 20 MG; Start 02/11/17 at 10:00 Guaifenesin (Robitussin Liquid Cup) 200 mg Q6 PRN PO COUGH Last administered on 02/12/17t 00:21; Admin Dose 200 MG; Start 02/11/17 at 23:00 Warfarin Sodium (Coumadin) 7.5 mg ONCE@17 ONCE PO ; Start 02/12/17 at 17:00; Stop 02/12/17 at 17:01 ARMOND MCLAUGHLIN Feb 12, 2017 10:30
--- NOTE | 2017-02-12 12:45 | CONS ---
Date/Time of Note Date/Time of Note DATE: 02/12/17 TIME: 12:41 Assessment/Plan Assessment/Plan Additional Assessment/Plan Pericardial effusion, s/p Pericardial window s/p AVR Abnormal electrocardiogram Renal insufficiency Anemia Hemodynamically stable Continue metoprolol Started on Norvasc Continue Heparin bridge with Coumadin Keep Mag > 2 and Potassium > 4 Consultation Date/Type/Reason Admit Date/Time Feb 06, 2017 at 14:40 Initial Consult Date Type of Consultation: Pulmonary/critical care Referring Provider: ZHAO RYAN Exam/Review of Systems Vital Signs Vitals Vital Signs Date Time Temp Pulse Resp B/P Pulse Ox O2 Delivery O2 Flow Rate FiO2 02/12/17 12:07 96 02/12/17 11:00 20 126/86 94 Nasal Cannula 2.0 02/12/17 08:00 98.9 02/10/17 08:05 40 Intake and Output 02/11/17 02/11/17 02/12/17 15:00 23:00 07:00 Intake Total 1515.5 ml 902.5 ml 1213.0 ml Output Total 3400 ml 2750 ml 2190 ml Balance -1884.5 ml -1847.5 ml -977.0 ml Exam Constitutional: alert Psych: no complaints Head: atraumatic, normocephalic Neck: non-tender, supple Respiratory: diminished breath sounds Cardiovascular: other (prosthetic valve click heard across the precordium), regular rate and rhythm Gastrointestinal: nl liver, spleen, non-tender, soft Extremities: edema, normal pulses Results Result Diagram: 02/12/17 0505 02/12/17 0505 Results 24 hrs Laboratory Tests Test 02/11/17 18:15 02/12/17 01:55 02/12/17 05:05 02/12/17 09:34 Activated Partial Thromboplast Time 71.9 *H 50.0 H 85.7 *H White Blood Count 10.5 Red Blood Count 3.22 L Hemoglobin 8.1 L Hematocrit 26.5 L Mean Corpuscular Volume 82.3 Mean Corpuscular Hemoglobin 25.2 L Mean Corpuscular Hemoglobin Concent 30.6 L Red Cell Distribution Width 15.5 H Platelet Count 326 Mean Platelet Volume 9.6 Neutrophils % 70.8 Lymphocytes % 13.6 L Monocytes % 12.2 H Eosinophils % 2.4 Basophils % 0.3 Nucleated Red Blood Cells % 0.0 Neutrophils # 7.4 Lymphocytes # 1.4 Monocytes # 1.3 H Eosinophils # 0.3 Basophils # 0.0 Nucleated Red Blood Cells # 0.0 Prothrombin Time 15.4 H Prothrombin Time Ratio 1.2 INR International Normalized Ratio 1.21 Sodium Level 139 Potassium Level 4.0 Chloride Level 103 Carbon Dioxide Level 30 Anion Gap 10 Blood Urea Nitrogen 20 Creatinine 1.29 H Glucose Level 159 Calcium Level 8.5 Total Bilirubin 0.7 Direct Bilirubin 0.00 Indirect Bilirubin 0.7 Aspartate Amino Transf (AST/SGOT) 57 H Alanine Aminotransferase (ALT/SGPT) 165 H Alkaline Phosphatase 128 H Total Protein 6.7 # Albumin 3.5 Globulin 3.20 Albumin/Globulin Ratio 1.09 Medications Medications Current Medications Docusate Sodium (Colace) 100 mg Q12H PRN PO CONSTIPATION Last administered on 15:51; Admin Dose 100 MG; Start 02/06/17 at 22:30 Bisacodyl (Dulcolax) 5 mg DAILY PRN PO CONSTIPATION Last administered on 15:51; Admin Dose 5 MG; Start 02/06/17 at 22:30 Pantoprazole (Protonix Iv) 40 mg DAILY@06 IV Last administered on 02/12/17 06: 04; Admin Dose 40 MG; Start 02/07/17 at 06:00 Lorazepam (Ativan) 1 mg Q6 PRN IV ANXIETY Last administered on 02/11/17 15:50 ; Admin Dose 1 MG; Start 02/07/17 at 18:00 Lorazepam (Ativan) 0.5 mg Q4H PRN IV AGITATION/ANXIETY Last administered on 01:33; Admin Dose 0.5 MG; Start 02/07/17 at 23:00 Morphine Sulfate 2 mg 2 mg Q2H PRN IV PAIN LEVEL 6-10 Last administered on 02/11 00:09; Admin Dose 2 MG; Start 02/08/17 at 15:30 Potassium Chloride/Dextrose/ Sod Cl 1,000 ml @ 70 mls/hr [id number] IV Last administered on 02/12/17 01:14; Admin Dose 70 MLS/HR; Start 02/08/17 at 15:16 Nitroglycerin/ Dextrose 250 ml @ 1.5 mls/hr TITRATE IV Last administered on 17:08; Admin Dose 1.5 MLS/HR; Start 02/08/17 at 16:30 Nicardipine HCl/ Dextrose (Cardene Iv/D5W) 250 ml @ 50 mls/hr TITRATE IV Last administered on 02/08/17 20:36; Admin Dose 75 MLS/HR; Start 02/08/17 at 16:30 Eye Lubricant (Artificial Tears Oph) 2 drop QID BOTH EYES Last administered on 02/12/17 08:42; Admin Dose 2 DROP; Start 02/08/17 at 21:00 Furosemide 40 mg 40 mg DAILY IV Last administered on 02/12/17 08:41; Admin Dose 40 MG; Start 02/09/17 at 17:00 Epinephrine/ Sodium Chloride (EPINEPHrine/NS) 250 ml @ 0 mls/hr TITRATE IV ; Start 02/10/17 at 10:30 Acetaminophen (Tylenol Supp) 650 mg Q6H PRN [place] PAIN AND OR ELEVATED TEMP Last administered on 02/10/17 20:49; Admin Dose 650 MG; Start 02/10/17 at 11:30 Benazepril HCl (Lotensin) 20 mg DAILY PO Last administered on 02/12/17 08:42; Admin Dose 20 MG; Start 02/11/17 at 10:00 Guaifenesin (Robitussin Liquid Cup) 200 mg Q6 PRN PO COUGH Last administered on 02/12/17 11:35; Admin Dose 200 MG; Start 02/11/17 at 23:00 Warfarin Sodium (Coumadin) 7.5 mg ONCE@17 ONCE PO ; Start 02/12/17 at 17:00; Stop 02/12/17 at 17:01 Haloperidol (Haldol) 2 mg TID PO ; Start 02/12/17 at 11:30 ABUNDIO SHELDON M.D. Feb 12, 2017 12:45
[2017-02-12] MEDS: HALOPERIDOL 1 MG TAB PO SCH ×2 (12:49→22:52)
[2017-02-12] MEDS: AMLODIPINE 10 MG TAB PO SCH (12:51)
[2017-02-12] MEDS ORDERED: WARFARIN 7.5 MG TAB PO ONE (17:00)
[2017-02-13] VITALS (13 sets, daily range): BP systolic 134–168; BP diastolic 65–82; PULSE 86–100; RESP 17–24
[2017-02-13] MEDS: ALBUTEROL/IPRATROPIUM (NEB) 3 ML AMP HHN PRN ×4 (03:40→20:22)
[2017-02-13 05:02] LABS: ADD SCAN DIFF NO
[2017-02-13 05:10] LABS: BASOPHILS % 0.4 % (0.0-2.0); EOSINOPHILS # 0.4 10^3/ul (0.0-0.5); EOSINOPHILS % 4.7 % (0.0-7.0); HEMATOCRIT 27.5 % (42.0-52.0); HEMOGLOBIN 8.1 g/dl (14.0-18.0); LYMPHOCYTES # 1.5 10^3/ul (0.8-2.9); LYMPHOCYTES % 17.1 % (15.0-51.0); MEAN CORPUSCULAR HEMOGLOBIN 24.5 pg (29.0-33.0); MEAN CORPUSCULAR HGB CONC 29.5 g/dl (32.0-37.0); MEAN CORPUSCULAR VOLUME 83.3 fl (82.0-101.0); MEAN PLATELET VOLUME 9.1 fl (7.4-10.4); MONOCYTE # 1.2 10^3/ul (0.3-0.9); MONOCYTES % 13.1 % (0.0-11.0); NEUTROPHIL # 5.8 10^3/ul (1.6-7.5); NEUTROPHILS % 64.1 % (39.0-77.0); PLATELET COUNT 296 10^3/UL (140-415); RED CELL DISTRIBUTION WIDTH 15.3 % (11.5-14.5)
[2017-02-13] MEDS: PANTOPRAZOLE 40 MG INJ IV SCH (06:20)
--- NOTE | 2017-02-13 07:37 | PN ---
Date/Time of Note Date/Time of Note DATE: 02/13/17 TIME: 07:36 Assessment/Plan VTE Prophylaxis VTE Prophylaxis Intervention: ambulation, heparin Lines/Catheters IV Catheter Type (from [place]): Peripheral IV Urinary Cath still in place: No Assessment/Plan Assessment/Plan Stable. Drain out. On heparin. DC [place]. Needs to ambulate. On Coumadin Exam/Review of Systems Vital Signs Vitals Vital Signs Date Time Temp Pulse Resp B/P Pulse Ox O2 Delivery O2 Flow Rate FiO2 02/13/17 04:18 90 02/13/17 04:00 98.1 20 140/74 100 02/13/17 03:40 21 02/13/17 01:21 3.0 02/12/17 22:04 Nasal Cannula Intake and Output 02/12/17 02/12/17 02/13/17 15:00 23:00 07:00 Intake Total 1036.0 ml 555 ml 1638 ml Output Total 3100 ml 300 ml 860 ml Balance -2064.0 ml 255 ml 778 ml Results Result Diagram: 02/13/17 0455 02/12/17 0505 Results 24 hrs Laboratory Tests Test 02/12/17 09:34 02/12/17 19:30 02/13/17 04:55 Activated Partial Thromboplast Time 85.7 *H 73.4 *H 75.1 *H White Blood Count 9.0 Red Blood Count 3.30 L Hemoglobin 8.1 L Hematocrit 27.5 L Mean Corpuscular Volume 83.3 Mean Corpuscular Hemoglobin 24.5 L Mean Corpuscular Hemoglobin Concent 29.5 L Red Cell Distribution Width 15.3 H Platelet Count 296 Mean Platelet Volume 9.1 Neutrophils % 64.1 Lymphocytes % 17.1 Monocytes % 13.1 H Eosinophils % 4.7 Basophils % 0.4 Nucleated Red Blood Cells % 0.0 Neutrophils # 5.8 Lymphocytes # 1.5 Monocytes # 1.2 H Eosinophils # 0.4 Basophils # 0.0 Nucleated Red Blood Cells # 0.0 Medications Medications Current Medications Docusate Sodium (Colace) 100 mg Q12H PRN PO CONSTIPATION Last administered on 15:51; Admin Dose 100 MG; Start 02/06/17 at 22:30 Bisacodyl (Dulcolax) 5 mg DAILY PRN PO CONSTIPATION Last administered on 15:51; Admin Dose 5 MG; Start 02/06/17 at 22:30 Pantoprazole (Protonix Iv) 40 mg DAILY@06 IV Last administered on 02/13/17 06: 20; Admin Dose 40 MG; Start 02/07/17 at 06:00 Lorazepam (Ativan) 1 mg Q6 PRN IV ANXIETY Last administered on 02/11/17 15:50 ; Admin Dose 1 MG; Start 02/07/17 at 18:00 Lorazepam (Ativan) 0.5 mg Q4H PRN IV AGITATION/ANXIETY Last administered on 01:33; Admin Dose 0.5 MG; Start 02/07/17 at 23:00 Morphine Sulfate 2 mg 2 mg Q2H PRN IV PAIN LEVEL 6-10 Last administered on 02/11 00:09; Admin Dose 2 MG; Start 02/08/17 at 15:30 Potassium Chloride/Dextrose/ Sod Cl (D5-1/2ns + KCl 20 Meq) 1,000 ml @ 70 mls/ hr [id number] IV Last administered on 02/12/17 15:17; Admin Dose 70 MLS/HR; Start 02/08/17 at 15:16 Eye Lubricant (Artificial Tears Oph) 2 drop QID BOTH EYES Last administered on 02/12/17 22:53; Admin Dose 2 DROP; Start 02/08/17 at 21:00 Furosemide (Lasix) 40 mg DAILY IV Last administered on 02/12/17 08:41; Admin Dose 40 MG; Start 02/09/17 at 17:00 Acetaminophen (Tylenol Supp) 650 mg Q6H PRN [place] PAIN AND OR ELEVATED TEMP Last administered on 02/10/17 20:49; Admin Dose 650 MG; Start 02/10/17 at 11:30 Guaifenesin (Robitussin Liquid Cup) 200 mg Q6 PRN PO COUGH Last administered on 02/12/17 11:35; Admin Dose 200 MG; Start 02/11/17 at 23:00 Haloperidol (Haldol) 2 mg TID PO Last administered on 02/12/17 22:52; Admin Dose 2 MG; Start 02/12/17 at 11:30 Amlodipine Besylate (Norvasc) 10 mg DAILY PO Last administered on 02/12/17 12: 51; Admin Dose 10 MG; Start 02/12/17 at 13:00 RADHA VALDEZ MD Feb 13, 2017 07:37
[2017-02-13] MEDS: HALOPERIDOL 1 MG TAB PO SCH ×2 (09:00→14:14)
[2017-02-13] MEDS: D5W-0.45 NACL + KCL 20 MEQ 1,000 ML IV SCH ×3 (09:37→23:55)
[2017-02-13] MEDS: ARTIFICIAL TEARS 15 ML OPH BOTH EYES SCH ×4 (09:52→21:20)
[2017-02-13] MEDS: AMLODIPINE 10 MG TAB PO SCH (09:52)
[2017-02-13] MEDS: FUROSEMIDE 40 MG INJ IV SCH (09:52)
--- NOTE | 2017-02-13 12:02 | CONS ---
Date/Time of Note Date/Time of Note DATE: 02/13/17 TIME: 11:58 Assessment/Plan Assessment/Plan Chief Complaint/Hosp Course IMp: 1.Pericardial effusion-moderate to severe with ongoing sob/tachycardia. Now Post -op s/p pericardial window with cardiac arrest during induction requiring compressions. s/p extubation and removal of drains. f/u post-op Echo 02/09 revealing resolution of pericardial effusion 2.AVR-mech 2 weeks prior 3.Tachycardia 4.Leukocytosis 5.Coagulopathy 6. Positive troponin-minimal s/p recent cardiac surgery-slowly downtrending Recc: -Tele -Follow BP/volume status closely -Continue norvasc -Continue heparin IV for mechanical valve with transition to back to coumadin -Continue abx's f/u cx data Problems: Consultation Date/Type/Reason Admit Date/Time Feb 06, 2017 at 14:40 Initial Consult Date 02/07/2017 Type of Consultation: cardiology Reason for Consultation pericardial effusion Referring Provider: ZHAO RYAN Exam/Review of Systems Vital Signs Vitals Vital Signs Date Time Temp Pulse Resp B/P Pulse Ox O2 Delivery O2 Flow Rate FiO2 02/13/17 08:16 88 02/13/17 08:13 98.8 20 134/65 99 02/13/17 08:10 Nasal Cannula 2.0 02/13/17 03:40 21 Intake and Output 02/12/17 02/12/17 02/13/17 15:00 23:00 07:00 Intake Total 1036.0 ml 555 ml 1638 ml Output Total 3100 ml 300 ml 860 ml Balance -2064.0 ml 255 ml 778 ml Exam Review of Systems: CONSTITUTIONAL: No fevers, chills. PULMONARY: No sob CARDIOVASCULAR: c/o chest pain GASTROINTESTINAL: No nausea/vomiting. GENITOURINARY: No hematuria/dysuria. MUSCULOSKELETAL: No myagias/arthalgias. PSYCHIATRIC: The patient denies depression. NEUROLOGIC: No weakness Constitutional: alert Psych: no complaints Head: normocephalic ENMT: mucosa pink and moist Neck: jvd, supple Respiratory: diminished breath sounds Cardiovascular: regular rate and rhythm Gastrointestinal: non-tender, soft Musculoskeletal: muscle tone (normal) Extremities: edema (none) Neurological: other (No focal deficits) Results Result Diagram: 02/13/17 0455 02/12/17 0505 Results 24 hrs Laboratory Tests Test 02/12/17 19:30 02/13/17 04:55 Activated Partial Thromboplast Time 73.4 *H 75.1 *H White Blood Count 9.0 Red Blood Count 3.30 L Hemoglobin 8.1 L Hematocrit 27.5 L Mean Corpuscular Volume 83.3 Mean Corpuscular Hemoglobin 24.5 L Mean Corpuscular Hemoglobin Concent 29.5 L Red Cell Distribution Width 15.3 H Platelet Count 296 Mean Platelet Volume 9.1 Neutrophils % 64.1 Lymphocytes % 17.1 Monocytes % 13.1 H Eosinophils % 4.7 Basophils % 0.4 Nucleated Red Blood Cells % 0.0 Neutrophils # 5.8 Lymphocytes # 1.5 Monocytes # 1.2 H Eosinophils # 0.4 Basophils # 0.0 Nucleated Red Blood Cells # 0.0 Medications Medications Current Medications Docusate Sodium (Colace) 100 mg Q12H PRN PO CONSTIPATION Last administered on 15:51; Admin Dose 100 MG; Start 02/06/17 at 22:30 Bisacodyl (Dulcolax) 5 mg DAILY PRN PO CONSTIPATION Last administered on 15:51; Admin Dose 5 MG; Start 02/06/17 at 22:30 Pantoprazole (Protonix Iv) 40 mg DAILY@06 IV Last administered on 02/13/17 06: 20; Admin Dose 40 MG; Start 02/07/17 at 06:00 Lorazepam (Ativan) 1 mg Q6 PRN IV ANXIETY Last administered on 02/11/17 15:50 ; Admin Dose 1 MG; Start 02/07/17 at 18:00 Lorazepam (Ativan) 0.5 mg Q4H PRN IV AGITATION/ANXIETY Last administered on 01:33; Admin Dose 0.5 MG; Start 02/07/17 at 23:00 Morphine Sulfate 2 mg 2 mg Q2H PRN IV PAIN LEVEL 6-10 Last administered on 02/11 00:09; Admin Dose 2 MG; Start 02/08/17 at 15:30 Potassium Chloride/Dextrose/ Sod Cl (D5-1/2ns + KCl 20 Meq) 1,000 ml @ 70 mls/ hr [id number] IV Last administered on 02/12/17 15:17; Admin Dose 70 MLS/HR; Start 02/08/17 at 15:16 Eye Lubricant (Artificial Tears Oph) 2 drop QID BOTH EYES Last administered on 02/13/17 09:52; Admin Dose 2 DROP; Start 02/08/17 at 21:00 Furosemide (Lasix) 40 mg DAILY IV Last administered on 02/13/17 09:52; Admin Dose 40 MG; Start 02/09/17 at 17:00 Acetaminophen (Tylenol Supp) 650 mg Q6H PRN [place] PAIN AND OR ELEVATED TEMP Last administered on 02/10/17 20:49; Admin Dose 650 MG; Start 02/10/17 at 11:30 Guaifenesin (Robitussin Liquid Cup) 200 mg Q6 PRN PO COUGH Last administered on 02/12/17 11:35; Admin Dose 200 MG; Start 02/11/17 at 23:00 Haloperidol (Haldol) 2 mg TID PO Last administered on 02/12/17 22:52; Admin Dose 2 MG; Start 02/12/17 at 11:30 Amlodipine Besylate (Norvasc) 10 mg DAILY PO Last administered on 02/13/17 09: 52; Admin Dose 10 MG; Start 02/12/17 at 13:00 MATHEUS JOHNSON Feb 13, 2017 12:02
[2017-02-13] MEDS: LORAZEPAM 2 MG INJ IV PRN ×2 (13:08→21:22)
--- NOTE | 2017-02-13 15:01 | CONS ---
Date/Time of Note Date/Time of Note DATE: 02/13/17 TIME: 14:59 Assessment/Plan Assessment/Plan Additional Assessment/Plan Assessment recommendations; 1. Patient admitted with shortness of breath discovered to have very large pericardial effusion status post pericardial window. 2. Status post respiratory failure. 3. History of recent aortic valvular placement. 4. ICU psychosis with complete interval resolution. 5. Morbid obesity and likely underlying sleep apnea. 6. Mild CHF. Continue current treatment. Patient responding well to current treatment regimen. Consultation Date/Type/Reason Admit Date/Time Feb 06, 2017 at 14:40 Type of Consultation: Pulmonary Referring Provider: ZHAO RYAN 24 HR Interval Summary Free Text/Dictation Patient condition stable. Has been transferred out of ICU to medical floor. Patient denies any confusion, shortness of breath. Able to eat well. Patient has been ambulatory. General exam; young male, morbidly obese, currently in no distress. Awake and alert. Exam/Review of Systems Vital Signs Vitals Vital Signs Date Time Temp Pulse Resp B/P Pulse Ox O2 Delivery O2 Flow Rate FiO2 02/13/17 12:52 97 3.0 02/13/17 12:52 98 26 Nasal Cannula 02/13/17 12:00 98.1 150/67 02/13/17 03:40 21 Intake and Output 02/12/17 02/12/17 02/13/17 15:00 23:00 07:00 Intake Total 1036.0 ml 555 ml 1638 ml Output Total 3100 ml 300 ml 860 ml Balance -2064.0 ml 255 ml 778 ml Exam HEENT exam; supple neck, JVD difficult to see because of short neck. No thyromegaly. Patient has fair dentition. Chest examination; clear to ulceration. S1-S2 audible, no murmurs. There is a well-healed sternal scar. Abdomen examination; soft, protuberant. Nontender. Bowel sounds audible. Extremity examination; no peripheral edema. Pulses 1+ bilaterally. 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 Results Result Diagram: 02/13/17 2005 02/12/17 0504 Results 24 hrs Laboratory Tests Test 02/12/17 19:30 02/13/17 04:55 Activated Partial Thromboplast Time 73.4 *H 75.1 *H White Blood Count 9.0 Red Blood Count 3.30 L Hemoglobin 8.1 L Hematocrit 27.5 L Mean Corpuscular Volume 83.3 Mean Corpuscular Hemoglobin 24.5 L Mean Corpuscular Hemoglobin Concent 29.5 L Red Cell Distribution Width 15.3 H Platelet Count 296 Mean Platelet Volume 9.1 Neutrophils % 64.1 Lymphocytes % 17.1 Monocytes % 13.1 H Eosinophils % 4.7 Basophils % 0.4 Nucleated Red Blood Cells % 0.0 Neutrophils # 5.8 Lymphocytes # 1.5 Monocytes # 1.2 H Eosinophils # 0.4 Basophils # 0.0 Nucleated Red Blood Cells # 0.0 Medications Medications Current Medications Docusate Sodium (Colace) 100 mg Q12H PRN PO CONSTIPATION Last administered on 15:51; Admin Dose 100 MG; Start 02/06/17 at 22:30 Bisacodyl (Dulcolax) 5 mg DAILY PRN PO CONSTIPATION Last administered on 15:51; Admin Dose 5 MG; Start 02/06/17 at 22:30 Pantoprazole (Protonix Iv) 40 mg DAILY@06 IV Last administered on 02/13/17 06: 20; Admin Dose 40 MG; Start 02/07/17 at 06:00 Lorazepam (Ativan) 1 mg Q6 PRN IV ANXIETY Last administered on 02/13/17 13:08 ; Admin Dose 1 MG; Start 02/07/17 at 18:00 Lorazepam (Ativan) 0.5 mg Q4H PRN IV AGITATION/ANXIETY Last administered on 01:33; Admin Dose 0.5 MG; Start 02/07/17 at 23:00 Morphine Sulfate 2 mg 2 mg Q2H PRN IV PAIN LEVEL 6-10 Last administered on 02/11 00:09; Admin Dose 2 MG; Start 02/08/17 at 15:30 Potassium Chloride/Dextrose/ Sod Cl (D5-1/2ns + KCl 20 Meq) 1,000 ml @ 70 mls/ hr [id number] IV Last administered on 02/12/17 15:17; Admin Dose 70 MLS/HR; Start 02/08/17 at 15:16 Eye Lubricant (Artificial Tears Oph) 2 drop QID BOTH EYES Last administered on 02/13/17 14:14; Admin Dose 2 DROP; Start 02/08/17 at 21:00 Furosemide (Lasix) 40 mg DAILY IV Last administered on 02/13/17 09:52; Admin Dose 40 MG; Start 02/09/17 at 17:00 Acetaminophen (Tylenol Supp) 650 mg Q6H PRN [place] PAIN AND OR ELEVATED TEMP Last administered on 02/10/17 20:49; Admin Dose 650 MG; Start 02/10/17 at 11:30 Guaifenesin (Robitussin Liquid Cup) 200 mg Q6 PRN PO COUGH Last administered on 02/12/17 11:35; Admin Dose 200 MG; Start 02/11/17 at 23:00 Haloperidol (Haldol) 2 mg TID PO Last administered on 02/12/17 22:52; Admin Dose 2 MG; Start 02/12/17 at 11:30 Amlodipine Besylate (Norvasc) 10 mg DAILY PO Last administered on 02/13/17 09: 52; Admin Dose 10 MG; Start 02/12/17 at 13:00 Warfarin Sodium (Coumadin) 5 mg DAILY@17 PO ; Start 02/13/17 at 17:00 ARMOND MCLAUGHLIN Feb 13, 2017 15:01
--- NOTE | 2017-02-13 15:18 | PN ---
Date/Time of Note Date/Time of Note DATE: 02/13/17 TIME: 15:08 Assessment/Plan VTE Prophylaxis VTE Prophylaxis Intervention: heparin, other (Coumadin) Lines/Catheters IV Catheter Type (from Nrs): Peripheral IV Urinary Cath still in place: No Assessment/Plan Chief Complaint/Hosp Course Assessment/Plan: 41 yo morbidly obese M Status post recent aortic valve replacement at [facility] 2/2 severe aortic stenosis and CHF now managed for the followin. Severe pericardial effusion status post pericardiocentesis with pericardial drain placement 02.08.17 - presently stable / pericardial drain d/c . - monitor, f/u CV rec's 2. Status post cardiac arrest with return of spontaneous circulation during surgery 2 - f/u CTS and CV rec's, monitor HR. 3. Severe CHF exacerbation secondary to #1: improved - monitor, continue Lasix, bp meds 4. Elevated troponin secondary to #1: downtrending - monitor 5. Reactive leukocytosis secondary to #1: resolved 6. Ventilator dependent respiratory failure postoperatively: improved / off vent - duoneb's prn, f/u pulm rec's 7. Chronic obstructive sleep apnea - f/u pulm rec's 8. Recent aortic valve replacement now started on heparin drip / Coumadin transition - Commenced on Coumadin / Monitor and manage heparin drip for recent valve replacement - monitor INR daily 9. Morbid obesity with BMI of 59 - educate about wt loss 10. Acute kidney injury likely secondary to ATN from hypoperfusion: stabilizing - Continue to monitor renal function/renally dose all meds/avoid nephrotoxic drugs 11. Transaminitis likely secondary to liver hypoperfusion: improving 12. Hypochromic anemia likely 2/2 blood loss (acute): s/p transfusion X1 so far 13. Polymicrobial UTI - Continue Abx therapy for UTI 14. Hypertension: needs better control, defer to cardiology 15. Encephalopathy: r/o HIE from cardiac arrest Wean off o2 / Continue lasix Monitor Mental status Transfer out of ICU when cleared by pulm Commence diet Further intervention per clinical course DVT and GI prophylaxis: heparin drip / coumadin / Protonix Problems: Subjective 24 Hr Interval Summary Free Text/Dictation Pt had no acute events overnight. Seen by CV team. On heparin IV drip. Exam/Review of Systems Vital Signs Vitals Vital Signs Date Time Temp Pulse Resp B/P Pulse Ox O2 Delivery O2 Flow Rate FiO2 02/13/17 12:52 97 3.0 02/13/17 12:52 98 26 Nasal Cannula 02/13/17 12:00 98.1 150/67 02/13/17 03:40 21 Intake and Output 02/12/17 02/12/17 02/13/17 15:00 23:00 07:00 Intake Total 1036.0 ml 555 ml 1638 ml Output Total 3100 ml 300 ml 860 ml Balance -2064.0 ml 255 ml 778 ml Exam Constitutional: less confused, sleeping presently, Head: atraumatic, normocephalic Eyes: PERRL ENMT: mucosa pink and moist Neck: supple Respiratory: diminished breath sounds, wheezing Cardiovascular: other (L chest wall dressing clean and dry), regular rate and rhythm, No murmurs/extra sounds Gastrointestinal: bowel sounds, soft, No distended Extremities: No edema Neurological: No gross focal deficits except confusion Results Result Diagram: 02/13/17 0455 02/12/17 0505 Results 24 hrs Laboratory Tests Test 02/12/17 19:30 02/13/17 04:55 02/13/17 14:30 Activated Partial Thromboplast Time 73.4 *H 75.1 *H 38.7 H White Blood Count 9.0 Red Blood Count 3.30 L Hemoglobin 8.1 L Hematocrit 27.5 L Mean Corpuscular Volume 83.3 Mean Corpuscular Hemoglobin 24.5 L Mean Corpuscular Hemoglobin Concent 29.5 L Red Cell Distribution Width 15.3 H Platelet Count 296 Mean Platelet Volume 9.1 Neutrophils % 64.1 Lymphocytes % 17.1 Monocytes % 13.1 H Eosinophils % 4.7 Basophils % 0.4 Nucleated Red Blood Cells % 0.0 Neutrophils # 5.8 Lymphocytes # 1.5 Monocytes # 1.2 H Eosinophils # 0.4 Basophils # 0.0 Nucleated Red Blood Cells # 0.0 Medications Medications Current Medications Docusate Sodium (Colace) 100 mg Q12H PRN PO CONSTIPATION Last administered on 15:51; Admin Dose 100 MG; Start 02/06/17 at 22:30 Bisacodyl (Dulcolax) 5 mg DAILY PRN PO CONSTIPATION Last administered on 15:51; Admin Dose 5 MG; Start 02/06/17 at 22:30 Pantoprazole (Protonix Iv) 40 mg DAILY@06 IV Last administered on 02/13/17 06: 20; Admin Dose 40 MG; Start 02/07/17 at 06:00 Lorazepam (Ativan) 1 mg Q6 PRN IV ANXIETY Last administered on 02/13/17 13:08 ; Admin Dose 1 MG; Start 02/07/17 at 18:00 Lorazepam (Ativan) 0.5 mg Q4H PRN IV AGITATION/ANXIETY Last administered on 01:33; Admin Dose 0.5 MG; Start 02/07/17 at 23:00 Morphine Sulfate 2 mg 2 mg Q2H PRN IV PAIN LEVEL 6-10 Last administered on 02/11 00:09; Admin Dose 2 MG; Start 02/08/17 at 15:30 Potassium Chloride/Dextrose/ Sod Cl (D5-1/2ns + KCl 20 Meq) 1,000 ml @ 70 mls/ hr [id number] IV Last administered on 02/12/17 15:17; Admin Dose 70 MLS/HR; Start 02/08/17 at 15:16 Eye Lubricant (Artificial Tears Oph) 2 drop QID BOTH EYES Last administered on 02/13/17 14:14; Admin Dose 2 DROP; Start 02/08/17 at 21:00 Furosemide (Lasix) 40 mg DAILY IV Last administered on 02/13/17 09:52; Admin Dose 40 MG; Start 02/09/17 at 17:00 Acetaminophen (Tylenol Supp) 650 mg Q6H PRN [place] PAIN AND OR ELEVATED TEMP Last administered on 02/10/17 20:49; Admin Dose 650 MG; Start 02/10/17 at 11:30 Guaifenesin (Robitussin Liquid Cup) 200 mg Q6 PRN PO COUGH Last administered on 02/12/17 11:35; Admin Dose 200 MG; Start 02/11/17 at 23:00 Haloperidol (Haldol) 2 mg TID PO Last administered on 02/12/17 22:52; Admin Dose 2 MG; Start 02/12/17 at 11:30 Amlodipine Besylate (Norvasc) 10 mg DAILY PO Last administered on 02/13/17 09: 52; Admin Dose 10 MG; Start 02/12/17 at 13:00 Warfarin Sodium (Coumadin) 5 mg DAILY@17 PO ; Start 02/13/17 at 17:00 LUC GAMBINO Feb 13, 2017 15:18
[2017-02-13] MEDS: HEPARIN 1000 UNITS/ML 10 ML INJ IV PRN (15:55)
[2017-02-13] MEDS: HEPARIN 25000 UNITS/250 ML 250 ML IV SCH ×2 (15:56→22:09)
[2017-02-13] MEDS: WARFARIN 5 MG TAB PO SCH (17:51)
[2017-02-14] VITALS (12 sets, daily range): BP systolic 140–163; BP diastolic 63–81; PULSE 85–100; RESP 17–22
[2017-02-14] MEDS: HEPARIN 25000 UNITS/250 ML 250 ML IV SCH ×5 (00:14→21:01)
[2017-02-14 06:03] LABS: INR 1.29; PROTIME 16.2 Sec (12.2-14.2); PT RATIO 1.3
[2017-02-14 06:11] LABS: CALCIUM 9.3 mg/dl (8.4-10.2); CREATININE 1.1 mg/dl (0.61-1.24)
[2017-02-14 06:13] LABS: ADD SCAN DIFF NO
[2017-02-14] MEDS: PANTOPRAZOLE 40 MG INJ IV SCH (06:51)
--- NOTE | 2017-02-14 07:06 | PN ---
Date/Time of Note Date/Time of Note DATE: 02/14/17 TIME: 07:03 Assessment/Plan Lines/Catheters IV Catheter Type (from [facility]): Peripheral IV Diego in Place (from [facility]): No Assessment/Plan Chief Complaint/Hosp Course s/p pericardial window mechanical valve aortic oral anticoagulation in progress Problems: Subjective 24 Hr Interval Summary Constitutional: no complaints Exam/Review of Systems Vital Signs Vitals Vital Signs Date Time Temp Pulse Resp B/P Pulse Ox O2 Delivery O2 Flow Rate FiO2 02/14/17 04:40 3.0 02/14/17 04:31 98.4 86 17 140/72 92 02/13/17 20:24 Nasal Cannula 02/13/17 03:40 21 Intake and Output 02/13/17 02/13/17 02/14/17 15:00 23:00 07:00 Intake Total 1528 ml 49 ml Output Total 3150 ml Balance -1622 ml 49 ml Exam Free Text/Dictation inr 1.3 5 mg warfarin yesterday heparin 2200 units/hour [id number] Results Result Diagram: 02/13/17 0455 02/14/17 0430 BRICE PENNINGTON MD Feb 14, 2017 07:06
[2017-02-14 07:49] LABS: BASOPHIL # 0.1 10^3/ul (0.0-0.1); BASOPHILS % 0.6 % (0.0-2.0); EOSINOPHILS # 0.4 10^3/ul (0.0-0.5); EOSINOPHILS % 4.3 % (0.0-7.0); HEMATOCRIT 31.6 % (42.0-52.0); HEMOGLOBIN 9.4 g/dl (14.0-18.0); LYMPHOCYTES # 1.8 10^3/ul (0.8-2.9); LYMPHOCYTES % 19.8 % (15.0-51.0); MEAN CORPUSCULAR HEMOGLOBIN 24.7 pg (29.0-33.0); MEAN CORPUSCULAR HGB CONC 29.7 g/dl (32.0-37.0); MEAN CORPUSCULAR VOLUME 82.9 fl (82.0-101.0); MEAN PLATELET VOLUME 9.9 fl (7.4-10.4); MONOCYTE # 1.2 10^3/ul (0.3-0.9); MONOCYTES % 13.6 % (0.0-11.0); NEUTROPHIL # 5.4 10^3/ul (1.6-7.5); NEUTROPHILS % 61.1 % (39.0-77.0); PLATELET COUNT 287 10^3/UL (140-415); RED BLOOD COUNT 3.81 10^6/ul (4.70-6.10); RED CELL DISTRIBUTION WIDTH 15.6 % (11.5-14.5); WHITE BLOOD COUNT 8.8 10^3/ul (4.8-10.8)
[2017-02-14] MEDS: FUROSEMIDE 40 MG INJ IV SCH (09:03)
[2017-02-14] MEDS: AMLODIPINE 10 MG TAB PO SCH (09:03)
[2017-02-14] MEDS: ARTIFICIAL TEARS 15 ML OPH BOTH EYES SCH ×4 (09:06→20:05)
--- NOTE | 2017-02-14 09:34 | CONS ---
Date/Time of Note Date/Time of Note DATE: 02/14/17 TIME: 09:32 Assessment/Plan Assessment/Plan Additional Assessment/Plan 1.Pericardial effusion-moderate to severe with ongoing sob/tachycardia. Now Post -op s/p pericardial window with cardiac arrest during induction requiring compressions. s/p extubation and removal of drains. f/u post-op Echo 02/09 revealing resolution of pericardial effusion - not in tamponade by exam 2.AVR-mech 2 weeks prior - con't tpo monitor 3.Tachycardia - sinus tach, with minimal exertion - likely significant deconditioning 4.Leukocytosis - on anti-Bx 5.Coagulopathy - Rx for MEC AVR 6. Positive troponin-minimal s/p recent cardiac surgery-slowly downtrending Consultation Date/Type/Reason Admit Date/Time Feb 06, 2017 at 14:40 Initial Consult Date Type of Consultation: Pulmonary Referring Provider: ZHAO RYAN 24 HR Interval Summary Free Text/Dictation On tele now - sinus tach with minimal exertion, otherwise stable - con't PT as tolerated ROS: No fever, no chills, no nausea, no vomiting, no diarrhea/constipation No recent weight changes No chest pain, no PND, no orthopnea No dizziness, blurred vision No thirst, no heat or cold intolerance Exam/Review of Systems Vital Signs Vitals Vital Signs Date Time Temp Pulse Resp B/P Pulse Ox O2 Delivery O2 Flow Rate FiO2 02/14/17 08:35 85 02/14/17 07:27 98.7 20 142/63 92 02/14/17 04:40 3.0 02/13/17 20:24 Nasal Cannula 02/13/17 03:40 21 Intake and Output 02/13/17 02/13/17 02/14/17 15:00 23:00 07:00 Intake Total 1528 ml 208 ml Output Total 3150 ml Balance -1622 ml 208 ml Exam General: WN/WD/NAD, AOx 3 HEENT: Unicetric/atraumatic/EOMI (follow commands) NECK: JVD elevated, no thyromegaly Lymph: no lymphadenopathy HEART: regular with no S3, I/ systolic murmur at apex, mech click LUNGS: Coarse sounds ABD: soft, NT, ND, +BS : Intact Neuro: non focal SKIN: chronic changes EXT: trace edema Results Result Diagram: 02/14/17 0430 02/14/17 0430 Results 24 hrs Laboratory Tests Test 02/13/17 14:30 02/13/17 20:50 02/14/17 04:30 02/14/17 05:00 Activated Partial Thromboplast Time 38.7 H 105.9 *H 74.4 *H White Blood Count 8.8 Red Blood Count 3.81 L Hemoglobin 9.4 L Hematocrit 31.6 L Mean Corpuscular Volume 82.9 Mean Corpuscular Hemoglobin 24.7 L Mean Corpuscular Hemoglobin Concent 29.7 L Red Cell Distribution Width 15.6 H Platelet Count 287 Mean Platelet Volume 9.9 Neutrophils % 61.1 Lymphocytes % 19.8 Monocytes % 13.6 H Eosinophils % 4.3 Basophils % 0.6 Nucleated Red Blood Cells % 0.0 Neutrophils # 5.4 Lymphocytes # 1.8 Monocytes # 1.2 H Eosinophils # 0.4 Basophils # 0.1 Nucleated Red Blood Cells # 0.0 Sodium Level 141 Potassium Level 4.0 Chloride Level 102 Carbon Dioxide Level 31 Anion Gap 12 Blood Urea Nitrogen 17 Creatinine 1.10 Glucose Level 97 # Calcium Level 9.3 Prothrombin Time 16.2 H Prothrombin Time Ratio 1.3 INR International Normalized Ratio 1.29 Medications Medications Current Medications Docusate Sodium (Colace) 100 mg Q12H PRN PO CONSTIPATION Last administered on 15:51; Admin Dose 100 MG; Start 02/06/17 at 22:30 Bisacodyl (Dulcolax) 5 mg DAILY PRN PO CONSTIPATION Last administered on 15:51; Admin Dose 5 MG; Start 02/06/17 at 22:30 Pantoprazole (Protonix Iv) 40 mg DAILY@06 IV Last administered on 02/14/17 06: 51; Admin Dose 40 MG; Start 02/07/17 at 06:00 Lorazepam (Ativan) 1 mg Q6 PRN IV ANXIETY Last administered on 02/13/17 21:22 ; Admin Dose 1 MG; Start 02/07/17 at 18:00 Lorazepam (Ativan) 0.5 mg Q4H PRN IV AGITATION/ANXIETY Last administered on 01:33; Admin Dose 0.5 MG; Start 02/07/17 at 23:00 Morphine Sulfate 2 mg 2 mg Q2H PRN IV PAIN LEVEL 6-10 Last administered on 02/11 00:09; Admin Dose 2 MG; Start 02/08/17 at 15:30 Potassium Chloride/Dextrose/ Sod Cl (D5-1/2ns + KCl 20 Meq) 1,000 ml @ 70 mls/ hr [id number] IV Last administered on 02/13/17 21:21; Admin Dose 70 MLS/HR; Start 02/08/17 at 15:16 Eye Lubricant (Artificial Tears Oph) 2 drop QID BOTH EYES Last administered on 02/14/17 09:06; Admin Dose 2 DROP; Start 02/08/17 at 21:00 Furosemide (Lasix) 40 mg DAILY IV Last administered on 02/14/17 09:03; Admin Dose 40 MG; Start 02/09/17 at 17:00 Acetaminophen (Tylenol Supp) 650 mg Q6H PRN [place] PAIN AND OR ELEVATED TEMP Last administered on 02/10/17 20:49; Admin Dose 650 MG; Start 02/10/17 at 11:30 Guaifenesin (Robitussin Liquid Cup) 200 mg Q6 PRN PO COUGH Last administered on 02/12/17 11:35; Admin Dose 200 MG; Start 02/11/17 at 23:00 Amlodipine Besylate (Norvasc) 10 mg DAILY PO Last administered on 02/14/17 09: 03; Admin Dose 10 MG; Start 02/12/17 at 13:00 Warfarin Sodium (Coumadin) 5 mg DAILY@17 PO Last administered on 02/13/17 17: 51; Admin Dose 5 MG; Start 02/13/17 at 17:00 FARIBA SUBRAMANIAN MD Feb 14, 2017 09:34
[2017-02-14] MEDS: D5W-0.45 NACL + KCL 20 MEQ 1,000 ML IV SCH (11:53)
--- NOTE | 2017-02-14 12:09 | CONS ---
Date/Time of Note Date/Time of Note DATE: 02/14/17 TIME: 12:06 Assessment/Plan Assessment/Plan Additional Assessment/Plan Assessment and recommendations; next 1. Patient admitted for respiratory failure due to hypotension discovered to have very large pericardial effusion status post window placement. There is marked overall clinical improvement. 2. Mild CHF. 3. Recent aortic valve replacement surgery. 4. Likely underlying sleep apnea. Continue current treatment. Consider discharge to a rehab center. Patient will need to have a sleep study done on outpatient basis. We will sign off. Thanks for the referral. Consultation Date/Type/Reason Admit Date/Time Feb 06, 2017 at 14:40 Type of Consultation: Pulmonary Referring Provider: ZHAO RYAN 24 HR Interval Summary Free Text/Dictation Patient's condition is stable. Denies any shortness of breath, chest pain. Patient has been ambulating . General exam; young male, morbidly obese, awake alert currently in no distress. Sitting in a chair by bedside. Exam/Review of Systems Vital Signs Vitals Vital Signs Date Time Temp Pulse Resp B/P Pulse Ox O2 Delivery O2 Flow Rate FiO2 02/14/17 11:31 97.9 94 22 148/81 97 02/14/17 08:00 Nasal Cannula 3.0 02/13/17 03:40 21 Intake and Output 02/13/17 02/13/17 02/14/17 15:00 23:00 07:00 Intake Total 1528 ml 208 ml Output Total 3150 ml Balance -1622 ml 208 ml Exam HEENT exam is; supple neck, no JVD. No lymphadenopathy. Midline trachea. No thyromegaly. Patient has fair dentition. Chest examination; clear to auscultation. S1-S2 audible, no murmurs. Regular rhythm. There is a well-healed sternal scar. Abdomen examination; soft, protuberant. Nontender. No organomegaly. Bowel sounds audible. Extremity examination; no peripheral edema. Pulses 2+ bilaterally. WINDER FIXER examination; no focal deficit. Results Result Diagram: 02/14/17 0430 02/14/17 0430 Results 24 hrs Laboratory Tests Test 02/13/17 14:30 02/13/17 20:50 02/14/17 04:30 02/14/17 05:00 Activated Partial Thromboplast Time 38.7 H 105.9 *H 74.4 *H White Blood Count 8.8 Red Blood Count 3.81 L Hemoglobin 9.4 L Hematocrit 31.6 L Mean Corpuscular Volume 82.9 Mean Corpuscular Hemoglobin 24.7 L Mean Corpuscular Hemoglobin Concent 29.7 L Red Cell Distribution Width 15.6 H Platelet Count 287 Mean Platelet Volume 9.9 Neutrophils % 61.1 Lymphocytes % 19.8 Monocytes % 13.6 H Eosinophils % 4.3 Basophils % 0.6 Nucleated Red Blood Cells % 0.0 Neutrophils # 5.4 Lymphocytes # 1.8 Monocytes # 1.2 H Eosinophils # 0.4 Basophils # 0.1 Nucleated Red Blood Cells # 0.0 Sodium Level 141 Potassium Level 4.0 Chloride Level 102 Carbon Dioxide Level 31 Anion Gap 12 Blood Urea Nitrogen 17 Creatinine 1.10 Glucose Level 97 # Calcium Level 9.3 Prothrombin Time 16.2 H Prothrombin Time Ratio 1.3 INR International Normalized Ratio 1.29 Medications Medications Current Medications Docusate Sodium (Colace) 100 mg Q12H PRN PO CONSTIPATION Last administered on 15:51; Admin Dose 100 MG; Start 02/06/17 at 22:30 Bisacodyl (Dulcolax) 5 mg DAILY PRN PO CONSTIPATION Last administered on 15:51; Admin Dose 5 MG; Start 02/06/17 at 22:30 Pantoprazole (Protonix Iv) 40 mg DAILY@06 IV Last administered on 02/14/17 06: 51; Admin Dose 40 MG; Start 02/07/17 at 06:00 Lorazepam (Ativan) 1 mg Q6 PRN IV ANXIETY Last administered on 02/13/17 21:22 ; Admin Dose 1 MG; Start 02/07/17 at 18:00 Lorazepam (Ativan) 0.5 mg Q4H PRN IV AGITATION/ANXIETY Last administered on 01:33; Admin Dose 0.5 MG; Start 02/07/17 at 23:00 Morphine Sulfate 2 mg 2 mg Q2H PRN IV PAIN LEVEL 6-10 Last administered on 02/11 00:09; Admin Dose 2 MG; Start 02/08/17 at 15:30 Potassium Chloride/Dextrose/ Sod Cl (D5-1/2ns + KCl 20 Meq) 1,000 ml @ 70 mls/ hr [id number] IV Last administered on 02/14/17 11:53; Admin Dose 70 MLS/HR; Start 02/08/17 at 15:16 Eye Lubricant (Artificial Tears Oph) 2 drop QID BOTH EYES Last administered on 02/14/17 09:06; Admin Dose 2 DROP; Start 02/08/17 at 21:00 Furosemide (Lasix) 40 mg DAILY IV Last administered on 02/14/17 09:03; Admin Dose 40 MG; Start 02/09/17 at 17:00 Acetaminophen (Tylenol Supp) 650 mg Q6H PRN [place] PAIN AND OR ELEVATED TEMP Last administered on 02/10/17 20:49; Admin Dose 650 MG; Start 02/10/17 at 11:30 Guaifenesin (Robitussin Liquid Cup) 200 mg Q6 PRN PO COUGH Last administered on 02/12/17 11:35; Admin Dose 200 MG; Start 02/11/17 at 23:00 Amlodipine Besylate (Norvasc) 10 mg DAILY PO Last administered on 02/14/17 09: 03; Admin Dose 10 MG; Start 02/12/17 at 13:00 Warfarin Sodium (Coumadin) 5 mg DAILY@17 PO Last administered on 02/13/17 17: 51; Admin Dose 5 MG; Start 02/13/17 at 17:00 ARMOND MCLAUGHLIN Feb 14, 2017 12:08
--- NOTE | 2017-02-14 13:41 | PN ---
Date/Time of Note Date/Time of Note DATE: 02/14/17 TIME: 13:39 Assessment/Plan VTE Prophylaxis VTE Prophylaxis Intervention: heparin, other (Coumadin) Lines/Catheters IV Catheter Type (from Nrs): Peripheral IV Urinary Cath still in place: No Assessment/Plan Chief Complaint/Hosp Course Assessment/Plan: 41 yo morbidly obese M Status post recent aortic valve replacement at [facility] 2/2 severe aortic stenosis and CHF now managed for the followin. Severe pericardial effusion status post pericardiocentesis with pericardial drain placement 02.08.17 - presently stable / pericardial drain d/c . - monitor, f/u CV rec's 2. Status post cardiac arrest with return of spontaneous circulation during surgery 2 - f/u CTS and CV rec's, monitor HR. 3. Severe CHF exacerbation secondary to #1: improved - monitor, continue Lasix, bp meds 4. Elevated troponin secondary to #1: downtrending - monitor 5. Reactive leukocytosis secondary to #1: resolved 6. Ventilator dependent respiratory failure postoperatively: improved / off vent - duoneb's prn, f/u pulm rec's 7. Chronic obstructive sleep apnea - f/u pulm rec's 8. Recent aortic valve replacement now started on heparin drip / Coumadin transition - Commenced on Coumadin / Monitor and manage heparin drip for recent valve replacement - monitor INR daily (1.3 today) - goal = 2-3 9. Morbid obesity with BMI of 59 - educate about wt loss 10. Acute kidney injury likely secondary to ATN from hypoperfusion: stabilizing - Continue to monitor renal function/renally dose all meds/avoid nephrotoxic drugs 11. Transaminitis likely secondary to liver hypoperfusion: improving 12. Hypochromic anemia likely 2/2 blood loss (acute): s/p transfusion X1 so far 13. Polymicrobial UTI - Continue Abx therapy for UTI 14. Hypertension: needs better control, defer to cardiology 15. Encephalopathy: r/o HIE from cardiac arrest DVT and GI prophylaxis: heparin drip / coumadin / Protonix Problems: Subjective 24 Hr Interval Summary Free Text/Dictation Pt less agitated, less SOB. Exam/Review of Systems Vital Signs Vitals Vital Signs Date Time Temp Pulse Resp B/P Pulse Ox O2 Delivery O2 Flow Rate FiO2 02/14/17 12:33 97 02/14/17 11:31 97.9 22 148/81 97 02/14/17 08:00 Nasal Cannula 3.0 02/13/17 03:40 21 Intake and Output 02/13/17 02/13/17 02/14/17 15:00 23:00 07:00 Intake Total 1528 ml 208 ml Output Total 3150 ml Balance -1622 ml 208 ml Exam Constitutional: less confused, sleeping presently, Head: atraumatic, normocephalic Eyes: PERRL ENMT: mucosa pink and moist Neck: supple Respiratory: diminished breath sounds, wheezing Cardiovascular: other (L chest wall dressing clean and dry), regular rate and rhythm, No murmurs/extra sounds Gastrointestinal: bowel sounds, soft, No distended Extremities: No edema Neurological: No gross focal deficits except confusion Results Result Diagram: 02/14/17 0430 02/14/17 0430 Results 24 hrs Laboratory Tests Test 02/13/17 14:30 02/13/17 20:50 02/14/17 04:30 02/14/17 05:00 Activated Partial Thromboplast Time 38.7 H 105.9 *H 74.4 *H White Blood Count 8.8 Red Blood Count 3.81 L Hemoglobin 9.4 L Hematocrit 31.6 L Mean Corpuscular Volume 82.9 Mean Corpuscular Hemoglobin 24.7 L Mean Corpuscular Hemoglobin Concent 29.7 L Red Cell Distribution Width 15.6 H Platelet Count 287 Mean Platelet Volume 9.9 Neutrophils % 61.1 Lymphocytes % 19.8 Monocytes % 13.6 H Eosinophils % 4.3 Basophils % 0.6 Nucleated Red Blood Cells % 0.0 Neutrophils # 5.4 Lymphocytes # 1.8 Monocytes # 1.2 H Eosinophils # 0.4 Basophils # 0.1 Nucleated Red Blood Cells # 0.0 Sodium Level 141 Potassium Level 4.0 Chloride Level 102 Carbon Dioxide Level 31 Anion Gap 12 Blood Urea Nitrogen 17 Creatinine 1.10 Glucose Level 97 # Calcium Level 9.3 Prothrombin Time 16.2 H Prothrombin Time Ratio 1.3 INR International Normalized Ratio 1.29 Test 02/14/17 12:00 Activated Partial Thromboplast Time 56.1 H Medications Medications Current Medications Docusate Sodium (Colace) 100 mg Q12H PRN PO CONSTIPATION Last administered on t 15:51; Admin Dose 100 MG; Start 02/06/17 at 22:30 Bisacodyl (Dulcolax) 5 mg DAILY PRN PO CONSTIPATION Last administered on 15:51; Admin Dose 5 MG; Start 02/06/17 at 22:30 Pantoprazole (Protonix Iv) 40 mg DAILY@06 IV Last administered on 02/14/17 06: 51; Admin Dose 40 MG; Start 02/07/17 at 06:00 Lorazepam (Ativan) 1 mg Q6 PRN IV ANXIETY Last administered on 02/13/17 21:22 ; Admin Dose 1 MG; Start 02/07/17 at 18:00 Lorazepam (Ativan) 0.5 mg Q4H PRN IV AGITATION/ANXIETY Last administered on 01:33; Admin Dose 0.5 MG; Start 02/07/17 at 23:00 Morphine Sulfate 2 mg 2 mg Q2H PRN IV PAIN LEVEL 6-10 Last administered on 02/11 00:09; Admin Dose 2 MG; Start 02/08/17 at 15:30 Potassium Chloride/Dextrose/ Sod Cl (D5-1/2ns + KCl 20 Meq) 1,000 ml @ 70 mls/ hr [id number] IV Last administered on 02/14/17 11:53; Admin Dose 70 MLS/HR; Start 02/08/17 at 15:16 Eye Lubricant (Artificial Tears Oph) 2 drop QID BOTH EYES Last administered on 02/14/17 09:06; Admin Dose 2 DROP; Start 02/08/17 at 21:00 Furosemide (Lasix) 40 mg DAILY IV Last administered on 02/14/17 09:03; Admin Dose 40 MG; Start 02/09/17 at 17:00 Acetaminophen (Tylenol Supp) 650 mg Q6H PRN [place] PAIN AND OR ELEVATED TEMP Last administered on 02/10/17 20:49; Admin Dose 650 MG; Start 02/10/17 at 11:30 Guaifenesin (Robitussin Liquid Cup) 200 mg Q6 PRN PO COUGH Last administered on 02/12/17 11:35; Admin Dose 200 MG; Start 02/11/17 at 23:00 Amlodipine Besylate (Norvasc) 10 mg DAILY PO Last administered on 6/20/17at 09: 03; Admin Dose 10 MG; Start 02/12/17 at 13:00 Warfarin Sodium (Coumadin) 5 mg DAILY@17 PO Last administered on 02/13/17t 17: 51; Admin Dose 5 MG; Start 02/13/17 at 17:00 LUC GAMBINO Feb 14, 2017 13:41
[2017-02-14] MEDS: WARFARIN 5 MG TAB PO SCH (17:43)
[2017-02-15] VITALS (13 sets, daily range): BP systolic 108–160; BP diastolic 56–81; PULSE 86–95; RESP 17–22
[2017-02-15 03:44] LABS: ADD SCAN DIFF NO
[2017-02-15 04:12] LABS: CALCIUM 9.2 mg/dl (8.4-10.2); CREATININE 1.11 mg/dl (0.61-1.24); POTASSIUM 4.2 mmol/L (3.5-5.1)
[2017-02-15 04:26] LABS: INR 1.39; PROTIME 17.1 Sec (12.2-14.2); PT RATIO 1.3
[2017-02-15] MEDS: D5W-0.45 NACL + KCL 20 MEQ 1,000 ML IV SCH ×2 (04:28→18:25)
[2017-02-15 04:32] LABS: BASOPHILS % 0.2 % (0.0-2.0); EOSINOPHILS # 0.5 10^3/ul (0.0-0.5); HEMATOCRIT 28.9 % (42.0-52.0); HEMOGLOBIN 8.5 g/dl (14.0-18.0); LYMPHOCYTES # 1.5 10^3/ul (0.8-2.9); MEAN CORPUSCULAR HEMOGLOBIN 24.5 pg (29.0-33.0); MEAN CORPUSCULAR HGB CONC 29.4 g/dl (32.0-37.0); MEAN CORPUSCULAR VOLUME 83.3 fl (82.0-101.0); MEAN PLATELET VOLUME 9.5 fl (7.4-10.4); MONOCYTE # 1.2 10^3/ul (0.3-0.9); MONOCYTES % 13.8 % (0.0-11.0); NEUTROPHIL # 5.4 10^3/ul (1.6-7.5); NEUTROPHILS % 62.7 % (39.0-77.0); PLATELET COUNT 271 10^3/UL (140-415); RED BLOOD COUNT 3.47 10^6/ul (4.70-6.10); RED CELL DISTRIBUTION WIDTH 15.2 % (11.5-14.5); WHITE BLOOD COUNT 8.6 10^3/ul (4.8-10.8)
[2017-02-15] MEDS: PANTOPRAZOLE 40 MG INJ IV SCH (05:11)
[2017-02-15] MEDS: HEPARIN 25000 UNITS/250 ML 250 ML IV SCH ×4 (05:11→18:24)
[2017-02-15] MEDS ORDERED: NA BICARBONATE 8.4% 50 ML SYG ONE (07:00)
[2017-02-15] MEDS ORDERED: EPINEPHrine 0.1 MG/ML SYG ONE (07:00)
--- NOTE | 2017-02-15 07:49 | PN ---
Date/Time of Note Date/Time of Note DATE: 02/15/17 TIME: 07:47 Assessment/Plan Lines/Catheters IV Catheter Type (from [facility]): Peripheral IV Diego in Place (from [facility]): No Assessment/Plan Chief Complaint/Hosp Course s/p pericardial window mechanical valve aortic oral anticoagulation in progress 5 mg coumadin daily for now Problems: Subjective 24 Hr Interval Summary Constitutional: ambulates, improved, no complaints Exam/Review of Systems Vital Signs Vitals Vital Signs Date Time Temp Pulse Resp B/P Pulse Ox O2 Delivery O2 Flow Rate FiO2 02/15/17 07:04 98.0 85 22 160/80 100 02/14/17 23:00 3.0 02/14/17 20:00 Nasal Cannula 02/13/17 03:40 21 Intake and Output 02/14/17 02/14/17 02/15/17 15:00 23:00 07:00 Intake Total 1200 ml 1250 ml 1122 ml Output Total 900 ml 3000 ml 650 ml Balance 300 ml -1750 ml 472 ml Exam Cardiovascular: other (sharp valve clicks) Results Free Text/Dictation inr 1.3 Result Diagram: 02/15/17 0330 02/15/17 0330 BRICE PENNINGTON MD Feb 15, 2017 07:48
[2017-02-15] MEDS: FUROSEMIDE 40 MG INJ IV SCH (08:08)
[2017-02-15] MEDS: AMLODIPINE 10 MG TAB PO SCH (08:08)
[2017-02-15] MEDS: ARTIFICIAL TEARS 15 ML OPH BOTH EYES SCH ×4 (08:08→20:40)
--- NOTE | 2017-02-15 12:06 | CONS ---
Date/Time of Note Date/Time of Note DATE: 02/15/17 TIME: 12:03 Assessment/Plan Assessment/Plan Chief Complaint/Hosp Course IMp: 1.Pericardial effusion-moderate to severe with ongoing sob/tachycardia. Now Post -op s/p pericardial window with cardiac arrest during induction requiring compressions. s/p extubation and removal of drains. f/u post-op Echo 02/09 revealing resolution of pericardial effusion 2.AVR-mech 2 weeks prior 3.Tachycardia 4.Leukocytosis 5.Coagulopathy 6. Positive troponin-minimal s/p recent cardiac surgery-slowly downtrending Recc: -Tele -Follow BP/volume status closely -Continue norvasc -Continue heparin IV for mechanical valve with transition to back to coumadin -Continue daily IV lasix -Follow volume status closely Problems: Consultation Date/Type/Reason Admit Date/Time Feb 06, 2017 at 14:40 Initial Consult Date 02/07/2017 Type of Consultation: Cardiology Reason for Consultation pericardial effusion Referring Provider: ZHAO RYAN Exam/Review of Systems Vital Signs Vitals Vital Signs Date Time Temp Pulse Resp B/P Pulse Ox O2 Delivery O2 Flow Rate FiO2 02/15/17 11:50 98.3 92 20 145/63 99 02/15/17 07:40 Nasal Cannula 3.0 02/13/17 03:40 21 Intake and Output 02/14/17 02/14/17 02/15/17 15:00 23:00 07:00 Intake Total 1200 ml 1250 ml 1122 ml Output Total 900 ml 3000 ml 650 ml Balance 300 ml -1750 ml 472 ml Exam Review of Systems: CONSTITUTIONAL: No fevers, chills. PULMONARY: No sob CARDIOVASCULAR: No chest pain/palpitations GASTROINTESTINAL: No nausea/vomiting. GENITOURINARY: No hematuria/dysuria. MUSCULOSKELETAL: No myagias/arthalgias. PSYCHIATRIC: The patient denies depression. NEUROLOGIC: mild generalized weakness Constitutional: alert Psych: no complaints Head: normocephalic ENMT: mucosa pink and moist Neck: jvd (9 cm water), supple Respiratory: diminished breath sounds (at bases/B), other (dressing covering subxiphoid region) Cardiovascular: regular rate and rhythm Gastrointestinal: non-tender, soft Musculoskeletal: muscle tone (normal) Extremities: edema (trace/B) Neurological: other (No focal deficits) Results Result Diagram: 6/21/17 0330 02/15/17 0330 Results 24 hrs Laboratory Tests Test 02/14/17 19:35 02/15/17 03:30 Activated Partial Thromboplast Time 87.1 *H 95.0 *H White Blood Count 8.6 Red Blood Count 3.47 L Hemoglobin 8.5 L Hematocrit 28.9 L Mean Corpuscular Volume 83.3 Mean Corpuscular Hemoglobin 24.5 L Mean Corpuscular Hemoglobin Concent 29.4 L Red Cell Distribution Width 15.2 H Platelet Count 271 Mean Platelet Volume 9.5 Neutrophils % 62.7 Lymphocytes % 17.0 Monocytes % 13.8 H Eosinophils % 6.0 Basophils % 0.2 Nucleated Red Blood Cells % 0.0 Neutrophils # 5.4 Lymphocytes # 1.5 Monocytes # 1.2 H Eosinophils # 0.5 Basophils # 0.0 Nucleated Red Blood Cells # 0.0 Prothrombin Time 17.1 H Prothrombin Time Ratio 1.3 INR International Normalized Ratio 1.39 Sodium Level 141 Potassium Level 4.2 Chloride Level 103 Carbon Dioxide Level 32 H Anion Gap 10 Blood Urea Nitrogen 17 Creatinine 1.11 Glucose Level 105 Calcium Level 9.2 Medications Medications Current Medications Docusate Sodium (Colace) 100 mg Q12H PRN PO CONSTIPATION Last administered on 15:51; Admin Dose 100 MG; Start 02/06/17 at 22:30 Bisacodyl (Dulcolax) 5 mg DAILY PRN PO CONSTIPATION Last administered on 15:51; Admin Dose 5 MG; Start 02/06/17 at 22:30 Pantoprazole (Protonix Iv) 40 mg DAILY@06 IV Last administered on 02/15/17 05: 11; Admin Dose 40 MG; Start 02/07/17 at 06:00 Lorazepam (Ativan) 1 mg Q6 PRN IV ANXIETY Last administered on 02/13/17 21:22 ; Admin Dose 1 MG; Start 02/07/17 at 18:00 Lorazepam (Ativan) 0.5 mg Q4H PRN IV AGITATION/ANXIETY Last administered on 01:33; Admin Dose 0.5 MG; Start 02/07/17 at 23:00 Morphine Sulfate 2 mg 2 mg Q2H PRN IV PAIN LEVEL 6-10 Last administered on 02/11 00:09; Admin Dose 2 MG; Start 02/08/17 at 15:30 Potassium Chloride/Dextrose/ Sod Cl (D5-1/2ns + KCl 20 Meq) 1,000 ml @ 70 mls/ hr [id number] IV Last administered on 02/15/17 04:28; Admin Dose 70 MLS/HR; Start 02/08/17 at 15:16 Eye Lubricant (Artificial Tears Oph) 2 drop QID BOTH EYES Last administered on 02/15/17 08:08; Admin Dose 2 DROP; Start 02/08/17 at 21:00 Furosemide (Lasix) 40 mg DAILY IV Last administered on 02/15/17 08:08; Admin Dose 40 MG; Start 02/09/17 at 17:00 Acetaminophen (Tylenol Supp) 650 mg Q6H PRN [place] PAIN AND [place] ELEVATED TEMP Last administered on 02/10/17 20:49; Admin Dose 650 MG; Start 02/10/17 at 11:30 Guaifenesin (Robitussin Liquid Cup) 200 mg Q6 PRN PO COUGH Last administered on 02/12/17 11:35; Admin Dose 200 MG; Start 02/11/17 at 23:00 Amlodipine Besylate (Norvasc) 10 mg DAILY PO Last administered on 02/15/17 08: 08; Admin Dose 10 MG; Start 02/12/17 at 13:00 Warfarin Sodium (Coumadin) 5 mg DAILY@17 PO Last administered on 02/14/17 17: 43; Admin Dose 5 MG; Start 02/13/17 at 17:00 MATHEUS JOHNSON Feb 15, 2017 12:06
--- NOTE | 2017-02-15 13:08 | PN ---
Date/Time of Note Date/Time of Note DATE: 02/15/17 TIME: 13:03 Assessment/Plan VTE Prophylaxis VTE Prophylaxis Intervention: heparin, other (Coumadin) Lines/Catheters IV Catheter Type (from Nrs): Peripheral IV Urinary Cath still in place: No Assessment/Plan Chief Complaint/Hosp Course Assessment/Plan: 41 yo morbidly obese M Status post recent aortic valve replacement at [facility] 2/2 severe aortic stenosis and CHF now managed for the followin. Severe pericardial effusion status post pericardiocentesis with pericardial drain placement 02.08.17 - presently stable / pericardial drain d/c . - monitor, f/u CV rec's 2. Status post cardiac arrest with return of spontaneous circulation during surgery 2 - f/u CTS and CV rec's, monitor HR. 3. Severe CHF exacerbation secondary to #1: improved - monitor, continue Lasix, bp meds 4. Elevated troponin secondary to #1: downtrending - monitor 5. Reactive leukocytosis secondary to #1: resolved 6. Ventilator dependent respiratory failure postoperatively: improved / off vent - duoneb's prn, f/u pulm rec's 7. Chronic obstructive sleep apnea - f/u pulm rec's 8. Recent aortic valve replacement now started on heparin drip / Coumadin transition - Commenced on Coumadin / Monitor and manage heparin drip for recent valve replacement - monitor INR daily (1.3 today) - goal = 2-3 9. Morbid obesity with BMI of 59 - educate about wt loss 10. Acute kidney injury likely secondary to ATN from hypoperfusion: stabilizing - Continue to monitor renal function/renally dose all meds/avoid nephrotoxic drugs 11. Transaminitis likely secondary to liver hypoperfusion: improving 12. Hypochromic anemia likely 2/2 blood loss (acute): s/p transfusion X1 so far 13. Polymicrobial UTI - Continue Abx therapy for UTI 14. Hypertension: needs better control, defer to cardiology 15. Encephalopathy: improved - monitor DVT and GI prophylaxis: heparin drip / coumadin / Protonix Will get ARU eval as well. Problems: Subjective 24 Hr Interval Summary Free Text/Dictation Pt had no acute events overnight, still on heparin IV. Waiting for PT eval today. Exam/Review of Systems Vital Signs Vitals Vital Signs Date Time Temp Pulse Resp B/P Pulse Ox O2 Delivery O2 Flow Rate FiO2 02/15/17 12:15 90 02/15/17 11:50 98.3 20 145/63 99 02/15/17 07:40 Nasal Cannula 3.0 02/13/17 03:40 21 Intake and Output 02/14/17 02/14/17 02/15/17 15:00 23:00 07:00 Intake Total 1200 ml 1250 ml 1122 ml Output Total 900 ml 3000 ml 650 ml Balance 300 ml -1750 ml 472 ml Exam Constitutional: NAD, obese Head: atraumatic, normocephalic Eyes: PERRL ENMT: mucosa pink and moist Neck: supple Respiratory: some diminished breath sounds Cardiovascular: other (L chest wall dressing clean and dry), regular rate and rhythm, No murmurs/extra sounds Gastrointestinal: bowel sounds, soft, No distended Extremities: No edema Neurological: No gross focal deficits except confusion Results Result Diagram: 02/15/17 0330 02/15/17 0330 Results 24 hrs Laboratory Tests Test 02/14/17 19:35 02/15/17 03:30 02/15/17 11:15 Activated Partial Thromboplast Time 87.1 *H 95.0 *H 79.2 *H White Blood Count 8.6 Red Blood Count 3.47 L Hemoglobin 8.5 L Hematocrit 28.9 L Mean Corpuscular Volume 83.3 Mean Corpuscular Hemoglobin 24.5 L Mean Corpuscular Hemoglobin Concent 29.4 L Red Cell Distribution Width 15.2 H Platelet Count 271 Mean Platelet Volume 9.5 Neutrophils % 62.7 Lymphocytes % 17.0 Monocytes % 13.8 H Eosinophils % 6.0 Basophils % 0.2 Nucleated Red Blood Cells % 0.0 Neutrophils # 5.4 Lymphocytes # 1.5 Monocytes # 1.2 H Eosinophils # 0.5 Basophils # 0.0 Nucleated Red Blood Cells # 0.0 Prothrombin Time 17.1 H Prothrombin Time Ratio 1.3 INR International Normalized Ratio 1.39 Sodium Level 141 Potassium Level 4.2 Chloride Level 103 Carbon Dioxide Level 32 H Anion Gap 10 Blood Urea Nitrogen 17 Creatinine 1.11 Glucose Level 105 Calcium Level 9.2 Medications Medications Current Medications Docusate Sodium (Colace) 100 mg Q12H PRN PO CONSTIPATION Last administered on t 15:51; Admin Dose 100 MG; Start 02/06/17 at 22:30 Bisacodyl (Dulcolax) 5 mg DAILY PRN PO CONSTIPATION Last administered on 15:51; Admin Dose 5 MG; Start 02/06/17 at 22:30 Pantoprazole (Protonix Iv) 40 mg DAILY@06 IV Last administered on 02/15/17 05: 11; Admin Dose 40 MG; Start 02/07/17 at 06:00 Lorazepam (Ativan) 1 mg Q6 PRN IV ANXIETY Last administered on 02/13/17 21:22 ; Admin Dose 1 MG; Start 02/07/17 at 18:00 Lorazepam (Ativan) 0.5 mg Q4H PRN IV AGITATION/ANXIETY Last administered on 01:33; Admin Dose 0.5 MG; Start 02/07/17 at 23:00 Morphine Sulfate 2 mg 2 mg Q2H PRN IV PAIN LEVEL 6-10 Last administered on 02/11 00:09; Admin Dose 2 MG; Start 02/08/17 at 15:30 Potassium Chloride/Dextrose/ Sod Cl (D5-1/2ns + KCl 20 Meq) 1,000 ml @ 70 mls/ hr [id number] IV Last administered on 02/15/17 04:28; Admin Dose 70 MLS/HR; Start 02/08/17 at 15:16 Eye Lubricant (Artificial Tears Oph) 2 drop QID BOTH EYES Last administered on 02/15/17 08:08; Admin Dose 2 DROP; Start 02/08/17 at 21:00 Furosemide (Lasix) 40 mg DAILY IV Last administered on 02/15/17 08:08; Admin Dose 40 MG; Start 02/09/17 at 17:00 Acetaminophen (Tylenol Supp) 650 mg Q6H PRN [place] PAIN AND OR ELEVATED TEMP Last administered on 02/10/17 20:49; Admin Dose 650 MG; Start 02/10/17 at 11:30 Guaifenesin (Robitussin Liquid Cup) 200 mg Q6 PRN PO COUGH Last administered on 02/12/17 11:35; Admin Dose 200 MG; Start 02/11/17 at 23:00 Amlodipine Besylate (Norvasc) 10 mg DAILY PO Last administered on 02/15/17 08: 08; Admin Dose 10 MG; Start 02/12/17 at 13:00 Warfarin Sodium (Coumadin) 7.5 mg DAILY@17 PO ; Start 02/15/17 at 17:00 LUC GAMBINO Feb 15, 2017 13:08
--- NOTE | 2017-02-15 13:45 | CONS ---
Date/Time of Note Date/Time of Note DATE: 02/15/17 TIME: 13:43 Assessment/Plan Assessment/Plan Additional Assessment/Plan Assessment recommendations; 1. Patient status post respiratory failure due to very large pericardial effusion status post window placement. 2. Mild CHF. 3. Morbid obesity. Likely underlying sleep apnea. 4. Recent aortic valve surgery. Continue current supportive care. Consultation Date/Type/Reason Admit Date/Time Feb 06, 2017 at 14:40 Type of Consultation: Pulmonary Referring Provider: ZHAO RYAN 24 HR Interval Summary Free Text/Dictation Patient condition stable. However complains of mild dyspnea on exertion. Denies any chest pain, fever chills. Complains of very scant cough. General exam; young male, morbidly obese, currently in no distress. Awake and alert. Exam/Review of Systems Vital Signs Vitals Vital Signs Date Time Temp Pulse Resp B/P Pulse Ox O2 Delivery O2 Flow Rate FiO2 02/15/17 12:15 90 02/15/17 11:50 98.3 20 145/63 99 02/15/17 07:40 Nasal Cannula 3.0 02/13/17 03:40 21 Intake and Output 02/14/17 02/14/17 02/15/17 15:00 23:00 07:00 Intake Total 1200 ml 1250 ml 1122 ml Output Total 900 ml 3000 ml 650 ml Balance 300 ml -1750 ml 472 ml Exam HEENT exam is; supple neck, no JVD. No lymphadenopathy. Midline trachea. No thyromegaly. Pharynx is clear. Patient has fair dentition. Chest examination; clear to auscultation. S1-S2 audible, no murmurs. Regular rhythm. There is a well-healed sternal scar. Abdomen examination; soft, protuberant. No organomegaly. Bowel sounds audible. Extremity examination; no peripheral edema. Pulses 1+ bilaterally. [employer] examination; no focal deficit. Results Result Diagram: 02/15/17 0330 02/15/17 0330 Results 24 hrs Laboratory Tests Test 02/14/17 19:35 02/15/17 03:30 02/15/17 11:15 Activated Partial Thromboplast Time 87.1 *H 95.0 *H 79.2 *H White Blood Count 8.6 Red Blood Count 3.47 L Hemoglobin 8.5 L Hematocrit 28.9 L Mean Corpuscular Volume 83.3 Mean Corpuscular Hemoglobin 24.5 L Mean Corpuscular Hemoglobin Concent 29.4 L Red Cell Distribution Width 15.2 H Platelet Count 271 Mean Platelet Volume 9.5 Neutrophils % 62.7 Lymphocytes % 17.0 Monocytes % 13.8 H Eosinophils % 6.0 Basophils % 0.2 Nucleated Red Blood Cells % 0.0 Neutrophils # 5.4 Lymphocytes # 1.5 Monocytes # 1.2 H Eosinophils # 0.5 Basophils # 0.0 Nucleated Red Blood Cells # 0.0 Prothrombin Time 17.1 H Prothrombin Time Ratio 1.3 INR International Normalized Ratio 1.39 Sodium Level 141 Potassium Level 4.2 Chloride Level 103 Carbon Dioxide Level 32 H Anion Gap 10 Blood Urea Nitrogen 17 Creatinine 1.11 Glucose Level 105 Calcium Level 9.2 Medications Medications Current Medications Docusate Sodium (Colace) 100 mg Q12H PRN PO CONSTIPATION Last administered on 15:51; Admin Dose 100 MG; Start 02/06/17 at 22:30 Bisacodyl (Dulcolax) 5 mg DAILY PRN PO CONSTIPATION Last administered on 15:51; Admin Dose 5 MG; Start 02/06/17 at 22:30 Pantoprazole (Protonix Iv) 40 mg DAILY@06 IV Last administered on 02/15/17 05: 11; Admin Dose 40 MG; Start 02/07/17 at 06:00 Lorazepam (Ativan) 1 mg Q6 PRN IV ANXIETY Last administered on 02/13/17 21:22 ; Admin Dose 1 MG; Start 02/07/17 at 18:00 Lorazepam (Ativan) 0.5 mg Q4H PRN IV AGITATION/ANXIETY Last administered on 01:33; Admin Dose 0.5 MG; Start 02/07/17 at 23:00 Morphine Sulfate 2 mg 2 mg Q2H PRN IV PAIN LEVEL 6-10 Last administered on 02/11 00:09; Admin Dose 2 MG; Start 02/08/17 at 15:30 Potassium Chloride/Dextrose/ Sod Cl (D5-1/2ns + KCl 20 Meq) 1,000 ml @ 70 mls/ hr [id number] IV Last administered on 02/15/17 04:28; Admin Dose 70 MLS/HR; Start 02/08/17 at 15:16 Eye Lubricant (Artificial Tears Oph) 2 drop QID BOTH EYES Last administered on 02/15/17 12:58; Admin Dose 2 DROP; Start 02/08/17 at 21:00 Furosemide (Lasix) 40 mg DAILY IV Last administered on 02/15/17 08:08; Admin Dose 40 MG; Start 02/09/17 at 17:00 Acetaminophen (Tylenol Supp) 650 mg Q6H PRN [place] PAIN AND OR ELEVATED TEMP Last administered on 02/10/17 20:49; Admin Dose 650 MG; Start 02/10/17 at 11:30 Guaifenesin (Robitussin Liquid Cup) 200 mg Q6 PRN PO COUGH Last administered on 02/12/17 11:35; Admin Dose 200 MG; Start 02/11/17 at 23:00 Amlodipine Besylate (Norvasc) 10 mg DAILY PO Last administered on 02/15/17 08: 08; Admin Dose 10 MG; Start 02/12/17 at 13:00 Warfarin Sodium (Coumadin) 7.5 mg DAILY@17 PO ; Start 02/15/17 at 17:00 ARMOND MCLAUGHLIN Feb 15, 2017 13:45
[2017-02-15] MEDS ORDERED: WARFARIN 7.5 MG TAB PO SCH (17:00)
[2017-02-15] MEDS ORDERED: WARFARIN 2.5 MG TAB PO SCH (17:47)
[2017-02-15] MEDS: HEPARIN 1000 UNITS/ML 10 ML INJ IV PRN (18:24)
--- NOTE | 2017-02-15 19:09 | RADRPT ---
PROCEDURE: XR Chest. CLINICAL INDICATION: Mild hemoptysis. TECHNIQUE: 2 frontal views of the chest. COMPARISON: 11/28/2016. FINDINGS: Cardiomegaly with new bilateral patchy atelectasis versus airspace disease. there is a small left pl eural effusion. No signs of pneumothorax are seen. The osseous structures and soft tissues are unre markable. IMPRESSION: New mild failure, with small left pleural effusion. In setting of hemoptysis consider CT correlation . RPTAT: UU Physician Filemon Date Time Electronically viewed and signed by Lisa Ojeda Physician on 02/15/2017 19:09 RS/
[2017-02-15] MEDS: ALBUTEROL/IPRATROPIUM (NEB) 3 ML AMP HHN PRN (20:20)
[2017-02-16] VITALS (47 sets, daily range): BP systolic 95–178; BP diastolic 49–118; PULSE 69–127; RESP 17–27
[2017-02-16] MEDS: ALBUTEROL/IPRATROPIUM (NEB) 3 ML AMP HHN PRN ×2 (04:38→09:32)
[2017-02-16] MEDS: PANTOPRAZOLE (EC) 40 MG TAB PO SCH (06:10)
[2017-02-16] MEDS: HEPARIN 25000 UNITS/250 ML 250 ML IV SCH (06:17)
[2017-02-16] MEDS ORDERED: SUCCINYLCHOLINE CHLORIDE 100 MG/5 ML SYG IV ONE (07:00)
[2017-02-16] MEDS ORDERED: ETOMIDATE 20 MG INJ ONE (07:00)
[2017-02-16 08:04] LABS: ADD SCAN DIFF NO
[2017-02-16 08:21] LABS: BASOPHILS % 0.2 % (0.0-2.0); EOSINOPHILS # 0.3 10^3/ul (0.0-0.5); EOSINOPHILS % 3.8 % (0.0-7.0); HEMATOCRIT 28.1 % (42.0-52.0); HEMOGLOBIN 8.6 g/dl (14.0-18.0); LYMPHOCYTES # 1.3 10^3/ul (0.8-2.9); LYMPHOCYTES % 16.5 % (15.0-51.0); MEAN CORPUSCULAR HEMOGLOBIN 24.9 pg (29.0-33.0); MEAN CORPUSCULAR HGB CONC 30.6 g/dl (32.0-37.0); MEAN CORPUSCULAR VOLUME 81.4 fl (82.0-101.0); MEAN PLATELET VOLUME 9.3 fl (7.4-10.4); MONOCYTE # 1.1 10^3/ul (0.3-0.9); MONOCYTES % 13.1 % (0.0-11.0); NEUTROPHIL # 5.3 10^3/ul (1.6-7.5); NEUTROPHILS % 65.9 % (39.0-77.0); PLATELET COUNT 261 10^3/UL (140-415); RED BLOOD COUNT 3.45 10^6/ul (4.70-6.10); RED CELL DISTRIBUTION WIDTH 15.1 % (11.5-14.5); WHITE BLOOD COUNT 8.1 10^3/ul (4.8-10.8)
[2017-02-16 08:38] LABS: INR 1.44; PROTIME 17.6 Sec (12.2-14.2); PT RATIO 1.4
[2017-02-16] MEDS: ARTIFICIAL TEARS 15 ML OPH BOTH EYES SCH ×4 (09:00→21:00)
[2017-02-16 09:03] LABS: AADO2 Arterial 40.1 mmHg (7.0-24.0); Allen Test ACCEPTAB; Arterial Base Excess -1.1 mmol/L (-3.0-3); Arterial COHb 0.3 % (0.0-3.0); Arterial Fraction of Oxyhgb 45.2 % (93.0-99.0); Arterial HCO3 34.7 mmol/L (22.0-26.0); Arterial MetHb 0.2 % (0.0-1.5); Arterial Total Hemglobin 11.4 g/dl (12.0-18.0); MODE NASAL CANNULA
[2017-02-16] MEDS ORDERED: PROPOFOL 100 ML ONE (09:21)
[2017-02-16 09:23] LABS: CALCIUM 9.1 mg/dl (8.4-10.2); CREATININE 1.15 mg/dl (0.61-1.24)
[2017-02-16] MEDS: LORAZEPAM 2 MG INJ IV PRN ×2 (09:28→10:02)
[2017-02-16] MEDS ORDERED: FUROSEMIDE 40 MG INJ IV ONE (09:30)
[2017-02-16] MEDS ORDERED: LIDOCAINE 1% (MPF) 5 ML VIAL SC ONE (09:30)
--- NOTE | 2017-02-16 09:38 | PN ---
Date/Time of Note Date/Time of Note DATE: 02/16/17 TIME: 09:28 Assessment/Plan VTE Prophylaxis VTE Prophylaxis Intervention: contraindicated, SCD's VTE Contraindication Reason: bleeding Lines/Catheters IV Catheter Type (from Nrsg): Peripheral IV Urinary Cath still in place: No Assessment/Plan Chief Complaint/Hosp Course Assessment/Plan: 41 yo morbidly obese M Status post recent aortic valve replacement at [facility] 2/2 severe aortic stenosis and CHF now managed for the followin. Severe pericardial effusion status post pericardiocentesis with pericardial drain placement 02.08.17 - pericardial drain d/c 02/10/17. Pt was doing well until this AM, res distress + hemoptysis - hypercapnic res failure, re-intubated this AM. - monitor, f/u pulm, CV rec's - per discussion with pulm team, will get 2DECHO and CT chest - r/o new pericardial effusion vs other pulm pathology - recheck ABG in 2 hrs. - vent settings per pulm rec's - IV lasix as well x 1 2. Status post cardiac arrest with return of spontaneous circulation during surgery 2 - occured earlier this AM. - f/u CTS and CV rec's, monitor HR. 3. Severe CHF exacerbation secondary to #1: was improving until events this AM (see # 1) - monitor, continue Lasix, bp meds 4. Elevated troponin secondary to #1: downtrending - monitor 5. Reactive leukocytosis secondary to #1: resolved 6. Ventilator dependent respiratory failure postoperatively: improved / off vent - duoneb's prn, f/u pulm rec's 7. Chronic obstructive sleep apnea - f/u pulm rec's 8. Recent aortic valve replacement now started on heparin drip / Coumadin transition - holding today - Commenced on Coumadin / Monitor and manage heparin drip for recent valve replacement - but again, given hemoptysis - hold for now - monitor INR daily (1.3 today) - goal = 2-3 9. Morbid obesity with BMI of 59 - educate about wt loss 10. Acute kidney injury likely secondary to ATN from hypoperfusion: stabilizing - Continue to monitor renal function/renally dose all meds/avoid nephrotoxic drugs 11. Transaminitis likely secondary to liver hypoperfusion: improving 12. Hypochromic anemia likely 2/2 blood loss (acute): s/p transfusion X1 so far 13. Polymicrobial UTI - Continue Abx therapy for UTI 14. Hypertension: high nL - monitor, continue current meds 15. Encephalopathy: improved - monitor DVT and GI prophylaxis: SCD's/ Protonix ARU eval was pending. Critical care time spent today = 60 min. Problems: Subjective 24 Hr Interval Summary Free Text/Dictation Pt had rapid response this AM after sudden SOB, and hemoptysis - now intubated, in ICU, but alert. ABG showing hypercapnic res failure as well this AM. Exam/Review of Systems Vital Signs Vitals Vital Signs Date Time Temp Pulse Resp B/P Pulse Ox O2 Delivery O2 Flow Rate FiO2 02/16/17 08:27 91 02/16/17 07:35 98.0 18 148/74 99 02/16/17 04:55 Nasal Cannula 4.0 02/13/17 03:40 21 Intake and Output 02/15/17 02/15/17 02/16/17 15:00 23:00 07:00 Intake Total 820 ml 120 ml Output Total 700 ml Balance 120 ml 120 ml Exam Constitutional: intubated, but moving extremites, obese Head: atraumatic, normocephalic Eyes: PERRL ENMT: mucosa pink and moist Neck: supple Respiratory: diminished breath sounds Cardiovascular: other (L chest wall dressing clean and dry), tachy, No murmurs/ extra sounds Gastrointestinal: bowel sounds, soft, No distended Extremities: 1+ pitting edema B/L LE to mid calves Neurological: intubated Results Result Diagram: 02/16/17 0800 02/16/17 0800 Results 24 hrs Laboratory Tests Test 02/15/17 11:15 02/15/17 17:08 02/15/17 23:48 02/16/17 08:00 Activated Partial Thromboplast Time 79.2 *H 38.9 H 133.7 *H White Blood Count 8.1 Red Blood Count 3.45 L Hemoglobin 8.6 L Hematocrit 28.1 L Mean Corpuscular Volume 81.4 L Mean Corpuscular Hemoglobin 24.9 L Mean Corpuscular Hemoglobin Concent 30.6 L Red Cell Distribution Width 15.1 H Platelet Count 261 Mean Platelet Volume 9.3 Neutrophils % 65.9 Lymphocytes % 16.5 Monocytes % 13.1 H Eosinophils % 3.8 Basophils % 0.2 Nucleated Red Blood Cells % 0.0 Neutrophils # 5.3 Lymphocytes # 1.3 Monocytes # 1.1 H Eosinophils # 0.3 Basophils # 0.0 Nucleated Red Blood Cells # 0.0 Prothrombin Time 17.6 H Prothrombin Time Ratio 1.4 INR International Normalized Ratio 1.44 Sodium Level 139 Potassium Level 4.0 Chloride Level 103 Carbon Dioxide Level 30 Anion Gap 10 Blood Urea Nitrogen 19 Creatinine 1.15 Glucose Level 104 Calcium Level 9.1 Test 02/16/17 08:37 Blood Gas Specimen Source Blood arterial Arterial Blood Date Drawn 02/16/2017 8:45:49 AM Arterial Blood pH (Temp corrected) 6.929 *L Arterial Blood pCO2 (Temp correct) 169.7 *H Arterial Blood pO2 (Temp corrected) 42.4 *L Arterial Blood HCO3 34.7 H Arterial Blood Base Excess -1.1 Arterial Blood Oxygen Saturation 45.4 L Dudley Test ACCEPTAB Arterial Blood Gas Puncture Site Right Radial Arterial Blood Carboxyhemoglobin 0.3 Arterial Blood Methemoglobin 0.2 Blood Gas A-a O2 Differential 40.1 H Oxyhemoglobin Percent 45.2 L Total Hemoglobin 11.4 L Blood Gas Temperature 37.0 Blood Gas Modality NASAL CANNULA FiO2 39.0 Blood Gas Critical Value Read Back Maurizio YING RN Blood Gas Notified Whom Blood Gas Notified Time 02/16/2017 8:55:48 AM Medications Medications Current Medications Docusate Sodium (Colace) 100 mg Q12H PRN PO CONSTIPATION Last administered on 15:51; Admin Dose 100 MG; Start 02/06/17 at 22:30 Bisacodyl (Dulcolax) 5 mg DAILY PRN PO CONSTIPATION Last administered on 15:51; Admin Dose 5 MG; Start 02/06/17 at 22:30 Lorazepam (Ativan) 1 mg Q6 PRN IV ANXIETY Last administered on 02/13/17 21:22 ; Admin Dose 1 MG; Start 02/07/17 at 18:00 Lorazepam (Ativan) 0.5 mg Q4H PRN IV AGITATION/ANXIETY Last administered on 01:33; Admin Dose 0.5 MG; Start 02/07/17 at 23:00 Morphine Sulfate 2 mg 2 mg Q2H PRN IV PAIN LEVEL 6-10 Last administered on 02/11 00:09; Admin Dose 2 MG; Start 02/08/17 at 15:30 Potassium Chloride/Dextrose/ Sod Cl (D5-1/2ns + KCl 20 Meq) 1,000 ml @ 70 mls/ hr [id number] IV Last administered on 02/15/17 18:25; Admin Dose 70 MLS/HR; Start 02/08/17 at 15:16 Eye Lubricant (Artificial Tears Oph) 2 drop QID BOTH EYES Last administered on 02/15/17 20:40; Admin Dose 2 DROP; Start 02/08/17 at 21:00 Furosemide (Lasix) 40 mg DAILY IV Last administered on 02/15/17 08:08; Admin Dose 40 MG; Start 02/09/17 at 17:00 Acetaminophen (Tylenol Supp) 650 mg Q6H PRN [place] PAIN AND OR ELEVATED TEMP Last administered on 02/10/17 20:49; Admin Dose 650 MG; Start 02/10/17 at 11:30 Guaifenesin (Robitussin Liquid Cup) 200 mg Q6 PRN PO COUGH Last administered on 02/12/17 11:35; Admin Dose 200 MG; Start 02/11/17 at 23:00 Amlodipine Besylate (Norvasc) 10 mg DAILY PO Last administered on 02/15/17 08: 08; Admin Dose 10 MG; Start 02/12/17 at 13:00 Warfarin Sodium (Coumadin) 7.5 mg DAILY@17 PO Last administered on 02/15/17 18 :15; Admin Dose 7.5 MG; Start 02/15/17 at 17:47; Status Future Hold Pantoprazole (Protonix Tab) 40 mg DAILY@06 PO Last administered on 02/16/17 06 :10; Admin Dose 40 MG; Start 02/16/17 at 06:00 Lidocaine (Xylocaine 1% (Mpf)) 5 ml ONCE ONCE SC ; Start 02/16/17 at 09:30; Stop 02/16/17 at 09:31 LUC GAMBINO Feb 16, 2017 09:38
[2017-02-16] MEDS: morphine 2 MG INJ IV PRN (09:43)
[2017-02-16] MEDS: FUROSEMIDE 40 MG INJ IV SCH (09:55)
[2017-02-16] MEDS: AMLODIPINE 10 MG TAB PO SCH (10:00)
[2017-02-16] MEDS: D5W-0.45 NACL + KCL 20 MEQ 1,000 ML IV SCH ×2 (10:12→17:48)
[2017-02-16] MEDS: PROPOFOL 100 ML IV SCH ×7 (10:25→23:13)
--- NOTE | 2017-02-16 10:40 | CONS ---
Date/Time of Note Date/Time of Note DATE: 02/16/17 TIME: 10:36 Assessment/Plan Assessment/Plan Additional Assessment/Plan Ventilator setting; AC of 18, tidal volume 600, PEEP of 5, 100% FiO2. Chest x-ray was reviewed from today which is showing endotracheal tube right at the luisana. Cardiomegaly is present which is unchanged from prior multiple chest x-rays. Assessment recommendations; 1. Patient initially admitted for shortness of breath discovered to have a very large pericardial effusion status post window placement. The patient was successfully extubated and transferred to the medical floor, was doing extremely well until sudden decompensation yesterday due to acute hypercapnic respiratory failure. Etiology is unclear at this point. 2. History of recent aortic valve are present. 3. Status post pericardial window placement. 4. Morbid obesity. 5. Likely underlying severe sleep apnea. Continue current treatment. Obtain a repeat blood gas. Withdraw endotracheal tube by 3 cm. Further recommendations to be made once ABG is obtained. Patient may require to have a tracheostomy performed. 35 minutes of critical care time was spent evaluating the patient. Consultation Date/Type/Reason Admit Date/Time Feb 06, 2017 at 14:40 Type of Consultation: Pulmonary/critical care Referring Provider: ZHAO RYAN 24 HR Interval Summary Free Text/Dictation Patient condition is significant for the worse. Patient was doing markedly better yesterday however yesterday evening the patient became short of breath was transferred to ICU with the patient required intubation. ABG was done which showed severe hypercapnia. I saw the patient the patient is orally intubated and sedated. General examination; young male, morbidly obese, on ventilator via endotracheal tube. Sedated. Currently in no distress. Exam/Review of Systems Vital Signs Vitals Vital Signs Date Time Temp Pulse Resp B/P Pulse Ox O2 Delivery O2 Flow Rate FiO2 02/16/17 10:02 6.0 02/16/17 09:28 127 02/16/17 08:25 80 Nasal Cannula 02/16/17 07:35 98.0 18 148/74 02/13/17 03:40 21 Intake and Output 02/15/17 02/15/17 02/16/17 15:00 23:00 07:00 Intake Total 820 ml 120 ml Output Total 700 ml Balance 120 ml 120 ml Exam HEENT exam; supple neck, no JVD. No lymphadenopathy. Midline trachea. No thyromegaly. Orally intubated. Patient has fair dentition. Pupils are midsize and reactive to light. Chest examined; diminished breath sounds throughout. No added sound. S1-S2 audible, no murmurs. Regular rhythm. There is a well-healed sternal scar. Abdomen exam is; soft, protuberant. No organomegaly. Bowel sounds audible. Extremity exam; trace peripheral edema. Pulses 1+ bilaterally. No clubbing. SMOKE CHASER examination; patient is sedated. Results Result Diagram: 02/16/17 0800 02/16/17 0800 Results 24 hrs Laboratory Tests Test 02/15/17 11:15 02/15/17 17:08 02/15/17 23:48 02/16/17 08:00 Activated Partial Thromboplast Time 79.2 *H 38.9 H 133.7 *H 75.7 *H White Blood Count 8.1 Red Blood Count 3.45 L Hemoglobin 8.6 L Hematocrit 28.1 L Mean Corpuscular Volume 81.4 L Mean Corpuscular Hemoglobin 24.9 L Mean Corpuscular Hemoglobin Concent 30.6 L Red Cell Distribution Width 15.1 H Platelet Count 261 Mean Platelet Volume 9.3 Neutrophils % 65.9 Lymphocytes % 16.5 Monocytes % 13.1 H Eosinophils % 3.8 Basophils % 0.2 Nucleated Red Blood Cells % 0.0 Neutrophils # 5.3 Lymphocytes # 1.3 Monocytes # 1.1 H Eosinophils # 0.3 Basophils # 0.0 Nucleated Red Blood Cells # 0.0 Prothrombin Time 17.6 H Prothrombin Time Ratio 1.4 INR International Normalized Ratio 1.44 Sodium Level 139 Potassium Level 4.0 Chloride Level 103 Carbon Dioxide Level 30 Anion Gap 10 Blood Urea Nitrogen 19 Creatinine 1.15 Glucose Level 104 Calcium Level 9.1 Test 02/16/17 08:37 Blood Gas Specimen Source Blood arterial Arterial Blood Date Drawn 02/16/2017 8:45:49 AM Arterial Blood pH (Temp corrected) 6.929 *L Arterial Blood pCO2 (Temp correct) 169.7 *H Arterial Blood pO2 (Temp corrected) 42.4 *L Arterial Blood HCO3 34.7 H Arterial Blood Base Excess -1.1 Arterial Blood Oxygen Saturation 45.4 L Dudley Test ACCEPTAB Arterial Blood Gas Puncture Site Right Radial Arterial Blood Carboxyhemoglobin 0.3 Arterial Blood Methemoglobin 0.2 Blood Gas A-a O2 Differential 40.1 H Oxyhemoglobin Percent 45.2 L Total Hemoglobin 11.4 L Blood Gas Temperature 37.0 Blood Gas Modality NASAL CANNULA FiO2 39.0 Blood Gas Critical Value Read Back Maurizio YING RN Blood Gas Notified Whom Blood Gas Notified Time 02/16/2017 8:55:48 AM Medications Medications Current Medications Docusate Sodium (Colace) 100 mg Q12H PRN PO CONSTIPATION Last administered on 15:51; Admin Dose 100 MG; Start 02/06/17 at 22:30 Bisacodyl (Dulcolax) 5 mg DAILY PRN PO CONSTIPATION Last administered on 15:51; Admin Dose 5 MG; Start 02/06/17 at 22:30 Lorazepam (Ativan) 1 mg Q6 PRN IV ANXIETY Last administered on 02/16/17 09:28 ; Admin Dose 1 MG; Start 02/07/17 at 18:00 Lorazepam (Ativan) 0.5 mg Q4H PRN IV AGITATION/ANXIETY Last administered on 10:02; Admin Dose 0.5 MG; Start 02/07/17 at 23:00 Morphine Sulfate 2 mg 2 mg Q2H PRN IV PAIN LEVEL 6-10 Last administered on 02/16 09:43; Admin Dose 2 MG; Start 02/08/17 at 15:30 Potassium Chloride/Dextrose/ Sod Cl (D5-1/2ns + KCl 20 Meq) 1,000 ml @ 70 mls/ hr [id number] IV Last administered on 02/16/17 10:12; Admin Dose 70 MLS/HR; Start 02/08/17 at 15:16 Eye Lubricant (Artificial Tears Oph) 2 drop QID BOTH EYES Last administered on 02/16/17 09:00; Admin Dose 2 DROP; Start 02/08/17 at 21:00 Furosemide (Lasix) 40 mg DAILY IV Last administered on 02/16/17 09:55; Admin Dose 40 MG; Start 02/09/17 at 17:00 Acetaminophen (Tylenol Supp) 650 mg Q6H PRN [place] PAIN AND OR ELEVATED TEMP Last administered on 02/10/17 20:49; Admin Dose 650 MG; Start 02/10/17 at 11:30 Guaifenesin (Robitussin Liquid Cup) 200 mg Q6 PRN PO COUGH Last administered on 02/12/17 11:35; Admin Dose 200 MG; Start 02/11/17 at 23:00 Amlodipine Besylate (Norvasc) 10 mg DAILY PO Last administered on 02/15/17 08: 08; Admin Dose 10 MG; Start 02/12/17 at 13:00 Warfarin Sodium (Coumadin) 7.5 mg DAILY@17 PO Last administered on 02/15/17 18 :15; Admin Dose 7.5 MG; Start 02/15/17 at 17:47; Status Future Hold Pantoprazole 40 mg 40 mg DAILY@06 PO Last administered on 02/16/17 06:10; Admin Dose 40 MG; Start 02/16/17 at 06:00 Propofol (Diprivan) 100 ml @ 4.905 mls/ hr Q12H IV Last administered on 10:25; Admin Dose 49.05 MLS/HR; Start 02/16/17 at 10:00 ARMOND MCLAUGHLIN Feb 16, 2017 10:40
[2017-02-16 10:41] LABS: AADO2 Arterial 513.4 mmHg (7.0-24.0); Allen Test ACCEPTAB; Arterial Base Excess 0.8 mmol/L (-3.0-3); Arterial COHb 0.2 % (0.0-3.0); Arterial Fraction of Oxyhgb 98.2 % (93.0-99.0); Arterial HCO3 26.8 mmol/L (22.0-26.0); Arterial MetHb 0.4 % (0.0-1.5); Arterial Total Hemglobin 9.7 g/dl (12.0-18.0); MODE VENT - AC
--- NOTE | 2017-02-16 10:55 | CONS ---
Date/Time of Note Date/Time of Note DATE: 02/16/17 TIME: 10:46 Assessment/Plan Assessment/Plan Chief Complaint/Hosp Course IMp: 1.Pericardial effusion-moderate to severe with ongoing sob/tachycardia. Now Post -op s/p pericardial window with cardiac arrest during induction requiring compressions. s/p extubation and removal of drains. f/u post-op Echo 02/09 revealing resolution of pericardial effusion 2.AVR-mech 2 weeks prior 3.Tachycardia 4.Leukocytosis 5.Coagulopathy 6. Positive troponin-minimal s/p recent cardiac surgery-slowly downtrending 7. Hypercapneic resp failure requiring intubation 8.Hemoptysis this am Recc: -Tele -Follow BP/volume status closely -Continue norvasc -Coumadin held in setting of hemoptysis would continue heparin unless there sig ongoing bleeding given mechanical -Continue lasix diuresis -bronchodilators -Follow volume status closely Problems: Consultation Date/Type/Reason Admit Date/Time Feb 06, 2017 at 14:40 Initial Consult Date 02/07/2017 Type of Consultation: Cardiology Reason for Consultation pericardial effusion/AVR Referring Provider: ZHAO RYAN Exam/Review of Systems Vital Signs Vitals Vital Signs Date Time Temp Pulse Resp B/P Pulse Ox O2 Delivery O2 Flow Rate FiO2 02/16/17 10:02 6.0 02/16/17 09:28 127 02/16/17 08:25 80 Nasal Cannula 02/16/17 07:35 98.0 18 148/74 02/13/17 03:40 21 Intake and Output 02/15/17 02/15/17 02/16/17 15:00 23:00 07:00 Intake Total 820 ml 120 ml Output Total 700 ml Balance 120 ml 120 ml Exam Review of Systems: CONSTITUTIONAL: No fevers, chills. PULMONARY: resp failure s/p intubation CARDIOVASCULAR: No obvious chest pain/palpitations GASTROINTESTINAL: No nausea/vomiting. GENITOURINARY: No hematuria/dysuria. MUSCULOSKELETAL: No obvious myagias/arthalgias. PSYCHIATRIC: No documented depression. NEUROLOGIC: lethargic Constitutional: other (sedated) Psych: no complaints Head: normocephalic ENMT: mucosa pink and moist Neck: jvd, supple Respiratory: diminished breath sounds (at bases/B) Cardiovascular: regular rate and rhythm Gastrointestinal: non-tender, soft Musculoskeletal: muscle tone (normal) Extremities: edema (trace/B) Neurological: other (sedated) Results Result Diagram: 02/16/17 0800 02/16/17 0800 Results 24 hrs Laboratory Tests Test 02/15/17 11:15 02/15/17 17:08 02/15/17 23:48 02/16/17 08:00 Activated Partial Thromboplast Time 79.2 *H 38.9 H 133.7 *H 75.7 *H White Blood Count 8.1 Red Blood Count 3.45 L Hemoglobin 8.6 L Hematocrit 28.1 L Mean Corpuscular Volume 81.4 L Mean Corpuscular Hemoglobin 24.9 L Mean Corpuscular Hemoglobin Concent 30.6 L Red Cell Distribution Width 15.1 H Platelet Count 261 Mean Platelet Volume 9.3 Neutrophils % 65.9 Lymphocytes % 16.5 Monocytes % 13.1 H Eosinophils % 3.8 Basophils % 0.2 Nucleated Red Blood Cells % 0.0 Neutrophils # 5.3 Lymphocytes # 1.3 Monocytes # 1.1 H Eosinophils # 0.3 Basophils # 0.0 Nucleated Red Blood Cells # 0.0 Prothrombin Time 17.6 H Prothrombin Time Ratio 1.4 INR International Normalized Ratio 1.44 Sodium Level 139 Potassium Level 4.0 Chloride Level 103 Carbon Dioxide Level 30 Anion Gap 10 Blood Urea Nitrogen 19 Creatinine 1.15 Glucose Level 104 Calcium Level 9.1 Test 02/16/17 08:37 02/16/17 10:40 Blood Gas Specimen Source Blood arterial Blood arterial Arterial Blood Date Drawn 02/16/2017 8:45:49 AM 02/16/2017 10:10:45 AM Arterial Blood pH (Temp corrected) 6.929 *L 7.352 Arterial Blood pCO2 (Temp correct) 169.7 *H 49.4 H Arterial Blood pO2 (Temp corrected) 42.4 *L 150.2 H Arterial Blood HCO3 34.7 H 26.8 H Arterial Blood Base Excess -1.1 0.8 Arterial Blood Oxygen Saturation 45.4 L 98.8 H Dudley Test ACCEPTAB ACCEPTAB Arterial Blood Gas Puncture Site Right Radial Right Radial Arterial Blood Carboxyhemoglobin 0.3 0.2 Arterial Blood Methemoglobin 0.2 0.4 Blood Gas A-a O2 Differential 40.1 H 513.4 H Oxyhemoglobin Percent 45.2 L 98.2 Total Hemoglobin 11.4 L 9.7 L Blood Gas Temperature 37.0 37.0 Blood Gas Modality NASAL CANNULA VENT - AC FiO2 39.0 100.0 Blood Gas Critical Value Read Back Maurizio DEONNA RN Blood Gas Notified Whom PABLO BAKER Blood Gas Notified Time 02/16/2017 8:55:48 AM 02/16/2017 10:41:23 AM Blood Gas Respiration Rate 20.0 Blood Gas Actual Respiration Rate 20 Blood Gas Tidal Volume 550.0 Blood Gas Low PEEP Setting 5.0 Medications Medications Current Medications Docusate Sodium (Colace) 100 mg Q12H PRN PO CONSTIPATION Last administered on 15:51; Admin Dose 100 MG; Start 02/06/17 at 22:30 Bisacodyl (Dulcolax) 5 mg DAILY PRN PO CONSTIPATION Last administered on 15:51; Admin Dose 5 MG; Start 02/06/17 at 22:30 Lorazepam (Ativan) 1 mg Q6 PRN IV ANXIETY Last administered on 02/16/17 09:28 ; Admin Dose 1 MG; Start 02/07/17 at 18:00 Lorazepam (Ativan) 0.5 mg Q4H PRN IV AGITATION/ANXIETY Last administered on 10:02; Admin Dose 0.5 MG; Start 02/07/17 at 23:00 Morphine Sulfate 2 mg 2 mg Q2H PRN IV PAIN LEVEL 6-10 Last administered on 02/16 09:43; Admin Dose 2 MG; Start 02/08/17 at 15:30 Potassium Chloride/Dextrose/ Sod Cl (D5-1/2ns + KCl 20 Meq) 1,000 ml @ 70 mls/ hr [id number] IV Last administered on 02/16/17 10:12; Admin Dose 70 MLS/HR; Start 02/08/17 at 15:16 Eye Lubricant (Artificial Tears Oph) 2 drop QID BOTH EYES Last administered on 02/16/17 09:00; Admin Dose 2 DROP; Start 02/08/17 at 21:00 Furosemide (Lasix) 40 mg DAILY IV Last administered on 02/16/17 09:55; Admin Dose 40 MG; Start 02/09/17 at 17:00 Acetaminophen (Tylenol Supp) 650 mg Q6H PRN [place] PAIN AND OR ELEVATED TEMP Last administered on 02/10/17 20:49; Admin Dose 650 MG; Start 02/10/17 at 11:30 Guaifenesin (Robitussin Liquid Cup) 200 mg Q6 PRN PO COUGH Last administered on 02/12/17 11:35; Admin Dose 200 MG; Start 02/11/17 at 23:00 Amlodipine Besylate (Norvasc) 10 mg DAILY PO Last administered on 02/15/17 08: 08; Admin Dose 10 MG; Start 02/12/17 at 13:00 Warfarin Sodium (Coumadin) 7.5 mg DAILY@17 PO Last administered on 02/15/17 18 :15; Admin Dose 7.5 MG; Start 02/15/17 at 17:47; Status Future Hold Pantoprazole 40 mg 40 mg DAILY@06 PO Last administered on 02/16/17 06:10; Admin Dose 40 MG; Start 02/16/17 at 06:00 Propofol (Diprivan) 100 ml @ 4.905 mls/ hr Q12H IV Last administered on 10:25; Admin Dose 49.05 MLS/HR; Start 02/16/17 at 10:00 MATHEUS JOHNSON Feb 16, 2017 10:55
[2017-02-16] MEDS ORDERED: PHENYLephrine 20MG IN 250 ML 250 ML IV SCH (11:00)
--- NOTE | 2017-02-16 11:05 | RADRPT ---
PROCEDURE: XR Chest AP portable CLINICAL INDICATION: Intubated TECHNIQUE: An AP portable radiograph of the chest was submitted. COMPARISON: 11/28/2016 FINDINGS: Support Hardware: Since the previous study, the patient has been intubated and the tube tip is at th e luisana and should be withdrawn by a couple cm. Cardiovascular: There is been an interval midline sternotomy and prosthetic valve replacement. The heart is mildly enlarged and the pulmonary vasculature is upper normal. Lung [place]: Since the previous study, consolidation is developing within the left lower lobe and to a lesser extent the airspace opacity is seen at the right lung base. Pleural Spaces: No pneumothorax or pleural effusion is identified. Osseous Structures: The osseous structures appear intact. Soft Tissues: The soft tissues appear generous. IMPRESSION: 1. The endotracheal tube tip is at the luisana and should be withdrawn by at least 2 cm. 2. Interval midline sternotomy and prosthetic valve replacement with the heart mildly enlarged and the pulmonary vasculature upper normal. 3. Development of consolidation within the left lower lobe and to a much lesser extent infiltrate i s developed within the right lung base. Findings of endotracheal tube tip at the luisana, development of pulmonary infiltrates were telephone d by Darrell Shepard MD to ASHLEY Valente on 02/16/2017 at 1101 hours. Physician Yuri Date Time Electronically viewed and signed by Physician Yuri on 02/16/2017 11:05 /
[2017-02-16] MEDS ORDERED: PHENYLephrine 40 MG in DEXTROSE 5% 496 ML IV SCH (12:00)
--- NOTE | 2017-02-16 12:26 | OPPN ---
Date/Time of Note Date/Time of Note DATE: 02/16/17 TIME: 9:15 Event Note Pt developed respiratory distress and became unresponsive, code blue called, called to intubate patient for respiratory failure. at bedside to assess and examine patient. VSS, tachycardic, hypertensive, remained VSS throughout. RT at bedside BVM, with chest rise, SpO2 100%. Patient continued to be preoxygenated, given 10 mg Etomidate and 100 mg Succinylcholine, RSI, no cricoid pressure, Glidescope #4, 8.0 ETT with glidescope stylet, Grade 1 view, ETT placed, + color change on EZ cap, BS equal and bilateral, ETT secured by RT at 24 cm. Patient VSS after intubation and continued to be bagged until placed on vent and transferred to ICU. MARIA GUADALUPE ROBBINS MD Feb 16, 2017 12:26
--- NOTE | 2017-02-16 12:33 | RADRPT ---
PROCEDURE: XR Chest. CLINICAL INDICATION: Check PICC line position. TECHNIQUE: Single frontal view. COMPARISON: Prior study done earlier the same day. FINDINGS: There is a right arm PICC line with the tip in the lower superior vena cava. The endotracheal tube is in satisfactory position. There is pulmonary edema, unchanged. Atelectasis at the lung bases is worse than seen previously. The heart is enlarged. Moderate bilateral pleural R larger than seen previously. There is no pneumothorax. IMPRESSION: 1. Satisfactory position of right arm PICC line. 2. Worse appearance of the lungs and larger pleural effusions. 3. No other change from the prior study done earlier the same day. RPTAT: QQ .Portillo Sommer MD, MD Date Time Electronically viewed and signed by .Portillo Sommer MD, on 02/16/2017 12:33 .R/
[2017-02-16] MEDS ORDERED: IBUPROFEN 400 MG TAB PO PRN (13:30)
--- NOTE | 2017-02-16 14:11 | RADRPT ---
PROCEDURE: US guidance for PICC line CLINICAL INDICATION: PICC line placement TECHNIQUE: Multiple real-time images were acquired of the patient's arm utilizing a high resolutio n transducer. This was performed by the PICC line nurse for venous access. COMPARISON: None FINDINGS: Ultrasound guidance for PICC line placement. There is a patent and compressible right upper extremit y vein. IMPRESSION: Ultrasound guidance for PICC line placement. RPTAT: AA Physician Tash Date Time Electronically viewed and signed by Physician Tash on 02/16/2017 14:10 RA/
--- NOTE | 2017-02-16 22:04 | RADRPT ---
PROCEDURE: XR Chest. CLINICAL INDICATION: Endotracheal tube placement. TECHNIQUE: AP view of the chest was obtained. COMPARISON: 02/16/2017 FINDINGS: There is stable moderate cardiomegaly. There is mild prominence of the central pulmonary vasculatur e. There is hazy opacification involving the bilateral perihilar and lower lobe regions. The perip heral vascular markings are indistinct . There is redemonstration of mild to moderate bilateral pleu ral effusions, occupying the lower 1 fourth of the hemithoraces bilaterally. There has been interva l placement of endotracheal tube with tip approximately 3.8 cm above the luisana. There is a right a rm PICC with tip in the cavoatrial junction. No signs of pneumothorax are seen. IMPRESSION: 1. Redemonstration of bilateral perihilar and lower lobe hazy opacifications, suggestive of interst itial pulmonary edema with stable mild to moderate bilateral pleural effusions. 2. Moderate cardiomegaly with central pulmonary vascular congestion. 3. Endotracheal tube with tip approximate 2.8 cm above the luisana. 4. Right arm PICC with tip in satisfactory position. RPTAT: HGAS .Robb Gentile MD, MD Date Time Electronically viewed and signed by .Robb Gentile MD, on 02/16/2017 22:04 .S/
--- NOTE | 2017-02-16 23:14 | RADRPT ---
PROCEDURE: CT CHEST WITHOUT CONTRAST CLINICAL INDICATION: 41-year-old male with hemoptysis. TECHNIQUE: The study was performed utilizing a [employer] VCT 64-slice CT scanner. Direct axia l sections were obtained through the chest without the use of intravenous contrast material. Sagitt al and coronal re-formations were obtained. One or more of the following dose reduction techniques w ere utilized: automated exposure control, adjustment of the mA and/or kV according to patient's size or use of iterative reconstruction technique. The images were reviewed on a PACS workstation. CTD /vol = 20.3 mGy; Total Exam DLP = 806.4 mGy-cm. COMPARISON: Chest x-ray February 16, 2017 at 08:51 p.m. FINDINGS: There is an endotracheal tube visualized with the tip of the in the mid trachea approximately 4.2 cm above the luisana. There is a right-sided PICC line identified with the tip of the catheter at the cavoatrial junction region. The patient has had a prior median sternotomy. Mild cardiomegaly is pre sent. There is minimal pericardial effusion. There is an aortic valvular prosthesis. The aorta is without aneurysmal dilatation. There are small lymph nodes seen within the mediastinum which are no t pathologic by size criteria. There are [id number] bilateral pleural effusions. There is bi lateral dependent atelectasis. There is no definite focal infiltrate. There is no evidence for a p neumothorax. Mild degenerative changes are seen throughout the spine. Scans through the upper abdomen reveals that the upper liver is unremarkable. The upper left kidney is without evidence for obstructive uropathy. IMPRESSION: 1. Endotracheal tube with the tip in the mid trachea. 2. Right-sided PICC line with the tip at the cavoatrial junction region. 3. Status post median sternotomy. 4. Cardiomegaly with aortic valvular prosthesis and minimal pericardial effusion. 5. [id number] bilateral pleural effusions. 6. Bilateral dependent atelectasis. 7. Degenerative changes within the spine. .Alo Choi MD, MD Date Time Electronically viewed and signed by .Alo Choi MD, on 02/16/2017 23:14 .Lul
[2017-02-17] VITALS (36 sets, daily range): BP systolic 103–165; BP diastolic 22–87; PULSE 65–92; RESP 13–28
[2017-02-17] MEDS: PROPOFOL 100 ML IV SCH ×2 (04:17→06:01)
[2017-02-17 04:46] LABS: ADD SCAN DIFF NO
[2017-02-17 04:48] LABS: BASOPHILS % 0.3 % (0.0-2.0); EOSINOPHILS # 0.3 10^3/ul (0.0-0.5); EOSINOPHILS % 4.6 % (0.0-7.0); HEMATOCRIT 26.3 % (42.0-52.0); HEMOGLOBIN 7.9 g/dl (14.0-18.0); LYMPHOCYTES # 1.3 10^3/ul (0.8-2.9); LYMPHOCYTES % 20.9 % (15.0-51.0); MEAN CORPUSCULAR HEMOGLOBIN 24.2 pg (29.0-33.0); MEAN CORPUSCULAR VOLUME 80.4 fl (82.0-101.0); MEAN PLATELET VOLUME 9.5 fl (7.4-10.4); MONOCYTE # 0.8 10^3/ul (0.3-0.9); MONOCYTES % 13.1 % (0.0-11.0); NEUTROPHIL # 3.7 10^3/ul (1.6-7.5); NEUTROPHILS % 60.9 % (39.0-77.0); PLATELET COUNT 272 10^3/UL (140-415); RED BLOOD COUNT 3.27 10^6/ul (4.70-6.10); RED CELL DISTRIBUTION WIDTH 15.2 % (11.5-14.5); WHITE BLOOD COUNT 6.1 10^3/ul (4.8-10.8)
[2017-02-17 05:20] LABS: MAGNESIUM 1.9 mg/dl (1.7-2.5); PHOSPHORUS 4.4 mg/dl (2.5-4.9)
[2017-02-17 05:21] LABS: CALCIUM 9.1 mg/dl (8.4-10.2); CREATININE 1.25 mg/dl (0.61-1.24); POTASSIUM 3.4 mmol/L (3.5-5.1)
[2017-02-17 05:31] LABS: INR 1.55; PROTIME 18.7 Sec (12.2-14.2); PT RATIO 1.5
[2017-02-17] MEDS: PANTOPRAZOLE (EC) 40 MG TAB PO SCH (05:38)
[2017-02-17] MEDS: ARTIFICIAL TEARS 15 ML OPH BOTH EYES SCH ×4 (08:47→20:33)
[2017-02-17] MEDS: FUROSEMIDE 40 MG INJ IV SCH (08:48)
[2017-02-17] MEDS: AMLODIPINE 10 MG TAB PO SCH (08:48)
--- NOTE | 2017-02-17 09:09 | CONS ---
Date/Time of Note Date/Time of Note DATE: 02/17/17 TIME: 09:05 Assessment/Plan Assessment/Plan Additional Assessment/Plan Chest x-ray was reviewed from yesterday late evening which is showing cardio megaly, endotracheal tube is at an adequate level. Very minimal vascular congestion is present. Ventilator setting; AC of 20, tidal volume 550, PEEP of 5, 30% FiO2. Assessment recommendations; 1. Patient admitted for shortness of breath with respiratory failure discovered to have a very large pericardial effusion, status post pericardial window placement. Patient was extubated transferred to the medical floor where he acutely decompensated 3 days later with severe acute hypercapnic respiratory failure, etiology is unclear. 2. History of recent aortic valvular replacement. 3. Morbid obesity. Likely underlying sleep apnea. 4. Mild CHF. 5. Anemia. Patient has been switched over to CPAP mode and has good weaning parameters now. Continue current supportive care. An ABG will be performed in 45 minutes. If the patient has adequate parameters he will be extubated. I would recommend starting him on BiPAP overnight. And keeping him in ICU at least for the next 48 hours after successful extubation. 35 minutes of critical care time was spent evaluating the patient. Consultation Date/Type/Reason Admit Date/Time Feb 06, 2017 at 14:40 Type of Consultation: Pulmonary/critical care Referring Provider: ZHAO RYAN 24 HR Interval Summary Free Text/Dictation Patient condition is critical but stable patient has remained hemodynamically stable. Off sedation patient is completely awake and alert. General exam; young male, morbidly obese, orally intubated, currently in no distress. Exam/Review of Systems Vital Signs Vitals Vital Signs Date Time Temp Pulse Resp B/P Pulse Ox O2 Delivery O2 Flow Rate FiO2 02/17/17 08:52 30 02/17/17 07:45 98.4 74 20 125/69 100 Mechanical Ventilator 02/16/17 10:02 6.0 Intake and Output 02/16/17 02/16/17 02/17/17 15:00 23:00 07:00 Intake Total 570 ml 530.345 ml 469.015 ml Output Total 2200 ml 2250 ml 900 ml Balance -1630 ml -1719.655 ml -430.985 ml Exam HEENT exam; supple neck, JVD difficult to see because of short neck. Orally intubated. Patient has fair dentition. No neck masses. Pupils are midsize and reactive to light. Chest examined; diminished but clear vessel. S1-S2 audible, no murmurs. Regular rhythm. There is a well-healed sternal scar. Abdomen exam is; soft, protuberant. No organomegaly. Nontender. Bowel sounds audible. Extremity exam; trace peripheral edema. Pulses 1+ bilaterally. [employer] exam; she is awake and follows simple commands moves all 4 extremities on command. Results Result Diagram: 02/17/17 0410 02/17/17 0410 Results 24 hrs Laboratory Tests Test 02/16/17 10:40 02/17/17 04:10 Blood Gas Specimen Source Blood arterial Arterial Blood Date Drawn 02/16/2017 10:10:45 AM Arterial Blood pH (Temp corrected) 7.352 Arterial Blood pCO2 (Temp correct) 49.4 H Arterial Blood pO2 (Temp corrected) 150.2 H Arterial Blood HCO3 26.8 H Arterial Blood Base Excess 0.8 Arterial Blood Oxygen Saturation 98.8 H Dudley Test ACCEPTAB Arterial Blood Gas Puncture Site Right Radial Arterial Blood Carboxyhemoglobin 0.2 Arterial Blood Methemoglobin 0.4 Blood Gas A-a O2 Differential 513.4 H Oxyhemoglobin Percent 98.2 Total Hemoglobin 9.7 L Blood Gas Temperature 37.0 Blood Gas Respiration Rate 20.0 Blood Gas Actual Respiration Rate 20 Blood Gas Modality VENT - AC FiO2 100.0 Blood Gas Tidal Volume 550.0 Blood Gas Low PEEP Setting 5.0 Blood Gas Notified Whom JLD Blood Gas Notified Time 02/16/2017 10:41:23 AM White Blood Count 6.1 # Red Blood Count 3.27 L Hemoglobin 7.9 L Hematocrit 26.3 L Mean Corpuscular Volume 80.4 L Mean Corpuscular Hemoglobin 24.2 L Mean Corpuscular Hemoglobin Concent 30.0 L Red Cell Distribution Width 15.2 H Platelet Count 272 Mean Platelet Volume 9.5 Neutrophils % 60.9 Lymphocytes % 20.9 Monocytes % 13.1 H Eosinophils % 4.6 Basophils % 0.3 Nucleated Red Blood Cells % 0.0 Neutrophils # 3.7 Lymphocytes # 1.3 Monocytes # 0.8 Eosinophils # 0.3 Basophils # 0.0 Nucleated Red Blood Cells # 0.0 Prothrombin Time 18.7 H Prothrombin Time Ratio 1.5 INR International Normalized Ratio 1.55 Sodium Level 140 Potassium Level 3.4 L Chloride Level 101 Carbon Dioxide Level 31 Anion Gap 11 Blood Urea Nitrogen 23 H Creatinine 1.25 H Glucose Level 89 Calcium Level 9.1 Phosphorus Level 4.4 Magnesium Level 1.9 Medications Medications Current Medications Docusate Sodium (Colace) 100 mg Q12H PRN PO CONSTIPATION Last administered on 15:51; Admin Dose 100 MG; Start 02/06/17 at 22:30 Bisacodyl (Dulcolax) 5 mg DAILY PRN PO CONSTIPATION Last administered on 15:51; Admin Dose 5 MG; Start 02/06/17 at 22:30 Lorazepam (Ativan) 1 mg Q6 PRN IV ANXIETY Last administered on 02/16/17 09:28 ; Admin Dose 1 MG; Start 02/07/17 at 18:00 Lorazepam (Ativan) 0.5 mg Q4H PRN IV AGITATION/ANXIETY Last administered on 10:02; Admin Dose 0.5 MG; Start 02/07/17 at 23:00 Morphine Sulfate (morphine) 2 mg Q2H PRN IV PAIN LEVEL 6-10 Last administered on 02/16/17 09:43; Admin Dose 2 MG; Start 02/08/17 at 15:30 Eye Lubricant (Artificial Tears Oph) 2 drop QID BOTH EYES Last administered on 02/17/17 08:47; Admin Dose 2 DROP; Start 02/08/17 at 21:00 Furosemide (Lasix) 40 mg DAILY IV Last administered on 02/17/17 08:48; Admin Dose 40 MG; Start 02/09/17 at 17:00 Acetaminophen (Tylenol Supp) 650 mg Q6H PRN [place] PAIN AND OR ELEVATED TEMP Last administered on 02/10/17 20:49; Admin Dose 650 MG; Start 02/10/17 at 11:30 Guaifenesin (Robitussin Liquid Cup) 200 mg Q6 PRN PO COUGH Last administered on 02/12/17 11:35; Admin Dose 200 MG; Start 02/11/17 at 23:00 Amlodipine Besylate (Norvasc) 10 mg DAILY PO Last administered on 02/15/17 08: 08; Admin Dose 10 MG; Start 02/12/17 at 13:00 Warfarin Sodium (Coumadin) 7.5 mg DAILY@17 PO Last administered on 02/15/17 18 :15; Admin Dose 7.5 MG; Start 02/15/17 at 17:47; Status Future Hold Pantoprazole 40 mg 40 mg DAILY@06 PO Last administered on 02/16/17 06:10; Admin Dose 40 MG; Start 02/16/17 at 06:00 Propofol 100 ml @ 4.905 mls/ hr Q12H IV Last administered on 02/17/17 06:01; Admin Dose 44.145 MLS/HR; Start 02/16/17 at 10:00 Phenylephrine HCl/ Dextrose (Hardy-Syneph/D5W) 500 ml @ 75 mls/hr TITRATE IV ; Start 02/16/17 at 12:00 IV Flush (NS 10 ml) 10 ml PRN PRN IV FLUSH LINE; Start 02/16/17 at 13:30 Ibuprofen 400 mg 400 mg Q6H PRN PO PAIN LEVEL 4-7; Start 02/16/17 at 13:30 Potassium Chloride/Dextrose/ Sod Cl (D5-1/2ns + KCl 20 Meq) 1,000 ml @ 20 mls/ hr Q24H IV Last administered on 02/16/17 17:48; Admin Dose 20 MLS/HR; Start at 17:30 ARMOND MCLAUGHLIN Feb 17, 2017 09:09
--- NOTE | 2017-02-17 09:43 | CONS ---
Date/Time of Note Date/Time of Note DATE: 02/17/17 TIME: 09:41 Assessment/Plan Assessment/Plan Additional Assessment/Plan 1.Pericardial effusion-moderate to severe with ongoing sob/tachycardia. Now Post -op s/p pericardial window with cardiac arrest during induction requiring compressions. s/p extubation and removal of drains. f/u post-op Echo 02/09 revealing resolution of pericardial effusion 2.AVR-[facility] s/p surgery in January 2017 - stable by exam, clear click 3.Tachycardia - now in sinus 4.Leukocytosis 5.Coagulopathy 6. Positive troponin-minimal s/p recent cardiac surgery-slowly downtrending 7. Hypercapneic resp failure requiring intubation - discuss with pulmonary team ? FAWN? weaning now 8.Hemoptysis Consultation Date/Type/Reason Admit Date/Time Feb 06, 2017 at 14:40 Type of Consultation: Pulmonary/critical care Referring Provider: ZHAO RYAN 24 HR Interval Summary Free Text/Dictation Con't to wean - alert - valve sounds clear by exam ROS: No fever, no chills, no nausea, no vomiting, no diarrhea/constipation No recent weight changes No chest pain, no PND, no orthopnea + SOB/intub No dizziness, blurred vision No thirst, no heat or cold intolerance Exam/Review of Systems Vital Signs Vitals Vital Signs Date Time Temp Pulse Resp B/P Pulse Ox O2 Delivery O2 Flow Rate FiO2 02/17/17 08:52 30 02/17/17 07:45 98.4 74 20 125/69 100 Mechanical Ventilator 02/16/17 10:02 6.0 Intake and Output 02/16/17 02/16/17 02/17/17 15:00 23:00 07:00 Intake Total 570 ml 530.345 ml 469.015 ml Output Total 2200 ml 2250 ml 900 ml Balance -1630 ml -1719.655 ml -430.985 ml Exam General: WN/WD/NAD, AOx 3 HEENT: Unicetric/atraumatic/EOMI (follow commands) intub NECK: JVD elevated, no thyromegaly Lymph: no lymphadenopathy HEART: regular with no S3, II/ systolic murmur at apex, mech click aortic LUNGS: Coarse sounds ABD: soft, NT, ND, +BS : Intact Neuro: non focal SKIN: chronic changes EXT: trace edema Results Result Diagram: 02/17/17 0410 02/17/17 0410 Results 24 hrs Laboratory Tests Test 02/16/17 10:40 02/17/17 04:10 Blood Gas Specimen Source Blood arterial Arterial Blood Date Drawn 02/16/2017 10:10:45 AM Arterial Blood pH (Temp corrected) 7.352 Arterial Blood pCO2 (Temp correct) 49.4 H Arterial Blood pO2 (Temp corrected) 150.2 H Arterial Blood HCO3 26.8 H Arterial Blood Base Excess 0.8 Arterial Blood Oxygen Saturation 98.8 H Dudley Test ACCEPTAB Arterial Blood Gas Puncture Site Right Radial Arterial Blood Carboxyhemoglobin 0.2 Arterial Blood Methemoglobin 0.4 Blood Gas A-a O2 Differential 513.4 H Oxyhemoglobin Percent 98.2 Total Hemoglobin 9.7 L Blood Gas Temperature 37.0 Blood Gas Respiration Rate 20.0 Blood Gas Actual Respiration Rate 20 Blood Gas Modality VENT - AC FiO2 100.0 Blood Gas Tidal Volume 550.0 Blood Gas Low PEEP Setting 5.0 Blood Gas Notified Whom JLD Blood Gas Notified Time 02/16/2017 10:41:23 AM White Blood Count 6.1 # Red Blood Count 3.27 L Hemoglobin 7.9 L Hematocrit 26.3 L Mean Corpuscular Volume 80.4 L Mean Corpuscular Hemoglobin 24.2 L Mean Corpuscular Hemoglobin Concent 30.0 L Red Cell Distribution Width 15.2 H Platelet Count 272 Mean Platelet Volume 9.5 Neutrophils % 60.9 Lymphocytes % 20.9 Monocytes % 13.1 H Eosinophils % 4.6 Basophils % 0.3 Nucleated Red Blood Cells % 0.0 Neutrophils # 3.7 Lymphocytes # 1.3 Monocytes # 0.8 Eosinophils # 0.3 Basophils # 0.0 Nucleated Red Blood Cells # 0.0 Prothrombin Time 18.7 H Prothrombin Time Ratio 1.5 INR International Normalized Ratio 1.55 Sodium Level 140 Potassium Level 3.4 L Chloride Level 101 Carbon Dioxide Level 31 Anion Gap 11 Blood Urea Nitrogen 23 H Creatinine 1.25 H Glucose Level 89 Calcium Level 9.1 Phosphorus Level 4.4 Magnesium Level 1.9 Medications Medications Current Medications Docusate Sodium (Colace) 100 mg Q12H PRN PO CONSTIPATION Last administered on t 15:51; Admin Dose 100 MG; Start 02/06/17 at 22:30 Bisacodyl (Dulcolax) 5 mg DAILY PRN PO CONSTIPATION Last administered on 15:51; Admin Dose 5 MG; Start 02/06/17 at 22:30 Lorazepam (Ativan) 1 mg Q6 PRN IV ANXIETY Last administered on 02/16/17 09:28 ; Admin Dose 1 MG; Start 02/07/17 at 18:00 Lorazepam (Ativan) 0.5 mg Q4H PRN IV AGITATION/ANXIETY Last administered on 10:02; Admin Dose 0.5 MG; Start 02/07/17 at 23:00 Morphine Sulfate (morphine) 2 mg Q2H PRN IV PAIN LEVEL 6-10 Last administered on 02/16/17 09:43; Admin Dose 2 MG; Start 02/08/17 at 15:30 Eye Lubricant (Artificial Tears Oph) 2 drop QID BOTH EYES Last administered on 02/17/17 08:47; Admin Dose 2 DROP; Start 02/08/17 at 21:00 Furosemide (Lasix) 40 mg DAILY IV Last administered on 02/17/17 08:48; Admin Dose 40 MG; Start 02/09/17 at 17:00 Acetaminophen (Tylenol Supp) 650 mg Q6H PRN [place] PAIN AND OR ELEVATED TEMP Last administered on 02/10/17 20:49; Admin Dose 650 MG; Start 02/10/17 at 11:30 Guaifenesin (Robitussin Liquid Cup) 200 mg Q6 PRN PO COUGH Last administered on 02/12/17 11:35; Admin Dose 200 MG; Start 02/11/17 at 23:00 Amlodipine Besylate (Norvasc) 10 mg DAILY PO Last administered on 02/15/17 08: 08; Admin Dose 10 MG; Start 02/12/17 at 13:00 Warfarin Sodium (Coumadin) 7.5 mg DAILY@17 PO Last administered on 02/15/17 18 :15; Admin Dose 7.5 MG; Start 02/15/17 at 17:47; Status Future Hold Pantoprazole 40 mg 40 mg DAILY@06 PO Last administered on 02/16/17 06:10; Admin Dose 40 MG; Start 02/16/17 at 06:00 Propofol 100 ml @ 4.905 mls/ hr Q12H IV Last administered on 02/17/17 06:01; Admin Dose 44.145 MLS/HR; Start 02/16/17 at 10:00 Phenylephrine HCl/ Dextrose (Hardy-Syneph/D5W) 500 ml @ 75 mls/hr TITRATE IV ; Start 02/16/17 at 12:00 IV Flush (NS 10 ml) 10 ml PRN PRN IV FLUSH LINE; Start 02/16/17 at 13:30 Ibuprofen 400 mg 400 mg Q6H PRN PO PAIN LEVEL 4-7; Start 02/16/17 at 13:30 Potassium Chloride/Dextrose/ Sod Cl (D5-1/2ns + KCl 20 Meq) 1,000 ml @ 20 mls/ hr Q24H IV Last administered on 02/16/17 17:48; Admin Dose 20 MLS/HR; Start at 17:30 FARIBA SUBRAMANIAN MD Feb 17, 2017 09:43
[2017-02-17] MEDS ORDERED: POTASSIUM CHLORIDE 50 ML IVPB ONE (10:00)
--- NOTE | 2017-02-17 10:07 | PN ---
Date/Time of Note Date/Time of Note DATE: 02/17/17 TIME: 09:57 Assessment/Plan VTE Prophylaxis VTE Prophylaxis Intervention: LMWH Lines/Catheters IV Catheter Type (from Nrs): PICC Line Central line still needed: Yes Urinary Cath still in place: Yes Reason Cath still needed: urinary retention Assessment/Plan Chief Complaint/Hosp Course Assessment/Plan: 41 yo morbidly obese M Status post recent aortic valve replacement at [facility] 2/2 severe aortic stenosis and CHF now managed for the followin. Severe pericardial effusion status post pericardiocentesis with pericardial drain placement 02.08.17 - pericardial drain d/c 02/10/17. Pt was doing well until this AM, res distress + hemoptysis - hypercapnic res failure, re-intubated yesterday. - monitor, f/u pulm, CV rec's - f/u 2DECHO results (performed yesterday) - CPAP trial today - try to extubate if tolerated 2. Status post cardiac arrest with return of spontaneous circulation during surgery 2 - f/u CTS and CV rec's, monitor HR. 3. Severe CHF exacerbation secondary to #1: was improving until events yesterday (see # 1) - monitor, continue Lasix, bp meds 4. Elevated troponin secondary to #1: downtrending - monitor 5. Reactive leukocytosis secondary to #1: resolved 6. Ventilator dependent respiratory failure postoperatively: improved / off vent - duoneb's prn, f/u pulm rec's 7. Chronic obstructive sleep apnea - f/u pulm rec's 8. Recent aortic valve replacement now started on heparin drip / Coumadin transition - held yesterday b/c of hematemsis. No present bleeding noted. - per discussion with pulm team, cautiously restart anticoagulation today ( LMWH) - monitor for any bleeding - monitor INR as well when back on coumadin 9. Morbid obesity with BMI of 59 - educate about wt loss 10. Acute kidney injury likely secondary to ATN from hypoperfusion: stabilizing - Continue to monitor renal function/renally dose all meds/avoid nephrotoxic drugs 11. Transaminitis likely secondary to liver hypoperfusion: improving 12. Hypochromic anemia likely 2/2 blood loss (acute): s/p transfusion X1 so far 13. Polymicrobial UTI - Continue Abx therapy for UTI 14. Hypertension: high nL - monitor, continue current meds 15. Encephalopathy: improved - monitor DVT and GI prophylaxis: SCD's/ Protonix ARU eval was pending. Critical care time spent today = 45 min. Problems: Subjective 24 Hr Interval Summary Free Text/Dictation Pt seen by pulm and CV teams this AM, undergoing CPAP trial presently. Exam/Review of Systems Vital Signs Vitals Vital Signs Date Time Temp Pulse Resp B/P Pulse Ox O2 Delivery O2 Flow Rate FiO2 02/17/17 09:00 88 18 153/87 98 Mechanical Ventilator 02/17/17 08:52 30 02/17/17 07:45 98.4 02/16/17 10:02 6.0 Intake and Output 02/16/17 02/16/17 02/17/17 14:59 22:59 06:59 Intake Total 500 ml 536.20 ml 469.015 ml Output Total 1700 ml 2600 ml 950 ml Balance -1200 ml -2063.80 ml -480.985 ml Exam Constitutional: intubated, but moving extremites, obese Head: atraumatic, normocephalic Eyes: PERRL ENMT: mucosa pink and moist Neck: supple Respiratory: diminished breath sounds Cardiovascular: S1 S2 (L chest wall dressing clean and dry), No murmurs/extra sounds Gastrointestinal: bowel sounds, soft, No distended Extremities: 1+ pitting edema B/L LE to mid calves Neurological: intubated Results Result Diagram: 02/17/17 0410 02/17/17 0410 Results 24 hrs Laboratory Tests Test 02/16/17 10:40 02/17/17 04:10 Blood Gas Specimen Source Blood arterial Arterial Blood Date Drawn 02/16/2017 10:10:45 AM Arterial Blood pH (Temp corrected) 7.352 Arterial Blood pCO2 (Temp correct) 49.4 H Arterial Blood pO2 (Temp corrected) 150.2 H Arterial Blood HCO3 26.8 H Arterial Blood Base Excess 0.8 Arterial Blood Oxygen Saturation 98.8 H Dudley Test ACCEPTAB Arterial Blood Gas Puncture Site Right Radial Arterial Blood Carboxyhemoglobin 0.2 Arterial Blood Methemoglobin 0.4 Blood Gas A-a O2 Differential 513.4 H Oxyhemoglobin Percent 98.2 Total Hemoglobin 9.7 L Blood Gas Temperature 37.0 Blood Gas Respiration Rate 20.0 Blood Gas Actual Respiration Rate 20 Blood Gas Modality VENT - AC FiO2 100.0 Blood Gas Tidal Volume 550.0 Blood Gas Low PEEP Setting 5.0 Blood Gas Notified Whom JLD Blood Gas Notified Time 02/16/2017 10:41:23 AM White Blood Count 6.1 # Red Blood Count 3.27 L Hemoglobin 7.9 L Hematocrit 26.3 L Mean Corpuscular Volume 80.4 L Mean Corpuscular Hemoglobin 24.2 L Mean Corpuscular Hemoglobin Concent 30.0 L Red Cell Distribution Width 15.2 H Platelet Count 272 Mean Platelet Volume 9.5 Neutrophils % 60.9 Lymphocytes % 20.9 Monocytes % 13.1 H Eosinophils % 4.6 Basophils % 0.3 Nucleated Red Blood Cells % 0.0 Neutrophils # 3.7 Lymphocytes # 1.3 Monocytes # 0.8 Eosinophils # 0.3 Basophils # 0.0 Nucleated Red Blood Cells # 0.0 Prothrombin Time 18.7 H Prothrombin Time Ratio 1.5 INR International Normalized Ratio 1.55 Sodium Level 140 Potassium Level 3.4 L Chloride Level 101 Carbon Dioxide Level 31 Anion Gap 11 Blood Urea Nitrogen 23 H Creatinine 1.25 H Glucose Level 89 Calcium Level 9.1 Phosphorus Level 4.4 Magnesium Level 1.9 Medications Medications Current Medications Docusate Sodium (Colace) 100 mg Q12H PRN PO CONSTIPATION Last administered on 15:51; Admin Dose 100 MG; Start 02/06/17 at 22:30 Bisacodyl (Dulcolax) 5 mg DAILY PRN PO CONSTIPATION Last administered on 15:51; Admin Dose 5 MG; Start 02/06/17 at 22:30 Lorazepam (Ativan) 1 mg Q6 PRN IV ANXIETY Last administered on 02/16/17 09:28 ; Admin Dose 1 MG; Start 02/07/17 at 18:00 Lorazepam (Ativan) 0.5 mg Q4H PRN IV AGITATION/ANXIETY Last administered on 10:02; Admin Dose 0.5 MG; Start 02/07/17 at 23:00 Morphine Sulfate (morphine) 2 mg Q2H PRN IV PAIN LEVEL 6-10 Last administered on 02/16/17 09:43; Admin Dose 2 MG; Start 02/08/17 at 15:30 Eye Lubricant (Artificial Tears Oph) 2 drop QID BOTH EYES Last administered on 02/17/17 08:47; Admin Dose 2 DROP; Start 02/08/17 at 21:00 Furosemide (Lasix) 40 mg DAILY IV Last administered on 02/17/17 08:48; Admin Dose 40 MG; Start 02/09/17 at 17:00 Acetaminophen (Tylenol Supp) 650 mg Q6H PRN [place] PAIN AND OR ELEVATED TEMP Last administered on 02/10/17 20:49; Admin Dose 650 MG; Start 02/10/17 at 11:30 Guaifenesin (Robitussin Liquid Cup) 200 mg Q6 PRN PO COUGH Last administered on 02/12/17 11:35; Admin Dose 200 MG; Start 02/11/17 at 23:00 Amlodipine Besylate (Norvasc) 10 mg DAILY PO Last administered on 02/15/17 08: 08; Admin Dose 10 MG; Start 02/12/17 at 13:00 Warfarin Sodium (Coumadin) 7.5 mg DAILY@17 PO Last administered on 02/15/17 18 :15; Admin Dose 7.5 MG; Start 02/15/17 at 17:47; Status Future Hold Pantoprazole 40 mg 40 mg DAILY@06 PO Last administered on 02/16/17 06:10; Admin Dose 40 MG; Start 02/16/17 at 06:00 Propofol 100 ml @ 4.905 mls/ hr Q12H IV Last administered on 02/17/17 06:01; Admin Dose 44.145 MLS/HR; Start 02/16/17 at 10:00 Phenylephrine HCl/ Dextrose (Hardy-Syneph/D5W) 500 ml @ 75 mls/hr TITRATE IV ; Start 02/16/17 at 12:00 IV Flush (NS 10 ml) 10 ml PRN PRN IV FLUSH LINE; Start 02/16/17 at 13:30 Ibuprofen 400 mg 400 mg Q6H PRN PO PAIN LEVEL 4-7; Start 02/16/17 at 13:30 Potassium Chloride/Dextrose/ Sod Cl (D5-1/2ns + KCl 20 Meq) 1,000 ml @ 20 mls/ hr Q24H IV Last administered on 02/16/17 17:48; Admin Dose 20 MLS/HR; Start at 17:[address] chest (02/16/17): IMPRESSION: 1. Endotracheal tube with the tip in the mid trachea. 2. Right-sided PICC line with the tip at the cavoatrial junction region. 3. Status post median sternotomy. 4. Cardiomegaly with aortic valvular prosthesis and minimal pericardial effusion. 5. [id number] bilateral pleural effusions. 6. Bilateral dependent atelectasis. 7. Degenerative changes within the spine. LUC GAMBINO. Feb 17, 2017 10:07
--- NOTE | 2017-02-17 10:13 | RADRPT ---
Vent Rate: 121 bpm RR Interval: 0 msec ND Interval: 158 msec QRS Duration: 98 msec QT Interval: 304 msec QTC Interval: 431 msec P-R-T [place]: 89 - 98 - -67 degrees Sinus tachycardia Rightward axis Cannot rule out Anterior infarct , age undetermined ST amp; T wave abnormality, consider inferolateral ischemia Abnormal ECG Electronically Signed By: Sunil Ash [id number]
--- NOTE | 2017-02-17 10:17 | RADRPT ---
Echocardiogram Report Patient Name: GIULIANO COLE Gender: Male Date: 1975 Study Date: 17-Feb-2017 Tufter Hand: Shonda Aly RDCS Location: [address] [place] [address]. Physician: LUC GAMBINO Quality: Technically Difficult Study Procedures: Transthoracic echocardiogram with complete 2D, M-Mode, and doppler examination. Indications: Evaluate Left Ventricular function. 2D/M Mode Doppler Measurement Value Normal Ranges Measurement Value Normal Ranges LVIDd 2D 5.6 3.5 - 5.6 cm CHECO Vmax 2.2 cm2 LVIDs 2D 3.2 2.1 - 4.1 cm CHECO VTI 2.3 cm2 FS 2D 43.6 % AV Mean Ata 1.7 m/sec LVPWd 2D 1.4 0.6 - 1.1 cm AV Mean PG 13.0 mmHg IVSd 2D 1.3 0.6 - 1.1 cm AV Peak Ata 2.3 m/sec IVS/LVPW 2D 1.0 AV Peak PG 22.0 mmHg AoR Diam 2D 3.5 2.0 - 3.7 cm AV VTI 42.6 cm LA/Ao 2D 1 0 - 1 LVOT Mean Ata 0.8 m/sec EDV 2D 176.0 cm3 LVOT Mean PG 4.0 mmHg ESV 2D 31.6 cm3 LVOT Peak Ata 1.4 m/sec LA Dimen 2D 3.8 2.3 - 4.0 cm LVOT Peak PG 7.0 mmHg LVOT Diam 2.2 cm LVOT VTI 25.4 cm LVOT Area 3.8 cm2 MV E Peak Ata 0.8 m/sec MV A Peak Ata 0.5 m/sec MV E/A 1.7 MV Decel Time 278 msec MV E/A 1.7 TR Peak Ata 2.9 m/sec TR Peak PG 34.0 mmHg RVSP 49.0 mmHg Findings Left Ventricle: Lower limits of normal systolic function. Normal left ventricular cavity size. Moderate concentric left ventricular hypertrophy. Ejection fraction is visually estimated at 50 %. Right Ventricle: Normal right ventricular size. Severe right ventricular systolic dysfunction. Left Atrium: The left atrium is normal in size. Right Atrium: The right atrium is normal in size. Mitral Valve: Mitral valve leaflets appear mildly thickened. Mild mitral annular calcification. Trace mitral regurgitation. Aortic Valve: Aortic Valve Bio Prosthesis. Aortic valve Max velocity 2.35 m/sec. Max PG 22.00 mmHg. Mean PG 13.00 mmHg. Aortic valve area 2.27 cm2. No aortic regurgitation. Tricuspid Valve: Normal appearance of the tricuspid valve. Estimated peak PA systolic pressure 49 mmHg. There is mild tricuspid regurgitation. Pulmonic Valve: Normal pulmonic valve appearance. Pericardium: Trivial pericardial effusion. Pleural effusion seen. Aorta: Normal aortic root. IVC: Dilated IVC without respiratory collapse, however, patient on ventilator. Conclusions 1.Lower limits of normal systolic function. Normal left ventricular cavity size. Moderate concentric left ventricular hypertrophy. Ejection fraction is visually estimated at 50 %. 2.Mitral valve leaflets appear mildly thickened. Mild mitral annular calcification. Trace mitral regurgitation. 3.Aortic Valve Bio Prosthesis. Aortic valve Max velocity 2.35 m/sec. Max PG 22.00 mmHg. Mean PG 13.00 mmHg. Aortic valve area 2.27 cm2. No aortic regurgitation. 4.Normal appearance of the tricuspid valve. Estimated peak PA systolic pressure 49 mmHg. There is mild tricuspid regurgitation. Electronically Signed By: Sunil Ash 17-Feb-2017 10:16:93 -0900 Patient Name: GIULIANO COLE Study Date: 17-Feb-2017 [id number]
[2017-02-17 11:05] LABS: AADO2 Arterial 92.7 mmHg (7.0-24.0); Arterial Base Excess 1.4 mmol/L (-3.0-3); Arterial COHb 0 % (0.0-3.0); Arterial Fraction of Oxyhgb 93.9 % (93.0-99.0); Arterial HCO3 25.1 mmol/L (22.0-26.0); Arterial MetHb 0.4 % (0.0-1.5); Arterial Total Hemglobin 9.7 g/dl (12.0-18.0); Blood Gas PS 10; MODE VENT - CPAP
[2017-02-17 11:26] LABS: HEMATOCRIT 28.6 % (42.0-52.0); HEMOGLOBIN 8.9 g/dl (14.0-18.0)
[2017-02-17] MEDS: D5W-0.45 NACL + KCL 20 MEQ 1,000 ML IV SCH (17:33)
[2017-02-17] MEDS: ENOXAPARIN 100 MG/ML SYG SC SCH (20:35)
[2017-02-18] VITALS (17 sets, daily range): BP systolic 123–148; BP diastolic 61–80; PULSE 75–85; RESP 16–23
[2017-02-18 05:09] LABS: ADD SCAN DIFF NO
[2017-02-18 05:22] LABS: BASOPHILS % 0.4 % (0.0-2.0); EOSINOPHILS # 0.4 10^3/ul (0.0-0.5); HEMATOCRIT 26.7 % (42.0-52.0); HEMOGLOBIN 8.3 g/dl (14.0-18.0); LYMPHOCYTES # 1.6 10^3/ul (0.8-2.9); LYMPHOCYTES % 22.3 % (15.0-51.0); MEAN CORPUSCULAR HEMOGLOBIN 24.9 pg (29.0-33.0); MEAN CORPUSCULAR HGB CONC 31.1 g/dl (32.0-37.0); MEAN CORPUSCULAR VOLUME 80.2 fl (82.0-101.0); MEAN PLATELET VOLUME 9.6 fl (7.4-10.4); MONOCYTE # 0.9 10^3/ul (0.3-0.9); NEUTROPHIL # 4.1 10^3/ul (1.6-7.5); NEUTROPHILS % 59.2 % (39.0-77.0); PLATELET COUNT 266 10^3/UL (140-415); RED BLOOD COUNT 3.33 10^6/ul (4.70-6.10); RED CELL DISTRIBUTION WIDTH 15.1 % (11.5-14.5)
[2017-02-18 05:35] LABS: INR 1.36; PROTIME 16.8 Sec (12.2-14.2); PT RATIO 1.3
[2017-02-18 05:41] LABS: CALCIUM 8.9 mg/dl (8.4-10.2); CREATININE 1.18 mg/dl (0.61-1.24); POTASSIUM 3.4 mmol/L (3.5-5.1)
[2017-02-18] MEDS: PANTOPRAZOLE (EC) 40 MG TAB PO SCH (06:06)
--- NOTE | 2017-02-18 08:52 | CONS ---
Date/Time of Note Date/Time of Note DATE: 02/18/17 TIME: 08:49 Assessment/Plan Assessment/Plan Additional Assessment/Plan Assessment recommendations; next 1. P patient admitted with respiratory failure discovered to have very large pericardial effusion status post pericardial window placement. Patient was successfully extubated was transferred to the medical floor with the patient developed acute hypercapnic respiratory failure requiring intubation, patient now successfully extubated yesterday morning with excellent overall clinical status. Etiology of sudden decompensation is unclear at this point. 2. Status post recent aortic valve replacement. 3. Likely underlying sleep apnea. Patient however refusing to wear in- hospital BiPAP. Continue current treatment. Patient can be transferred to the medical floor. Patient wants to wear his own CPAP machine overnight. Consultation Date/Type/Reason Admit Date/Time Feb 06, 2017 at 14:40 Type of Consultation: Pulmonary/critical care Referring Provider: ZHAO RYAN 24 HR Interval Summary Free Text/Dictation Patient condition is markedly improved. He was successfully extubated yesterday morning. Has remained hemodynamically stable. Patient remains completely awake alert. Denies any shortness of breath, chest pain, he is hungry and wants to eat. General exam; young male, morbidly obese, awake alert currently in no distress. Exam/Review of Systems Vital Signs Vitals Vital Signs Date Time Temp Pulse Resp B/P Pulse Ox O2 Delivery O2 Flow Rate FiO2 02/18/17 07:00 23 124/63 96 Nasal Cannula 2.0 02/18/17 06:00 79 02/18/17 04:00 98.0 02/17/17 10:59 30 Intake and Output 02/17/17 02/17/17 02/18/17 15:00 23:00 07:00 Intake Total 400 ml 600 ml 210 ml Output Total 2120 ml 1250 ml 800 ml Balance -1720 ml -650 ml -590 ml Exam HEENT exam; supple neck, no JVD. No lymphadenopathy. Midline trachea. No thyromegaly. Patient has fair dentition. Chest examined; clear to auscultation. S1-S2 audible, no murmurs. Regular rhythm. There is a well-healed sternal scar. Abdomen examination; soft, protuberant. No organomegaly. Bowel sounds audible. Extremity examination; no peripheral edema. Pulses 1+ bilaterally. No clubbing. [employer] examination; no focal deficit. Results Result Diagram: 02/18/170 02/18/17 0400 Results 24 hrs Laboratory Tests Test 02/17/17 10:13 02/17/17 10:49 02/18/17 04:00 Blood Gas Specimen Source Blood arterial Arterial Blood Date Drawn 02/17/2017 10:50:43 AM Arterial Blood pH (Temp corrected) 7.459 H Arterial Blood pCO2 (Temp correct) 36.2 Arterial Blood pO2 (Temp corrected) 78.7 L Arterial Blood HCO3 25.1 Arterial Blood Base Excess 1.4 Arterial Blood Oxygen Saturation 94.3 L Dudley Test N/A Arterial Blood Gas Puncture Site LB Arterial Blood Carboxyhemoglobin 0 Arterial Blood Methemoglobin 0.4 Blood Gas A-a O2 Differential 92.7 H Oxyhemoglobin Percent 93.9 Total Hemoglobin 9.7 L Blood Gas Temperature 37.0 Blood Gas Actual Respiration Rate 21 Blood Gas Modality VENT - CPAP FiO2 30.0 Blood Gas Low PEEP Setting 5.0 Blood Gas Pressure Support 10 Blood Gas Notified Whom JLD Blood Gas Notified Time 02/17/2017 11:05:34 AM Hemoglobin 8.9 L 8.3 L Hematocrit 28.6 L 26.7 L White Blood Count 7.0 Red Blood Count 3.33 L Mean Corpuscular Volume 80.2 L Mean Corpuscular Hemoglobin 24.9 L Mean Corpuscular Hemoglobin Concent 31.1 L Red Cell Distribution Width 15.1 H Platelet Count 266 Mean Platelet Volume 9.6 Neutrophils % 59.2 Lymphocytes % 22.3 Monocytes % 13.0 H Eosinophils % 5.0 Basophils % 0.4 Nucleated Red Blood Cells % 0.0 Neutrophils # 4.1 Lymphocytes # 1.6 Monocytes # 0.9 Eosinophils # 0.4 Basophils # 0.0 Nucleated Red Blood Cells # 0.0 Prothrombin Time 16.8 H Prothrombin Time Ratio 1.3 INR International Normalized Ratio 1.36 Sodium Level 140 Potassium Level 3.4 L Chloride Level 102 Carbon Dioxide Level 31 Anion Gap 10 Blood Urea Nitrogen 19 Creatinine 1.18 Glucose Level 97 Calcium Level 8.9 Medications Medications Current Medications Docusate Sodium (Colace) 100 mg Q12H PRN PO CONSTIPATION Last administered on t 15:51; Admin Dose 100 MG; Start 02/06/17 at 22:30 Bisacodyl (Dulcolax) 5 mg DAILY PRN PO CONSTIPATION Last administered on 15:51; Admin Dose 5 MG; Start 02/06/17 at 22:30 Lorazepam (Ativan) 1 mg Q6 PRN IV ANXIETY Last administered on 02/16/17 09:28 ; Admin Dose 1 MG; Start 02/07/17 at 18:00 Lorazepam (Ativan) 0.5 mg Q4H PRN IV AGITATION/ANXIETY Last administered on 10:02; Admin Dose 0.5 MG; Start 02/07/17 at 23:00 Morphine Sulfate (morphine) 2 mg Q2H PRN IV PAIN LEVEL 6-10 Last administered on 02/16/17 09:43; Admin Dose 2 MG; Start 02/08/17 at 15:30 Eye Lubricant (Artificial Tears Oph) 2 drop QID BOTH EYES Last administered on 02/17/17 20:33; Admin Dose 2 DROP; Start 02/08/17 at 21:00 Furosemide (Lasix) 40 mg DAILY IV Last administered on 02/17/17 08:48; Admin Dose 40 MG; Start 02/09/17 at 17:00 Acetaminophen (Tylenol Supp) 650 mg Q6H PRN [place] PAIN AND OR ELEVATED TEMP Last administered on 02/10/17 20:49; Admin Dose 650 MG; Start 02/10/17 at 11:30 Guaifenesin (Robitussin Liquid Cup) 200 mg Q6 PRN PO COUGH Last administered on 02/12/17 11:35; Admin Dose 200 MG; Start 02/11/17 at 23:00 Amlodipine Besylate (Norvasc) 10 mg DAILY PO Last administered on 02/15/17 08: 08; Admin Dose 10 MG; Start 02/12/17 at 13:00 Warfarin Sodium (Coumadin) 7.5 mg DAILY@17 PO Last administered on 02/15/17 18 :15; Admin Dose 7.5 MG; Start 02/15/17 at 17:47; Status Future Hold Pantoprazole 40 mg 40 mg DAILY@06 PO Last administered on 02/18/17 06:06; Admin Dose 40 MG; Start 02/16/17 at 06:00 Propofol 100 ml @ 4.905 mls/ hr Q12H IV Last administered on 02/17/17 06:01; Admin Dose 44.145 MLS/HR; Start 02/16/17 at 10:00 Phenylephrine HCl/ Dextrose (Hardy-Syneph/D5W) 500 ml @ 75 mls/hr TITRATE IV ; Start 02/16/17 at 12:00 IV Flush (NS 10 ml) 10 ml PRN PRN IV FLUSH LINE; Start 02/16/17 at 13:30 Ibuprofen 400 mg 400 mg Q6H PRN PO PAIN LEVEL 4-7; Start 02/16/17 at 13:30; Status Future Hold Potassium Chloride/Dextrose/ Sod Cl (D5-1/2ns + KCl 20 Meq) 1,000 ml @ 20 mls/ hr Q24H IV Last administered on 02/17/17 17:33; Admin Dose 20 MLS/HR; Start at 17:30 Enoxaparin Sodium (Lovenox) 150 mg Q12 SC Last administered on 02/17/17 20:35 ; Admin Dose 150 MG; Start 02/17/17 at 21:00 ARMOND MCLAUGHLIN Feb 18, 2017 08:52
[2017-02-18] MEDS: FUROSEMIDE 40 MG INJ IV SCH (08:53)
[2017-02-18] MEDS: AMLODIPINE 10 MG TAB PO SCH (08:53)
[2017-02-18] MEDS: ARTIFICIAL TEARS 15 ML OPH BOTH EYES SCH ×4 (08:54→21:01)
[2017-02-18] MEDS: ENOXAPARIN 100 MG/ML SYG SC SCH ×2 (08:55→20:55)
[2017-02-18] MEDS: PROPOFOL 100 ML IV SCH (10:00)
[2017-02-18] MEDS ORDERED: POTASSIUM CHLORIDE 250 ML IVPB ONE (10:30)
--- NOTE | 2017-02-18 11:56 | PN ---
Date/Time of Note Date/Time of Note DATE: 02/18/17 TIME: 11:50 Assessment/Plan VTE Prophylaxis VTE Prophylaxis Intervention: LMWH Lines/Catheters IV Catheter Type (from Nrs): PICC Line Central line still needed: Yes Urinary Cath still in place: Yes Reason Cath still needed: urinary retention Assessment/Plan Chief Complaint/Hosp Course Assessment/Plan: 41 yo morbidly obese M Status post recent aortic valve replacement at [facility] 2/2 severe aortic stenosis and CHF now managed for the followin. Severe pericardial effusion status post pericardiocentesis with pericardial drain placement 02.08.17 - pericardial drain d/c 02/10/17. Pt was reintubated, res distress + hemoptysis - sec to hypercapnic res failure, improved, and now extubated. - monitor, f/u pulm, CV rec's - f/u 2DECHO results (performed 2 days ago) - continue CPAP QHS - pt explained the importance of adhering to this - verbalized understanding. 2. Status post cardiac arrest with return of spontaneous circulation during surgery 2 - f/u CTS and CV rec's, monitor HR. 3. Severe CHF exacerbation secondary to #1: was improving until events yesterday (see # 1) - monitor, continue Lasix, bp meds 4. Elevated troponin secondary to #1: downtrending - monitor 5. Reactive leukocytosis secondary to #1: resolved 6. Ventilator dependent respiratory failure postoperatively: improved / off vent - duoneb's prn, f/u pulm rec's 7. Chronic obstructive sleep apnea - f/u pulm rec's 8. Recent aortic valve replacement now started on heparin drip / Coumadin transition - held yesterday b/c of hematemsis. No present bleeding noted. - have cautiously restarted anticoagulation last night (LMWH) - monitor carefully for any bleeding - monitor INR as well when back on coumadin 9. Morbid obesity with BMI of 59 - educate about wt loss 10. Acute kidney injury likely secondary to ATN from hypoperfusion: stabilizing - Continue to monitor renal function/renally dose all meds/avoid nephrotoxic drugs 11. Transaminitis likely secondary to liver hypoperfusion: improving 12. Hypochromic anemia likely 2/2 blood loss (acute): s/p transfusion X1 so far 13. Polymicrobial UTI - Continue Abx therapy for UTI 14. Hypertension: high nL - monitor, continue current meds 15. Encephalopathy: improved - monitor DVT and GI prophylaxis: SCD's/ Protonix ARU eval is pending. Problems: Subjective 24 Hr Interval Summary Free Text/Dictation Pt extubated yesterday, more alert, used CPAP last night but only for 2 hrs. Asking for sleeping pill tnite. Tolerating CLD. Exam/Review of Systems Vital Signs Vitals Vital Signs Date Time Temp Pulse Resp B/P Pulse Ox O2 Delivery O2 Flow Rate FiO2 02/18/17 11:46 98.3 79 18 148/74 98 02/18/17 11:27 6.0 02/18/17 09:30 Nasal Cannula 02/17/17 10:59 30 Intake and Output 02/17/17 02/17/17 02/18/17 15:00 23:00 07:00 Intake Total 400 ml 600 ml 210 ml Output Total 2120 ml 1250 ml 800 ml Balance -1720 ml -650 ml -590 ml Exam Constitutional: AAOx3, moving extremities, obese Head: atraumatic, normocephalic Eyes: PERRL ENMT: mucosa pink and moist Neck: supple Respiratory: diminished breath sounds Cardiovascular: S1 S2 (L chest wall dressing clean and dry), No murmurs/extra sounds Gastrointestinal: bowel sounds, soft, No distended Extremities: 1+ pitting edema B/L LE to mid calves Neurological: no focal deficits Results Result Diagram: 02/18/17 0400 02/18/17 0400 Results 24 hrs Laboratory Tests Test 02/18/17 04:00 White Blood Count 7.0 Red Blood Count 3.33 L Hemoglobin 8.3 L Hematocrit 26.7 L Mean Corpuscular Volume 80.2 L Mean Corpuscular Hemoglobin 24.9 L Mean Corpuscular Hemoglobin Concent 31.1 L Red Cell Distribution Width 15.1 H Platelet Count 266 Mean Platelet Volume 9.6 Neutrophils % 59.2 Lymphocytes % 22.3 Monocytes % 13.0 H Eosinophils % 5.0 Basophils % 0.4 Nucleated Red Blood Cells % 0.0 Neutrophils # 4.1 Lymphocytes # 1.6 Monocytes # 0.9 Eosinophils # 0.4 Basophils # 0.0 Nucleated Red Blood Cells # 0.0 Prothrombin Time 16.8 H Prothrombin Time Ratio 1.3 INR International Normalized Ratio 1.36 Sodium Level 140 Potassium Level 3.4 L Chloride Level 102 Carbon Dioxide Level 31 Anion Gap 10 Blood Urea Nitrogen 19 Creatinine 1.18 Glucose Level 97 Calcium Level 8.9 Medications Medications Current Medications Docusate Sodium (Colace) 100 mg Q12H PRN PO CONSTIPATION Last administered on 15:51; Admin Dose 100 MG; Start 02/06/17 at 22:30 Bisacodyl (Dulcolax) 5 mg DAILY PRN PO CONSTIPATION Last administered on 15:51; Admin Dose 5 MG; Start 02/06/17 at 22:30 Lorazepam (Ativan) 1 mg Q6 PRN IV ANXIETY Last administered on 02/16/17 09:28 ; Admin Dose 1 MG; Start 02/07/17 at 18:00 Lorazepam (Ativan) 0.5 mg Q4H PRN IV AGITATION/ANXIETY Last administered on 10:02; Admin Dose 0.5 MG; Start 02/07/17 at 23:00 Morphine Sulfate (morphine) 2 mg Q2H PRN IV PAIN LEVEL 6-10 Last administered on 02/16/17 09:43; Admin Dose 2 MG; Start 02/08/17 at 15:30 Eye Lubricant (Artificial Tears Oph) 2 drop QID BOTH EYES Last administered on 02/18/17 08:54; Admin Dose 2 DROP; Start 02/08/17 at 21:00 Furosemide (Lasix) 40 mg DAILY IV Last administered on 02/18/17 08:53; Admin Dose 40 MG; Start 02/09/17 at 17:00 Acetaminophen (Tylenol Supp) 650 mg Q6H PRN [place] PAIN AND OR ELEVATED TEMP Last administered on 02/10/17 20:49; Admin Dose 650 MG; Start 02/10/17 at 11:30 Guaifenesin (Robitussin Liquid Cup) 200 mg Q6 PRN PO COUGH Last administered on 02/12/17 11:35; Admin Dose 200 MG; Start 02/11/17 at 23:00 Amlodipine Besylate (Norvasc) 10 mg DAILY PO Last administered on 02/18/17 08: 53; Admin Dose 10 MG; Start 02/12/17 at 13:00 Warfarin Sodium (Coumadin) 7.5 mg DAILY@17 PO Last administered on 02/15/17 18 :15; Admin Dose 7.5 MG; Start 02/15/17 at 17:47; Status Future Hold Pantoprazole (Protonix Tab) 40 mg DAILY@06 PO Last administered on 02/18/17 06 :06; Admin Dose 40 MG; Start 02/16/17 at 06:00 IV Flush (NS 10 ml) 10 ml PRN PRN IV FLUSH LINE; Start 02/16/17 at 13:30 Ibuprofen 400 mg 400 mg Q6H PRN PO PAIN LEVEL 4-7; Start 02/16/17 at 13:30; Status Future Hold Potassium Chloride/Dextrose/ Sod Cl (D5-1/2ns + KCl 20 Meq) 1,000 ml @ 20 mls/ hr Q24H IV Last administered on 02/17/17 17:33; Admin Dose 20 MLS/HR; Start at 17:30 Enoxaparin Sodium 150 mg 150 mg Q12 SC Last administered on 02/18/17 08:55; Admin Dose 150 MG; Start 02/17/17 at 21:00 Potassium Chloride (KCl 40 MEQ/250 ML NS) 250 ml @ 62.5 mls/hr ONCE ONCE IVPB Last administered on 02/18/17 10:45; Admin Dose 62.5 MLS/HR; Start 02/18/17 at 10:30; Stop 02/18/17 at 14:29 LUC GAMBINO Feb 18, 2017 11:56
--- NOTE | 2017-02-18 12:02 | CONS ---
Date/Time of Note Date/Time of Note DATE: 02/18/17 TIME: 12:00 Assessment/Plan Assessment/Plan Additional Assessment/Plan 1.Pericardial effusion-moderate to severe with ongoing sob/tachycardia. Now Post -op s/p pericardial window with cardiac arrest during induction requiring compressions. s/p extubation and removal of drains. f/u post-op Echo 02/09 revealing resolution of pericardial effusion 2.[facility] s/p surgery in January 2017 - stable by exam, clear click 3.Tachycardia - now in sinus 4.Leukocytosis - Rx with anti-bx 5.Coagulopathy 6. Positive troponin-minimal s/p recent cardiac surgery-slowly downtrending 7. Hypercapneic resp failure requiring intubation - NOW EXTUBATED - good urine output, con't to follow. 8. .Hemoptysis - no new episodes now. Consultation Date/Type/Reason Admit Date/Time Feb 06, 2017 at 14:40 Type of Consultation: Pulmonary/critical care Referring Provider: ZHAO RYAN 24 HR Interval Summary Free Text/Dictation Pt extubated - much better now - con't diuresis ROS: No fever, no chills, no nausea, no vomiting, no diarrhea/constipation No recent weight changes No chest pain, no PND, + orthopnea No dizziness, blurred vision No thirst, no heat or cold intolerance Exam/Review of Systems Vital Signs Vitals Vital Signs Date Time Temp Pulse Resp B/P Pulse Ox O2 Delivery O2 Flow Rate FiO2 02/18/17 11:46 98.3 79 18 148/74 98 02/18/17 11:27 6.0 02/18/17 09:30 Nasal Cannula 02/17/17 10:59 30 Intake and Output 02/17/17 02/17/17 02/18/17 15:00 23:00 07:00 Intake Total 400 ml 600 ml 210 ml Output Total 2120 ml 1250 ml 800 ml Balance -1720 ml -650 ml -590 ml Exam General: WN/WD/NAD, AOx 3 HEENT: Unicetric/atraumatic/EOMI (follow commands) NECK: JVD elevated, no thyromegaly Lymph: no lymphadenopathy HEART: regular with no S3, II/ systolic murmur at apex, mech click LUNGS: Coarse sounds ABD: soft, NT, ND, +BS : Intact Neuro: non focal SKIN: chronic changes EXT: 2+ edema Results Result Diagram: 02/18/17 0400 02/18/17 0400 Results 24 hrs Laboratory Tests Test 02/18/17 04:00 White Blood Count 7.0 Red Blood Count 3.33 L Hemoglobin 8.3 L Hematocrit 26.7 L Mean Corpuscular Volume 80.2 L Mean Corpuscular Hemoglobin 24.9 L Mean Corpuscular Hemoglobin Concent 31.1 L Red Cell Distribution Width 15.1 H Platelet Count 266 Mean Platelet Volume 9.6 Neutrophils % 59.2 Lymphocytes % 22.3 Monocytes % 13.0 H Eosinophils % 5.0 Basophils % 0.4 Nucleated Red Blood Cells % 0.0 Neutrophils # 4.1 Lymphocytes # 1.6 Monocytes # 0.9 Eosinophils # 0.4 Basophils # 0.0 Nucleated Red Blood Cells # 0.0 Prothrombin Time 16.8 H Prothrombin Time Ratio 1.3 INR International Normalized Ratio 1.36 Sodium Level 140 Potassium Level 3.4 L Chloride Level 102 Carbon Dioxide Level 31 Anion Gap 10 Blood Urea Nitrogen 19 Creatinine 1.18 Glucose Level 97 Calcium Level 8.9 Medications Medications Current Medications Docusate Sodium (Colace) 100 mg Q12H PRN PO CONSTIPATION Last administered on 15:51; Admin Dose 100 MG; Start 02/06/17 at 22:30 Bisacodyl (Dulcolax) 5 mg DAILY PRN PO CONSTIPATION Last administered on 15:51; Admin Dose 5 MG; Start 02/06/17 at 22:30 Lorazepam (Ativan) 1 mg Q6 PRN IV ANXIETY Last administered on 02/16/17 09:28 ; Admin Dose 1 MG; Start 02/07/17 at 18:00 Lorazepam (Ativan) 0.5 mg Q4H PRN IV AGITATION/ANXIETY Last administered on 10:02; Admin Dose 0.5 MG; Start 02/07/17 at 23:00 Morphine Sulfate (morphine) 2 mg Q2H PRN IV PAIN LEVEL 6-10 Last administered on 02/16/17 09:43; Admin Dose 2 MG; Start 02/08/17 at 15:30 Eye Lubricant (Artificial Tears Oph) 2 drop QID BOTH EYES Last administered on 02/18/17 08:54; Admin Dose 2 DROP; Start 02/08/17 at 21:00 Furosemide (Lasix) 40 mg DAILY IV Last administered on 02/18/17 08:53; Admin Dose 40 MG; Start 02/09/17 at 17:00 Acetaminophen (Tylenol Supp) 650 mg Q6H PRN [place] PAIN AND OR ELEVATED TEMP Last administered on 02/10/17 20:49; Admin Dose 650 MG; Start 02/10/17 at 11:30 Guaifenesin (Robitussin Liquid Cup) 200 mg Q6 PRN PO COUGH Last administered on 02/12/17 11:35; Admin Dose 200 MG; Start 02/11/17 at 23:00 Amlodipine Besylate (Norvasc) 10 mg DAILY PO Last administered on 02/18/17 08: 53; Admin Dose 10 MG; Start 02/12/17 at 13:00 Warfarin Sodium (Coumadin) 7.5 mg DAILY@17 PO Last administered on 02/15/17 18 :15; Admin Dose 7.5 MG; Start 02/15/17 at 17:47; Status Future Hold Pantoprazole (Protonix Tab) 40 mg DAILY@06 PO Last administered on 02/18/17 06 :06; Admin Dose 40 MG; Start 02/16/17 at 06:00 IV Flush (NS 10 ml) 10 ml PRN PRN IV FLUSH LINE; Start 02/16/17 at 13:30 Ibuprofen 400 mg 400 mg Q6H PRN PO PAIN LEVEL 4-7; Start 02/16/17 at 13:30; Status Future Hold Potassium Chloride/Dextrose/ Sod Cl (D5-1/2ns + KCl 20 Meq) 1,000 ml @ 20 mls/ hr Q24H IV Last administered on 02/17/17 17:33; Admin Dose 20 MLS/HR; Start at 17:30 Enoxaparin Sodium 150 mg 150 mg Q12 SC Last administered on 02/18/17 08:55; Admin Dose 150 MG; Start 02/17/17 at 21:00 Potassium Chloride (KCl 40 MEQ/250 ML NS) 250 ml @ 62.5 mls/hr ONCE ONCE IVPB Last administered on 02/18/17 10:45; Admin Dose 62.5 MLS/HR; Start 02/18/17 at 10:30; Stop 02/18/17 at 14:29 Zolpidem Tartrate (Ambien) 5 mg HS PRN PO INSOMNIA; Start 02/18/17 at 12:00 FARIBA SUBRAMANIAN MD Feb 18, 2017 12:02
[2017-02-18] MEDS ORDERED: LORAZEPAM 0.5 MG TAB PO PRN (15:30)
[2017-02-18] MEDS ORDERED: LORAZEPAM 1 MG TAB PO PRN (15:30)
[2017-02-18] MEDS: D5W-0.45 NACL + KCL 20 MEQ 1,000 ML IV SCH (17:20)
[2017-02-18] MEDS: ZOLPIDEM 5 MG TAB PO PRN (20:53)
[2017-02-19] VITALS (14 sets, daily range): BP systolic 129–174; BP diastolic 66–86; PULSE 75–86; RESP 16–20
[2017-02-19] MEDS ORDERED: ZOLPIDEM 5 MG TAB PO ONE
[2017-02-19] MEDS: PANTOPRAZOLE (EC) 40 MG TAB PO SCH (06:38)
[2017-02-19] MEDS: FUROSEMIDE 40 MG INJ IV SCH (09:45)
[2017-02-19] MEDS: AMLODIPINE 10 MG TAB PO SCH (09:45)
[2017-02-19] MEDS: ENOXAPARIN 100 MG/ML SYG SC SCH ×2 (09:50→20:38)
[2017-02-19] MEDS: ARTIFICIAL TEARS 15 ML OPH BOTH EYES SCH ×4 (09:56→20:36)
[2017-02-19] MEDS: morphine 2 MG INJ IV PRN ×2 (14:27→20:36)
--- NOTE | 2017-02-19 14:42 | PN ---
Date/Time of Note Date/Time of Note DATE: 02/19/17 TIME: 14:37 Assessment/Plan VTE Prophylaxis VTE Prophylaxis Intervention: LMWH Lines/Catheters IV Catheter Type (from Nrs): PICC Line Central line still needed: Yes Urinary Cath still in place: Yes Reason Cath still needed: urinary retention Assessment/Plan Chief Complaint/Hosp Course Assessment/Plan: 41 yo morbidly obese M Status post recent aortic valve replacement at [facility] 2/2 severe aortic stenosis and CHF now managed for the followin. Severe pericardial effusion status post pericardiocentesis with pericardial drain placement 02.08.17 - pericardial drain d/c 02/10/17. Pt was reintubated, res distress + hemoptysis - sec to hypercapnic res failure, improved, and now extubated. - monitor, f/u pulm, CV rec's - continue CPAP QHS - pt explained the importance of adhering to this - verbalized understanding. 2. Status post cardiac arrest with return of spontaneous circulation during surgery - improved - f/u CTS and CV rec's, monitor HR. 3. Severe CHF exacerbation secondary to #1: slowly improving - monitor, continue Lasix, bp meds 4. Elevated troponin secondary to #1: downtrending - monitor 5. Reactive leukocytosis secondary to #1: resolved 6. Ventilator dependent respiratory failure postoperatively: improved / off vent - duoneb's prn, f/u pulm rec's 7. Chronic obstructive sleep apnea - f/u pulm rec's 8. Recent aortic valve replacement now started on heparin drip / Coumadin transition - held 2 days ago b/c of hematemsis. No present bleeding noted. Now back on LMWH BID - cautiously continue LMWH BID - monitor carefully for any bleeding - monitor INR as well when back on coumadin 9. Morbid obesity with BMI of 59 - educate about wt loss 10. Acute kidney injury likely secondary to ATN from hypoperfusion: stabilizing - Continue to monitor renal function/renally dose all meds/avoid nephrotoxic drugs 11. Transaminitis likely secondary to liver hypoperfusion: improving 12. Hypochromic anemia likely 2/2 blood loss (acute): s/p transfusion X1 so far 13. Polymicrobial UTI - Continue Abx therapy for UTI 14. Hypertension: high nL - monitor, continue current meds 15. Encephalopathy: improved - monitor DVT and GI prophylaxis: SCD's/ Protonix ARU eval is pending. Problems: Subjective 24 Hr Interval Summary Free Text/Dictation Pt used CPAP last night, less SOB today. Exam/Review of Systems Vital Signs Vitals Vital Signs Date Time Temp Pulse Resp B/P Pulse Ox O2 Delivery O2 Flow Rate FiO2 02/19/17 14:19 2.0 02/19/17 12:26 80 02/19/17 11:05 97.9 18 160/66 95 02/19/17 08:45 Nasal Cannula 02/17/17 10:59 30 Intake and Output 02/18/17 02/18/17 02/19/17 15:00 23:00 07:00 Intake Total 250 ml 1240 ml 240 ml Output Total 2500 ml Balance 250 ml -1260 ml 240 ml Exam Constitutional: AAOx3, moving extremities, obese Head: atraumatic, normocephalic Eyes: PERRL ENMT: mucosa pink and moist Neck: supple Respiratory: some diminished breath sounds Cardiovascular: S1 S2 (L chest wall dressing clean and dry), No murmurs/extra sounds Gastrointestinal: bowel sounds, soft, No distended Extremities: 1+ pitting edema B/L LE to mid calves Neurological: no focal deficits Results Result Diagram: 02/18/17 0400 02/18/17 0400 Medications Medications Current Medications Docusate Sodium (Colace) 100 mg Q12H PRN PO CONSTIPATION Last administered on 15:51; Admin Dose 100 MG; Start 02/06/17 at 22:30 Bisacodyl (Dulcolax) 5 mg DAILY PRN PO CONSTIPATION Last administered on 15:51; Admin Dose 5 MG; Start 02/06/17 at 22:30 Morphine Sulfate (morphine) 2 mg Q2H PRN IV PAIN LEVEL 6-10 Last administered on 02/19/17 14:27; Admin Dose 2 MG; Start 02/08/17 at 15:30 Eye Lubricant (Artificial Tears Oph) 2 drop QID BOTH EYES Last administered on 02/19/17 13:13; Admin Dose 2 DROP; Start 02/08/17 at 21:00 Furosemide (Lasix) 40 mg DAILY IV Last administered on 02/19/17 09:45; Admin Dose 40 MG; Start 02/09/17 at 17:00 Acetaminophen (Tylenol Supp) 650 mg Q6H PRN [place] PAIN AND OR ELEVATED TEMP Last administered on 02/10/17 20:49; Admin Dose 650 MG; Start 02/10/17 at 11:30 Guaifenesin (Robitussin Liquid Cup) 200 mg Q6 PRN PO COUGH Last administered on 02/12/17 11:35; Admin Dose 200 MG; Start 02/11/17 at 23:00 Amlodipine Besylate (Norvasc) 10 mg DAILY PO Last administered on 02/19/17 09: 45; Admin Dose 10 MG; Start 02/12/17 at 13:00 Warfarin Sodium (Coumadin) 7.5 mg DAILY@17 PO Last administered on 02/15/17 18 :15; Admin Dose 7.5 MG; Start 02/15/17 at 17:47; Status Future Hold Pantoprazole (Protonix Tab) 40 mg DAILY@06 PO Last administered on 02/19/17 06 :38; Admin Dose 40 MG; Start 02/16/17 at 06:00 IV Flush (NS 10 ml) 10 ml PRN PRN IV FLUSH LINE; Start 02/16/17 at 13:30 Ibuprofen 400 mg 400 mg Q6H PRN PO PAIN LEVEL 4-7; Start 02/16/17 at 13:30; Status Future Hold Potassium Chloride/Dextrose/ Sod Cl (D5-1/2ns + KCl 20 Meq) 1,000 ml @ 20 mls/ hr Q24H IV Last administered on 02/18/17 17:20; Admin Dose 20 MLS/HR; Start at 17:30 Enoxaparin Sodium (Lovenox) 150 mg Q12 SC Last administered on 02/19/17 09:50 ; Admin Dose 150 MG; Start 02/17/17 at 21:00 Zolpidem Tartrate (Ambien) 5 mg HS PRN PO INSOMNIA Last administered on 20:53; Admin Dose 5 MG; Start 02/18/17 at 12:00 Lorazepam (Ativan) 1 mg Q6H PRN PO ANXIETY; Start 02/18/17 at 15:30 Lorazepam 0.5 mg 0.5 mg Q4H PRN PO AGITATION/ANXIETY; Start 02/18/17 at 15:30 Potassium Chloride (KCl 40 MEQ/250 ML NS) 250 ml @ 62.5 mls/hr ONCE ONCE IVPB ; Start 02/19/17 at 15:00; Stop 02/19/17 at 18:59; Status LUC ALEXANDRA Feb 19, 2017 14:42
--- NOTE | 2017-02-19 14:43 | CONS ---
Date/Time of Note Date/Time of Note DATE: 02/19/17 TIME: 14:42 Assessment/Plan Assessment/Plan Additional Assessment/Plan 1.Pericardial effusion-moderate to severe with ongoing sob/tachycardia. Now Post -op s/p pericardial window with cardiac arrest during induction requiring compressions. s/p extubation and removal of drains. f/u post-op Echo 02/09 revealing resolution of pericardial effusion 2.AVR-[facility] s/p surgery in January 2017 - stable by exam, clear click - on lovenox now 3.Tachycardia - now in sinus 4.Leukocytosis - Rx with anti-bx 5.Coagulopathy 6. Positive troponin-minimal s/p recent cardiac surgery-slowly downtrending 7. Hypercapneic resp failure requiring intubation - NOW EXTUBATED - good urine output, con't to follow. 8. .Hemoptysis - no new episodes now. 9. HTN - will adjusr Rx as needed - hope will come down with diuresis Consultation Date/Type/Reason Admit Date/Time Feb 06, 2017 at 14:40 Type of Consultation: Pulmonary/critical care Referring Provider: ZHAO RYAN 24 HR Interval Summary Free Text/Dictation Much better overall - good urine output with diuresis ROS: No fever, no chills, no nausea, no vomiting, no diarrhea/constipation No recent weight changes No chest pain, no PND, no orthopnea + SOB No dizziness, blurred vision No thirst, no heat or cold intolerance Exam/Review of Systems Vital Signs Vitals Vital Signs Date Time Temp Pulse Resp B/P Pulse Ox O2 Delivery O2 Flow Rate FiO2 02/19/17 14:19 2.0 02/19/17 12:26 80 02/19/17 11:05 97.9 18 160/66 95 02/19/17 08:45 Nasal Cannula 02/17/17 10:59 30 Intake and Output 02/18/17 02/18/17 02/19/17 15:00 23:00 07:00 Intake Total 250 ml 1240 ml 240 ml Output Total 2500 ml Balance 250 ml -1260 ml 240 ml Exam General: WN/WD/NAD, AOx 3 HEENT: Unicetric/atraumatic/EOMI (follow commands) NECK: JVD elevated, no thyromegaly Lymph: no lymphadenopathy HEART: regular with no S3, II/ systolic murmur at apex, [facility] click LUNGS: Coarse sounds ABD: soft, NT, ND, +BS : Intact Neuro: non focal SKIN: chronic changes EXT: trace edema Results Result Diagram: 02/18/1739902/18/17 0400 Medications Medications Current Medications Docusate Sodium (Colace) 100 mg Q12H PRN PO CONSTIPATION Last administered on 15:51; Admin Dose 100 MG; Start 02/06/17 at 22:30 Bisacodyl (Dulcolax) 5 mg DAILY PRN PO CONSTIPATION Last administered on 15:51; Admin Dose 5 MG; Start 02/06/17 at 22:30 Morphine Sulfate (morphine) 2 mg Q2H PRN IV PAIN LEVEL 6-10 Last administered on 02/19/17 14:27; Admin Dose 2 MG; Start 02/08/17 at 15:30 Eye Lubricant (Artificial Tears Oph) 2 drop QID BOTH EYES Last administered on 02/19/17 13:13; Admin Dose 2 DROP; Start 02/08/17 at 21:00 Furosemide (Lasix) 40 mg DAILY IV Last administered on 02/19/17 09:45; Admin Dose 40 MG; Start 02/09/17 at 17:00 Acetaminophen (Tylenol Supp) 650 mg Q6H PRN [place] PAIN AND OR ELEVATED TEMP Last administered on 02/10/17 20:49; Admin Dose 650 MG; Start 02/10/17 at 11:30 Guaifenesin (Robitussin Liquid Cup) 200 mg Q6 PRN PO COUGH Last administered on 02/12/17 11:35; Admin Dose 200 MG; Start 02/11/17 at 23:00 Amlodipine Besylate (Norvasc) 10 mg DAILY PO Last administered on 02/19/17 09: 45; Admin Dose 10 MG; Start 02/12/17 at 13:00 Warfarin Sodium (Coumadin) 7.5 mg DAILY@17 PO Last administered on 02/15/17 18 :15; Admin Dose 7.5 MG; Start 02/15/17 at 17:47; Status Future Hold Pantoprazole (Protonix Tab) 40 mg DAILY@06 PO Last administered on 02/19/17 06 :38; Admin Dose 40 MG; Start 02/16/17 at 06:00 IV Flush (NS 10 ml) 10 ml PRN PRN IV FLUSH LINE; Start 02/16/17 at 13:30 Ibuprofen 400 mg 400 mg Q6H PRN PO PAIN LEVEL 4-7; Start 02/16/17 at 13:30; Status Future Hold Potassium Chloride/Dextrose/ Sod Cl (D5-1/2ns + KCl 20 Meq) 1,000 ml @ 20 mls/ hr Q24H IV Last administered on 02/18/17 17:20; Admin Dose 20 MLS/HR; Start at 17:30 Enoxaparin Sodium (Lovenox) 150 mg Q12 SC Last administered on 02/19/17 09:50 ; Admin Dose 150 MG; Start 02/17/17 at 21:00 Zolpidem Tartrate (Ambien) 5 mg HS PRN PO INSOMNIA Last administered on 20:53; Admin Dose 5 MG; Start 02/18/17 at 12:00 Lorazepam (Ativan) 1 mg Q6H PRN PO ANXIETY; Start 02/18/17 at 15:30 Lorazepam 0.5 mg 0.5 mg Q4H PRN PO AGITATION/ANXIETY; Start 02/18/17 at 15:30 Potassium Chloride (KCl 40 MEQ/250 ML NS) 250 ml @ 62.5 mls/hr ONCE ONCE IVPB ; Start 02/19/17 at 15:00; Stop 02/19/17 at 18:59; Status FARIBA BONILLA MD Feb 19, 2017 14:43
[2017-02-19] MEDS ORDERED: hydrALAzine 20 MG INJ IV PRN (15:00)
[2017-02-19] MEDS ORDERED: POTASSIUM CHLORIDE 250 ML IVPB ONE (15:00)
--- NOTE | 2017-02-19 15:55 | PN ---
DATE: 02/19/2017 SUBJECTIVE: Chart reviewed. The patient has been moved out of ICU to tele floor now. The patient on 2 L nasal cannula, saturating 95%, sitting in chair comfortably. PHYSICAL EXAMINATION: VITAL SIGNS: Blood pressure 160/66, pulse 77, respiration 18, temperature 97.9. HEENT: Pupils are equal and reactive to light. NECK: Supple, no JVD noted, no cervical adenopathy, no carotid bruits heard. LUNGS: Diminished breath sounds bilaterally at the bases. CARDIOVASCULAR: S1, S2 normal. ABDOMEN: Soft, nontender, obese. No organomegaly or masses noted. EXTREMITIES: No clubbing or cyanosis noted. NEUROLOGICAL: Awake and alert. LABORATORY DATA: No new labs today. IMPRESSION: 1. Status post acute respiratory failure, stable post-extubation. 2. Pericardial effusion, status post pericardial window. 3. Recent aortic valve replacement. 4. Morbid obesity. 5. Most likely underlying sleep apnea. RECOMMENDATIONS: 1. Continue postop care. 2. Cardiology followup. 3. Nocturnal CPAP as per patient's own machine and request. 4. Continue current treatment. Dictated By: SEAN DIETZ MD, MA/LYNDA Conf#: [id number] DID#: [id number]
[2017-02-19] MEDS: D5W-0.45 NACL + KCL 20 MEQ 1,000 ML IV SCH (17:30)
[2017-02-20] VITALS (11 sets, daily range): BP systolic 149–165; BP diastolic 71–85; PULSE 79–90; RESP 16–20
[2017-02-20] MEDS: PANTOPRAZOLE (EC) 40 MG TAB PO SCH (06:34)
--- NOTE | 2017-02-20 07:51 | CONS ---
Date/Time of Note Date/Time of Note DATE: 02/20/17 TIME: 07:50 Assessment/Plan Assessment/Plan Additional Assessment/Plan 1.Pericardial effusion-moderate to severe with ongoing sob/tachycardia. Now Post -op s/p pericardial window with cardiac arrest during induction requiring compressions. s/p extubation and removal of drains. f/u post-op Echo 02/09 revealing resolution of pericardial effusion 2.[facility]R-[facility] s/p surgery in January 2017 - stable by exam, clear click - on lovenox now - stable by exam 3.Tachycardia - now in sinus - decreased HR 4.Leukocytosis - Rx with anti-bx 5.Coagulopathy 6. Positive troponin-minimal s/p recent cardiac surgery-slowly downtrending 7. Hypercapneic resp failure requiring intubation - NOW EXTUBATED - good urine output, con't to follow. 8. .Hemoptysis - no new episodes now. 9. HTN - will adjusr Rx as needed - hope will come down with diuresis Consultation Date/Type/Reason Admit Date/Time Feb 06, 2017 at 14:40 Type of Consultation: Pulmonary/critical care Referring Provider: ZHAO RYAN 24 HR Interval Summary Free Text/Dictation Better overall - responded to diuresis - con't to follow ROS: No fever, no chills, no nausea, no vomiting, no diarrhea/constipation No recent weight changes No chest pain, no PND, no orthopnea No dizziness, blurred vision No thirst, no heat or cold intolerance Exam/Review of Systems Vital Signs Vitals Vital Signs Date Time Temp Pulse Resp B/P Pulse Ox O2 Delivery O2 Flow Rate FiO2 02/20/17 07:00 98.2 78 18 149/71 96 02/20/17 04:30 2.0 02/19/17 20:00 Nasal Cannula 02/17/17 10:59 30 Intake and Output 02/19/17 02/19/17 02/20/17 15:00 23:00 07:00 Intake Total 500 ml 740 ml Output Total 2300 ml 900 ml Balance -1800 ml -160 ml Exam General: WN/WD/NAD, AOx 3 HEENT: Unicetric/atraumatic/EOMI (follow commands) NECK: JVD elevated, no thyromegaly Lymph: no lymphadenopathy HEART: regular with no S3, II/ systolic murmur at apex, [facility] click LUNGS: Coarse sounds ABD: soft, NT, ND, +BS : Intact Neuro: non focal SKIN: chronic changes EXT: improved edema Results Result Diagram: 02/18/1739902/18/17 0400 Medications Medications Current Medications Docusate Sodium (Colace) 100 mg Q12H PRN PO CONSTIPATION Last administered on 15:51; Admin Dose 100 MG; Start 02/06/17 at 22:30 Bisacodyl (Dulcolax) 5 mg DAILY PRN PO CONSTIPATION Last administered on 15:51; Admin Dose 5 MG; Start 02/06/17 at 22:30 Morphine Sulfate (morphine) 2 mg Q2H PRN IV PAIN LEVEL 6-10 Last administered on 02/19/17 20:36; Admin Dose 2 MG; Start 02/08/17 at 15:30 Eye Lubricant (Artificial Tears Oph) 2 drop QID BOTH EYES Last administered on 02/19/17 20:36; Admin Dose 2 DROP; Start 02/08/17 at 21:00 Furosemide (Lasix) 40 mg DAILY IV Last administered on 02/19/17 09:45; Admin Dose 40 MG; Start 02/09/17 at 17:00 Acetaminophen (Tylenol Supp) 650 mg Q6H PRN [place] PAIN AND OR ELEVATED TEMP Last administered on 02/10/17 20:49; Admin Dose 650 MG; Start 02/10/17 at 11:30 Guaifenesin (Robitussin Liquid Cup) 200 mg Q6 PRN PO COUGH Last administered on 02/12/17 11:35; Admin Dose 200 MG; Start 02/11/17 at 23:00 Amlodipine Besylate (Norvasc) 10 mg DAILY PO Last administered on 02/19/17 09: 45; Admin Dose 10 MG; Start 02/12/17 at 13:00 Warfarin Sodium (Coumadin) 7.5 mg DAILY@17 PO Last administered on 02/15/17 18 :15; Admin Dose 7.5 MG; Start 02/15/17 at 17:47; Status Future Hold Pantoprazole (Protonix Tab) 40 mg DAILY@06 PO Last administered on 02/20/17 06 :34; Admin Dose 40 MG; Start 02/16/17 at 06:00 IV Flush (NS 10 ml) 10 ml PRN PRN IV FLUSH LINE; Start 02/16/17 at 13:30 Ibuprofen 400 mg 400 mg Q6H PRN PO PAIN LEVEL 4-7; Start 02/16/17 at 13:30; Status Future Hold Potassium Chloride/Dextrose/ Sod Cl (D5-1/2ns + KCl 20 Meq) 1,000 ml @ 20 mls/ hr Q24H IV Last administered on 02/18/17 17:20; Admin Dose 20 MLS/HR; Start at 17:30 Enoxaparin Sodium (Lovenox) 150 mg Q12 SC Last administered on 02/19/17 20:38 ; Admin Dose 150 MG; Start 02/17/17 at 21:00 Zolpidem Tartrate (Ambien) 5 mg HS PRN PO INSOMNIA Last administered on 20:53; Admin Dose 5 MG; Start 02/18/17 at 12:00 Lorazepam (Ativan) 1 mg Q6H PRN PO ANXIETY; Start 02/18/17 at 15:30 Lorazepam (Ativan) 0.5 mg Q4H PRN PO AGITATION/ANXIETY; Start 02/18/17 at 15:30 Hydralazine HCl (Apresoline) 10 mg Q6H PRN IV ELEVATED BLOOD PRESSURE; Start at 15:00 FARIBA SUBRAMANIAN MD Feb 20, 2017 07:51
[2017-02-20] MEDS: ARTIFICIAL TEARS 15 ML OPH BOTH EYES SCH ×4 (08:30→21:03)
[2017-02-20] MEDS: AMLODIPINE 10 MG TAB PO SCH (08:31)
[2017-02-20] MEDS: FUROSEMIDE 40 MG INJ IV SCH (08:31)
[2017-02-20] MEDS: ENOXAPARIN 100 MG/ML SYG SC SCH ×2 (08:38→21:11)
[2017-02-20 10:13] LABS: ADD SCAN DIFF NO
[2017-02-20 10:18] LABS: BASOPHILS % 0.6 % (0.0-2.0); EOSINOPHILS # 0.5 10^3/ul (0.0-0.5); EOSINOPHILS % 6.9 % (0.0-7.0); HEMATOCRIT 31.5 % (42.0-52.0); HEMOGLOBIN 9.6 g/dl (14.0-18.0); LYMPHOCYTES # 1.5 10^3/ul (0.8-2.9); MEAN CORPUSCULAR HGB CONC 30.5 g/dl (32.0-37.0); MEAN CORPUSCULAR VOLUME 78.8 fl (82.0-101.0); MEAN PLATELET VOLUME 9.5 fl (7.4-10.4); MONOCYTE # 0.8 10^3/ul (0.3-0.9); MONOCYTES % 11.9 % (0.0-11.0); NEUTROPHIL # 4.1 10^3/ul (1.6-7.5); NEUTROPHILS % 59.2 % (39.0-77.0); PLATELET COUNT 306 10^3/UL (140-415); RED CELL DISTRIBUTION WIDTH 14.6 % (11.5-14.5); WHITE BLOOD COUNT 6.9 10^3/ul (4.8-10.8)
[2017-02-20 10:44] LABS: CALCIUM 9.4 mg/dl (8.4-10.2); CREATININE 1.14 mg/dl (0.61-1.24); POTASSIUM 3.4 mmol/L (3.5-5.1)
[2017-02-20] MEDS ORDERED: POTASSIUM CHLORIDE (SR) 20 MEQ TAB PO STA (12:02)
--- NOTE | 2017-02-20 12:20 | PN ---
Date/Time of Note Date/Time of Note DATE: 02/20/17 TIME: 11:46 Assessment/Plan VTE Prophylaxis VTE Prophylaxis Intervention: LMWH Lines/Catheters IV Catheter Type (from [facility]): PICC Line Central line still needed: Yes Urinary Cath still in place: Yes Reason Cath still needed: other (indicate) Assessment/Plan Assessment/Plan 41-year-old morbidly obese male who presented after a recent aortic valve replacement at [facility] secondary to severe aortic stenosis and CHF and was admitted for severe pericardial effusion that had postoperatively. He eventually underwent a pericardial pericardiocentesis with pericardial drain placements February 08, 2017, drain was DC'd February 10, 2017. He started to improve but decompensated again and needed to be reintubated at now has been successfully re-extubated. He is currently being managed for the followin. Status post recurrent ventilator dependent respiratory failure: Improved and stable 2. Morbid obesity with chronic obstructive sleep apnea rule out obesity hypoventilation syndrome contributing to #1 3. S/p severe postoperative pericardial effusion: resolved S/p pericardiocentesis with drain placement and removal 4. CHF exacerbation: Improved compensation remains on gentle diuresis 5. Recent aortic valve replacement on treatment dose anticoagulation with Lovenox to resume Coumadin 6. Hypertension : Suboptimal control cardiology titrating meds 7. Polymicrobial UTI on antibiotics 8. Status post intraoperative cardiac arrest 2 with return of spontaneous circulation 9. Acute inpatient encephalopathy, rule out mild hypoxic injury: Improving 10. Chronic hypochromic anemia: Stable 11. Hypokalemia 12. Mildly elevated troponin postoperatively: No intervention for now cardiology monitoring PLAN: * Pt eval reordered / await recommendations * Resume coumadin, monitor for bleeding * replace lytes * uptitrate antihypertensives for improved bp control / d/w cardiology * For HH when cleared Subjective 24 Hr Interval Summary Free Text/Dictation Patient quite comfortable. No new issues, multiple questions. We discussed treatment plan Exam/Review of Systems Vital Signs Vitals Vital Signs Date Time Temp Pulse Resp B/P Pulse Ox O2 Delivery O2 Flow Rate FiO2 02/20/17 11:31 98.3 96 20 165/79 98 02/20/17 04:30 2.0 02/19/17 20:00 Nasal Cannula 02/17/17 10:59 30 Intake and Output 02/19/17 02/19/17 02/20/17 15:00 23:00 07:00 Intake Total 500 ml 740 ml Output Total 2300 ml 900 ml Balance -1800 ml -160 ml Exam Constitutional: AAOx3, comfortable Head: atraumatic, normocephalic Eyes: PERRL ENMT: mucosa pink and moist Neck: supple Respiratory: some diminished breath sounds Cardiovascular: S1 S2 (L chest wall dressing clean and dry), No murmurs/extra sounds Gastrointestinal: bowel sounds, soft, No distended Extremities: 1+ pitting edema B/L LE to mid calves Neurological: no focal deficits Results Result Diagram: 02/20/1793402/20/17934 Results 24 hrs Laboratory Tests Test 02/20/17 09:35 White Blood Count 6.9 Red Blood Count 4.00 #L Hemoglobin 9.6 L Hematocrit 31.5 L Mean Corpuscular Volume 78.8 L Mean Corpuscular Hemoglobin 24.0 L Mean Corpuscular Hemoglobin Concent 30.5 L Red Cell Distribution Width 14.6 H Platelet Count 306 Mean Platelet Volume 9.5 Neutrophils % 59.2 Lymphocytes % 21.0 Monocytes % 11.9 H Eosinophils % 6.9 Basophils % 0.6 Nucleated Red Blood Cells % 0.0 Neutrophils # 4.1 Lymphocytes # 1.5 Monocytes # 0.8 Eosinophils # 0.5 Basophils # 0.0 Nucleated Red Blood Cells # 0.0 Sodium Level 140 Potassium Level 3.4 L Chloride Level 100 Carbon Dioxide Level 30 Anion Gap 13 Blood Urea Nitrogen 18 Creatinine 1.14 Glucose Level 118 Calcium Level 9.4 Medications Medications Current Medications Docusate Sodium (Colace) 100 mg Q12H PRN PO CONSTIPATION Last administered on 15:51; Admin Dose 100 MG; Start 02/06/17 at 22:30 Bisacodyl (Dulcolax) 5 mg DAILY PRN PO CONSTIPATION Last administered on 15:51; Admin Dose 5 MG; Start 02/06/17 at 22:30 Morphine Sulfate (morphine) 2 mg Q2H PRN IV PAIN LEVEL 6-10 Last administered on 02/19/17 20:36; Admin Dose 2 MG; Start 02/08/17 at 15:30 Eye Lubricant (Artificial Tears Oph) 2 drop QID BOTH EYES Last administered on 02/19/17 20:36; Admin Dose 2 DROP; Start 02/08/17 at 21:00 Furosemide (Lasix) 40 mg DAILY IV Last administered on 02/20/17 08:31; Admin Dose 40 MG; Start 02/09/17 at 17:00 Acetaminophen (Tylenol Supp) 650 mg Q6H PRN [place] PAIN AND OR ELEVATED TEMP Last administered on 02/10/17 20:49; Admin Dose 650 MG; Start 02/10/17 at 11:30 Guaifenesin (Robitussin Liquid Cup) 200 mg Q6 PRN PO COUGH Last administered on 02/12/17 11:35; Admin Dose 200 MG; Start 02/11/17 at 23:00 Amlodipine Besylate (Norvasc) 10 mg DAILY PO Last administered on 02/20/17 08: 31; Admin Dose 10 MG; Start 02/12/17 at 13:00 Warfarin Sodium (Coumadin) 7.5 mg DAILY@17 PO Last administered on 02/15/17 18 :15; Admin Dose 7.5 MG; Start 02/15/17 at 17:47; Status Future Hold Pantoprazole (Protonix Tab) 40 mg DAILY@06 PO Last administered on 02/20/17 06 :34; Admin Dose 40 MG; Start 02/16/17 at 06:00 IV Flush (NS 10 ml) 10 ml PRN PRN IV FLUSH LINE; Start 02/16/17 at 13:30 Ibuprofen 400 mg 400 mg Q6H PRN PO PAIN LEVEL 4-7; Start 02/16/17 at 13:30; Status Future Hold Potassium Chloride/Dextrose/ Sod Cl (D5-1/2ns + KCl 20 Meq) 1,000 ml @ 20 mls/ hr Q24H IV Last administered on 02/18/17 17:20; Admin Dose 20 MLS/HR; Start at 17:30 Enoxaparin Sodium (Lovenox) 150 mg Q12 SC Last administered on 02/20/17 08:38 ; Admin Dose 150 MG; Start 02/17/17 at 21:00 Zolpidem Tartrate (Ambien) 5 mg HS PRN PO INSOMNIA Last administered on 20:53; Admin Dose 5 MG; Start 02/18/17 at 12:00 Lorazepam (Ativan) 1 mg Q6H PRN PO ANXIETY; Start 02/18/17 at 15:30 Lorazepam (Ativan) 0.5 mg Q4H PRN PO AGITATION/ANXIETY; Start 02/18/17 at 15:30 Hydralazine HCl (Apresoline) 10 mg Q6H PRN IV ELEVATED BLOOD PRESSURE; Start at 15:00 ZHAO RYAN Feb 20, 2017 12:00
--- NOTE | 2017-02-20 14:13 | CONS ---
Date/Time of Note Date/Time of Note DATE: 02/20/17 TIME: 14:11 Assessment/Plan Assessment/Plan Additional Assessment/Plan Assessment recommendations; 1. Patient admitted for respiratory failure discovered to have very large pericardial effusion status post pericardial window placement. Patient was successfully extubated and transferred to the medical floor where 2 days later the patient had sudden respiratory arrest due to severe acute hypercapnia was intubated and now successfully extubated 48 hours ago with excellent overall clinical status. 2. Recent aortic valve replacement surgery. 3. Likely underlying sleep apnea. Continue current treatment. Consider discharge. Consultation Date/Type/Reason Admit Date/Time Feb 06, 2017 at 14:40 Type of Consultation: Pulmonary/critical care Referring Provider: ZHAO RYAN 24 HR Interval Summary Free Text/Dictation Patient condition stable. Denies any shortness of breath, chest pain. Has been ambulatory in the hallway. General examination; young male, morbidly obese, awake alert currently in no distress. Exam/Review of Systems Vital Signs Vitals Vital Signs Date Time Temp Pulse Resp B/P Pulse Ox O2 Delivery O2 Flow Rate FiO2 02/20/17 12:19 90 02/20/17 11:31 98.3 20 165/79 98 02/20/17 04:30 2.0 02/19/17 20:00 Nasal Cannula 02/17/17 10:59 30 Intake and Output 02/19/17 02/19/17 02/20/17 15:00 23:00 07:00 Intake Total 500 ml 740 ml Output Total 2300 ml 900 ml Balance -1800 ml -160 ml Exam HEENT exam; supple neck, no JVD. No lymphadenopathy. Midline trachea. No thyromegaly. Pharynx is clear. Patient has fair dentition. Chest examined; clear to auscultation. S1-S2 audible, no murmurs. Regular rhythm. There is a well-healed sternal scar. Abdomen examination; soft, protuberant. Nontender. No organomegaly. Bowel sounds. Extremity exam; no peripheral edema. Pulses 2+ bilaterally. [employer] examination; no focal deficit. Results Result Diagram: 02/20/17 0935 02/20/17 0935 Results 24 hrs Laboratory Tests Test 02/20/17 09:35 White Blood Count 6.9 Red Blood Count 4.00 #L Hemoglobin 9.6 L Hematocrit 31.5 L Mean Corpuscular Volume 78.8 L Mean Corpuscular Hemoglobin 24.0 L Mean Corpuscular Hemoglobin Concent 30.5 L Red Cell Distribution Width 14.6 H Platelet Count 306 Mean Platelet Volume 9.5 Neutrophils % 59.2 Lymphocytes % 21.0 Monocytes % 11.9 H Eosinophils % 6.9 Basophils % 0.6 Nucleated Red Blood Cells % 0.0 Neutrophils # 4.1 Lymphocytes # 1.5 Monocytes # 0.8 Eosinophils # 0.5 Basophils # 0.0 Nucleated Red Blood Cells # 0.0 Sodium Level 140 Potassium Level 3.4 L Chloride Level 100 Carbon Dioxide Level 30 Anion Gap 13 Blood Urea Nitrogen 18 Creatinine 1.14 Glucose Level 118 Calcium Level 9.4 Medications Medications Current Medications Bisacodyl (Dulcolax) 5 mg DAILY PRN PO CONSTIPATION Last administered on 15:51; Admin Dose 5 MG; Start 02/06/17 at 22:30 Morphine Sulfate (morphine) 2 mg Q2H PRN IV PAIN LEVEL 6-10 Last administered on 02/19/17 20:36; Admin Dose 2 MG; Start 02/08/17 at 15:30 Eye Lubricant (Artificial Tears Oph) 2 drop QID BOTH EYES Last administered on 02/19/17 20:36; Admin Dose 2 DROP; Start 02/08/17 at 21:00 Furosemide (Lasix) 40 mg DAILY IV Last administered on 02/20/17 08:31; Admin Dose 40 MG; Start 02/09/17 at 17:00 Acetaminophen (Tylenol Supp) 650 mg Q6H PRN [place] PAIN AND OR ELEVATED TEMP Last administered on 02/10/17 20:49; Admin Dose 650 MG; Start 02/10/17 at 11:30 Guaifenesin (Robitussin Liquid Cup) 200 mg Q6 PRN PO COUGH Last administered on 02/12/17 11:35; Admin Dose 200 MG; Start 02/11/17 at 23:00 Amlodipine Besylate (Norvasc) 10 mg DAILY PO Last administered on 02/20/17 08: 31; Admin Dose 10 MG; Start 02/12/17 at 13:00 Warfarin Sodium (Coumadin) 7.5 mg DAILY@17 PO Last administered on 02/15/17 18 :15; Admin Dose 7.5 MG; Start 02/15/17 at 17:47; Status Future Hold Pantoprazole (Protonix Tab) 40 mg DAILY@06 PO Last administered on 02/20/17 06 :34; Admin Dose 40 MG; Start 02/16/17 at 06:00 IV Flush (NS 10 ml) 10 ml PRN PRN IV FLUSH LINE; Start 02/16/17 at 13:30 Ibuprofen 400 mg 400 mg Q6H PRN PO PAIN LEVEL 4-7; Start 02/16/17 at 13:30; Status Future Hold Potassium Chloride/Dextrose/ Sod Cl (D5-1/2ns + KCl 20 Meq) 1,000 ml @ 20 mls/ hr Q24H IV Last administered on 02/18/17 17:20; Admin Dose 20 MLS/HR; Start at 17:30 Enoxaparin Sodium (Lovenox) 150 mg Q12 SC Last administered on 02/20/17 08:38 ; Admin Dose 150 MG; Start 02/17/17 at 21:00 Zolpidem Tartrate (Ambien) 5 mg HS PRN PO INSOMNIA Last administered on 20:53; Admin Dose 5 MG; Start 02/18/17 at 12:00 Lorazepam (Ativan) 1 mg Q6H PRN PO ANXIETY; Start 02/18/17 at 15:30 Lorazepam (Ativan) 0.5 mg Q4H PRN PO AGITATION/ANXIETY; Start 02/18/17 at 15:30 Hydralazine HCl (Apresoline) 10 mg Q6H PRN IV ELEVATED BLOOD PRESSURE; Start at 15:00 Docusate Sodium (Colace) 100 mg Q12H PO ; Start 02/20/17 at 22:30 ARMOND MCLAUGHLIN Feb 20, 2017 14:13
[2017-02-20] MEDS: D5W-0.45 NACL + KCL 20 MEQ 1,000 ML IV SCH (17:30)
[2017-02-20] MEDS: WARFARIN 5 MG TAB PO SCH (18:37)
[2017-02-20] MEDS: ZOLPIDEM 5 MG TAB PO PRN (21:03)
[2017-02-20] MEDS: DOCUSATE SODIUM 100 MG CAP PO SCH (22:30)
[2017-02-20] MEDS: morphine 2 MG INJ IV PRN (22:31)
[2017-02-21] VITALS (12 sets, daily range): BP systolic 142–159; BP diastolic 65–91; PULSE 75–91; RESP 16–19
[2017-02-21] MEDS: PANTOPRAZOLE (EC) 40 MG TAB PO SCH (06:23)
[2017-02-21 06:51] LABS: ADD SCAN DIFF NO
[2017-02-21 07:01] LABS: BASOPHILS % 0.4 % (0.0-2.0); EOSINOPHILS # 0.4 10^3/ul (0.0-0.5); HEMATOCRIT 29.8 % (42.0-52.0); HEMOGLOBIN 9.2 g/dl (14.0-18.0); LYMPHOCYTES # 1.7 10^3/ul (0.8-2.9); LYMPHOCYTES % 24.2 % (15.0-51.0); MEAN CORPUSCULAR HEMOGLOBIN 24.2 pg (29.0-33.0); MEAN CORPUSCULAR HGB CONC 30.9 g/dl (32.0-37.0); MEAN CORPUSCULAR VOLUME 78.4 fl (82.0-101.0); MEAN PLATELET VOLUME 9.2 fl (7.4-10.4); MONOCYTE # 0.9 10^3/ul (0.3-0.9); MONOCYTES % 12.4 % (0.0-11.0); NEUTROPHILS % 56.6 % (39.0-77.0); PLATELET COUNT 311 10^3/UL (140-415); RED CELL DISTRIBUTION WIDTH 14.4 % (11.5-14.5); WHITE BLOOD COUNT 7.1 10^3/ul (4.8-10.8)
[2017-02-21 07:39] LABS: CALCIUM 9.7 mg/dl (8.4-10.2); CREATININE 1.1 mg/dl (0.61-1.24); POTASSIUM 3.6 mmol/L (3.5-5.1)
[2017-02-21] MEDS: ARTIFICIAL TEARS 15 ML OPH BOTH EYES SCH ×4 (09:32→21:12)
[2017-02-21] MEDS: FUROSEMIDE 40 MG INJ IV SCH (09:33)
[2017-02-21] MEDS: AMLODIPINE 10 MG TAB PO SCH (09:33)
[2017-02-21] MEDS: ENOXAPARIN 100 MG/ML SYG SC SCH ×2 (09:43→21:15)
[2017-02-21] MEDS: DOCUSATE SODIUM 100 MG CAP PO SCH ×2 (10:51→21:19)
--- NOTE | 2017-02-21 13:13 | CONS ---
Date/Time of Note Date/Time of Note DATE: 02/21/17 TIME: 13:09 Assessment/Plan Assessment/Plan Chief Complaint/Hosp Course IMp: 1.Pericardial effusion-moderate to severe with ongoing sob/tachycardia. Now Post -op s/p pericardial window with cardiac arrest during induction requiring compressions. s/p extubation and removal of drains. f/u post-op Echo 02/09 revealing resolution of pericardial effusion 2.AVR-mech 2 weeks prior 3.Tachycardia 4.Leukocytosis 5.Coagulopathy 6. Positive troponin-minimal s/p recent cardiac surgery-slowly downtrending 7. Hypercapneic resp failure requiring intubation- now improved s/p extubation 8.Hemoptysis-now resolved and back on coumadin Recc: -Tele -Follow BP/volume status closely -Continue norvasc -Resume gentle lasix diuresis -bronchodilators -Follow volume status closely -Follow INR clsoely back on transition from Lovenox to coumadin Problems: Consultation Date/Type/Reason Admit Date/Time Feb 06, 2017 at 14:40 Initial Consult Date 02/07/2017 Type of Consultation: cardiology Reason for Consultation pericardial effusion Referring Provider: ZHAO RYAN Exam/Review of Systems Vital Signs Vitals Vital Signs Date Time Temp Pulse Resp B/P Pulse Ox O2 Delivery O2 Flow Rate FiO2 02/21/17 12:23 85 02/21/17 07:26 98.0 18 155/72 100 02/21/17 06:30 7.0 02/20/17 20:45 Nasal Cannula 02/17/17 10:59 30 Intake and Output 02/20/17 02/20/17 02/21/17 15:00 23:00 07:00 Intake Total 800 ml 500 ml Output Total 2000 ml 800 ml Balance -1200 ml -300 ml Exam Review of Systems: CONSTITUTIONAL: No fevers, chills. PULMONARY: No sob CARDIOVASCULAR: No chest pain/palpitations GASTROINTESTINAL: No nausea/vomiting. GENITOURINARY: No hematuria/dysuria. MUSCULOSKELETAL: No myagias/arthalgias. PSYCHIATRIC: The patient denies depression. NEUROLOGIC: No weakness Constitutional: alert, oriented Psych: no complaints Head: normocephalic ENMT: mucosa pink and moist Neck: jvd (9 cm water), supple Respiratory: diminished breath sounds (at bases/B) Cardiovascular: regular rate and rhythm Gastrointestinal: non-tender Musculoskeletal: muscle tone (normal) Extremities: edema (trace/B) Neurological: other (No focal deficits) Results Result Diagram: 02/21/1734 02/21/17 0534 Results 24 hrs Laboratory Tests Test 02/21/17 05:34 White Blood Count 7.1 Red Blood Count 3.80 L Hemoglobin 9.2 L Hematocrit 29.8 L Mean Corpuscular Volume 78.4 L Mean Corpuscular Hemoglobin 24.2 L Mean Corpuscular Hemoglobin Concent 30.9 L Red Cell Distribution Width 14.4 Platelet Count 311 Mean Platelet Volume 9.2 Neutrophils % 56.6 Lymphocytes % 24.2 Monocytes % 12.4 H Eosinophils % 6.0 Basophils % 0.4 Nucleated Red Blood Cells % 0.0 Neutrophils # 4.0 Lymphocytes # 1.7 Monocytes # 0.9 Eosinophils # 0.4 Basophils # 0.0 Nucleated Red Blood Cells # 0.0 Sodium Level 141 Potassium Level 3.6 Chloride Level 103 Carbon Dioxide Level 27 Anion Gap 15 Blood Urea Nitrogen 22 H Creatinine 1.10 Glucose Level 92 Calcium Level 9.7 Medications Medications Current Medications Bisacodyl (Dulcolax) 5 mg DAILY PRN PO CONSTIPATION Last administered on 15:51; Admin Dose 5 MG; Start 02/06/17 at 22:30 Morphine Sulfate (morphine) 2 mg Q2H PRN IV PAIN LEVEL 6-10 Last administered on 02/20/17 22:31; Admin Dose 2 MG; Start 02/08/17 at 15:30 Eye Lubricant (Artificial Tears Oph) 2 drop QID BOTH EYES Last administered on 02/21/17 09:32; Admin Dose 2 DROP; Start 02/08/17 at 21:00 Furosemide (Lasix) 40 mg DAILY IV Last administered on 02/21/17 09:33; Admin Dose 40 MG; Start 02/09/17 at 17:00 Acetaminophen (Tylenol Supp) 650 mg Q6H PRN [place] PAIN AND OR ELEVATED TEMP Last administered on 02/10/17 20:49; Admin Dose 650 MG; Start 02/10/17 at 11:30 Guaifenesin (Robitussin Liquid Cup) 200 mg Q6 PRN PO COUGH Last administered on 02/12/17 11:35; Admin Dose 200 MG; Start 02/11/17 at 23:00 Amlodipine Besylate (Norvasc) 10 mg DAILY PO Last administered on 02/21/17 09: 33; Admin Dose 10 MG; Start 02/12/17 at 13:00 Pantoprazole (Protonix Tab) 40 mg DAILY@06 PO Last administered on 02/21/17 06 :23; Admin Dose 40 MG; Start 02/16/17 at 06:00 IV Flush (NS 10 ml) 10 ml PRN PRN IV FLUSH LINE; Start 02/16/17 at 13:30 Ibuprofen 400 mg 400 mg Q6H PRN PO PAIN LEVEL 4-7; Start 02/16/17 at 13:30; Status Future Hold Potassium Chloride/Dextrose/ Sod Cl (D5-1/2ns + KCl 20 Meq) 1,000 ml @ 20 mls/ hr Q24H IV Last administered on 02/18/17 17:20; Admin Dose 20 MLS/HR; Start at 17:30 Enoxaparin Sodium (Lovenox) 150 mg Q12 SC Last administered on 02/21/17 09:43 ; Admin Dose 150 MG; Start 02/17/17 at 21:00 Zolpidem Tartrate (Ambien) 5 mg HS PRN PO INSOMNIA Last administered on 21:03; Admin Dose 5 MG; Start 02/18/17 at 12:00 Lorazepam (Ativan) 1 mg Q6H PRN PO ANXIETY; Start 02/18/17 at 15:30 Lorazepam (Ativan) 0.5 mg Q4H PRN PO AGITATION/ANXIETY; Start 02/18/17 at 15:30 Hydralazine HCl (Apresoline) 10 mg Q6H PRN IV ELEVATED BLOOD PRESSURE; Start at 15:00 Docusate Sodium (Colace) 100 mg Q12H PO Last administered on 02/21/17 10:51; Admin Dose 100 MG; Start 02/20/17 at 22:30 Warfarin Sodium (Coumadin) 5 mg DAILY@17 PO Last administered on 02/20/17 18: 37; Admin Dose 5 MG; Start 02/20/17 at 18:00 MATHEUS JOHNSON Feb 21, 2017 13:13
--- NOTE | 2017-02-21 14:15 | CONS ---
Date/Time of Note Date/Time of Note DATE: 02/21/17 TIME: 14:13 Assessment/Plan Assessment/Plan Additional Assessment/Plan Assessment recommendations; 1. Patient admitted with respiratory failure due to very large pericardial effusion status post pericardial window placement. Patient was successfully extubated transferred to medical floor where he was doing fairly well until 2 days later he developed acute hypercapnic respiratory failure requiring reintubation now successfully extubated again with marked overall and continually improving clinical status. 2. Recent aortic valve surgery. 3. Obesity. 4. Likely underlying sleep apnea. Continue current treatment. Consultation Date/Type/Reason Admit Date/Time Feb 06, 2017 at 14:40 Type of Consultation: Pulmonary Referring Provider: ZHAO RYAN 24 HR Interval Summary Free Text/Dictation Patient is doing very well. Denies any shortness or, chest pain, has been ambulatory in the hallway. General exam; young male, awake alert currently in no distress. Exam/Review of Systems Vital Signs Vitals Vital Signs Date Time Temp Pulse Resp B/P Pulse Ox O2 Delivery O2 Flow Rate FiO2 02/21/17 12:23 85 02/21/17 07:26 98.0 18 155/72 100 02/21/17 06:30 7.0 02/20/17 20:45 Nasal Cannula 02/17/17 10:59 30 Intake and Output 02/20/17 02/20/17 02/21/17 15:00 23:00 07:00 Intake Total 800 ml 500 ml Output Total 2000 ml 800 ml Balance -1200 ml -300 ml Exam HEENT exam is; supple neck, no JVD. No lymphadenopathy. Midline trachea. No thyromegaly. Patient has fair dentition. Chest examination; clear to auscultation. S1-S2 audible, no murmurs. Regular rhythm. There is a well-healed sternal scar. Abdomen examination; soft, nondistended. No organomegaly. Bowel sounds audible. Extremity exam is; no peripheral edema. [employer] examination; no focal deficit. Results Result Diagram: 02/21/17 0534 02/21/17 0534 Results 24 hrs Laboratory Tests Test 02/21/17 05:34 White Blood Count 7.1 Red Blood Count 3.80 L Hemoglobin 9.2 L Hematocrit 29.8 L Mean Corpuscular Volume 78.4 L Mean Corpuscular Hemoglobin 24.2 L Mean Corpuscular Hemoglobin Concent 30.9 L Red Cell Distribution Width 14.4 Platelet Count 311 Mean Platelet Volume 9.2 Neutrophils % 56.6 Lymphocytes % 24.2 Monocytes % 12.4 H Eosinophils % 6.0 Basophils % 0.4 Nucleated Red Blood Cells % 0.0 Neutrophils # 4.0 Lymphocytes # 1.7 Monocytes # 0.9 Eosinophils # 0.4 Basophils # 0.0 Nucleated Red Blood Cells # 0.0 Sodium Level 141 Potassium Level 3.6 Chloride Level 103 Carbon Dioxide Level 27 Anion Gap 15 Blood Urea Nitrogen 22 H Creatinine 1.10 Glucose Level 92 Calcium Level 9.7 Medications Medications Current Medications Bisacodyl (Dulcolax) 5 mg DAILY PRN PO CONSTIPATION Last administered on 15:51; Admin Dose 5 MG; Start 02/06/17 at 22:30 Morphine Sulfate (morphine) 2 mg Q2H PRN IV PAIN LEVEL 6-10 Last administered on 02/20/17 22:31; Admin Dose 2 MG; Start 02/08/17 at 15:30 Eye Lubricant (Artificial Tears Oph) 2 drop QID BOTH EYES Last administered on 02/21/17 13:55; Admin Dose 2 DROP; Start 02/08/17 at 21:00 Furosemide (Lasix) 40 mg DAILY IV Last administered on 02/21/17 09:33; Admin Dose 40 MG; Start 02/09/17 at 17:00 Acetaminophen (Tylenol Supp) 650 mg Q6H PRN [place] PAIN AND OR ELEVATED TEMP Last administered on 02/10/17 20:49; Admin Dose 650 MG; Start 02/10/17 at 11:30 Guaifenesin (Robitussin Liquid Cup) 200 mg Q6 PRN PO COUGH Last administered on 02/12/17 11:35; Admin Dose 200 MG; Start 02/11/17 at 23:00 Amlodipine Besylate (Norvasc) 10 mg DAILY PO Last administered on 02/21/17 09: 33; Admin Dose 10 MG; Start 02/12/17 at 13:00 Pantoprazole (Protonix Tab) 40 mg DAILY@06 PO Last administered on 02/21/17 06 :23; Admin Dose 40 MG; Start 02/16/17 at 06:00 IV Flush (NS 10 ml) 10 ml PRN PRN IV FLUSH LINE; Start 02/16/17 at 13:30 Ibuprofen 400 mg 400 mg Q6H PRN PO PAIN LEVEL 4-7; Start 02/16/17 at 13:30; Status Future Hold Potassium Chloride/Dextrose/ Sod Cl (D5-1/2ns + KCl 20 Meq) 1,000 ml @ 20 mls/ hr Q24H IV Last administered on 02/18/17 17:20; Admin Dose 20 MLS/HR; Start at 17:30 Enoxaparin Sodium (Lovenox) 150 mg Q12 SC Last administered on 02/21/17 09:43 ; Admin Dose 150 MG; Start 02/17/17 at 21:00 Zolpidem Tartrate (Ambien) 5 mg HS PRN PO INSOMNIA Last administered on 21:03; Admin Dose 5 MG; Start 02/18/17 at 12:00 Lorazepam (Ativan) 1 mg Q6H PRN PO ANXIETY; Start 02/18/17 at 15:30 Lorazepam (Ativan) 0.5 mg Q4H PRN PO AGITATION/ANXIETY; Start 02/18/17 at 15:30 Hydralazine HCl (Apresoline) 10 mg Q6H PRN IV ELEVATED BLOOD PRESSURE; Start at 15:00 Docusate Sodium (Colace) 100 mg Q12H PO Last administered on 02/21/17 10:51; Admin Dose 100 MG; Start 02/20/17 at 22:30 Warfarin Sodium (Coumadin) 5 mg DAILY@17 PO Last administered on 02/20/17 18: 37; Admin Dose 5 MG; Start 02/20/17 at 18:00 ARMOND MCLAUGHLIN Feb 21, 2017 14:15
--- NOTE | 2017-02-21 15:41 | PN ---
Date/Time of Note Date/Time of Note DATE: 02/21/17 TIME: 15:35 Assessment/Plan VTE Prophylaxis VTE Prophylaxis Intervention: LMWH, other (coumadin) Lines/Catheters IV Catheter Type (from Nrs): PICC Line Central line still needed: Yes Urinary Cath still in place: Yes Reason Cath still needed: other (indicate) (no longer needed) Assessment/Plan Assessment/Plan 41-year-old morbidly obese male who presented after a recent aortic valve replacement at [facility] secondary to severe aortic stenosis and CHF and was admitted for severe pericardial effusion that had postoperatively. He eventually underwent a pericardial pericardiocentesis with pericardial drain placements February 08, 2017, drain was DC'd February 10, 2017. He started to improve but decompensated again and needed to be reintubated at now has been successfully re-extubated. He is currently being managed for the followin. Status post recurrent ventilator dependent respiratory failure: Improved and stable 2. Morbid obesity with chronic obstructive sleep apnea rule out obesity hypoventilation syndrome contributing to #1 3. S/p severe postoperative pericardial effusion: resolved S/p pericardiocentesis with drain placement and removal 4. CHF exacerbation: Improved compensation remains on gentle diuresis 5. Recent aortic valve replacement on treatment dose anticoagulation with Lovenox to resume Coumadin 6. Hypertension : Control still fluctuating / cardiology titrating meds 7. Polymicrobial UTI on antibiotics 8. Status post intraoperative cardiac arrest 2 with return of spontaneous circulation 9. Acute inpatient encephalopathy, rule out mild hypoxic injury: Improving 10. Chronic hypochromic anemia: Stable 11. Hypokalemia: improved 12. Mildly elevated troponin postoperatively: No intervention for now cardiology monitoring PLAN: * Continue Coumadin bridge , monitor for bleeding * replace lytes PRN * uptitrate antihypertensives for improved bp control / d/w cardiology * For HH when cleared and coumadin therapeutic Subjective 24 Hr Interval Summary Free Text/Dictation Patient seen and examined. No new issues Exam/Review of Systems Vital Signs Vitals Vital Signs Date Time Temp Pulse Resp B/P Pulse Ox O2 Delivery O2 Flow Rate FiO2 02/21/17 15:30 98.6 87 19 142/69 98 02/21/17 06:30 7.0 02/20/17 20:45 Nasal Cannula 02/17/17 10:59 30 Intake and Output 02/20/17 02/20/17 02/21/17 15:00 23:00 07:00 Intake Total 800 ml 500 ml Output Total 2000 ml 800 ml Balance -1200 ml -300 ml Exam Constitutional: AAOx3, comfortable Head: atraumatic, normocephalic Eyes: PERRL ENMT: mucosa pink and moist Neck: supple Respiratory: some diminished breath sounds Cardiovascular: S1 S2 No murmurs/extra sounds Gastrointestinal: bowel sounds, soft, No distended Extremities: 1+ pitting edema B/L LE to mid calves Neurological: no focal deficits Results Result Diagram: 02/21/17 0534 02/21/17 0534 Results 24 hrs Laboratory Tests Test 02/21/17 05:34 White Blood Count 7.1 Red Blood Count 3.80 L Hemoglobin 9.2 L Hematocrit 29.8 L Mean Corpuscular Volume 78.4 L Mean Corpuscular Hemoglobin 24.2 L Mean Corpuscular Hemoglobin Concent 30.9 L Red Cell Distribution Width 14.4 Platelet Count 311 Mean Platelet Volume 9.2 Neutrophils % 56.6 Lymphocytes % 24.2 Monocytes % 12.4 H Eosinophils % 6.0 Basophils % 0.4 Nucleated Red Blood Cells % 0.0 Neutrophils # 4.0 Lymphocytes # 1.7 Monocytes # 0.9 Eosinophils # 0.4 Basophils # 0.0 Nucleated Red Blood Cells # 0.0 Sodium Level 141 Potassium Level 3.6 Chloride Level 103 Carbon Dioxide Level 27 Anion Gap 15 Blood Urea Nitrogen 22 H Creatinine 1.10 Glucose Level 92 Calcium Level 9.7 Medications Medications Current Medications Bisacodyl (Dulcolax) 5 mg DAILY PRN PO CONSTIPATION Last administered on 15:51; Admin Dose 5 MG; Start 02/06/17 at 22:30 Morphine Sulfate (morphine) 2 mg Q2H PRN IV PAIN LEVEL 6-10 Last administered on 02/20/17 22:31; Admin Dose 2 MG; Start 02/08/17 at 15:30 Eye Lubricant (Artificial Tears Oph) 2 drop QID BOTH EYES Last administered on 02/21/17 13:55; Admin Dose 2 DROP; Start 02/08/17 at 21:00 Furosemide (Lasix) 40 mg DAILY IV Last administered on 02/21/17 09:33; Admin Dose 40 MG; Start 02/09/17 at 17:00 Acetaminophen (Tylenol Supp) 650 mg Q6H PRN [place] PAIN AND OR ELEVATED TEMP Last administered on 02/10/17 20:49; Admin Dose 650 MG; Start 02/10/17 at 11:30 Guaifenesin (Robitussin Liquid Cup) 200 mg Q6 PRN PO COUGH Last administered on 02/12/17 11:35; Admin Dose 200 MG; Start 02/11/17 at 23:00 Amlodipine Besylate (Norvasc) 10 mg DAILY PO Last administered on 02/21/17 09: 33; Admin Dose 10 MG; Start 02/12/17 at 13:00 Pantoprazole (Protonix Tab) 40 mg DAILY@06 PO Last administered on 02/21/17 06 :23; Admin Dose 40 MG; Start 02/16/17 at 06:00 IV Flush (NS 10 ml) 10 ml PRN PRN IV FLUSH LINE; Start 02/16/17 at 13:30 Ibuprofen 400 mg 400 mg Q6H PRN PO PAIN LEVEL 4-7; Start 02/16/17 at 13:30; Status Future Hold Potassium Chloride/Dextrose/ Sod Cl (D5-1/2ns + KCl 20 Meq) 1,000 ml @ 20 mls/ hr Q24H IV Last administered on 02/18/17 17:20; Admin Dose 20 MLS/HR; Start at 17:30 Enoxaparin Sodium (Lovenox) 150 mg Q12 SC Last administered on 02/21/17 09:43 ; Admin Dose 150 MG; Start 02/17/17 at 21:00 Zolpidem Tartrate (Ambien) 5 mg HS PRN PO INSOMNIA Last administered on 21:03; Admin Dose 5 MG; Start 02/18/17 at 12:00 Lorazepam (Ativan) 1 mg Q6H PRN PO ANXIETY; Start 02/18/17 at 15:30 Lorazepam (Ativan) 0.5 mg Q4H PRN PO AGITATION/ANXIETY; Start 02/18/17 at 15:30 Hydralazine HCl (Apresoline) 10 mg Q6H PRN IV ELEVATED BLOOD PRESSURE; Start at 15:00 Docusate Sodium (Colace) 100 mg Q12H PO Last administered on 02/21/17 10:51; Admin Dose 100 MG; Start 02/20/17 at 22:30 Warfarin Sodium (Coumadin) 5 mg DAILY@17 PO Last administered on 02/20/17t 18: 37; Admin Dose 5 MG; Start 02/20/17 at 18:00 ZHAO RYAN Feb 21, 2017 15:41
[2017-02-21] MEDS: D5W-0.45 NACL + KCL 20 MEQ 1,000 ML IV SCH (17:30)
[2017-02-21] MEDS: WARFARIN 5 MG TAB PO SCH (17:47)
[2017-02-21] MEDS: morphine 2 MG INJ IV PRN (21:23)
[2017-02-21] MEDS: ZOLPIDEM 5 MG TAB PO PRN (21:23)
[2017-02-22] VITALS (12 sets, daily range): BP systolic 136–168; BP diastolic 60–88; PULSE 75–88; RESP 18–19
[2017-02-22] MEDS: PANTOPRAZOLE (EC) 40 MG TAB PO SCH (06:10)
[2017-02-22 07:58] LABS: ADD SCAN DIFF NO
[2017-02-22 08:02] LABS: BASOPHILS % 0.5 % (0.0-2.0); EOSINOPHILS # 0.4 10^3/ul (0.0-0.5); EOSINOPHILS % 5.6 % (0.0-7.0); HEMATOCRIT 30.7 % (42.0-52.0); HEMOGLOBIN 9.4 g/dl (14.0-18.0); LYMPHOCYTES # 1.5 10^3/ul (0.8-2.9); LYMPHOCYTES % 22.2 % (15.0-51.0); MEAN CORPUSCULAR HEMOGLOBIN 23.7 pg (29.0-33.0); MEAN CORPUSCULAR HGB CONC 30.6 g/dl (32.0-37.0); MEAN CORPUSCULAR VOLUME 77.5 fl (82.0-101.0); MEAN PLATELET VOLUME 9.6 fl (7.4-10.4); MONOCYTE # 0.8 10^3/ul (0.3-0.9); MONOCYTES % 12.5 % (0.0-11.0); NEUTROPHIL # 3.9 10^3/ul (1.6-7.5); NEUTROPHILS % 58.7 % (39.0-77.0); PLATELET COUNT 326 10^3/UL (140-415); RED BLOOD COUNT 3.96 10^6/ul (4.70-6.10); RED CELL DISTRIBUTION WIDTH 14.4 % (11.5-14.5); WHITE BLOOD COUNT 6.6 10^3/ul (4.8-10.8)
[2017-02-22 08:25] LABS: INR 1.12; PROTIME 14.4 Sec (12.2-14.2); PT RATIO 1.1
[2017-02-22 08:47] LABS: CALCIUM 9.5 mg/dl (8.4-10.2); CREATININE 1.07 mg/dl (0.61-1.24); POTASSIUM 3.5 mmol/L (3.5-5.1)
[2017-02-22] MEDS: FUROSEMIDE 40 MG INJ IV SCH (09:48)
[2017-02-22] MEDS: AMLODIPINE 10 MG TAB PO SCH (09:49)
[2017-02-22] MEDS: ARTIFICIAL TEARS 15 ML OPH BOTH EYES SCH ×4 (09:49→21:38)
[2017-02-22] MEDS: ENOXAPARIN 100 MG/ML SYG SC SCH ×2 (10:02→21:38)
--- NOTE | 2017-02-22 12:04 | PN ---
Date/Time of Note Date/Time of Note DATE: 02/22/17 TIME: 12:03 Assessment/Plan VTE Prophylaxis VTE Prophylaxis Intervention: LMWH ( / coumadin) Lines/Catheters IV C[facility]ter Type (from [facility]): PICC Line Central line still needed: Yes Urinary Cath still in place: No Assessment/Plan Assessment/Plan 41-year-old morbidly obese male who presented after a recent aortic valve replacement at [facility] secondary to severe aortic stenosis and CHF and was admitted for severe pericardial effusion that had postoperatively. He eventually underwent a pericardial pericardiocentesis with pericardial drain placements February 08, 2017, drain was DC'd February 10, 2017. He started to improve but decompensated again and needed to be reintubated at now has been successfully re-extubated. He is currently being managed for the followin. Status post recurrent ventilator dependent respiratory failure: Improved and stable 2. Morbid obesity with chronic obstructive sleep apnea rule out obesity hypoventilation syndrome contributing to #1 3. S/p severe postoperative pericardial effusion: resolved S/p pericardiocentesis with drain placement and removal 4. CHF exacerbation: Improved compensation remains on gentle diuresis 5. Recent aortic valve replacement on treatment dose anticoagulation with Lovenox to resume Coumadin 6. Hypertension : Control still fluctuating / cardiology titrating meds 7. Polymicrobial UTI on antibiotics 8. Status post intraoperative cardiac arrest 2 with return of spontaneous circulation 9. Acute inpatient encephalopathy, rule out mild hypoxic injury: Improving 10. Chronic hypochromic anemia: Stable 11. Hypokalemia: improved 12. Mildly elevated troponin postoperatively: No intervention for now cardiology monitoring PLAN: * Continue Coumadin bridge , monitor for bleeding * replace lytes PRN * uptitrate antihypertensives for improved bp control / d/w cardiology * Consider d/c home with HH and SC Lovenox for bridging, will need insurance auth if patient is willing. Subjective 24 Hr Interval Summary Free Text/Dictation Patient seen and examined. no new issues Exam/Review of Systems Vital Signs Vitals Vital Signs Date Time Temp Pulse Resp B/P Pulse Ox O2 Delivery O2 Flow Rate FiO2 02/22/17 11:18 98.2 71 18 156/67 98 02/22/17 07:45 Nasal Cannula 2.0 Intake and Output 02/21/17 02/21/17 02/22/17 15:00 23:00 07:00 Intake Total 800 ml 600 ml Output Total 1400 ml 700 ml Balance -600 ml -100 ml Exam Constitutional: AAOx3, comfortable Head: atraumatic, normocephalic Eyes: PERRL ENMT: mucosa pink and moist Neck: supple Respiratory: some diminished breath sounds Cardiovascular: S1 S2 No murmurs/extra sounds Gastrointestinal: bowel sounds, soft, No distended Extremities: edema improved Neurological: no focal deficits Results Result Diagram: 02/22/17 0642 02/22/17 0642 Results 24 hrs Laboratory Tests Test 02/22/17 06:42 White Blood Count 6.6 Red Blood Count 3.96 L Hemoglobin 9.4 L Hematocrit 30.7 L Mean Corpuscular Volume 77.5 L Mean Corpuscular Hemoglobin 23.7 L Mean Corpuscular Hemoglobin Concent 30.6 L Red Cell Distribution Width 14.4 Platelet Count 326 Mean Platelet Volume 9.6 Neutrophils % 58.7 Lymphocytes % 22.2 Monocytes % 12.5 H Eosinophils % 5.6 Basophils % 0.5 Nucleated Red Blood Cells % 0.0 Neutrophils # 3.9 Lymphocytes # 1.5 Monocytes # 0.8 Eosinophils # 0.4 Basophils # 0.0 Nucleated Red Blood Cells # 0.0 Prothrombin Time 14.4 H Prothrombin Time Ratio 1.1 INR International Normalized Ratio 1.12 Sodium Level 137 Potassium Level 3.5 Chloride Level 101 Carbon Dioxide Level 29 Anion Gap 11 Blood Urea Nitrogen 21 H Creatinine 1.07 Glucose Level 90 Calcium Level 9.5 Medications Medications Current Medications Bisacodyl (Dulcolax) 5 mg DAILY PRN PO CONSTIPATION Last administered on 15:51; Admin Dose 5 MG; Start 02/06/17 at 22:30 Morphine Sulfate (morphine) 2 mg Q2H PRN IV PAIN LEVEL 6-10 Last administered on 02/21/17 21:23; Admin Dose 2 MG; Start 02/08/17 at 15:30 Eye Lubricant (Artificial Tears Oph) 2 drop QID BOTH EYES Last administered on 02/22/17 09:49; Admin Dose 2 DROP; Start 02/08/17 at 21:00 Furosemide (Lasix) 40 mg DAILY IV Last administered on 02/22/17 09:48; Admin Dose 40 MG; Start 02/09/17 at 17:00 Acetaminophen (Tylenol Supp) 650 mg Q6H PRN [place] PAIN AND OR ELEVATED TEMP Last administered on 02/10/17 20:49; Admin Dose 650 MG; Start 02/10/17 at 11:30 Guaifenesin (Robitussin Liquid Cup) 200 mg Q6 PRN PO COUGH Last administered on 02/12/17 11:35; Admin Dose 200 MG; Start 02/11/17 at 23:00 Amlodipine Besylate (Norvasc) 10 mg DAILY PO Last administered on 02/22/17 09: 49; Admin Dose 10 MG; Start 02/12/17 at 13:00 Pantoprazole (Protonix Tab) 40 mg DAILY@06 PO Last administered on 02/22/17 06 :10; Admin Dose 40 MG; Start 02/16/17 at 06:00 IV Flush (NS 10 ml) 10 ml PRN PRN IV FLUSH LINE; Start 02/16/17 at 13:30 Ibuprofen 400 mg 400 mg Q6H PRN PO PAIN LEVEL 4-7; Start 02/16/17 at 13:30; Status Future Hold Potassium Chloride/Dextrose/ Sod Cl (D5-1/2ns + KCl 20 Meq) 1,000 ml @ 20 mls/ hr Q24H IV Last administered on 02/18/17 17:20; Admin Dose 20 MLS/HR; Start at 17:30 Enoxaparin Sodium (Lovenox) 150 mg Q12 SC Last administered on 02/22/17 10:02 ; Admin Dose 150 MG; Start 02/17/17 at 21:00 Zolpidem Tartrate (Ambien) 5 mg HS PRN PO INSOMNIA Last administered on 21:23; Admin Dose 5 MG; Start 02/18/17 at 12:00 Lorazepam (Ativan) 1 mg Q6H PRN PO ANXIETY; Start 02/18/17 at 15:30 Lorazepam (Ativan) 0.5 mg Q4H PRN PO AGITATION/ANXIETY; Start 02/18/17 at 15:30 Hydralazine HCl (Apresoline) 10 mg Q6H PRN IV ELEVATED BLOOD PRESSURE; Start at 15:00 Docusate Sodium (Colace) 100 mg Q12H PO Last administered on 02/21/17 21:19; Admin Dose 100 MG; Start 02/20/17 at 22:30 Warfarin Sodium (Coumadin) 7.5 mg DAILY@17 PO ; Start 02/22/17 at 17:00; Status ZHAO DEXTER Feb 22, 2017 12:04
[2017-02-22] MEDS: DOCUSATE SODIUM 100 MG CAP PO SCH ×2 (12:25→21:16)
--- NOTE | 2017-02-22 15:14 | CONS ---
Date/Time of Note Date/Time of Note DATE: 02/22/17 TIME: 15:11 Assessment/Plan Assessment/Plan Chief Complaint/Hosp Course IMp: 1.Pericardial effusion-moderate to severe with ongoing sob/tachycardia. Now Post -op s/p pericardial window with cardiac arrest during induction requiring compressions. s/p extubation and removal of drains. f/u post-op Echo 02/09 revealing resolution of pericardial effusion 2.AVR-mech 2 weeks prior 3.Tachycardia 4.Leukocytosis 5.Coagulopathy 6. Positive troponin-minimal s/p recent cardiac surgery-slowly downtrending 7. Hypercapneic resp failure requiring intubation- now improved s/p extubation 8.Hemoptysis-now resolved and back on coumadin 9.HTN-mildly elevated Recc: -Tele -Follow BP/volume status closely -Continue norvasc -Continue gentle lasix diuresis -bronchodilators -Follow volume status closely -Follow INR clsoely back on transition from Lovenox to coumadin -STart low dose ACEI to improve BP control Problems: Consultation Date/Type/Reason Admit Date/Time Feb 06, 2017 at 14:40 Initial Consult Date 02/07/2017 Type of Consultation: cardiology Reason for Consultation pericardial effusion/HTN Referring Provider: ZHAO RYAN Exam/Review of Systems Vital Signs Vitals Vital Signs Date Time Temp Pulse Resp B/P Pulse Ox O2 Delivery O2 Flow Rate FiO2 02/22/17 12:19 84 02/22/17 11:18 98.2 18 156/67 98 02/22/17 07:45 Nasal Cannula 2.0 Intake and Output 02/21/17 02/21/17 02/22/17 15:00 23:00 07:00 Intake Total 800 ml 600 ml Output Total 1400 ml 700 ml Balance -600 ml -100 ml Exam Review of Systems: CONSTITUTIONAL: No fevers, chills. PULMONARY: No sob CARDIOVASCULAR: No chest pain/palpitations GASTROINTESTINAL: No nausea/vomiting. GENITOURINARY: No hematuria/dysuria. MUSCULOSKELETAL: No myagias/arthalgias. PSYCHIATRIC: The patient denies depression. NEUROLOGIC: No weakness Constitutional: alert, oriented Psych: nl mood/affect, no complaints Head: normocephalic ENMT: mucosa pink and moist Neck: jvd (9 cm water), supple Respiratory: diminished breath sounds (at bases/B) Cardiovascular: regular rate and rhythm Gastrointestinal: non-tender, soft Musculoskeletal: muscle tone (normal) Extremities: edema (none) Neurological: other (No focal deficits) Results Result Diagram: 02/22/17 0642 02/22/17 0642 Results 24 hrs Laboratory Tests Test 02/22/17 06:42 White Blood Count 6.6 Red Blood Count 3.96 L Hemoglobin 9.4 L Hematocrit 30.7 L Mean Corpuscular Volume 77.5 L Mean Corpuscular Hemoglobin 23.7 L Mean Corpuscular Hemoglobin Concent 30.6 L Red Cell Distribution Width 14.4 Platelet Count 326 Mean Platelet Volume 9.6 Neutrophils % 58.7 Lymphocytes % 22.2 Monocytes % 12.5 H Eosinophils % 5.6 Basophils % 0.5 Nucleated Red Blood Cells % 0.0 Neutrophils # 3.9 Lymphocytes # 1.5 Monocytes # 0.8 Eosinophils # 0.4 Basophils # 0.0 Nucleated Red Blood Cells # 0.0 Prothrombin Time 14.4 H Prothrombin Time Ratio 1.1 INR International Normalized Ratio 1.12 Sodium Level 137 Potassium Level 3.5 Chloride Level 101 Carbon Dioxide Level 29 Anion Gap 11 Blood Urea Nitrogen 21 H Creatinine 1.07 Glucose Level 90 Calcium Level 9.5 Medications Medications Current Medications Bisacodyl (Dulcolax) 5 mg DAILY PRN PO CONSTIPATION Last administered on 15:51; Admin Dose 5 MG; Start 02/06/17 at 22:30 Morphine Sulfate (morphine) 2 mg Q2H PRN IV PAIN LEVEL 6-10 Last administered on 02/21/17 21:23; Admin Dose 2 MG; Start 02/08/17 at 15:30 Eye Lubricant (Artificial Tears Oph) 2 drop QID BOTH EYES Last administered on 02/22/17 12:26; Admin Dose 2 DROP; Start 02/08/17 at 21:00 Furosemide (Lasix) 40 mg DAILY IV Last administered on 02/22/17 09:48; Admin Dose 40 MG; Start 02/09/17 at 17:00 Acetaminophen (Tylenol Supp) 650 mg Q6H PRN [place] PAIN AND OR ELEVATED TEMP Last administered on 02/10/17 20:49; Admin Dose 650 MG; Start 02/10/17 at 11:30 Guaifenesin (Robitussin Liquid Cup) 200 mg Q6 PRN PO COUGH Last administered on 02/12/17 11:35; Admin Dose 200 MG; Start 02/11/17 at 23:00 Amlodipine Besylate (Norvasc) 10 mg DAILY PO Last administered on 02/22/17 09: 49; Admin Dose 10 MG; Start 02/12/17 at 13:00 Pantoprazole (Protonix Tab) 40 mg DAILY@06 PO Last administered on 02/22/17 06 :10; Admin Dose 40 MG; Start 02/16/17 at 06:00 IV Flush (NS 10 ml) 10 ml PRN PRN IV FLUSH LINE; Start 02/16/17 at 13:30 Ibuprofen 400 mg 400 mg Q6H PRN PO PAIN LEVEL 4-7; Start 02/16/17 at 13:30; Status Future Hold Potassium Chloride/Dextrose/ Sod Cl (D5-1/2ns + KCl 20 Meq) 1,000 ml @ 20 mls/ hr Q24H IV Last administered on 02/18/17 17:20; Admin Dose 20 MLS/HR; Start at 17:30 Enoxaparin Sodium (Lovenox) 150 mg Q12 SC Last administered on 02/22/17 10:02 ; Admin Dose 150 MG; Start 02/17/17 at 21:00 Zolpidem Tartrate (Ambien) 5 mg HS PRN PO INSOMNIA Last administered on 21:23; Admin Dose 5 MG; Start 02/18/17 at 12:00 Lorazepam (Ativan) 1 mg Q6H PRN PO ANXIETY; Start 02/18/17 at 15:30 Lorazepam (Ativan) 0.5 mg Q4H PRN PO AGITATION/ANXIETY; Start 02/18/17 at 15:30 Hydralazine HCl (Apresoline) 10 mg Q6H PRN IV ELEVATED BLOOD PRESSURE; Start at 15:00 Docusate Sodium (Colace) 100 mg Q12H PO Last administered on 02/22/17 12:25; Admin Dose 100 MG; Start 02/20/17 at 22:30 Warfarin Sodium (Coumadin) 7.5 mg DAILY@17 PO ; Start 02/22/17 at 17:00 MATHEUS JOHNSON Feb 22, 2017 15:13
[2017-02-22] MEDS ORDERED: WARFARIN 7.5 MG TAB PO SCH (17:00)
[2017-02-22] MEDS: D5W-0.45 NACL + KCL 20 MEQ 1,000 ML IV SCH (17:30)
[2017-02-22] MEDS: WARFARIN 2.5 MG TAB PO SCH (18:11)
[2017-02-22] MEDS: morphine 2 MG INJ IV PRN (21:15)
[2017-02-23] VITALS (11 sets, daily range): BP systolic 130–159; BP diastolic 70–85; PULSE 80–90; RESP 18–20
[2017-02-23] MEDS: PANTOPRAZOLE (EC) 40 MG TAB PO SCH (05:58)
[2017-02-23 06:55] LABS: ADD SCAN DIFF NO
[2017-02-23 06:58] LABS: BASOPHILS % 0.6 % (0.0-2.0); EOSINOPHILS # 0.4 10^3/ul (0.0-0.5); HEMATOCRIT 31.6 % (42.0-52.0); HEMOGLOBIN 9.9 g/dl (14.0-18.0); LYMPHOCYTES # 1.7 10^3/ul (0.8-2.9); LYMPHOCYTES % 24.6 % (15.0-51.0); MEAN CORPUSCULAR HEMOGLOBIN 24.1 pg (29.0-33.0); MEAN CORPUSCULAR HGB CONC 31.3 g/dl (32.0-37.0); MEAN CORPUSCULAR VOLUME 76.9 fl (82.0-101.0); MEAN PLATELET VOLUME 9.3 fl (7.4-10.4); MONOCYTES % 14.4 % (0.0-11.0); NEUTROPHIL # 3.9 10^3/ul (1.6-7.5); PLATELET COUNT 331 10^3/UL (140-415); RED BLOOD COUNT 4.11 10^6/ul (4.70-6.10); RED CELL DISTRIBUTION WIDTH 14.4 % (11.5-14.5)
[2017-02-23 07:31] LABS: INR 1.15; PROTIME 14.7 Sec (12.2-14.2); PT RATIO 1.1
[2017-02-23 07:35] LABS: CALCIUM 9.6 mg/dl (8.4-10.2); CREATININE 1.03 mg/dl (0.61-1.24); POTASSIUM 3.6 mmol/L (3.5-5.1)
[2017-02-23] MEDS: ARTIFICIAL TEARS 15 ML OPH BOTH EYES SCH ×4 (09:00→20:49)
[2017-02-23] MEDS: DOCUSATE SODIUM 100 MG CAP PO SCH ×2 (09:39→20:50)
[2017-02-23] MEDS: AMLODIPINE 10 MG TAB PO SCH (09:39)
[2017-02-23] MEDS: FUROSEMIDE 40 MG INJ IV SCH (09:40)
[2017-02-23] MEDS: ENOXAPARIN 100 MG/ML SYG SC SCH ×2 (09:43→21:09)
--- NOTE | 2017-02-23 14:14 | CONS ---
Date/Time of Note Date/Time of Note DATE: 02/23/17 TIME: 14:11 Assessment/Plan Assessment/Plan Chief Complaint/Hosp Course IMp: 1.Pericardial effusion-moderate to severe with ongoing sob/tachycardia. Now Post -op s/p pericardial window with cardiac arrest during induction requiring compressions. s/p extubation and removal of drains. f/u post-op Echo 02/09 revealing resolution of pericardial effusion 2.AVR-mech 2 weeks prior 3.Tachycardia 4.Leukocytosis 5.Coagulopathy 6. Positive troponin-minimal s/p recent cardiac surgery-slowly downtrending 7. Hypercapneic resp failure requiring intubation- now improved s/p extubation 8.Hemoptysis-now resolved and back on coumadin 9.HTN-mildly elevated Recc: -Tele -Follow BP/volume status closely -Continue norvasc/ACEI -Continue gentle lasix diuresis -bronchodilators -Follow volume status closely -Follow INR clsoely back on transition from Lovenox to coumadin with D/C plannning once INR starts to uptrend and patient has lovenox outpatient treatment set up for transition Problems: Consultation Date/Type/Reason Admit Date/Time Feb 06, 2017 at 14:40 Initial Consult Date 02/07/2017 Type of Consultation: cardiology Reason for Consultation pericardial effusion Referring Provider: ZHAO RYAN Exam/Review of Systems Vital Signs Vitals Vital Signs Date Time Temp Pulse Resp B/P Pulse Ox O2 Delivery O2 Flow Rate FiO2 02/23/17 12:39 89 02/23/17 11:10 98.0 19 138/74 92 02/22/17 20:00 Nasal Cannula 2.0 Intake and Output 02/22/17 02/22/17 02/23/17 15:00 23:00 07:00 Intake Total 1200 ml 650 ml Output Total 2000 ml 750 ml Balance -800 ml -100 ml Exam Review of Systems: CONSTITUTIONAL: No fevers, chills. PULMONARY: No sob CARDIOVASCULAR: No chest pain/palpitations GASTROINTESTINAL: No nausea/vomiting. GENITOURINARY: No hematuria/dysuria. MUSCULOSKELETAL: No myagias/arthalgias. PSYCHIATRIC: The patient denies depression. NEUROLOGIC: No weakness Constitutional: alert Psych: no complaints Head: normocephalic ENMT: mucosa pink and moist Neck: jvd (8-9 cm water), supple Respiratory: diminished breath sounds (at bases/B) Cardiovascular: regular rate and rhythm Gastrointestinal: non-tender, soft Musculoskeletal: muscle tone (normal) Extremities: edema (none) Neurological: other (No focal deficits) Results Result Diagram: 02/23/1726 02/23/17 0626 Results 24 hrs Laboratory Tests Test 02/23/17 06:26 White Blood Count 7.0 Red Blood Count 4.11 L Hemoglobin 9.9 L Hematocrit 31.6 L Mean Corpuscular Volume 76.9 L Mean Corpuscular Hemoglobin 24.1 L Mean Corpuscular Hemoglobin Concent 31.3 L Red Cell Distribution Width 14.4 Platelet Count 331 Mean Platelet Volume 9.3 Neutrophils % 55.0 Lymphocytes % 24.6 Monocytes % 14.4 H Eosinophils % 5.0 Basophils % 0.6 Nucleated Red Blood Cells % 0.0 Neutrophils # 3.9 Lymphocytes # 1.7 Monocytes # 1.0 H Eosinophils # 0.4 Basophils # 0.0 Nucleated Red Blood Cells # 0.0 Prothrombin Time 14.7 H Prothrombin Time Ratio 1.1 INR International Normalized Ratio 1.15 Sodium Level 138 Potassium Level 3.6 Chloride Level 101 Carbon Dioxide Level 28 Anion Gap 13 Blood Urea Nitrogen 22 H Creatinine 1.03 Glucose Level 98 Calcium Level 9.6 Medications Medications Current Medications Bisacodyl (Dulcolax) 5 mg DAILY PRN PO CONSTIPATION Last administered on 15:51; Admin Dose 5 MG; Start 02/06/17 at 22:30 Morphine Sulfate (morphine) 2 mg Q2H PRN IV PAIN LEVEL 6-10 Last administered on 02/22/17 21:15; Admin Dose 2 MG; Start 02/08/17 at 15:30 Eye Lubricant (Artificial Tears Oph) 2 drop QID BOTH EYES Last administered on 02/23/17 09:00; Admin Dose 2 DROP; Start 02/08/17 at 21:00 Furosemide (Lasix) 40 mg DAILY IV Last administered on 02/23/17 09:40; Admin Dose 40 MG; Start 02/09/17 at 17:00 Acetaminophen (Tylenol Supp) 650 mg Q6H PRN [place] PAIN AND OR ELEVATED TEMP Last administered on 02/10/17 20:49; Admin Dose 650 MG; Start 02/10/17 at 11:30 Guaifenesin (Robitussin Liquid Cup) 200 mg Q6 PRN PO COUGH Last administered on 02/12/17 11:35; Admin Dose 200 MG; Start 02/11/17 at 23:00 Amlodipine Besylate (Norvasc) 10 mg DAILY PO Last administered on 02/23/17 09: 39; Admin Dose 10 MG; Start 02/12/17 at 13:00 Pantoprazole (Protonix Tab) 40 mg DAILY@06 PO Last administered on 02/23/17 05 :58; Admin Dose 40 MG; Start 02/16/17 at 06:00 IV Flush (NS 10 ml) 10 ml PRN PRN IV FLUSH LINE; Start 02/16/17 at 13:30 Ibuprofen 400 mg 400 mg Q6H PRN PO PAIN LEVEL 4-7; Start 02/16/17 at 13:30; Status Future Hold Potassium Chloride/Dextrose/ Sod Cl (D5-1/2ns + KCl 20 Meq) 1,000 ml @ 20 mls/ hr Q24H IV Last administered on 02/18/17 17:20; Admin Dose 20 MLS/HR; Start at 17:30 Enoxaparin Sodium (Lovenox) 150 mg Q12 SC Last administered on 02/23/17 09:43 ; Admin Dose 150 MG; Start 02/17/17 at 21:00 Zolpidem Tartrate (Ambien) 5 mg HS PRN PO INSOMNIA Last administered on 21:23; Admin Dose 5 MG; Start 02/18/17 at 12:00 Lorazepam (Ativan) 1 mg Q6H PRN PO ANXIETY; Start 02/18/17 at 15:30 Lorazepam (Ativan) 0.5 mg Q4H PRN PO AGITATION/ANXIETY Last administered on 21:16; Admin Dose 0.5 MG; Start 02/18/17 at 15:30 Hydralazine HCl (Apresoline) 10 mg Q6H PRN IV ELEVATED BLOOD PRESSURE; Start at 15:00 Docusate Sodium (Colace) 100 mg Q12H PO Last administered on 02/23/17 09:39; Admin Dose 100 MG; Start 02/20/17 at 22:30 Warfarin Sodium (Coumadin) 7.5 mg DAILY@17 PO Last administered on 02/22/17t 18 :11; Admin Dose 7.5 MG; Start 02/22/17 at 17:37 MATHEUS JOHNSON Feb 23, 2017 14:14
[2017-02-23] MEDS: WARFARIN 2.5 MG TAB PO SCH (17:34)
--- NOTE | 2017-02-23 17:55 | PN ---
Date/Time of Note Date/Time of Note DATE: 02/23/17 TIME: 17:55 Assessment/Plan VTE Prophylaxis VTE Prophylaxis Intervention: LMWH Lines/Catheters IV [facility] Type (from [facility] PICC Line Central line still needed: Yes Urinary Cath still in place: No Assessment/Plan Assessment/Plan 41-year-old morbidly obese male who presented after a recent aortic valve replacement at [facility] secondary to severe aortic stenosis and CHF and was admitted for severe pericardial effusion that had postoperatively. He eventually underwent a pericardial pericardiocentesis with pericardial drain placements February 08, 2017, drain was DC'd February 10, 2017. He started to improve but decompensated again and needed to be reintubated at now has been successfully re-extubated. He is currently being managed for the followin. Status post recurrent ventilator dependent respiratory failure: Improved and stable 2. Morbid obesity with chronic obstructive sleep apnea rule out obesity hypoventilation syndrome contributing to #1 3. S/p severe postoperative pericardial effusion: resolved S/p pericardiocentesis with drain placement and removal 4. CHF exacerbation: Improved compensation remains on gentle diuresis 5. Recent aortic valve replacement on treatment dose anticoagulation with Lovenox to resume Coumadin 6. Hypertension : Control still fluctuating / cardiology titrating meds 7. Polymicrobial UTI on antibiotics 8. Status post intraoperative cardiac arrest 2 with return of spontaneous circulation 9. Acute inpatient encephalopathy, rule out mild hypoxic injury: Improving 10. Chronic hypochromic anemia: Stable 11. Hypokalemia: improved 12. Mildly elevated troponin postoperatively: No intervention for now cardiology monitoring PLAN: * Continue Coumadin bridge , monitor for bleeding * replace lytes PRN * uptitrate antihypertensives for improved bp control / d/w cardiology * Consider d/c home with HH and SC Lovenox for bridging once INR shows improvement, will need insurance auth if patient is willing. Subjective 24 Hr Interval Summary Free Text/Dictation Patient seen and examined. wants to go home Exam/Review of Systems Vital Signs Vitals Vital Signs Date Time Temp Pulse Resp B/P Pulse Ox O2 Delivery O2 Flow Rate FiO2 02/23/17 17:51 3.0 02/23/17 16:25 87 02/23/17 15:20 98.1 19 147/76 95 02/22/17 20:00 Nasal Cannula Intake and Output 02/22/17 02/22/17 02/23/17 15:00 23:00 07:00 Intake Total 1200 ml 650 ml Output Total 2000 ml 750 ml Balance -800 ml -100 ml Exam Constitutional: AAOx3, comfortable, obese Head: atraumatic, normocephalic Eyes: PERRL ENMT: mucosa pink and moist Neck: supple Respiratory: some diminished breath sounds Cardiovascular: S1 S2 No murmurs/extra sounds Gastrointestinal: bowel sounds, soft, No distended Extremities: edema improved Neurological: no focal deficits Results Result Diagram: 02/23/17 0626 02/23/17 0626 Results 24 hrs Laboratory Tests Test 02/23/17 06:26 White Blood Count 7.0 Red Blood Count 4.11 L Hemoglobin 9.9 L Hematocrit 31.6 L Mean Corpuscular Volume 76.9 L Mean Corpuscular Hemoglobin 24.1 L Mean Corpuscular Hemoglobin Concent 31.3 L Red Cell Distribution Width 14.4 Platelet Count 331 Mean Platelet Volume 9.3 Neutrophils % 55.0 Lymphocytes % 24.6 Monocytes % 14.4 H Eosinophils % 5.0 Basophils % 0.6 Nucleated Red Blood Cells % 0.0 Neutrophils # 3.9 Lymphocytes # 1.7 Monocytes # 1.0 H Eosinophils # 0.4 Basophils # 0.0 Nucleated Red Blood Cells # 0.0 Prothrombin Time 14.7 H Prothrombin Time Ratio 1.1 INR International Normalized Ratio 1.15 Sodium Level 138 Potassium Level 3.6 Chloride Level 101 Carbon Dioxide Level 28 Anion Gap 13 Blood Urea Nitrogen 22 H Creatinine 1.03 Glucose Level 98 Calcium Level 9.6 Medications Medications Current Medications Bisacodyl (Dulcolax) 5 mg DAILY PRN PO CONSTIPATION Last administered on 15:51; Admin Dose 5 MG; Start 02/06/17 at 22:30 Morphine Sulfate (morphine) 2 mg Q2H PRN IV PAIN LEVEL 6-10 Last administered on 02/22/17 21:15; Admin Dose 2 MG; Start 02/08/17 at 15:30 Eye Lubricant (Artificial Tears Oph) 2 drop QID BOTH EYES Last administered on 02/23/17 17:35; Admin Dose 2 DROP; Start 02/08/17 at 21:00 Furosemide (Lasix) 40 mg DAILY IV Last administered on 02/23/17 09:40; Admin Dose 40 MG; Start 02/09/17 at 17:00 Acetaminophen (Tylenol Supp) 650 mg Q6H PRN [place] PAIN AND OR ELEVATED TEMP Last administered on 02/10/17 20:49; Admin Dose 650 MG; Start 02/10/17 at 11:30 Guaifenesin (Robitussin Liquid Cup) 200 mg Q6 PRN PO COUGH Last administered on 02/12/17 11:35; Admin Dose 200 MG; Start 02/11/17 at 23:00 Amlodipine Besylate (Norvasc) 10 mg DAILY PO Last administered on 02/23/17 09: 39; Admin Dose 10 MG; Start 02/12/17 at 13:00 Pantoprazole (Protonix Tab) 40 mg DAILY@06 PO Last administered on 02/23/17 05 :58; Admin Dose 40 MG; Start 02/16/17 at 06:00 IV Flush (NS 10 ml) 10 ml PRN PRN IV FLUSH LINE; Start 02/16/17 at 13:30 Ibuprofen (Motrin) 400 mg Q6H PRN PO PAIN LEVEL 4-7; Start 02/16/17 at 13:30; Status Future Hold Enoxaparin Sodium (Lovenox) 150 mg Q12 SC Last administered on 02/23/17 09:43 ; Admin Dose 150 MG; Start 02/17/17 at 21:00 Zolpidem Tartrate (Ambien) 5 mg HS PRN PO INSOMNIA Last administered on 21:23; Admin Dose 5 MG; Start 02/18/17 at 12:00 Lorazepam (Ativan) 1 mg Q6H PRN PO ANXIETY; Start 02/18/17 at 15:30 Lorazepam (Ativan) 0.5 mg Q4H PRN PO AGITATION/ANXIETY Last administered on 21:16; Admin Dose 0.5 MG; Start 02/18/17 at 15:30 Hydralazine HCl (Apresoline) 10 mg Q6H PRN IV ELEVATED BLOOD PRESSURE; Start at 15:00 Docusate Sodium (Colace) 100 mg Q12H PO Last administered on 02/23/17 09:39; Admin Dose 100 MG; Start 02/20/17 at 22:30 Warfarin Sodium (Coumadin) 7.5 mg DAILY@17 PO Last administered on 6/29/17at 17 :34; Admin Dose 7.5 MG; Start 02/22/17 at 17:37 ZHAO RYAN Feb 23, 2017 17:55
[2017-02-23] MEDS: morphine 2 MG INJ IV PRN (20:50)
[2017-02-23] MEDS: ZOLPIDEM 5 MG TAB PO PRN (20:50)
[2017-02-24] VITALS (12 sets, daily range): BP systolic 125–165; BP diastolic 66–88; PULSE 83–90; RESP 19–21
[2017-02-24] MEDS: PANTOPRAZOLE (EC) 40 MG TAB PO SCH (05:24)
[2017-02-24 07:29] LABS: BASOPHILS % 0.6 % (0.0-2.0); EOSINOPHILS # 0.4 10^3/ul (0.0-0.5); EOSINOPHILS % 6.5 % (0.0-7.0); HEMATOCRIT 31.6 % (42.0-52.0); LYMPHOCYTES # 1.7 10^3/ul (0.8-2.9); LYMPHOCYTES % 25.1 % (15.0-51.0); MEAN CORPUSCULAR HEMOGLOBIN 24.2 pg (29.0-33.0); MEAN CORPUSCULAR HGB CONC 31.6 g/dl (32.0-37.0); MEAN CORPUSCULAR VOLUME 76.5 fl (82.0-101.0); MEAN PLATELET VOLUME 9.8 fl (7.4-10.4); NEUTROPHIL # 3.6 10^3/ul (1.6-7.5); NEUTROPHILS % 53.5 % (39.0-77.0); PLATELET COUNT 367 10^3/UL (140-415); RED BLOOD COUNT 4.13 10^6/ul (4.70-6.10); RED CELL DISTRIBUTION WIDTH 14.4 % (11.5-14.5); WHITE BLOOD COUNT 6.8 10^3/ul (4.8-10.8)
[2017-02-24 07:34] LABS: ADD SCAN DIFF NO
[2017-02-24 07:48] LABS: INR 1.2; PROTIME 15.3 Sec (12.2-14.2); PT RATIO 1.2
[2017-02-24 08:00] LABS: CALCIUM 9.6 mg/dl (8.4-10.2); CREATININE 0.99 mg/dl (0.61-1.24); POTASSIUM 3.2 mmol/L (3.5-5.1)
[2017-02-24] MEDS: DOCUSATE SODIUM 100 MG CAP PO SCH ×2 (10:37→21:15)
[2017-02-24] MEDS: AMLODIPINE 10 MG TAB PO SCH (10:38)
[2017-02-24] MEDS: ENOXAPARIN 100 MG/ML SYG SC SCH ×2 (10:40→21:26)
[2017-02-24] MEDS: ARTIFICIAL TEARS 15 ML OPH BOTH EYES SCH ×4 (10:45→21:16)
--- NOTE | 2017-02-24 11:18 | PN ---
Date/Time of Note Date/Time of Note DATE: 02/24/17 TIME: 11:17 Assessment/Plan VTE Prophylaxis VTE Prophylaxis Intervention: LMWH, other (coumadin) Lines/Catheters IV Catheter Type (from Nrs): PICC Line Central line still needed: Yes Urinary Cath still in place: No Assessment/Plan Assessment/Plan 41-year-old morbidly obese male who presented after a recent aortic valve replacement at [facility] secondary to severe aortic stenosis and CHF and was admitted for severe pericardial effusion that had postoperatively. He eventually underwent a pericardial pericardiocentesis with pericardial drain placements February 08, 2017, drain was DC'd February 10, 2017. He started to improve but decompensated again and needed to be reintubated at now has been successfully re-extubated. He is currently being managed for the followin. Status post recurrent ventilator dependent respiratory failure: Improved and stable 2. Morbid obesity with chronic obstructive sleep apnea rule out obesity hypoventilation syndrome contributing to #1 3. S/p severe postoperative pericardial effusion: resolved S/p pericardiocentesis with drain placement and removal 4. CHF exacerbation: Improved compensation remains on gentle diuresis 5. Recent aortic valve replacement on treatment dose anticoagulation with Lovenox to resume Coumadin 6. Hypertension : Control still fluctuating / cardiology titrating meds 7. Polymicrobial UTI 2/p abx , now on antifungal 8. Status post intraoperative cardiac arrest 2 with return of spontaneous circulation 9. Acute inpatient encephalopathy, rule out mild hypoxic injury: Improving 10. Chronic hypochromic anemia: Stable 11. Hypokalemia: improved 12. Mildly elevated troponin postoperatively: No intervention for now cardiology monitoring PLAN: * Continue Coumadin bridge , monitor for bleeding * replace lytes PRN * uptitrate antihypertensives for improved bp control / d/w cardiology * Consider d/c home with HH and SC Lovenox for bridging once INR shows improvement. Increase Coumadin dose. Subjective 24 Hr Interval Summary Free Text/Dictation pt seen, no new issues Exam/Review of Systems Vital Signs Vitals Vital Signs Date Time Temp Pulse Resp B/P Pulse Ox O2 Delivery O2 Flow Rate FiO2 02/24/17 08:20 83 02/24/17 07:14 98.1 19 141/88 97 02/23/17 21:56 21 02/23/17 17:51 3.0 02/22/17 20:00 Nasal Cannula Intake and Output 02/23/17 02/23/17 02/24/17 14:59 22:59 06:59 Intake Total 1260 ml 600 ml Output Total 3000 ml 900 ml Balance -1740 ml -300 ml Exam Constitutional: AAOx3, comfortable Head: atraumatic, normocephalic Eyes: PERRL ENMT: mucosa pink and moist Neck: supple Respiratory: some diminished breath sounds Cardiovascular: S1 S2 No murmurs/extra sounds Gastrointestinal: bowel sounds, soft, No distended Extremities: edema improved Neurological: no focal deficits Results Result Diagram: 02/24/17 0620 02/24/17 0620 Results 24 hrs Laboratory Tests Test 02/24/17 05:55 02/24/17 06:20 Prothrombin Time 15.3 H Prothrombin Time Ratio 1.2 INR International Normalized Ratio 1.20 White Blood Count 6.8 Red Blood Count 4.13 L Hemoglobin 10.0 L Hematocrit 31.6 L Mean Corpuscular Volume 76.5 L Mean Corpuscular Hemoglobin 24.2 L Mean Corpuscular Hemoglobin Concent 31.6 L Red Cell Distribution Width 14.4 Platelet Count 367 Mean Platelet Volume 9.8 Neutrophils % 53.5 Lymphocytes % 25.1 Monocytes % 14.0 H Eosinophils % 6.5 Basophils % 0.6 Nucleated Red Blood Cells % 0.0 Neutrophils # 3.6 Lymphocytes # 1.7 Monocytes # 1.0 H Eosinophils # 0.4 Basophils # 0.0 Nucleated Red Blood Cells # 0.0 Sodium Level 137 Potassium Level 3.2 L Chloride Level 100 Carbon Dioxide Level 26 Anion Gap 14 Blood Urea Nitrogen 24 H Creatinine 0.99 Glucose Level 93 Calcium Level 9.6 Medications Medications Current Medications Bisacodyl (Dulcolax) 5 mg DAILY PRN PO CONSTIPATION Last administered on 15:51; Admin Dose 5 MG; Start 02/06/17 at 22:30 Morphine Sulfate (morphine) 2 mg Q2H PRN IV PAIN LEVEL 6-10 Last administered on 02/23/17 20:50; Admin Dose 2 MG; Start 02/08/17 at 15:30 Eye Lubricant (Artificial Tears Oph) 2 drop QID BOTH EYES Last administered on 02/24/17 10:45; Admin Dose 2 DROP; Start 02/08/17 at 21:00 Furosemide (Lasix) 40 mg DAILY IV Last administered on 02/23/17 09:40; Admin Dose 40 MG; Start 02/09/17 at 17:00 Acetaminophen (Tylenol Supp) 650 mg Q6H PRN [place] PAIN AND OR ELEVATED TEMP Last administered on 02/10/17 20:49; Admin Dose 650 MG; Start 02/10/17 at 11:30 Guaifenesin (Robitussin Liquid Cup) 200 mg Q6 PRN PO COUGH Last administered on 02/12/17 11:35; Admin Dose 200 MG; Start 02/11/17 at 23:00 Amlodipine Besylate (Norvasc) 10 mg DAILY PO Last administered on 02/24/17 10: 38; Admin Dose 10 MG; Start 02/12/17 at 13:00 Pantoprazole (Protonix Tab) 40 mg DAILY@06 PO Last administered on 02/24/17 05 :24; Admin Dose 40 MG; Start 02/16/17 at 06:00 IV Flush (NS 10 ml) 10 ml PRN PRN IV FLUSH LINE; Start 02/16/17 at 13:30 Ibuprofen (Motrin) 400 mg Q6H PRN PO PAIN LEVEL 4-7; Start 02/16/17 at 13:30; Status Future Hold Enoxaparin Sodium (Lovenox) 150 mg Q12 SC Last administered on 02/24/17 10:40 ; Admin Dose 150 MG; Start 02/17/17 at 21:00 Zolpidem Tartrate (Ambien) 5 mg HS PRN PO INSOMNIA Last administered on 20:50; Admin Dose 5 MG; Start 02/18/17 at 12:00 Lorazepam (Ativan) 1 mg Q6H PRN PO ANXIETY; Start 02/18/17 at 15:30 Lorazepam (Ativan) 0.5 mg Q4H PRN PO AGITATION/ANXIETY Last administered on 21:16; Admin Dose 0.5 MG; Start 02/18/17 at 15:30 Hydralazine HCl (Apresoline) 10 mg Q6H PRN IV ELEVATED BLOOD PRESSURE; Start at 15:00 Docusate Sodium (Colace) 100 mg Q12H PO Last administered on 02/24/17 10:37; Admin Dose 100 MG; Start 02/20/17 at 22:30 Warfarin Sodium (Coumadin) 7.5 mg DAILY@17 PO Last administered on 02/23/17t 17 :34; Admin Dose 7.5 MG; Start 02/22/17 at 17:37 Potassium Chloride 40 meq 40 meq Q4H PO ; Start 02/24/17 at 11:30; Stop at 15:31 Fluconazole (Diflucan 200 Mg/ NS (Pmx)) 100 ml @ 100 mls/hr Q24H IVPB ; Start 02/24/17 at 12:00 ZHAO RYAN Feb 24, 2017 11:18
[2017-02-24] MEDS: POTASSIUM CHLORIDE (SR) 20 MEQ TAB PO SCH ×2 (12:22→16:51)
[2017-02-24] MEDS: FUROSEMIDE 40 MG INJ IV SCH (12:22)
[2017-02-24] MEDS: FLUCONAZOLE 200 MG/NS (PMX) 100 ML IVPB SCH (13:06)
--- NOTE | 2017-02-24 14:31 | CONS ---
Date/Time of Note Date/Time of Note DATE: 02/24/17 TIME: 14:27 Assessment/Plan Assessment/Plan Chief Complaint/Hosp Course IMp: 1.Pericardial effusion-moderate to severe with ongoing sob/tachycardia. Now Post -op s/p pericardial window with cardiac arrest during induction requiring compressions. s/p extubation and removal of drains. f/u post-op Echo 02/09 revealing resolution of pericardial effusion 2.AVR-mech 2 weeks prior 3.Tachycardia 4.Leukocytosis 5.Coagulopathy 6. Positive troponin-minimal s/p recent cardiac surgery-slowly downtrending 7. Hypercapneic resp failure requiring intubation- now improved s/p extubation 8.Hemoptysis-now resolved and back on coumadin 9.HTN-mildly elevated Recc: -Tele -Follow BP/volume status closely -Continue norvasc and resume ACEI to improve bP control -Continue gentle lasix diuresis -bronchodilators -Follow volume status closely -Follow INR clsoely back on transition from Lovenox to coumadin with D/C plannning once INR starts to uptrend and patient has lovenox outpatient treatment set up for transition Problems: Consultation Date/Type/Reason Admit Date/Time Feb 06, 2017 at 14:40 Initial Consult Date 02/07/2017 Type of Consultation: cardiology Reason for Consultation pericardial effusion Referring Provider: ZHAO RYAN Exam/Review of Systems Vital Signs Vitals Vital Signs Date Time Temp Pulse Resp B/P Pulse Ox O2 Delivery O2 Flow Rate FiO2 02/24/17 12:53 90 02/24/17 11:19 98.5 19 165/84 98 02/23/17 21:56 21 02/23/17 17:51 3.0 02/22/17 20:00 Nasal Cannula Intake and Output 02/23/17 02/23/17 02/24/17 15:00 23:00 07:00 Intake Total 1260 ml 600 ml Output Total 3000 ml 900 ml Balance -1740 ml -300 ml Exam Review of Systems: CONSTITUTIONAL: No fevers, chills. PULMONARY: No sob CARDIOVASCULAR: No chest pain/palpitations GASTROINTESTINAL: No nausea/vomiting. GENITOURINARY: No hematuria/dysuria. MUSCULOSKELETAL: No myagias/arthalgias. PSYCHIATRIC: The patient denies depression. NEUROLOGIC: No weakness Constitutional: alert Psych: no complaints Head: normocephalic ENMT: mucosa pink and moist Neck: supple Respiratory: diminished breath sounds (at bases/B) Cardiovascular: regular rate and rhythm Gastrointestinal: non-tender, soft Musculoskeletal: muscle tone (normal) Extremities: edema (none) Neurological: other (No focal deficits) Results Result Diagram: 02/24/17 0620 02/24/17 0620 Results 24 hrs Laboratory Tests Test 02/24/17 05:55 02/24/17 06:20 Prothrombin Time 15.3 H Prothrombin Time Ratio 1.2 INR International Normalized Ratio 1.20 White Blood Count 6.8 Red Blood Count 4.13 L Hemoglobin 10.0 L Hematocrit 31.6 L Mean Corpuscular Volume 76.5 L Mean Corpuscular Hemoglobin 24.2 L Mean Corpuscular Hemoglobin Concent 31.6 L Red Cell Distribution Width 14.4 Platelet Count 367 Mean Platelet Volume 9.8 Neutrophils % 53.5 Lymphocytes % 25.1 Monocytes % 14.0 H Eosinophils % 6.5 Basophils % 0.6 Nucleated Red Blood Cells % 0.0 Neutrophils # 3.6 Lymphocytes # 1.7 Monocytes # 1.0 H Eosinophils # 0.4 Basophils # 0.0 Nucleated Red Blood Cells # 0.0 Sodium Level 137 Potassium Level 3.2 L Chloride Level 100 Carbon Dioxide Level 26 Anion Gap 14 Blood Urea Nitrogen 24 H Creatinine 0.99 Glucose Level 93 Calcium Level 9.6 Medications Medications Current Medications Bisacodyl (Dulcolax) 5 mg DAILY PRN PO CONSTIPATION Last administered on 15:51; Admin Dose 5 MG; Start 02/06/17 at 22:30 Morphine Sulfate (morphine) 2 mg Q2H PRN IV PAIN LEVEL 6-10 Last administered on 02/23/17 20:50; Admin Dose 2 MG; Start 02/08/17 at 15:30 Eye Lubricant (Artificial Tears Oph) 2 drop QID BOTH EYES Last administered on 02/24/17 10:45; Admin Dose 2 DROP; Start 02/08/17 at 21:00 Furosemide (Lasix) 40 mg DAILY IV Last administered on 02/24/17 12:22; Admin Dose 40 MG; Start 02/09/17 at 17:00 Acetaminophen (Tylenol Supp) 650 mg Q6H PRN [place] PAIN AND OR ELEVATED TEMP Last administered on 02/10/17 20:49; Admin Dose 650 MG; Start 02/10/17 at 11:30 Guaifenesin (Robitussin Liquid Cup) 200 mg Q6 PRN PO COUGH Last administered on 02/12/17 11:35; Admin Dose 200 MG; Start 02/11/17 at 23:00 Amlodipine Besylate (Norvasc) 10 mg DAILY PO Last administered on 02/24/17 10: 38; Admin Dose 10 MG; Start 02/12/17 at 13:00 Pantoprazole (Protonix Tab) 40 mg DAILY@06 PO Last administered on 02/24/17 05 :24; Admin Dose 40 MG; Start 02/16/17 at 06:00 IV Flush (NS 10 ml) 10 ml PRN PRN IV FLUSH LINE; Start 02/16/17 at 13:30 Ibuprofen (Motrin) 400 mg Q6H PRN PO PAIN LEVEL 4-7; Start 02/16/17 at 13:30; Status Future Hold Enoxaparin Sodium (Lovenox) 150 mg Q12 SC Last administered on 02/24/17 10:40 ; Admin Dose 150 MG; Start 02/17/17 at 21:00 Zolpidem Tartrate (Ambien) 5 mg HS PRN PO INSOMNIA Last administered on 20:50; Admin Dose 5 MG; Start 02/18/17 at 12:00 Lorazepam (Ativan) 1 mg Q6H PRN PO ANXIETY; Start 02/18/17 at 15:30 Lorazepam (Ativan) 0.5 mg Q4H PRN PO AGITATION/ANXIETY Last administered on 21:16; Admin Dose 0.5 MG; Start 02/18/17 at 15:30 Hydralazine HCl (Apresoline) 10 mg Q6H PRN IV ELEVATED BLOOD PRESSURE; Start at 15:00 Docusate Sodium (Colace) 100 mg Q12H PO Last administered on 02/24/17 10:37; Admin Dose 100 MG; Start 02/20/17 at 22:30 Potassium Chloride 40 meq 40 meq Q4H PO Last administered on 02/24/17 12:22; Admin Dose 40 MEQ; Start 02/24/17 at 11:30; Stop 02/24/17 at 15:31 Fluconazole (Diflucan 200 Mg/ NS (Pmx)) 100 ml @ 100 mls/hr Q24H IVPB Last administered on 02/24/17t 13:06; Admin Dose 100 MLS/HR; Start 02/24/17 at 12:00 Warfarin Sodium (Coumadin) 10 mg DAILY@17 PO ; Start 02/24/17 at 17:00 MATHEUS JOHNSON Feb 24, 2017 14:30
[2017-02-24] MEDS: WARFARIN 5 MG TAB PO SCH (16:51)
[2017-02-24] MEDS ORDERED: WARFARIN 10 MG TAB PO SCH (17:00)
[2017-02-24] MEDS: ZOLPIDEM 5 MG TAB PO PRN (21:15)
[2017-02-25] VITALS (11 sets, daily range): BP systolic 129–149; BP diastolic 60–80; PULSE 84–92; RESP 18–22
[2017-02-25] MEDS: PANTOPRAZOLE (EC) 40 MG TAB PO SCH (05:10)
[2017-02-25 07:39] LABS: INR 1.25; PROTIME 15.8 Sec (12.2-14.2); PT RATIO 1.2
[2017-02-25] MEDS: BENAZEPRIL 10 MG TAB PO SCH (08:07)
[2017-02-25] MEDS: FUROSEMIDE 40 MG INJ IV SCH (08:07)
[2017-02-25] MEDS: AMLODIPINE 10 MG TAB PO SCH (08:07)
[2017-02-25] MEDS: ENOXAPARIN 100 MG/ML SYG SC SCH ×2 (08:25→21:57)
[2017-02-25] MEDS: ARTIFICIAL TEARS 15 ML OPH BOTH EYES SCH ×4 (08:29→21:00)
[2017-02-25] MEDS: DOCUSATE SODIUM 100 MG CAP PO SCH ×2 (11:14→21:43)
[2017-02-25] MEDS: FLUCONAZOLE 200 MG/NS (PMX) 100 ML IVPB SCH (11:14)
--- NOTE | 2017-02-25 14:20 | CONS ---
Date/Time of Note Date/Time of Note DATE: 02/25/17 TIME: 14:19 Assessment/Plan Assessment/Plan Additional Assessment/Plan 1.Pericardial effusion-moderate to severe with ongoing sob/tachycardia. Now Post -op s/p pericardial window with cardiac arrest during induction requiring compressions. s/p extubation and removal of drains. f/u post-op Echo 02/09 revealing resolution of pericardial effusion 2.AVR-mech 2 weeks prior - INR sub-therapeutic - consider hem onc consult 3.Tachycardia - better now 4.Leukocytosis 5.Coagulopathy 6. Positive troponin-minimal s/p recent cardiac surgery-slowly downtrending - no intervention planned 7. Hypercapneic resp failure requiring intubation- now improved s/p extubation - better 8.Hemoptysis-now resolved and back on coumadin 9.HTN-mildly elevated Consultation Date/Type/Reason Admit Date/Time Feb 06, 2017 at 14:40 Type of Consultation: cardiology Referring Provider: ZHAO RYAN 24 HR Interval Summary Free Text/Dictation NO acute events - INR sub-therapeutic - con't to adjust Rx now - consider hematology consult ROS: No fever, no chills, no nausea, no vomiting, no diarrhea/constipation No recent weight changes No chest pain, no PND, no orthopnea No dizziness, blurred vision No thirst, no heat or cold intolerance Exam/Review of Systems Vital Signs Vitals Vital Signs Date Time Temp Pulse Resp B/P Pulse Ox O2 Delivery O2 Flow Rate FiO2 02/25/17 12:00 92 02/25/17 11:07 98.3 19 130/77 98 02/25/17 01:50 3.0 02/23/17 21:56 21 02/22/17 20:00 Nasal Cannula Intake and Output 02/24/17 02/24/17 02/25/17 15:00 23:00 07:00 Intake Total 120 ml 1200 ml 700 ml Output Total 840 ml 1300 ml 1100 ml Balance -720 ml -100 ml -400 ml Exam General: WN/WD/NAD, AOx 3 HEENT: Unicetric/atraumatic/EOMI (follow commands) NECK: JVD elevated, no thyromegaly Lymph: no lymphadenopathy HEART: regular with no S3, II/ systolic murmur at apex., mech click LUNGS: Coarse sounds ABD: soft, NT, ND, +BS : Intact Neuro: non focal SKIN: chronic changes EXT: trace edema Results Result Diagram: 02/24/1761902/24/17 0620 Results 24 hrs Laboratory Tests Test 02/25/17 06:00 Prothrombin Time 15.8 H Prothrombin Time Ratio 1.2 INR International Normalized Ratio 1.25 Medications Medications Current Medications Bisacodyl (Dulcolax) 5 mg DAILY PRN PO CONSTIPATION Last administered on 15:51; Admin Dose 5 MG; Start 02/06/17 at 22:30 Morphine Sulfate (morphine) 2 mg Q2H PRN IV PAIN LEVEL 6-10 Last administered on 02/23/17 20:50; Admin Dose 2 MG; Start 02/08/17 at 15:30 Eye Lubricant (Artificial Tears Oph) 2 drop QID BOTH EYES Last administered on 02/25/17 08:29; Admin Dose 2 DROP; Start 02/08/17 at 21:00 Furosemide (Lasix) 40 mg DAILY IV Last administered on 02/25/17 08:07; Admin Dose 40 MG; Start 02/09/17 at 17:00 Acetaminophen (Tylenol Supp) 650 mg Q6H PRN [place] PAIN AND OR ELEVATED TEMP Last administered on 02/10/17 20:49; Admin Dose 650 MG; Start 02/10/17 at 11:30 Guaifenesin (Robitussin Liquid Cup) 200 mg Q6 PRN PO COUGH Last administered on 02/12/17 11:35; Admin Dose 200 MG; Start 02/11/17 at 23:00 Amlodipine Besylate (Norvasc) 10 mg DAILY PO Last administered on 02/25/17 08: 07; Admin Dose 10 MG; Start 02/12/17 at 13:00 Pantoprazole (Protonix Tab) 40 mg DAILY@06 PO Last administered on 02/25/17 05: 10; Admin Dose 40 MG; Start 02/16/17 at 06:00 IV Flush (NS 10 ml) 10 ml PRN PRN IV FLUSH LINE; Start 02/16/17 at 13:30 Ibuprofen (Motrin) 400 mg Q6H PRN PO PAIN LEVEL 4-7; Start 02/16/17 at 13:30; Status Future Hold Enoxaparin Sodium (Lovenox) 150 mg Q12 SC Last administered on 02/25/17 08:25; Admin Dose 150 MG; Start 02/17/17 at 21:00 Zolpidem Tartrate (Ambien) 5 mg HS PRN PO INSOMNIA Last administered on 21:15; Admin Dose 5 MG; Start 02/18/17 at 12:00 Lorazepam (Ativan) 1 mg Q6H PRN PO ANXIETY; Start 02/18/17 at 15:30 Lorazepam (Ativan) 0.5 mg Q4H PRN PO AGITATION/ANXIETY Last administered on 21:16; Admin Dose 0.5 MG; Start 02/18/17 at 15:30 Hydralazine HCl (Apresoline) 10 mg Q6H PRN IV ELEVATED BLOOD PRESSURE; Start at 15:00 Docusate Sodium 100 mg 100 mg Q12H PO Last administered on 02/25/17 11:14; Admin Dose 100 MG; Start 02/20/17 at 22:30 Fluconazole (Diflucan 200 Mg/ NS (Pmx)) 100 ml @ 100 mls/hr Q24H IVPB Last administered on 02/25/17 11:14; Admin Dose 100 MLS/HR; Start 02/24/17 at 12:00 Benazepril HCl (Lotensin) 10 mg DAILY PO Last administered on 02/25/17 08:07; Admin Dose 10 MG; Start 02/25/17 at 09:00 Warfarin Sodium (Coumadin) 10 mg DAILY@17 PO Last administered on 02/24/17 16: 51; Admin Dose 10 MG; Start 02/24/17 at 17:00 FARIBA SUBRAMANIAN MD Feb 25, 2017 14:20
[2017-02-25] MEDS: WARFARIN 5 MG TAB PO SCH (17:23)
[2017-02-25] MEDS ORDERED: AL HYDROX/MG HYDROX/SIMETH 30 ML CUP PO PRN (21:30)
[2017-02-25] MEDS: ZOLPIDEM 5 MG TAB PO PRN (23:11)
[2017-02-26] MEDS: PANTOPRAZOLE (EC) 40 MG TAB PO SCH (06:02)
[2017-02-26 06:12] LABS: INR 1.59; PROTIME 19.1 Sec (12.2-14.2); PT RATIO 1.5
[2017-02-26 08:06] VITALS: BP 128/66; RESP 16
[2017-02-26] MEDS: ARTIFICIAL TEARS 15 ML OPH BOTH EYES SCH ×4 (09:00→21:00)
[2017-02-26] MEDS: FUROSEMIDE 40 MG INJ IV SCH (09:22)
[2017-02-26] MEDS: AMLODIPINE 10 MG TAB PO SCH (09:22)
[2017-02-26] MEDS: BENAZEPRIL 10 MG TAB PO SCH (09:22)
[2017-02-26] MEDS: ENOXAPARIN 100 MG/ML SYG SC SCH ×2 (09:24→21:22)
[2017-02-26] MEDS: FLUCONAZOLE 200 MG/NS (PMX) 100 ML IVPB SCH (11:57)
[2017-02-26] MEDS: DOCUSATE SODIUM 100 MG CAP PO SCH ×2 (11:57→21:13)
[2017-02-26] MEDS: POTASSIUM CHLORIDE (SR) 20 MEQ TAB PO SCH ×2 (12:51→17:24)
--- NOTE | 2017-02-26 13:42 | CONS ---
Date/Time of Note Date/Time of Note DATE: 02/26/17 TIME: 13:41 Assessment/Plan Assessment/Plan Additional Assessment/Plan 1.Pericardial effusion-moderate to severe with ongoing sob/tachycardia. Now Post -op s/p pericardial window with cardiac arrest during induction requiring compressions. s/p extubation and removal of drains. f/u post-op Echo 02/09 revealing resolution of pericardial effusion 2.AVR-mech 2 weeks prior - INR sub-therapeutic, but up to 1.59 - consider hem onc consult 3.Tachycardia - better now - off tele 4.Leukocytosis 5.Coagulopathy - COUMADN RESUMED 6. Positive troponin-minimal s/p recent cardiac surgery-slowly downtrending - no intervention planned 7. Hypercapneic resp failure requiring intubation- now improved s/p extubation - better 8.Hemoptysis-now resolved and back on coumadin 9.HTN-mildly elevated Consultation Date/Type/Reason Admit Date/Time Feb 06, 2017 at 14:40 Type of Consultation: cardiology Referring Provider: ZHAO RYAN 24 HR Interval Summary Free Text/Dictation No acute change - INR going up - will monitor clinically ROS: No fever, no chills, no nausea, no vomiting, no diarrhea/constipation No recent weight changes No chest pain, no PND, no orthopnea No dizziness, blurred vision No thirst, no heat or cold intolerance Exam/Review of Systems Vital Signs Vitals Vital Signs Date Time Temp Pulse Resp B/P Pulse Ox O2 Delivery O2 Flow Rate FiO2 02/26/17 08:06 98.4 92 16 128/66 94 02/26/17 03:06 21 02/25/17 23:02 Room Air 02/25/17 22:11 3.0 Intake and Output 02/25/17 02/25/17 02/26/17 15:00 23:00 07:00 Intake Total 1200 ml 400 ml Output Total 1050 ml 900 ml 400 ml Balance -1050 ml 300 ml 0 ml Exam General: WN/WD/NAD, AOx 3 HEENT: Unicetric/atraumatic/EOMI (does not follow commands) NECK: JVD elevated, no thyromegaly Lymph: no lymphadenopathy HEART: regular with no S3, II/ systolic murmur at apex - [facility] click LUNGS: Coarse sounds ABD: soft, NT, ND, +BS : Intact Neuro: non focal SKIN: chronic changes EXT: trace edema Results Result Diagram: 02/24/17 0620 02/24/17 0620 Results 24 hrs Laboratory Tests Test 02/26/17 05:15 Prothrombin Time 19.1 #H Prothrombin Time Ratio 1.5 INR International Normalized Ratio 1.59 Medications Medications Current Medications Bisacodyl (Dulcolax) 5 mg DAILY PRN PO CONSTIPATION Last administered on 15:51; Admin Dose 5 MG; Start 02/06/17 at 22:30 Morphine Sulfate (morphine) 2 mg Q2H PRN IV PAIN LEVEL 6-10 Last administered on 02/23/17 20:50; Admin Dose 2 MG; Start 02/08/17 at 15:30 Eye Lubricant (Artificial Tears Oph) 2 drop QID BOTH EYES Last administered on 02/25/17 08:29; Admin Dose 2 DROP; Start 02/08/17 at 21:00 Furosemide (Lasix) 40 mg DAILY IV Last administered on 02/26/17 09:22; Admin Dose 40 MG; Start 02/09/17 at 17:00 Acetaminophen (Tylenol Supp) 650 mg Q6H PRN [place] PAIN AND OR ELEVATED TEMP Last administered on 02/10/17 20:49; Admin Dose 650 MG; Start 02/10/17 at 11:30 Guaifenesin (Robitussin Liquid Cup) 200 mg Q6 PRN PO COUGH Last administered on 02/12/17 11:35; Admin Dose 200 MG; Start 02/11/17 at 23:00 Amlodipine Besylate (Norvasc) 10 mg DAILY PO Last administered on 02/26/17 09: 22; Admin Dose 10 MG; Start 02/12/17 at 13:00 Pantoprazole (Protonix Tab) 40 mg DAILY@06 PO Last administered on 02/26/17 06: 02; Admin Dose 40 MG; Start 02/16/17 at 06:00 IV Flush (NS 10 ml) 10 ml PRN PRN IV FLUSH LINE; Start 02/16/17 at 13:30 Ibuprofen (Motrin) 400 mg Q6H PRN PO PAIN LEVEL 4-7; Start 02/16/17 at 13:30; Status Future Hold Enoxaparin Sodium (Lovenox) 150 mg Q12 SC Last administered on 02/26/17 09:24; Admin Dose 150 MG; Start 02/17/17 at 21:00 Zolpidem Tartrate (Ambien) 5 mg HS PRN PO INSOMNIA Last administered on 23:11; Admin Dose 5 MG; Start 02/18/17 at 12:00 Lorazepam (Ativan) 1 mg Q6H PRN PO ANXIETY; Start 02/18/17 at 15:30 Lorazepam (Ativan) 0.5 mg Q4H PRN PO AGITATION/ANXIETY Last administered on 21:16; Admin Dose 0.5 MG; Start 02/18/17 at 15:30 Hydralazine HCl (Apresoline) 10 mg Q6H PRN IV ELEVATED BLOOD PRESSURE; Start at 15:00 Docusate Sodium 100 mg 100 mg Q12H PO Last administered on 02/26/17 11:57; Admin Dose 100 MG; Start 02/20/17 at 22:30 Fluconazole (Diflucan 200 Mg/ NS (Pmx)) 100 ml @ 100 mls/hr Q24H IVPB Last administered on 02/26/17 11:57; Admin Dose 100 MLS/HR; Start 02/24/17 at 12:00 Benazepril HCl (Lotensin) 10 mg DAILY PO Last administered on 02/26/17 09:22; Admin Dose 10 MG; Start 02/25/17 at 09:00 Warfarin Sodium (Coumadin) 10 mg DAILY@17 PO Last administered on 02/25/17 17: 23; Admin Dose 10 MG; Start 02/24/17 at 17:00 Simethicone (Mylicon) 80 mg TID PRN PO DISTENSION/GAS/BLOATING Last administered on 02/25/17 21:43; Admin Dose 80 MG; Start 02/25/17 at 21:30 Al Hydrox/Mg Hydrox/Simethicone (Mag-Al Plus) 30 ml Q6H PRN PO GASTROINTESTINAL UPSET; Start 02/25/17 at 21:30 Potassium Chloride (Klor-Con 20) 40 meq Q4H PO Last administered on 02/26/17 12 :51; Admin Dose 40 MEQ; Start 02/26/17 at 12:00; Stop 02/26/17 at 16:01 FARIBA SUBRAMANIAN MD Feb 26, 2017 13:42
[2017-02-26] MEDS: WARFARIN 5 MG TAB PO SCH (17:24)
[2017-02-26] MEDS ORDERED: ENOX100D2 SC (17:25)
--- NOTE | 2017-02-26 17:38 | PN ---
Date/Time of Note Date/Time of Note DATE: 02/26/17 TIME: 17:32 Assessment/Plan VTE Prophylaxis VTE Prophylaxis Intervention: LMWH, other (coumadin) Lines/Catheters IV C[facility]ter Type (from [email or web address] PICC Line Central line still needed: Yes Urinary Cath still in place: No Assessment/Plan Assessment/Plan 41-year-old morbidly obese male who presented after a recent aortic valve replacement at [facility] secondary to severe aortic stenosis and CHF and was admitted for severe pericardial effusion that had postoperatively. He eventually underwent a pericardial pericardiocentesis with pericardial drain placements February 08, 2017, drain was DC'd February 10, 2017. He started to improve but decompensated again and needed to be reintubated at now has been successfully re-extubated. He is currently being managed for the followin. Status post recurrent ventilator dependent respiratory failure: Improved and stable 2. Morbid obesity with chronic obstructive sleep apnea rule out obesity hypoventilation syndrome contributing to #1 3. S/p severe postoperative pericardial effusion: resolved S/p pericardiocentesis with drain placement and removal 4. CHF exacerbation: Improved compensation remains on gentle diuresis 5. Recent aortic valve replacement on treatment dose anticoagulation with Lovenox to resume Coumadin 6. Hypertension : Control still fluctuating / cardiology titrating meds 7. Polymicrobial UTI 2/p abx , now on antifungal 8. Status post intraoperative cardiac arrest 2 with return of spontaneous circulation 9. Acute inpatient encephalopathy, rule out mild hypoxic injury: resolved 10. Chronic hypochromic anemia: Stable 11. Hypokalemia: resolved 12. Mildly elevated troponin postoperatively: No intervention for now cardiology monitoring PLAN: * Continue Coumadin bridge , monitor for bleeding * replace lytes PRN * uptitrate antihypertensives for improved bp control / d/w cardiology * Consider d/c home with HH and SC Lovenox for bridging once INR shows improvement. Increase Coumadin dose.41-year-old morbidly obese male who presented after a recent aortic valve replacement at [facility] secondary to severe aortic stenosis and CHF and was admitted for severe pericardial effusion that had postoperatively. He eventually underwent a pericardial pericardiocentesis with pericardial drain placements February 08, 2017, drain was DC'd February 10, 2017. He started to improve but decompensated again and needed to be reintubated at now has been successfully re-extubated. He is currently being managed for the followin. Status post recurrent ventilator dependent respiratory failure: Improved and stable 2. Morbid obesity with chronic obstructive sleep apnea rule out obesity hypoventilation syndrome contributing to #1 3. S/p severe postoperative pericardial effusion: resolved S/p pericardiocentesis with drain placement and removal 4. CHF exacerbation: Improved compensation remains on gentle diuresis 5. Recent aortic valve replacement on treatment dose anticoagulation with Lovenox to resume Coumadin 6. Hypertension : Control still fluctuating / cardiology titrating meds 7. Polymicrobial UTI 2/p abx , now on antifungal 8. Status post intraoperative cardiac arrest 2 with return of spontaneous circulation 9. Acute inpatient encephalopathy, rule out mild hypoxic injury: Improving 10. Chronic hypochromic anemia: Stable 11. Hypokalemia: improved 12. Mildly elevated troponin postoperatively: No intervention for now cardiology monitoring PLAN: * Continue Coumadin bridge , monitor for bleeding * replace lytes PRN * Patient continues to request discharge, INR is however improving. We will make Lovenox is covered by insurance before authorizing discharge. Since INR is trending up, I do not believe hematology consultation is indicated. Patient just needs time for INR to get therapeutic. Continue in-house management until outpatient arrangements are complete. Regular heart rate now Subjective 24 Hr Interval Summary Free Text/Dictation Still asking for discharge Exam/Review of Systems Vital Signs Vitals Vital Signs Date Time Temp Pulse Resp B/P Pulse Ox O2 Delivery O2 Flow Rate FiO2 02/26/17 08:06 98.4 92 16 128/66 94 02/26/17 03:06 21 02/25/17 23:02 Room Air 02/25/17 22:11 3.0 Intake and Output 02/25/17 02/25/17 02/26/17 15:00 23:00 07:00 Intake Total 1200 ml 400 ml Output Total 1050 ml 900 ml 400 ml Balance -1050 ml 300 ml 0 ml Exam Constitutional: alert, oriented Head: normocephalic Eyes: PERRL ENMT: mucosa pink and moist Neck: supple Respiratory: clear to auscultation Cardiovascular: regular rate and rhythm, No murmurs/extra sounds Gastrointestinal: bowel sounds, non-tender, soft Extremities: No edema Neurological: nl mental status, nl speech, nl strength, No confused, No focal weakness Results Result Diagram: 02/24/1761902/24/17619 Results 24 hrs Laboratory Tests Test 02/26/17 05:15 Prothrombin Time 19.1 #H Prothrombin Time Ratio 1.5 INR International Normalized Ratio 1.59 Medications Medications Current Medications Bisacodyl (Dulcolax) 5 mg DAILY PRN PO CONSTIPATION Last administered on 15:51; Admin Dose 5 MG; Start 02/06/17 at 22:30 Morphine Sulfate (morphine) 2 mg Q2H PRN IV PAIN LEVEL 6-10 Last administered on 02/23/17 20:50; Admin Dose 2 MG; Start 02/08/17 at 15:30 Eye Lubricant (Artificial Tears Oph) 2 drop QID BOTH EYES Last administered on 02/25/17 08:29; Admin Dose 2 DROP; Start 02/08/17 at 21:00 Furosemide (Lasix) 40 mg DAILY IV Last administered on 02/26/17 09:22; Admin Dose 40 MG; Start 02/09/17 at 17:00 Acetaminophen (Tylenol Supp) 650 mg Q6H PRN [place] PAIN AND OR ELEVATED TEMP Last administered on 02/10/17 20:49; Admin Dose 650 MG; Start 02/10/17 at 11:30 Guaifenesin (Robitussin Liquid Cup) 200 mg Q6 PRN PO COUGH Last administered on 02/12/17 11:35; Admin Dose 200 MG; Start 02/11/17 at 23:00 Amlodipine Besylate (Norvasc) 10 mg DAILY PO Last administered on 02/26/17 09: 22; Admin Dose 10 MG; Start 02/12/17 at 13:00 Pantoprazole (Protonix Tab) 40 mg DAILY@06 PO Last administered on 02/26/17 06: 02; Admin Dose 40 MG; Start 02/16/17 at 06:00 IV Flush (NS 10 ml) 10 ml PRN PRN IV FLUSH LINE; Start 02/16/17 at 13:30 Ibuprofen (Motrin) 400 mg Q6H PRN PO PAIN LEVEL 4-7; Start 02/16/17 at 13:30; Status Future Hold Enoxaparin Sodium (Lovenox) 150 mg Q12 SC Last administered on 02/26/17 09:24; Admin Dose 150 MG; Start 02/17/17 at 21:00 Zolpidem Tartrate (Ambien) 5 mg HS PRN PO INSOMNIA Last administered on 23:11; Admin Dose 5 MG; Start 02/18/17 at 12:00 Lorazepam (Ativan) 1 mg Q6H PRN PO ANXIETY; Start 02/18/17 at 15:30 Lorazepam (Ativan) 0.5 mg Q4H PRN PO AGITATION/ANXIETY Last administered on 21:16; Admin Dose 0.5 MG; Start 02/18/17 at 15:30 Hydralazine HCl (Apresoline) 10 mg Q6H PRN IV ELEVATED BLOOD PRESSURE; Start at 15:00 Docusate Sodium 100 mg 100 mg Q12H PO Last administered on 02/26/17 11:57; Admin Dose 100 MG; Start 02/20/17 at 22:30 Fluconazole (Diflucan 200 Mg/ NS (Pmx)) 100 ml @ 100 mls/hr Q24H IVPB Last administered on 02/26/17 11:57; Admin Dose 100 MLS/HR; Start 02/24/17 at 12:00 Benazepril HCl (Lotensin) 10 mg DAILY PO Last administered on 02/26/17 09:22; Admin Dose 10 MG; Start 02/25/17 at 09:00 Warfarin Sodium (Coumadin) 10 mg DAILY@17 PO Last administered on 02/26/17 17: 24; Admin Dose 10 MG; Start 02/24/17 at 17:00 Simethicone (Mylicon) 80 mg TID PRN PO DISTENSION/GAS/BLOATING Last administered on 02/25/17 21:43; Admin Dose 80 MG; Start 02/25/17 at 21:30 Al Hydrox/Mg Hydrox/Simethicone (Mag-Al Plus) 30 ml Q6H PRN PO GASTROINTESTINAL UPSET; Start 02/25/17 at 21:30 ZHAO RYAN Feb 26, 2017 17:38
--- NOTE | 2017-02-26 17:42 | EN ---
Date/Time of Note Date/Time of Note DATE: 02/26/17 TIME: 17:39 Event Note Medicine Medicine Event Note LATE PROGRESS NOTE DATE OF SERVICE: 02/25/17 SUBJECTIVE: Patient requesting discharge OBJECTIVE: Vitals Vital Signs Date Time Temp Pulse Resp B/P Pulse Ox O2 Delivery O2 Flow Rate FiO2 02/25/17 12:00 92 02/25/17 11:07 98.3 19 130/77 98 02/25/17 01:50 3.0 02/23/17 21:56 21 02/22/17 20:00 Nasal Cannula Intake and Output 02/24/17 02/24/17 02/25/17 15:00 23:00 07:00 Intake Total 120 ml 1200 ml 700 ml Output Total 840 ml 1300 ml 1100 ml Balance -720 ml -100 ml -400 ml Exam Constitutional: AAOx3, comfortable Head: atraumatic, normocephalic Eyes: PERRL ENMT: mucosa pink and moist Neck: supple Respiratory: some diminished breath sounds Cardiovascular: S1 S2 No murmurs/ + extra sounds Gastrointestinal: bowel sounds, soft, No distended Extremities: edema improved Neurological: no focal deficits Results Result Diagram: 02/24/1761902/24/17 0620 Results 24 hrs Laboratory Tests Test 02/25/17 06:00 Prothrombin Time 15.8 H Prothrombin Time Ratio 1.2 INR International Normalized Ratio 1.25 Medications Medications Current Medications Bisacodyl (Dulcolax) 5 mg DAILY PRN PO CONSTIPATION Last administered on 15:51; Admin Dose 5 MG; Start 02/06/17 at 22:30 Morphine Sulfate (morphine) 2 mg Q2H PRN IV PAIN LEVEL 6-10 Last administered on 02/23/17 20:50; Admin Dose 2 MG; Start 02/08/17 at 15:30 Eye Lubricant (Artificial Tears Oph) 2 drop QID BOTH EYES Last administered on 02/25/17 08:29; Admin Dose 2 DROP; Start 02/08/17 at 21:00 Furosemide (Lasix) 40 mg DAILY IV Last administered on 02/25/17 08:07; Admin Dose 40 MG; Start 02/09/17 at 17:00 Acetaminophen (Tylenol Supp) 650 mg Q6H PRN [place] PAIN AND OR ELEVATED TEMP Last administered on 02/10/17 20:49; Admin Dose 650 MG; Start 02/10/17 at 11:30 Guaifenesin (Robitussin Liquid Cup) 200 mg Q6 PRN PO COUGH Last administered on 02/12/17 11:35; Admin Dose 200 MG; Start 02/11/17 at 23:00 Amlodipine Besylate (Norvasc) 10 mg DAILY PO Last administered on 02/25/17 08: 07; Admin Dose 10 MG; Start 02/12/17 at 13:00 Pantoprazole (Protonix Tab) 40 mg DAILY@06 PO Last administered on 02/25/17 05: 10; Admin Dose 40 MG; Start 02/16/17 at 06:00 IV Flush (NS 10 ml) 10 ml PRN PRN IV FLUSH LINE; Start 02/16/17 at 13:30 Ibuprofen (Motrin) 400 mg Q6H PRN PO PAIN LEVEL 4-7; Start 02/16/17 at 13:30; Status Future Hold Enoxaparin Sodium (Lovenox) 150 mg Q12 SC Last administered on 02/25/17 08:25; Admin Dose 150 MG; Start 02/17/17 at 21:00 Zolpidem Tartrate (Ambien) 5 mg HS PRN PO INSOMNIA Last administered on 21:15; Admin Dose 5 MG; Start 02/18/17 at 12:00 Lorazepam (Ativan) 1 mg Q6H PRN PO ANXIETY; Start 02/18/17 at 15:30 Lorazepam (Ativan) 0.5 mg Q4H PRN PO AGITATION/ANXIETY Last administered on 21:16; Admin Dose 0.5 MG; Start 02/18/17 at 15:30 Hydralazine HCl (Apresoline) 10 mg Q6H PRN IV ELEVATED BLOOD PRESSURE; Start at 15:00 Docusate Sodium 100 mg 100 mg Q12H PO Last administered on 02/25/17 11:14; Admin Dose 100 MG; Start 02/20/17 at 22:30 Fluconazole (Diflucan 200 Mg/ NS (Pmx)) 100 ml @ 100 mls/hr Q24H IVPB Last administered on 02/25/17 11:14; Admin Dose 100 MLS/HR; Start 02/24/17 at 12:00 Benazepril HCl (Lotensin) 10 mg DAILY PO Last administered on 02/25/17 08:07; Admin Dose 10 MG; Start 02/25/17 at 09:00 Warfarin Sodium (Coumadin) 10 mg DAILY@17 PO Last administered on 02/24/17 16: 51; Admin Dose 10 MG; Start 02/24/17 at 17:00 ASSESSMENT: 41-year-old morbidly obese male who presented after a recent aortic valve replacement at [facility] secondary to severe aortic stenosis and CHF and was admitted for severe pericardial effusion that had postoperatively. He eventually underwent a pericardial pericardiocentesis with pericardial drain placements February 08, 2017, drain was DC'd February 10, 2017. He started to improve but decompensated again and needed to be reintubated at now has been successfully re-extubated. He is currently being managed for the followin. Status post recurrent ventilator dependent respiratory failure: Improved and stable 2. Morbid obesity with chronic obstructive sleep apnea rule out obesity hypoventilation syndrome contributing to #1 3. S/p severe postoperative pericardial effusion: resolved S/p pericardiocentesis with drain placement and removal 4. CHF exacerbation: Improved compensation remains on gentle diuresis 5. Recent aortic valve replacement on treatment dose anticoagulation with Lovenox to resume Coumadin 6. Hypertension : Control still fluctuating / cardiology titrating meds 7. Polymicrobial UTI 2/p abx , now on antifungal 8. Status post intraoperative cardiac arrest 2 with return of spontaneous circulation 9. Acute inpatient encephalopathy, rule out mild hypoxic injury: Improving 10. Chronic hypochromic anemia: Stable 11. Hypokalemia: improved 12. Mildly elevated troponin postoperatively: No intervention for now cardiology monitoring PLAN: * Continue Coumadin bridge , monitor for bleeding * replace lytes PRN * Consider d/c home with HH and SC Lovenox for bridging once INR shows improvement. Spoke extensively with cardiology, the only drug adequately studied for anticoagulation with valve replacement his Coumadin. If patient does not show response to Coumadin, he may need hematology consultation for possible Coumadin resistance. Will follow up in [facility] Mo Feb 26, 2017 17:42
[2017-02-26 19:46] VITALS: BP 154/74; RESP 18
[2017-02-26] MEDS: ZOLPIDEM 5 MG TAB PO PRN (21:13)
[2017-02-27] MEDS: PANTOPRAZOLE (EC) 40 MG TAB PO SCH (05:25)
[2017-02-27 05:56] LABS: INR 1.86; PROTIME 21.6 Sec (12.2-14.2); PT RATIO 1.7
[2017-02-27 07:31] VITALS: BP 125/64; RESP 18
[2017-02-27] MEDS: ARTIFICIAL TEARS 15 ML OPH BOTH EYES SCH ×4 (09:00→20:59)
[2017-02-27] MEDS: DOCUSATE SODIUM 100 MG CAP PO SCH ×2 (09:50→20:58)
[2017-02-27] MEDS: ASPIRIN 81 MG TAB PO SCH (09:50)
[2017-02-27] MEDS: FUROSEMIDE 40 MG INJ IV SCH (09:51)
[2017-02-27] MEDS: BENAZEPRIL 10 MG TAB PO SCH (09:51)
[2017-02-27] MEDS: AMLODIPINE 10 MG TAB PO SCH (09:51)
[2017-02-27] MEDS: ENOXAPARIN 100 MG/ML SYG SC SCH ×2 (10:03→20:56)
--- NOTE | 2017-02-27 10:57 | CONS ---
Date/Time of Note Date/Time of Note DATE: 02/27/17 TIME: 10:56 Assessment/Plan Assessment/Plan Additional Assessment/Plan 1.Pericardial effusion-moderate to severe with ongoing sob/tachycardia. Now Post -op s/p pericardial window with cardiac arrest during induction requiring compressions. s/p extubation and removal of drains. f/u post-op Echo 02/09 revealing resolution of pericardial effusion 2.AVR-mech 2 weeks prior - INR sub-therapeutic, but GOING UP - consider hem onc consult - LIKELY D/C soon 3.Tachycardia - better now - off tele 4.Leukocytosis 5.Coagulopathy - COUMADN RESUMED 6. Positive troponin-minimal s/p recent cardiac surgery-slowly downtrending - no intervention planned 7. Hypercapneic resp failure requiring intubation- now improved s/p extubation - better 8.Hemoptysis-now resolved and back on coumadin 9.HTN-mildly elevated Consultation Date/Type/Reason Admit Date/Time Feb 06, 2017 at 14:40 Type of Consultation: cardiology Referring Provider: ZHAO RYAN 24 HR Interval Summary Free Text/Dictation No acute change - off shireen - INR going up now ROS: No fever, no chills, no nausea, no vomiting, no diarrhea/constipation No recent weight changes No chest pain, no PND, no orthopnea No dizziness, blurred vision No thirst, no heat or cold intolerance Exam/Review of Systems Vital Signs Vitals Vital Signs Date Time Temp Pulse Resp B/P Pulse Ox O2 Delivery O2 Flow Rate FiO2 02/27/17 07:31 98.1 87 18 125/64 97 02/26/17 03:06 21 02/25/17 23:02 Room Air 02/25/17 22:11 3.0 Intake and Output 02/26/17 02/26/17 02/27/17 15:00 23:00 07:00 Intake Total 1840 ml 420 ml Output Total 1725 ml 640 ml Balance 115 ml -220 ml Exam General: WN/WD/NAD, AOx 3 HEENT: Unicetric/atraumatic/EOMI (does not follow commands) NECK: JVD elevated, no thyromegaly Lymph: no lymphadenopathy HEART: regular with no S3, II/ systolic murmur at apex, mech click LUNGS: Coarse sounds ABD: soft, NT, ND, +BS : Intact Neuro: non focal SKIN: chronic changes EXT: trace edema Results Result Diagram: 02/24/17 0620 02/24/17 0620 Results 24 hrs Laboratory Tests Test 02/27/17 05:00 Prothrombin Time 21.6 H Prothrombin Time Ratio 1.7 INR International Normalized Ratio 1.86 Medications Medications Current Medications Bisacodyl (Dulcolax) 5 mg DAILY PRN PO CONSTIPATION Last administered on 15:51; Admin Dose 5 MG; Start 02/06/17 at 22:30 Morphine Sulfate (morphine) 2 mg Q2H PRN IV PAIN LEVEL 6-10 Last administered on 02/23/17 20:50; Admin Dose 2 MG; Start 02/08/17 at 15:30 Eye Lubricant (Artificial Tears Oph) 2 drop QID BOTH EYES Last administered on 02/25/17 08:29; Admin Dose 2 DROP; Start 02/08/17 at 21:00 Furosemide (Lasix) 40 mg DAILY IV Last administered on 02/27/17 09:51; Admin Dose 40 MG; Start 02/09/17 at 17:00 Acetaminophen (Tylenol Supp) 650 mg Q6H PRN [place] PAIN AND OR ELEVATED TEMP Last administered on 02/10/17 20:49; Admin Dose 650 MG; Start 02/10/17 at 11:30 Guaifenesin (Robitussin Liquid Cup) 200 mg Q6 PRN PO COUGH Last administered on 02/12/17 11:35; Admin Dose 200 MG; Start 02/11/17 at 23:00 Amlodipine Besylate (Norvasc) 10 mg DAILY PO Last administered on 02/27/17 09: 51; Admin Dose 10 MG; Start 02/12/17 at 13:00 Pantoprazole (Protonix Tab) 40 mg DAILY@06 PO Last administered on 02/27/17 05: 25; Admin Dose 40 MG; Start 02/16/17 at 06:00 IV Flush (NS 10 ml) 10 ml PRN PRN IV FLUSH LINE; Start 02/16/17 at 13:30 Ibuprofen (Motrin) 400 mg Q6H PRN PO PAIN LEVEL 4-7; Start 02/16/17 at 13:30; Status Future Hold Enoxaparin Sodium (Lovenox) 150 mg Q12 SC Last administered on 02/27/17 10:03; Admin Dose 150 MG; Start 02/17/17 at 21:00 Zolpidem Tartrate (Ambien) 5 mg HS PRN PO INSOMNIA Last administered on 21:13; Admin Dose 5 MG; Start 02/18/17 at 12:00 Lorazepam (Ativan) 1 mg Q6H PRN PO ANXIETY; Start 02/18/17 at 15:30 Lorazepam (Ativan) 0.5 mg Q4H PRN PO AGITATION/ANXIETY Last administered on 21:16; Admin Dose 0.5 MG; Start 02/18/17 at 15:30 Hydralazine HCl (Apresoline) 10 mg Q6H PRN IV ELEVATED BLOOD PRESSURE; Start at 15:00 Docusate Sodium 100 mg 100 mg Q12H PO Last administered on 02/27/17 09:50; Admin Dose 100 MG; Start 02/20/17 at 22:30 Fluconazole (Diflucan 200 Mg/ NS (Pmx)) 100 ml @ 100 mls/hr Q24H IVPB Last administered on 02/26/17 11:57; Admin Dose 100 MLS/HR; Start 02/24/17 at 12:00 Benazepril HCl (Lotensin) 10 mg DAILY PO Last administered on 02/27/17 09:51; Admin Dose 10 MG; Start 02/25/17 at 09:00 Warfarin Sodium (Coumadin) 10 mg DAILY@17 PO Last administered on 02/26/17 17: 24; Admin Dose 10 MG; Start 02/24/17 at 17:00 Simethicone (Mylicon) 80 mg TID PRN PO DISTENSION/GAS/BLOATING Last administered on 02/25/17 21:43; Admin Dose 80 MG; Start 02/25/17 at 21:30 Al Hydrox/Mg Hydrox/Simethicone (Mag-Al Plus) 30 ml Q6H PRN PO GASTROINTESTINAL UPSET; Start 02/25/17 at 21:30 Aspirin (Aspirin) 81 mg DAILY PO Last administered on 02/27/17 09:50; Admin Dose 81 MG; Start 02/27/17 at 09:00 FARIBA SUBRAMANIAN MD Feb 27, 2017 10:57
[2017-02-27] MEDS: FLUCONAZOLE 200 MG/NS (PMX) 100 ML IVPB SCH (12:40)
--- NOTE | 2017-02-27 17:05 | PN ---
Date/Time of Note Date/Time of Note DATE: 02/27/17 TIME: 17:04 Assessment/Plan VTE Prophylaxis VTE Prophylaxis Intervention: other Lines/Catheters Urinary Cath still in place: No Assessment/Plan Chief Complaint/Hosp Course 1. Status post recurrent ventilator dependent respiratory failure: Improved and stable 2. Morbid obesity with chronic obstructive sleep apnea rule out obesity hypoventilation syndrome contributing to #1 3. S/p severe postoperative pericardial effusion: resolved S/p pericardiocentesis with drain placement and removal 4. CHF exacerbation: Improved compensation remains on gentle diuresis 5. Recent aortic valve replacement on treatment dose anticoagulation with Lovenox to resume Coumadin 6. Hypertension : Control still fluctuating / cardiology titrating meds 7. Polymicrobial UTI 2/p abx , now on antifungal 8. Status post intraoperative cardiac arrest 2 with return of spontaneous circulation 9. Acute inpatient encephalopathy, rule out mild hypoxic injury: resolved 10. Chronic hypochromic anemia: Stable 11. Hypokalemia: resolved 12. Mildly elevated troponin postoperatively: No intervention for now cardiology monitoring PLAN: * Continue Coumadin bridge , likely DC tomorrow with Coumadin if INR is greater than 2 Problems: Subjective 24 Hr Interval Summary Constitutional: no complaints Exam/Review of Systems Vital Signs Vitals Vital Signs Date Time Temp Pulse Resp B/P Pulse Ox O2 Delivery O2 Flow Rate FiO2 02/27/17 07:31 98.1 87 18 125/64 97 02/26/17 03:06 21 02/25/17 23:02 Room Air 02/25/17 22:11 3.0 Intake and Output 02/26/17 02/26/17 02/27/17 15:00 23:00 07:00 Intake Total 1840 ml 420 ml Output Total 1725 ml 640 ml Balance 115 ml -220 ml Exam Constitutional: alert Respiratory: clear to auscultation Cardiovascular: regular rate and rhythm Gastrointestinal: soft, No distended Musculoskeletal: nl extremities to inspection Results Result Diagram: 02/24/17 0620 02/24/17 0620 Results 24 hrs Laboratory Tests Test 02/27/17 05:00 Prothrombin Time 21.6 H Prothrombin Time Ratio 1.7 INR International Normalized Ratio 1.86 Medications Medications Current Medications Bisacodyl (Dulcolax) 5 mg DAILY PRN PO CONSTIPATION Last administered on t 15:51; Admin Dose 5 MG; Start 02/06/17 at 22:30 Morphine Sulfate (morphine) 2 mg Q2H PRN IV PAIN LEVEL 6-10 Last administered on 02/23/17 20:50; Admin Dose 2 MG; Start 02/08/17 at 15:30 Eye Lubricant (Artificial Tears Oph) 2 drop QID BOTH EYES Last administered on 02/25/17 08:29; Admin Dose 2 DROP; Start 02/08/17 at 21:00 Furosemide (Lasix) 40 mg DAILY IV Last administered on 02/27/17 09:51; Admin Dose 40 MG; Start 02/09/17 at 17:00 Acetaminophen (Tylenol Supp) 650 mg Q6H PRN [place] PAIN AND OR ELEVATED TEMP Last administered on 02/10/17 20:49; Admin Dose 650 MG; Start 02/10/17 at 11:30 Guaifenesin (Robitussin Liquid Cup) 200 mg Q6 PRN PO COUGH Last administered on 02/12/17 11:35; Admin Dose 200 MG; Start 02/11/17 at 23:00 Amlodipine Besylate (Norvasc) 10 mg DAILY PO Last administered on 02/27/17 09: 51; Admin Dose 10 MG; Start 02/12/17 at 13:00 Pantoprazole (Protonix Tab) 40 mg DAILY@06 PO Last administered on 02/27/17 05: 25; Admin Dose 40 MG; Start 02/16/17 at 06:00 IV Flush (NS 10 ml) 10 ml PRN PRN IV FLUSH LINE; Start 02/16/17 at 13:30 Ibuprofen (Motrin) 400 mg Q6H PRN PO PAIN LEVEL 4-7; Start 02/16/17 at 13:30; Status Future Hold Enoxaparin Sodium (Lovenox) 150 mg Q12 SC Last administered on 02/27/17 10:03; Admin Dose 150 MG; Start 02/17/17 at 21:00 Zolpidem Tartrate (Ambien) 5 mg HS PRN PO INSOMNIA Last administered on 21:13; Admin Dose 5 MG; Start 02/18/17 at 12:00 Lorazepam (Ativan) 1 mg Q6H PRN PO ANXIETY; Start 02/18/17 at 15:30 Lorazepam (Ativan) 0.5 mg Q4H PRN PO AGITATION/ANXIETY Last administered on 21:16; Admin Dose 0.5 MG; Start 02/18/17 at 15:30 Hydralazine HCl (Apresoline) 10 mg Q6H PRN IV ELEVATED BLOOD PRESSURE; Start at 15:00 Docusate Sodium 100 mg 100 mg Q12H PO Last administered on 02/27/17 09:50; Admin Dose 100 MG; Start 02/20/17 at 22:30 Fluconazole (Diflucan 200 Mg/ NS (Pmx)) 100 ml @ 100 mls/hr Q24H IVPB Last administered on 02/27/17 12:40; Admin Dose 100 MLS/HR; Start 02/24/17 at 12:00 Benazepril HCl (Lotensin) 10 mg DAILY PO Last administered on 02/27/17 09:51; Admin Dose 10 MG; Start 02/25/17 at 09:00 Warfarin Sodium (Coumadin) 10 mg DAILY@17 PO Last administered on 02/26/17 17: 24; Admin Dose 10 MG; Start 02/24/17 at 17:00 Simethicone (Mylicon) 80 mg TID PRN PO DISTENSION/GAS/BLOATING Last administered on 02/25/17 21:43; Admin Dose 80 MG; Start 02/25/17 at 21:30 Al Hydrox/Mg Hydrox/Simethicone (Mag-Al Plus) 30 ml Q6H PRN PO GASTROINTESTINAL UPSET; Start 02/25/17 at 21:30 Aspirin (Aspirin) 81 mg DAILY PO Last administered on 02/27/17 09:50; Admin Dose 81 MG; Start 02/27/17 at 09:00 GINO LARA Feb 27, 2017 17:05
[2017-02-27] MEDS: WARFARIN 5 MG TAB PO SCH (17:55)
[2017-02-27] MEDS: morphine 2 MG INJ IV PRN (19:23)
[2017-02-27 19:39] VITALS: BP 151/71; RESP 18
[2017-02-28] MEDS: ZOLPIDEM 5 MG TAB PO PRN (01:49)
[2017-02-28 05:43] LABS: ADD SCAN DIFF NO
[2017-02-28 05:47] LABS: BASOPHILS % 0.5 % (0.0-2.0); EOSINOPHILS # 0.4 10^3/ul (0.0-0.5); EOSINOPHILS % 4.4 % (0.0-7.0); HEMOGLOBIN 10.1 g/dl (14.0-18.0); LYMPHOCYTES # 2.2 10^3/ul (0.8-2.9); LYMPHOCYTES % 25.4 % (15.0-51.0); MEAN CORPUSCULAR HEMOGLOBIN 23.7 pg (29.0-33.0); MEAN CORPUSCULAR HGB CONC 30.6 g/dl (32.0-37.0); MEAN CORPUSCULAR VOLUME 77.3 fl (82.0-101.0); MEAN PLATELET VOLUME 9.5 fl (7.4-10.4); MONOCYTE # 1.1 10^3/ul (0.3-0.9); MONOCYTES % 12.6 % (0.0-11.0); NEUTROPHILS % 56.5 % (39.0-77.0); PLATELET COUNT 397 10^3/UL (140-415); RED BLOOD COUNT 4.27 10^6/ul (4.70-6.10); RED CELL DISTRIBUTION WIDTH 14.7 % (11.5-14.5); WHITE BLOOD COUNT 8.8 10^3/ul (4.8-10.8)
[2017-02-28 05:59] LABS: INR 2.12; PT RATIO 1.9
[2017-02-28 06:04] LABS: CALCIUM 9.8 mg/dl (8.4-10.2); CREATININE 0.95 mg/dl (0.61-1.24); POTASSIUM 3.8 mmol/L (3.5-5.1)
[2017-02-28] MEDS: PANTOPRAZOLE (EC) 40 MG TAB PO SCH (06:17)
[2017-02-28 07:48] VITALS: BP 127/67; RESP 20
[2017-02-28] MEDS: ARTIFICIAL TEARS 15 ML OPH BOTH EYES SCH ×2 (08:49→13:00)
[2017-02-28] MEDS ORDERED: COU5 PO (09:41)
[2017-02-28] MEDS ORDERED: AMLO-147 PO (09:41)
--- NOTE | 2017-02-28 09:42 | PDOCDIS ---
Discharge Instructions CONDITION Patient Condition: Good HOME CARE INSTRUCTIONS: Diet Instructions: Reduced Calorie ACTIVITY: Activity Restrictions: No Restrictions FOLLOW UP/APPOINTMENTS Follow-up Plan F/U WITH YOUR PCP IN 1-2 WEEKS, F/'U WITH HOME HEALTH GINO LARA Feb 28, 2017 09:42
[2017-02-28] MEDS: ASPIRIN 81 MG TAB PO SCH (10:10)
[2017-02-28] MEDS: BENAZEPRIL 10 MG TAB PO SCH (10:11)
[2017-02-28] MEDS: AMLODIPINE 10 MG TAB PO SCH (10:11)
[2017-02-28] MEDS: DOCUSATE SODIUM 100 MG CAP PO SCH (10:11)
[2017-02-28] MEDS: FUROSEMIDE 40 MG INJ IV SCH (10:12)
[2017-02-28] MEDS: ENOXAPARIN 100 MG/ML SYG SC SCH (10:51)
[2017-02-28] MEDS: FLUCONAZOLE 200 MG/NS (PMX) 100 ML IVPB SCH (12:00)
--- NOTE | 2017-02-28 13:13 | CONS ---
Date/Time of Note Date/Time of Note DATE: 02/28/17 TIME: 13:12 Assessment/Plan Assessment/Plan Additional Assessment/Plan 1.Pericardial effusion-moderate to severe with ongoing sob/tachycardia. Now Post -op s/p pericardial window with cardiac arrest during induction requiring compressions. s/p extubation and removal of drains. f/u post-op Echo 02/09 revealing resolution of pericardial effusion - BESTTER 2.AVR-mech 2 weeks prior - INR > 2 now - D/C soon 3.Tachycardia - better now - off tele 4.Leukocytosis 5.Coagulopathy - COUMADN RESUMED 6. Positive troponin-minimal s/p recent cardiac surgery-slowly downtrending - no intervention planned 7. Hypercapneic resp failure requiring intubation- now improved s/p extubation - better 8.Hemoptysis-now resolved and back on coumadin 9.HTN-mildly elevated Consultation Date/Type/Reason Admit Date/Time Feb 06, 2017 at 14:40 Type of Consultation: cardiology Referring Provider: ZHAO RYAN 24 HR Interval Summary Free Text/Dictation INR > 2 - better - d/c planned ROS: No fever, no chills, no nausea, no vomiting, no diarrhea/constipation No recent weight changes No chest pain, no PND, no orthopnea No dizziness, blurred vision No thirst, no heat or cold intolerance Exam/Review of Systems Vital Signs Vitals Vital Signs Date Time Temp Pulse Resp B/P Pulse Ox O2 Delivery O2 Flow Rate FiO2 02/28/17 07:48 97.6 90 20 127/67 96 02/26/17 03:06 21 02/25/17 23:02 Room Air 02/25/17 22:11 3.0 Intake and Output 02/27/17 02/27/17 02/28/17 15:00 23:00 07:00 Intake Total 100 ml 1280 ml 600 ml Output Total 900 ml 620 ml Balance 100 ml 380 ml -20 ml Exam General: WN/WD/NAD, AOx 3 HEENT: Unicetric/atraumatic/EOMI ( follow commands) NECK: JVD elevated, no thyromegaly Lymph: no lymphadenopathy HEART: regular with no S3, II/ systolic murmur at apex, mech click LUNGS: Coarse sounds ABD: soft, NT, ND, +BS : Intact Neuro: non focal SKIN: chronic changes EXT: trace edema Results Result Diagram: 02/28/17 0525 02/28/17 0525 Results 24 hrs Laboratory Tests Test 02/28/17 05:25 White Blood Count 8.8 # Red Blood Count 4.27 L Hemoglobin 10.1 L Hematocrit 33.0 L Mean Corpuscular Volume 77.3 L Mean Corpuscular Hemoglobin 23.7 L Mean Corpuscular Hemoglobin Concent 30.6 L Red Cell Distribution Width 14.7 H Platelet Count 397 Mean Platelet Volume 9.5 Neutrophils % 56.5 Lymphocytes % 25.4 Monocytes % 12.6 H Eosinophils % 4.4 Basophils % 0.5 Nucleated Red Blood Cells % 0.0 Neutrophils # 5.0 Lymphocytes # 2.2 Monocytes # 1.1 H Eosinophils # 0.4 Basophils # 0.0 Nucleated Red Blood Cells # 0.0 Prothrombin Time 24.0 H Prothrombin Time Ratio 1.9 INR International Normalized Ratio 2.12 Sodium Level 142 Potassium Level 3.8 Chloride Level 101 Carbon Dioxide Level 26 Anion Gap 19 H Blood Urea Nitrogen 21 H Creatinine 0.95 Glucose Level 99 Calcium Level 9.8 Medications Medications Current Medications Bisacodyl (Dulcolax) 5 mg DAILY PRN PO CONSTIPATION Last administered on 15:51; Admin Dose 5 MG; Start 02/06/17 at 22:30 Morphine Sulfate (morphine) 2 mg Q2H PRN [place] PAIN LEVEL 6-10 Last administered on 02/27/17 19:23; Admin Dose 2 MG; Start 02/08/17 at 15:30 Eye Lubricant (Artificial Tears Oph) 2 drop QID BOTH EYES Last administered on 02/25/17 08:29; Admin Dose 2 DROP; Start 02/08/17 at 21:00 Furosemide (Lasix) 40 mg DAILY IV Last administered on 02/28/17 10:12; Admin Dose 40 MG; Start 02/09/17 at 17:00 Acetaminophen (Tylenol Supp) 650 mg Q6H PRN [place] PAIN AND OR ELEVATED TEMP Last administered on 02/10/17 20:49; Admin Dose 650 MG; Start 02/10/17 at 11:30 Guaifenesin (Robitussin Liquid Cup) 200 mg Q6 PRN PO COUGH Last administered on 02/12/17 11:35; Admin Dose 200 MG; Start 02/11/17 at 23:00 Amlodipine Besylate (Norvasc) 10 mg DAILY PO Last administered on 02/28/17 10: 11; Admin Dose 10 MG; Start 02/12/17 at 13:00 Pantoprazole (Protonix Tab) 40 mg DAILY@06 PO Last administered on 02/28/17 06: 17; Admin Dose 40 MG; Start 02/16/17 at 06:00 IV Flush (NS 10 ml) 10 ml PRN PRN IV FLUSH LINE Last administered on 02/28/17 10:10; Admin Dose 10 ML; Start 02/16/17 at 13:30 Ibuprofen (Motrin) 400 mg Q6H PRN PO PAIN LEVEL 4-7; Start 02/16/17 at 13:30; Status Future Hold Enoxaparin Sodium (Lovenox) 150 mg Q12 SC Last administered on 02/28/17 10:51; Admin Dose 150 MG; Start 02/17/17 at 21:00 Zolpidem Tartrate (Ambien) 5 mg HS PRN PO INSOMNIA Last administered on 01:49; Admin Dose 5 MG; Start 02/18/17 at 12:00 Lorazepam (Ativan) 1 mg Q6H PRN PO ANXIETY; Start 02/18/17 at 15:30 Lorazepam (Ativan) 0.5 mg Q4H PRN PO AGITATION/ANXIETY Last administered on 21:16; Admin Dose 0.5 MG; Start 02/18/17 at 15:30 Hydralazine HCl (Apresoline) 10 mg Q6H PRN IV ELEVATED BLOOD PRESSURE; Start at 15:00 Docusate Sodium 100 mg 100 mg Q12H PO Last administered on 02/28/17 10:11; Admin Dose 100 MG; Start 02/20/17 at 22:30 Fluconazole (Diflucan 200 Mg/ NS (Pmx)) 100 ml @ 100 mls/hr Q24H IVPB Last administered on 02/27/17 12:40; Admin Dose 100 MLS/HR; Start 02/24/17 at 12:00 Benazepril HCl (Lotensin) 10 mg DAILY PO Last administered on 02/28/17 10:11; Admin Dose 10 MG; Start 7/1/17 at 09:00 Warfarin Sodium (Coumadin) 10 mg DAILY@17 PO Last administered on 02/27/17 17: 55; Admin Dose 10 MG; Start 02/24/17 at 17:00 Simethicone (Mylicon) 80 mg TID PRN PO DISTENSION/GAS/BLOATING Last administered on 02/25/17 21:43; Admin Dose 80 MG; Start 02/25/17 at 21:30 Al Hydrox/Mg Hydrox/Simethicone (Mag-Al Plus) 30 ml Q6H PRN PO GASTROINTESTINAL UPSET; Start 02/25/17 at 21:30 Aspirin (Aspirin) 81 mg DAILY PO Last administered on 02/28/17 10:10; Admin Dose 81 MG; Start 02/27/17 at 09:00 FARIBA SUBRAMANIAN MD Feb 28, 2017 13:13
--- NOTE | 2017-02-28 14:34 | DS ---
Date/Time of Note Date/Time of Note DATE: 02/28/17 TIME: 14:22 Discharge Summary Admission/Discharge Info Admit Date/Time Feb 06, 2017 at 14:40 Discharge Date/Time Discharge Diagnosis 1. Status post recurrent ventilator dependent respiratory failure: Resolved 2. Morbid obesity with chronic obstructive sleep apnea rule out obesity hypoventilation syndrome contributing to #1 3. S/p severe postoperative pericardial effusion: resolved S/p pericardiocentesis with drain placement and removal 4. CHF exacerbation: Improved compensation remains on gentle diuresis 5. Recent aortic valve replacement-patient is status post Lovenox bridge, will DC with Coumadin at new higher dose, INR is therapeutic on the day of discharge 6. Hypertension : Patient started on Norvasc during this hospitalization will DC with Norvasc and will continue home benazepril 7. Polymicrobial UTI-colonization 8. Status post intraoperative cardiac arrest 2 with return of spontaneous circulation 9. Acute inpatient encephalopathy, rule out mild hypoxic injury: resolved 10. Chronic hypochromic anemia: Stable 11. Hypokalemia: resolved 12. Mildly elevated troponin postoperatively: No intervention per cardiology Patient Condition: Good Hospital Course Patient is a 41-year-old male with a history of obesity and recent aortic valve replacement. Patient presented with shortness of breath during hospitalization had episode of cardiac arrest with return of circulation. Patient was ultimately intubated and underwent a pericardiocentesis with CT surgery for a significant pericardial effusion. Patient was also found to have CHF exacerbation. Patient was being followed by cardiology as well as pulmonology. Patient did have anoxic encephalopathy which resolved, patient was on a heparin drip and then Lovenox and ultimately was transitioned to Coumadin for his history of AVR. Of note patient did also develop ATN secondary to hypoperfusion but creatinine normalized. Patient's INR ultimately became therapeutic with Coumadin and patient was felt to be stable for DC per cardiology, on the day of discharge patient's vitals labs and physical exam were stable. Home Meds Active Scripts Amlodipine Besylate* (Amlodipine Besylate*) 10 Mg Tablet, 10 MG PO DAILY, #60 TAB Prov:GINO LARA 02/28/17 Warfarin Sod (Coumadin) 5 Mg Tab, 10 MG PO DAILY@17 for 30 Days, TAB Prov:GINO LARA 02/28/17 Furosemide* (Furosemide*) 40 Mg Tablet, 40 MG PO BID for 30 Days, TAB Prov:KATIE BERMUDEZ NP 08/26/16 Reported Medications Cholecalciferol* (Vitamin D3*) 1,000 Unit Tablet, 5000 UNIT PO DAILY, TAB 11/28/16 Benazepril Hcl* (Benazepril Hcl*) 10 Mg Tablet, 10 MG PO DAILY, #30 TAB 11/28/16 Discontinued Reported Medications Warfarin Sodium* (Coumadin*) 5 Mg Tablet, 5 MG PO DAILY, TAB 02/06/17 Discontinued Scripts Aspirin* (Aspirin* Chew) 81 Mg Tab.chew, 81 MG PO DAILY, #30 TAB.CHEW Prov:MARLEEN JOHNS MD 11/28/16 Follow-up Plan 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 Primary Care Provider Not On Staff Doctor Time spent on discharge: > 30 minutes Pending Labs Laboratory Tests Test 02/28/17 05:25 White Blood Count 8.810^3/ul (4.8-10.8) Red Blood Count 4.2710^6/ul (4.70-6.10) Hemoglobin 10.1g/dl (14.0-18.0) Hematocrit 33.0% (42.0-52.0) Mean Corpuscular Volume 77.3fl (82.0-101.0) Mean Corpuscular Hemoglobin 23.7pg (29.0-33.0) Mean Corpuscular Hemoglobin Concent 30.6g/dl (32.0-37.0) Red Cell Distribution Width 14.7% (11.5-14.5) Platelet Count 20158^3/UL (140-415) Mean Platelet Volume 9.5fl (7.4-10.4) Neutrophils % 56.5% (39.0-77.0) Lymphocytes % 25.4% (15.0-51.0) Monocytes % 12.6% (0.0-11.0) Eosinophils % 4.4% (0.0-7.0) Basophils % 0.5% (0.0-2.0) Nucleated Red Blood Cells % 0.0/100WBC (0.0-0.0) Neutrophils # 5.010^3/ul (1.6-7.5) Lymphocytes # 2.210^3/ul (0.8-2.9) Monocytes # 1.110^3/ul (0.3-0.9) Eosinophils # 0.410^3/ul (0.0-0.5) Basophils # 0.010^3/ul (0.0-0.1) Nucleated Red Blood Cells # 0.010^3/ul (0.0-0.0) Prothrombin Time 24.0Sec (12.2-14.2) Prothrombin Time Ratio 1.9 INR International Normalized Ratio 2.12 Sodium Level 142mmol/L (135-144) Potassium Level 3.8mmol/L (3.5-5.1) Chloride Level 101mmol/L (97-110) Carbon Dioxide Level 26mmol/L (21-31) Anion Gap 19 (8-16) Blood Urea Nitrogen 21mg/dl (7-20) Creatinine 0.95mg/dl (0.61-1.24) Glucose Level 99mg/dl (70-220) Calcium Level 9.8mg/dl (8.4-10.2) GINO LARA Feb 28, 2017 14:33
== END 2017-02-28 14:45 | disposition home health service (06) | DRG 314 ==
LOC: E/R 10:52 → ICU 14:40 → TEL 02-12 20:28 → ICU 02-16 09:11 → TEL 02-18 09:08 → MS2 02-25 22:40
PROVIDERS: ADMIT Family Medicine; ATTEND Family Medicine
PROC: 5A1945Z Respiratory Ventilation, 24-96 Consecutive Hours (ICD-10-PCS; 2017-02-08)
PROC: 5A12012 Performance of Cardiac Output, Single, Manual (ICD-10-PCS; 2017-02-08)
PROC: 0W9D30Z Drainage of Pericardial Cavity with Drainage Device, Percutaneous Approach (ICD-10-PCS; principal; 2017-02-08 13:00)
PROC: 30233N1 Transfusion of Nonautologous Red Blood Cells into Peripheral Vein, Percutaneous Approach (ICD-10-PCS; 2017-02-10)
PROC: 02HV33Z Insertion of Infusion Device into Superior Vena Cava, Percutaneous Approach (ICD-10-PCS; 2017-02-16)
PROC: 0BH17EZ Insertion of Endotracheal Airway into Trachea, Via Natural or Artificial Opening (ICD-10-PCS; 2017-02-16)
PROC: 5A1945Z Respiratory Ventilation, 24-96 Consecutive Hours (ICD-10-PCS; 2017-02-16)
DX: I97.89 Other postprocedural complications and disorders of the circulatory system, not elsewhere classified (principal); I46.9 Cardiac arrest, cause unspecified; N17.0 Acute kidney failure with tubular necrosis; J96.01 Acute respiratory failure with hypoxia; J96.02 Acute respiratory failure with hypercapnia; G93.1 Anoxic brain damage, not elsewhere classified; I31.3 Pericardial effusion (noninflammatory); Z68.43 Body mass index [BMI] 50.0-59.9, adult; I11.0 Hypertensive heart disease with heart failure; N39.0 Urinary tract infection, site not specified; R04.2 Hemoptysis; I97.710 Intraoperative cardiac arrest during cardiac surgery; I50.9 Heart failure, unspecified; E66.01 Morbid (severe) obesity due to excess calories; G47.33 Obstructive sleep apnea (adult) (pediatric); E87.6 Hypokalemia; Y83.8 Other surgical procedures as the cause of abnormal reaction of the patient, or of later complication, without mention of misadventure at the time of the procedure; Y92.234 Operating room of hospital as the place of occurrence of the external cause; D50.9 Iron deficiency anemia, unspecified; R33.9 Retention of urine, unspecified; Z95.2 Presence of prosthetic heart valve; Z79.01 Long term (current) use of anticoagulants
CPT/HCPCS: 31500; 36415; 36430; 36569; 36600; 71010; 71250; 71275; 76937; 80048; 80053; 80076; 80202; 81001; 82550; 82553; 82803; 82962; 83735; 83880; 84100; 84484; 85014; 85018; 85025; 85610; 85730; 86850; 86900; 86901; 86920; 87040; 87070; 87075; 87081; 87086; 87102; 87116; 92526; 92610; 93005; 93306; 93312; 93325; 94002; 94003; 94640; 94644; 94660; 94770; 96374; 96375; 97110; 97116; 97162; 97164; 97530; C9113; J0171; J0461; J0696; J1644; J1650; J1940; J2060; J2250; J2270; J2370; J3010; J3370; J3480; J7040; J7050; J7060; J7070; J7999; P9016; Q9967